=== PATIENT | female | born 1945 | race Caucasian/White ===

== ENCOUNTER 2016-10-31 11:32 | Emergency (ER) | payer MEDICARE, OTHER ==
[~2016-10-31 11:32] MED LIST: /WARF25TA OR; ACET65TA OR; ATARAX OR; ATOR1TAB21 PO; AZEL0.055; BUPRPOW2 SL; FIBEPOW PO; GARL500C5 PO; LEVO50TA5 PO; MELO7.5T3 PO; MONT10TA2 PO; MULTIVIT PO; OMEP20TA7 OR; PERCOCET PO; PRED1SUS6 OS; PROA1AER IN; ROYAL JELLY; TRAM50TA2 OR; VALISONE TOP; WELL100T OR; ZOLOFT PO; [UNRECOGNIZED DRUG - OTHER]; [UNRECOGNIZED DRUG - OTHER]; [UNRECOGNIZED DRUG - OTHER]; [UNRECOGNIZED DRUG - OTHER] PO; aleve; meloxicam PO; rosuvastatin PO
--- NOTE | 2016-10-31 12:11 | ECGEPIP ---
Stationary ECG Study [facility] - ED Test Date: 2016-10-31 Pat Name: ANGIE MANLEY Department: Room: - Gender: F Documentation Supervisor: hola : 1945 Requested By: ANA Pettit Order Number: [id number] Reading MD: Sheri Aguillon Measurements Intervals [place] Rate: 92 P: 41 IA: 148 QRS: 21 QRSD: 91 T: 34 QT: 363 QTc: 449 Interpretive Statements SINUS RHYTHM INCREASED RATE 10/08/11 Electronically Signed On 10-31-2016 12:11:46 EST by Sheri Aguillon
[2016-10-31 12:15] LABS: BASO # 0.1 K/mm3 (0.0-0.2); BASO % 0.4 % (0.0-1.0); EOS # 0.1 K/mm3 (0.0-0.50); EOS % 0.5 % (0.0-3.0); LARGE UNSTAINED CELL # 0.1 K/mm3 (0.0-0.4); LARGE UNSTAINED CELL % 0.9 % (0.0-4.0); LYMPH % 13.3 % (24.0-44.0); MEAN CORPUSCULAR HEMOGLOBIN 31.5 pg (27.0-33.0); MEAN CORPUSCULAR HGB CONC 33.5 g/dl (32.0-36.5); MEAN CORPUSCULAR VOLUME 94.1 fl (80.0-96.0); MONO # 0.3 K/mm3 (0.0-0.8); MONO % 2.2 % (0.0-5.0); NEUTROPHILS # 12.5 K/mm3 (1.8-7.7); NEUTROPHILS % 82.7 % (36.0-66.0); PLATELET COUNT, AUTOMATED 366 k/mm3 (150-450); RED CELL DISTRIBUTION WIDTH 12.4 % (11.5-14.5); WHITE BLOOD COUNT 15.1 K/mm3 (4.0-10.0)
--- NOTE | 2016-10-31 12:15 | REP ---
AP portable sitting chest radiograph 10/31/2016 Indication: Shortness of breath Comparison: PA and lateral chest 10/16/2016, 02/04/2013 at [facility] Findings: The cardiomediastinal silhouette is of normal size. There are calcified mediastinal nodes and a calcified granuloma within the right upper lobe, all stable. The patient has bilateral breast implants with partially calcified fibrous capsules. The appearance is unchanged. There has been previous bilateral total shoulder arthroplasty Impression 1. Old granulomatous disease. No acute cardiopulmonary process or significant interval change Signed by Brenda Blake MD 10/31/2016 12:07 P
[2016-10-31 12:30] LABS: ANION GAP 13 MEQ/L (8-16); BLOOD UREA NITROGEN 27 MG/DL (7-18); CALCIUM LEVEL 9.4 MG/DL (8.8-10.2); CARBON DIOXIDE LEVEL 24 MEQ/L (21-32); CHLORIDE LEVEL 104 MEQ/L (98-107); CREATININE FOR GFR 1.27 MG/DL (0.55-1.02); GLUCOSE, FASTING 108 MG/DL (83-110); POTASSIUM SERUM 4.2 MEQ/L (3.5-5.1); SODIUM LEVEL 141 MEQ/L (136-145)
[2016-10-31] MEDS ORDERED: IPRATROPIUM 0.5MG/ALBUTEROL 2.5MG INH SOL UD 3ML (DUONEB)(J7620) As Ordered ONE (12:40)
[2016-10-31] MEDS ORDERED: ALBUTEROL SULFATE 2.5 MG/0.5 ML INH NEB SOLN As Ordered ONE (12:40)
--- NOTE | 2016-10-31 14:19 | EDDOCDS ---
Nurse's Notes [facility] Name: Naomy Huertas Age: 71 yrs Sex: Female : 1945 Arrival Date: 10/31/2016 Time: 11:32 Bed 14 Private MD: Jimena Johnson A Diagnosis: Acute upper respiratory infection, unspecified Presentation: 10/31 11:37 Adult Sepsis Screening: The patient does not have new or worsening altered mentation. kr3 Patient's respiratory rate is less than 22. Systolic blood pressure is greater than 100. Patient has a qSOFA score of 0- Negative Sepsis Screen. Suicide/Homicide risk assessment- the patient denies having any suicidal and/or homicidal ideations and does not present with any other emotional, behavioral or mental health complaints. 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 11:37 Acuity: HARIS Level 3 kr3 11:37 Method Of Arrival: Walkin/Carried/Asstd kr3 11:38 Presenting complaint: Patient states: chest 'blockage' intermittently for 1 week. pain kr3 center of chest and takes breath away. Transition of care: patient was received from allergy and asthma office. 11:49 Red Flag criteria, patient assessed and taken directly to a bed. kr3 Triage Assessment: 11:42 General: Appears in no apparent distress, comfortable, Behavior is cooperative. Pain: kr3 Pain currently is 0 out of 10 on a pain scale. Aggravated by breathing. Respiratory: Onset: The symptoms/episode began/occurred 1 week. Derm: Skin is normal. Historical: - Allergies: multiple allergies but no meds; - Home Meds: 1. Synthroid 50 mcg oral tab 1 tab once daily 2. ProAir HFA 90 mcg/actuation inhalation HFAA 1 puff every 4-6 hours 3. doxycycline hyclate 100 mg Oral cap 1 cap every 12 hours 4. prednisone 5 mg Oral tab 6 tabs once daily 5. levocetirizine 5 mg oral tab 1 tab once daily 6. fluticasone 50 mcg/actuation nasal spsn 1 spray 2 times per day 7. azelastine 137 mcg (0.1 %) nasal spra 2 sprays 2 times per day 8. atorvastatin 40 mg oral tab 1 tab once daily 9. montelukast 10 mg oral tab 1 tab once daily 10. oxycodone-acetaminophen 5-325 mg Oral tab 1 tab every 6 hours - PMHx: Hypercholesterolemia; - PSHx: Shoulder Arthroplasty. Right; Shoulder Arthroplasty, Left; Hip Arthroplasty, Left; Hip Arthroplasty, Right; - Social history: Smoking status: Patient states former smoker of tobacco. No barriers to communication noted, The patient speaks fluent Burkinan, Speaks appropriately for age. - Family history: Not pertinent. - : The pt / caregiver states he / she is not on anticoagulants. Screenin:51 Screening information is obtained from the patient. Fall risk: No risks identified. pml Assistance ADL's: requires no assistance with activities of daily living. Abuse/DV Screen: The patient / caregiver reports he/she is: not in a situation that causes fear, pain or injury. Nutritional screening: No deficits noted. Advance Directives: Currently, there is no health care proxy. home support is adequate. Assessment: 11:51 General: Appears uncomfortable, well nourished, well groomed, Behavior is anxious, pml appropriate for age, cooperative. Pain: Location: chest Quality of pain is described as "like I got the breath knocked out of me". Neurological: Level of Consciousness is awake, alert, Oriented to person, place, time. Cardiovascular: Capillary refill < 3 seconds Rhythm is sinus rhythm No ectopy. Respiratory: Airway is patent Respiratory effort is even, intermittently takes deep gasping breaths and states she feels like her breath is "blocked" Respiratory pattern is hyperventilation Breath sounds are clear bilaterally. GI: Abdomen is non- distended. Derm: Skin is pink, warm & dry. 13:09 Reassessment: Patient states feeling better. Patient states symptoms have improved. pml General: Appears in no apparent distress, Behavior is appropriate for age, cooperative. Pain: Denies pain. Neurological: Level of Consciousness is awake, alert, Oriented to person, place, time. Cardiovascular: Capillary refill < 3 seconds Rhythm is sinus rhythm No ectopy. Respiratory: Airway is patent Respiratory effort is even, unlabored, Respiratory pattern is regular, symmetrical. Derm: Skin is pink, warm & dry. Vital Signs: 11:34 BP 136 / 82; Pulse 102; Resp 18; Temp 98.5(T); Pulse Ox 100% on R/A; Weight 90.72 kg dem1 (R); Height 5 ft. 7 in. (170.18 cm) (R); Pain 0/10; 11:41 BP 154 / 88 (auto/); pml 11:43 Pulse 98 MON; Pulse Ox 94% ; pml 11:56 Pulse 96 MON; Pulse Ox 95% ; pml 11:56 BP 141 / 72 (auto/); pml 12:11 Pulse 92 MON; Pulse Ox 96% ; pml 12:11 BP 134 / 69 (auto/); pml 12:26 Pulse 102 MON; Pulse Ox 96% ; pml 12:26 BP 161 / 79 (auto/); pml 12:56 Pulse 98 MON; Pulse Ox 95% ; pml 12:56 BP 122 / 68 (auto/); pml 14:16 BP 139 / 73; Pulse 105; Resp 20; Temp 96.7(O); Pulse Ox 96% on R/A; Pain 0/10; jjr 11:34 Body Mass Index 31.32 (90.72 kg, 170.18 cm) [facility] Vitals: 11:34 Log In Time: October 31, 2016 at 11:31. [facility] 11:36 RN notified that patient meets Red Flag criteria. [facility] ED Course: 11:33 Patient visited by Hector Elkins. dem1 11:33 Patient moved to Waiting dem1 11:34 Jimena Johnson is Private Physician. [facility] 11:35 Patient visited by Hector Elkins. dem1 11:35 Patient moved to Pre RCE dem1 11:36 Patient visited by Hector Elkins. dem1 11:36 Patient moved to 14 dem1 11:37 Triage Initiated kr3 11:51 The patient / caregiver is instructed regarding the plan of care and ED course. Patient hawk has correct armband on for positive identification. Placed in gown. Bed in low position. Call light in reach. Side rails up X2. telemetry monitor on. Pulse ox on. NIBP on. 11:51 Inserted peripheral IV: 18gauge IV in right antecubital area and blood collected. pml Patient tolerated the procedure well. 11:54 Patient visited by Yeni James,BIRGIT. pml 12:05 Patient visited by Nick Arce PCA. jlf 12:05 Patient visited by Nick Arce PCA. jlf 12:05 EKG done. (by ED staff). Reviewed by Sera Calzada MD. jlf 12:23 Wilton Espitia FNP is PSYCHIATRICP. ke 12:23 Patient visited by Wilton Espitia FNP. ke 12:23 Patient visited by Wilton Espitia FNP. ke 12:30 EKG-ADULT Returned. EDMS 12:35 Chest, 1 View Returned. EDMS 12:53 [facility] Payment Agreement was scanned into [employer] and attached to record. jp5 12:54 Patient visited by Wilton Espitia FNP. ke 13:10 Patient visited by Yeni James RN. pml 13:43 Jimena Johnson is Referral Physician. ke 14:17 Discontinued lock intact, bleeding controlled, pressure dressing applied, No jjr redness/swelling at site. No procedures done that require assistance. Administered Medications: 12:46 Drug: Albuterol 5 mg [albuterol sulfate 2.5 mg/0.5 mL solution for nebulization (1 mL)] 6 Route: Nebulizer; 13:24 Follow up: Response: Nebulizer completed km6 12:46 Drug: Albuterol-Ipratropium 3 ml [ipratropium-albuterol 0.5 mg-3 mg(2.5 mg base)/3 mL km6 nebulization soln (3 mL)] Route: Inhalation; 13:24 Follow up: Response: Nebulizer completed km6 RT: 12:48 Initial Med Neb Given as ordered Patient was instructed and evaluated on procedure km6 Patient tolerated procedure well without adverse effect. Respiratory: Breath sounds are clear bilaterally. Order Results: Lab Order: B-Type Natiuretic Peptide; SPEC'M 10/31/16 11:47 Test: BRAIN NATRIURETIC PEPTIDE; Value: 17.0; Range: <100; Units: PG/ML; Status: F Lab Order: Basic Metabolic Profile; SPEC'M 10/31/16 11:47 Test: GLUCOSE, FASTING; Value: 108; Range: 83-110; Units: MG/DL; Status: F Test: BLOOD UREA NITROGEN; Value: 27; Range: 7-18; Abnormal: Above high normal; Units: MG/DL; Status: F Test: CREATININE FOR GFR; Value: 1.27; Range: 0.55-1.02; Abnormal: Above high normal; Units: MG/DL; Status: F Test: GLOMERULAR FILTRATION RATE; Value: 44.0; Range: >39; Status: F Test: SODIUM LEVEL; Value: 141; Range: 136-145; Units: MEQ/L; Status: F Test: POTASSIUM SERUM; Value: 4.2; Range: 3.5-5.1; Units: MEQ/L; Status: F Test: CHLORIDE LEVEL; Value: 104; Range: 98-107; Units: MEQ/L; Status: F Test: CARBON DIOXIDE LEVEL; Value: 24; Range: 21-32; Units: MEQ/L; Status: F Test: ANION GAP; Value: 13; Range: 8-16; Units: MEQ/L; Status: F Test: CALCIUM LEVEL; Value: 9.4; Range: 8.8-10.2; Units: MG/DL; Status: F Test Note: ; Units are mL/min/1.73 m2 Chronic Kidney Disease Staging per NKF: Stage I & II GFR >=60 Normal to Mildly Decreased Stage III GFR 30-59 Moderately Decreased Stage IV GFR 15-29 Severely Decreased Stage V GFR <15 Very Little GFR Left ESRD GFR <15 on COMMUTER PILOT Lab Order: CBC with Diff; SPEC'M 10/31/16 11:47 Test: WHITE BLOOD COUNT; Value: 15.1; Range: 4.0-10.0; Abnormal: Above high normal; Units: K/mm3; Status: F Test: RED BLOOD COUNT; Value: 4.64; Range: 4.00-5.40; Units: M/mm3; Status: F Test: HEMOGLOBIN; Value: 14.7; Range: 12.0-16.0; Units: g/dl; Status: F Test: HEMATOCRIT; Value: 43.7; Range: 36.0-47.0; Units: %; Status: F Test: MEAN CORPUSCULAR VOLUME; Value: 94.1; Range: 80.0-96.0; Units: fl; Status: F Test: MEAN CORPUSCULAR HEMOGLOBIN; Value: 31.5; Range: 27.0-33.0; Units: pg; Status: F Test: MEAN CORPUSCULAR HGB CONC; Value: 33.5; Range: 32.0-36.5; Units: g/dl; Status: F Test: RED CELL DISTRIBUTION WIDTH; Value: 12.4; Range: 11.5-14.5; Units: %; Status: F Test: PLATELET COUNT, AUTOMATED; Value: 366; Range: 150-450; Units: k/mm3; Status: F Test: NEUTROPHILS %; Value: 82.7; Range: 36.0-66.0; Abnormal: Above high normal; Units: %; Status: F Test: LYMPH %; Value: 13.3; Range: 24.0-44.0; Abnormal: Below low normal; Units: %; Status: F Test: MONO %; Value: 2.2; Range: 0.0-5.0; Units: %; Status: F Test: EOS %; Value: 0.5; Range: 0.0-3.0; Units: %; Status: F Test: BASO %; Value: 0.4; Range: 0.0-1.0; Units: %; Status: F Test: LARGE UNSTAINED CELL %; Value: 0.9; Range: 0.0-4.0; Units: %; Status: F Test: NEUTROPHILS #; Value: 12.5; Range: 1.8-7.7; Abnormal: Above high normal; Units: K/mm3; Status: F Test: LYMPH #; Value: 2.0; Range: 1.5-4.5; Units: K/mm3; Status: F Test: MONO #; Value: 0.3; Range: 0.0-0.8; Units: K/mm3; Status: F Test: EOS #; Value: 0.1; Range: 0.0-0.50; Units: K/mm3; Status: F Test: BASO #; Value: 0.1; Range: 0.0-0.2; Units: K/mm3; Status: F Test: LARGE UNSTAINED CELL #; Value: 0.1; Range: 0.0-0.4; Units: K/mm3; Status: F Lab Order: Troponin; SPEC'M 10/31/16 11:47 Test: TROPONIN I; Value: < 0.02; Range: < 0.10; Units: NG/ML; Status: F Test Note: ; Troponin I Reference Interval for [place] LOCI: 99th Percentile= 0.00-0.045 ng/ml Risk Stratification: <= 0.10 ng/ml Decreased Risk for Adverse Clinical Events. 0.10-1.50 ng/ml Increased Risk for Adverse Clinical Events. Evaluation of additional criterion and/or repeat testing in 2-6 hours is suggested to rule out myocardial damage. >= 1.50 ng/ml Indicative of Myocardial Injury. Radiology Order: Chest, 1 View Test: Chest, 1 View REASON FOR EXAMINATION: Shortness of Breath; AP portable sitting chest radiograph 10/31/2016; ; Indication: Shortness of breath; ; Comparison: PA and lateral chest 10/16/2016, 02/04/2013 at [facility] Findings: The; cardiomediastinal silhouette is of normal size. There are calcified mediastinal; nodes and a calcified granuloma within the right upper lobe, all stable. The; patient has bilateral breast implants with partially calcified fibrous capsules.; The appearance is unchanged.; ; There has been previous bilateral total shoulder arthroplasty; ; Impression; 1. Old granulomatous disease. 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 14:17 Discharge Assessment: patient administered narcotics - no. The following High Risk jjr Discharge criteria are identified: None. Discharged to home ambulatory. Condition: stable. Discharge instructions given to patient, Instructed on discharge instructions, follow up and referral plans. Demonstrated understanding of instructions. No special radiology studies were completed. Property sent home with patient. 14:18 Patient left the ED. jjr Signatures: Dispatcher [employer] EDMS Wilton Espitia, DUCK FARMER DUCK FARMER [place] km6 Kirstie Arizmendi,RN RN kr3 Maryellen Gonzalez RN RN jjr Quay, Paulina, RN RN pml Mack, Demeishia dem1 Nick Arce, CREPING MACHINE OPERATOR CREPING MACHINE OPERATOR jlf Sohan Berry 5 Corrections: (The following items were deleted from the chart) 12:21 11:42 Home Meds: montelukast oral oral once daily; kr3 pml 12:21 11:42 Home Meds: Synthroid Oral once daily; kr3 pml MTDD
--- NOTE | 2016-10-31 14:19 | EDDOCDS ---
Physician Documentation [facility] Name: Naomy Huertas Age: 71 yrs Sex: Female : 1945 Arrival Date: 10/31/2016 Time: 11:32 Bed 14 Private MD: Jimena Johnson A Disposition: 10/31/16 13:43 Discharged to Home/Self Care. Impression: Acute upper respiratory infection, unspecified. - Condition is Stable. - Discharge Instructions: Upper Respiratory Infection, Adult. - Medication Reconciliation, Local Pharmacy Hours form. - Follow up: Jimena Johnson; When: 4 - 5 days; Reason: Recheck today's complaints, Continuance of care. - Problem is an ongoing problem. - Symptoms are unchanged. - Notes: continue present treatment Historical: - Allergies: multiple allergies but no meds; - Home Meds: 1. Synthroid 50 mcg oral tab 1 tab once daily 2. ProAir HFA 90 mcg/actuation inhalation HFAA 1 puff every 4-6 hours 3. doxycycline hyclate 100 mg Oral cap 1 cap every 12 hours 4. prednisone 5 mg Oral tab 6 tabs once daily 5. levocetirizine 5 mg oral tab 1 tab once daily 6. fluticasone 50 mcg/actuation nasal spsn 1 spray 2 times per day 7. azelastine 137 mcg (0.1 %) nasal spra 2 sprays 2 times per day 8. atorvastatin 40 mg oral tab 1 tab once daily 9. montelukast 10 mg oral tab 1 tab once daily 10. oxycodone-acetaminophen 5-325 mg Oral tab 1 tab every 6 hours - PMHx: Hypercholesterolemia; - PSHx: Shoulder Arthroplasty. Right; Shoulder Arthroplasty, Left; Hip Arthroplasty, Left; Hip Arthroplasty, Right; - Social history: Smoking status: Patient states former smoker of tobacco. No barriers to communication noted, The patient speaks fluent Croatian, Speaks appropriately for age. - Family history: Not pertinent. - : The pt / caregiver states he / she is not on anticoagulants. Vital Signs: 10/31 11:34 BP 136 / 82; Pulse 102; Resp 18; Temp 98.5(T); Pulse Ox 100% on R/A; Weight 90.72 kg / dem1 200 lbs (R); Height 5 ft. 7 in. (170.18 cm) (R); Pain 0/10; 11:41 BP 154 / 88 (auto/); pml 11:43 Pulse 98 MON; Pulse Ox 94% ; pml 11:56 Pulse 96 MON; Pulse Ox 95% ; pml 11:56 BP 141 / 72 (auto/); pml 12:11 Pulse 92 MON; Pulse Ox 96% ; pml 12:11 BP 134 / 69 (auto/); pml 12:26 Pulse 102 MON; Pulse Ox 96% ; pml 12:26 BP 161 / 79 (auto/); pml 12:56 Pulse 98 MON; Pulse Ox 95% ; pml 12:56 BP 122 / 68 (auto/); pml 14:16 BP 139 / 73; Pulse 105; Resp 20; Temp 96.7(O); Pulse Ox 96% on R/A; Pain 0/10; jjr 11:34 Body Mass Index 31.32 (90.72 kg, 170.18 cm) dem1 MDM: 11:39 -Blood Culture (Adults Only), peripheral from different site, or from device/port/PICC fg etc. if present ordered. 11:39 Java Lead Developer/Pulse Ox/q 15 min VS ordered. fg 11:39 IV Saline Lock ordered. fg 11:39 Oxygen at 4L/Min NC or Home dosage ordered. fg 11:39 Rhythm Strip to chart ordered. fg 11:40 B-Type Natiuretic Peptide Ordered. EDMS 11:40 Basic Metabolic Profile Ordered. EDMS 11:40 CBC with Diff Ordered. EDMS 11:40 Troponin Ordered. EDMS 11:40 -Blood Culture Ordered. EDMS 11:40 Chest, 1 View Ordered. EDMS 11:40 ECG WITH READING ER PHYS+CARDIAG ordered. EDMS 12:03 -Blood Culture (Adults Only), peripheral from different site, or from device/port/PICC jrd etc. if present complete. 12:04 BLOOD CULTURES Ordered. EDMS 12:27 Albuterol 5 mg Nebulizer once ordered. ke 12:27 Albuterol-Ipratropium 3 ml Inhalation once ordered. ke 12:27 Call Respiratory ordered. ke 12:31 Call Respiratory complete. jrd 12:53 [facility] Payment Agreement was scanned into [employer] and attached to record. jp5 12:53 Financial registration complete. jp5 13:36 Basic Metabolic Profile Reviewed. ke 13:36 CBC with Diff Reviewed. ke 13:36 Troponin Reviewed. kylie 13:36 Chest, 1 View Reviewed. ke 13:36 EKG-ADULT Reviewed. ke Administered Medications: 12:46 Drug: Albuterol 5 mg [albuterol sulfate 2.5 mg/0.5 mL solution for nebulization (1 mL)] km6 Route: Nebulizer; 13:24 Follow up: Response: Nebulizer completed km6 12:46 Drug: Albuterol-Ipratropium 3 ml [ipratropium-albuterol 0.5 mg-3 mg(2.5 mg base)/3 mL km6 nebulization soln (3 mL)] Route: Inhalation; 13:24 Follow up: Response: Nebulizer completed km6 Signatures: Dispatcher [employer] EDWilton Chaudhry, PUPPET MASTER PUPPET MASTER Kirstie DoddRN RN kr3 Maryellen Gonzalez RN Yeni RoblesRN Asif Reyes PCA PCA jrd Price, Jennalee jp5 Sera Calzada MD MD fg Merriman, Kimberly 6 The chart was reviewed and I authenticate all verbal orders and agree with the evaluation and treatment provided.Corrections: (The following items were deleted from the chart) 12:21 11:42 Home Meds: montelukast oral oral once daily; kr3 pml 12:21 11:42 Home Meds: Synthroid Oral once daily; kr3 pml Attachments: 12:53 REPLACED BY [facility] Payment Agreement jp5 MTDD
--- NOTE | 2016-11-02 15:19 | EDDOCDS ---
Nurse's Notes [facility] Name: Naomy Huertas Age: 71 yrs Sex: Female : 1945 Arrival Date: 10/31/2016 Time: 11:32 Bed 14 Private MD: Jimena Johnson A Diagnosis: Acute upper respiratory infection, unspecified Presentation: 10/31 11:37 Adult Sepsis Screening: The patient does not have new or worsening altered mentation. kr3 Patient's respiratory rate is less than 22. Systolic blood pressure is greater than 100. Patient has a qSOFA score of 0- Negative Sepsis Screen. Suicide/Homicide risk assessment- the patient denies having any suicidal and/or homicidal ideations and does not present with any other emotional, behavioral or mental health complaints. Status: Patient is not a director of home health services or dependent. 11:37 Acuity: HARIS Level 3 kr3 11:37 Method Of Arrival: Walkin/Carried/Asstd kr3 11:38 Presenting complaint: Patient states: chest 'blockage' intermittently for 1 week. pain kr3 center of chest and takes breath away. Transition of care: patient was received from allergy and asthma office. 11:49 Red Flag criteria, patient assessed and taken directly to a bed. kr3 Triage Assessment: 11:42 General: Appears in no apparent distress, comfortable, Behavior is cooperative. Pain: kr3 Pain currently is 0 out of 10 on a pain scale. Aggravated by breathing. Respiratory: Onset: The symptoms/episode began/occurred 1 week. Derm: Skin is normal. Historical: - Allergies: multiple allergies but no meds; - Home Meds: 1. Synthroid 50 mcg oral tab 1 tab once daily 2. ProAir HFA 90 mcg/actuation inhalation HFAA 1 puff every 4-6 hours 3. doxycycline hyclate 100 mg Oral cap 1 cap every 12 hours 4. prednisone 5 mg Oral tab 6 tabs once daily 5. levocetirizine 5 mg oral tab 1 tab once daily 6. fluticasone 50 mcg/actuation nasal spsn 1 spray 2 times per day 7. azelastine 137 mcg (0.1 %) nasal spra 2 sprays 2 times per day 8. atorvastatin 40 mg oral tab 1 tab once daily 9. montelukast 10 mg oral tab 1 tab once daily 10. oxycodone-acetaminophen 5-325 mg Oral tab 1 tab every 6 hours - PMHx: Hypercholesterolemia; - PSHx: Shoulder Arthroplasty. Right; Shoulder Arthroplasty, Left; Hip Arthroplasty, Left; Hip Arthroplasty, Right; - Social history: Smoking status: Patient states former smoker of tobacco. No barriers to communication noted, The patient speaks fluent Afghan, Speaks appropriately for age. - Family history: Not pertinent. - : The pt / caregiver states he / she is not on anticoagulants. Screenin:51 Screening information is obtained from the patient. Fall risk: No risks identified. pml Assistance ADL's: requires no assistance with activities of daily living. Abuse/DV Screen: The patient / caregiver reports he/she is: not in a situation that causes fear, pain or injury. Nutritional screening: No deficits noted. Advance Directives: Currently, there is no health care proxy. home support is adequate. Assessment: 11:51 General: Appears uncomfortable, well nourished, well groomed, Behavior is anxious, pml appropriate for age, cooperative. Pain: Location: chest Quality of pain is described as "like I got the breath knocked out of me". Neurological: Level of Consciousness is awake, alert, Oriented to person, place, time. Cardiovascular: Capillary refill < 3 seconds Rhythm is sinus rhythm No ectopy. Respiratory: Airway is patent Respiratory effort is even, intermittently takes deep gasping breaths and states she feels like her breath is "blocked" Respiratory pattern is hyperventilation Breath sounds are clear bilaterally. GI: Abdomen is non- distended. Derm: Skin is pink, warm & dry. 13:09 Reassessment: Patient states feeling better. Patient states symptoms have improved. pml General: Appears in no apparent distress, Behavior is appropriate for age, cooperative. Pain: Denies pain. Neurological: Level of Consciousness is awake, alert, Oriented to person, place, time. Cardiovascular: Capillary refill < 3 seconds Rhythm is sinus rhythm No ectopy. Respiratory: Airway is patent Respiratory effort is even, unlabored, Respiratory pattern is regular, symmetrical. Derm: Skin is pink, warm & dry. Vital Signs: 11:34 BP 136 / 82; Pulse 102; Resp 18; Temp 98.5(T); Pulse Ox 100% on R/A; Weight 90.72 kg dem1 (R); Height 5 ft. 7 in. (170.18 cm) (R); Pain 0/10; 11:41 BP 154 / 88 (auto/); pml 11:43 Pulse 98 MON; Pulse Ox 94% ; pml 11:56 Pulse 96 MON; Pulse Ox 95% ; pml 11:56 BP 141 / 72 (auto/); pml 12:11 Pulse 92 MON; Pulse Ox 96% ; pml 12:11 BP 134 / 69 (auto/); pml 12:26 Pulse 102 MON; Pulse Ox 96% ; pml 12:26 BP 161 / 79 (auto/); pml 12:56 Pulse 98 MON; Pulse Ox 95% ; pml 12:56 BP 122 / 68 (auto/); pml 14:16 BP 139 / 73; Pulse 105; Resp 20; Temp 96.7(O); Pulse Ox 96% on R/A; Pain 0/10; jjr 11:34 Body Mass Index 31.32 (90.72 kg, 170.18 cm) [facility] Vitals: 11:34 Log In Time: October 31, 2016 at 11:31. [facility] 11:36 RN notified that patient meets Red Flag criteria. [facility] ED Course: 11:33 Patient visited by Hector Elkins. dem1 11:33 Patient moved to Waiting dem1 11:34 Jimena Johnson is Private Physician. [facility] 11:35 Patient visited by Hector Elkins. dem1 11:35 Patient moved to Pre RCE dem1 11:36 Patient visited by Hector Elkins. dem1 11:36 Patient moved to 14 dem1 11:37 Triage Initiated kr3 11:51 The patient / caregiver is instructed regarding the plan of care and ED course. Patient hawk has correct armband on for positive identification. Placed in gown. Bed in low position. Call light in reach. Side rails up X2. quality assurance monitor chassis on. Pulse ox on. NIBP on. 11:51 Inserted peripheral IV: 18gauge IV in right antecubital area and blood collected. pml Patient tolerated the procedure well. 11:54 Patient visited by Yeni James,BIRGIT. pml 12:05 Patient visited by Nick Arce PCA. jlf 12:05 Patient visited by Nick Arce PCA. jlf 12:05 EKG done. (by ED staff). Reviewed by Sera Calzada MD. jlf 12:23 [facility] ke 12:23 Patient visited by Wilton Espitia FNP. ke 12:23 Patient visited by Wilton Espitia FNP. ke 12:30 EKG-ADULT Returned. EDMS 12:35 Chest, 1 View Returned. EDMS 12:53 [facility] Payment Agreement was scanned into [employer] and attached to record. jp5 12:54 Patient visited by Wilton Espitia FNP. ke 13:10 Patient visited by Yeni James RN. pml 13:43 Jimena Johnson is Referral Physician. ke 14:17 Discontinued lock intact, bleeding controlled, pressure dressing applied, No jjr redness/swelling at site. No procedures done that require assistance. 11/01 07:44 T-Sheet-- Draft Copy was scanned into [employer] and attached to record. gb 12:20 ECG/EKG was scanned into [employer] and attached to record. gb Administered Medications: 10/31 12:46 Drug: Albuterol 5 mg [albuterol sulfate 2.5 mg/0.5 mL solution for nebulization (1 mL)] [facility] Route: Nebulizer; 13:24 Follow up: Response: Nebulizer completed [facility] 12:46 Drug: Albuterol-Ipratropium 3 ml [ipratropium-albuterol 0.5 mg-3 mg(2.5 mg base)/3 mL [facility] nebulization soln (3 mL)] Route: Inhalation; 13:24 Follow up: Response: Nebulizer completed 6 RT: 12:48 Initial Med Neb Given as ordered Patient was instructed and evaluated on procedure km6 Patient tolerated procedure well without adverse effect. Respiratory: Breath sounds are clear bilaterally. Order Results: Lab Order: -Blood Culture; SPEC'M 10/31/16 11:49 Test: BLOOD CULTURE; Value: No growth after 24 hours . All specimens observed; Status: F Test: BLOOD CULTURE; Value: for 5 days. Results final at that time.; Status: F Test: BLOOD CULTURE; Value: No Growth after 48 hours. All Specimens observed; Status: F Test: BLOOD CULTURE; Value: for 7 days. Results final at that time.; Status: F Lab Order: B-Type Natiuretic Peptide; SPEC'M 10/31/16 11:47 Test: BRAIN NATRIURETIC PEPTIDE; Value: 17.0; Range: <100; Units: PG/ML; Status: F Lab Order: Basic Metabolic Profile; SPEC'M 10/31/16 11:47 Test: GLUCOSE, FASTING; Value: 108; Range: 83-110; Units: MG/DL; Status: F Test: BLOOD UREA NITROGEN; Value: 27; Range: 7-18; Abnormal: Above high normal; Units: MG/DL; Status: F Test: CREATININE FOR GFR; Value: 1.27; Range: 0.55-1.02; Abnormal: Above high normal; Units: MG/DL; Status: F Test: GLOMERULAR FILTRATION RATE; Value: 44.0; Range: >39; Status: F Test: SODIUM LEVEL; Value: 141; Range: 136-145; Units: MEQ/L; Status: F Test: POTASSIUM SERUM; Value: 4.2; Range: 3.5-5.1; Units: MEQ/L; Status: F Test: CHLORIDE LEVEL; Value: 104; Range: 98-107; Units: MEQ/L; Status: F Test: CARBON DIOXIDE LEVEL; Value: 24; Range: 21-32; Units: MEQ/L; Status: F Test: ANION GAP; Value: 13; Range: 8-16; Units: MEQ/L; Status: F Test: CALCIUM LEVEL; Value: 9.4; Range: 8.8-10.2; Units: MG/DL; Status: F Test Note: ; Units are mL/min/1.73 m2 Chronic Kidney Disease Staging per NKF: Stage I & II GFR >=60 Normal to Mildly Decreased Stage III GFR 30-59 Moderately Decreased Stage IV GFR 15-29 Severely Decreased Stage V GFR <15 Very Little GFR Left ESRD GFR <15 on CREDIT COMPLIANCE OFFICER Lab Order: CBC with Diff; SPEC'M 10/31/16 11:47 Test: WHITE BLOOD COUNT; Value: 15.1; Range: 4.0-10.0; Abnormal: Above high normal; Units: K/mm3; Status: F Test: RED BLOOD COUNT; Value: 4.64; Range: 4.00-5.40; Units: M/mm3; Status: F Test: HEMOGLOBIN; Value: 14.7; Range: 12.0-16.0; Units: g/dl; Status: F Test: HEMATOCRIT; Value: 43.7; Range: 36.0-47.0; Units: %; Status: F Test: MEAN CORPUSCULAR VOLUME; Value: 94.1; Range: 80.0-96.0; Units: fl; Status: F Test: MEAN CORPUSCULAR HEMOGLOBIN; Value: 31.5; Range: 27.0-33.0; Units: pg; Status: F Test: MEAN CORPUSCULAR HGB CONC; Value: 33.5; Range: 32.0-36.5; Units: g/dl; Status: F Test: RED CELL DISTRIBUTION WIDTH; Value: 12.4; Range: 11.5-14.5; Units: %; Status: F Test: PLATELET COUNT, AUTOMATED; Value: 366; Range: 150-450; Units: k/mm3; Status: F Test: NEUTROPHILS %; Value: 82.7; Range: 36.0-66.0; Abnormal: Above high normal; Units: %; Status: F Test: LYMPH %; Value: 13.3; Range: 24.0-44.0; Abnormal: Below low normal; Units: %; Status: F Test: MONO %; Value: 2.2; Range: 0.0-5.0; Units: %; Status: F Test: EOS %; Value: 0.5; Range: 0.0-3.0; Units: %; Status: F Test: BASO %; Value: 0.4; Range: 0.0-1.0; Units: %; Status: F Test: LARGE UNSTAINED CELL %; Value: 0.9; Range: 0.0-4.0; Units: %; Status: F Test: NEUTROPHILS #; Value: 12.5; Range: 1.8-7.7; Abnormal: Above high normal; Units: K/mm3; Status: F Test: LYMPH #; Value: 2.0; Range: 1.5-4.5; Units: K/mm3; Status: F Test: MONO #; Value: 0.3; Range: 0.0-0.8; Units: K/mm3; Status: F Test: EOS #; Value: 0.1; Range: 0.0-0.50; Units: K/mm3; Status: F Test: BASO #; Value: 0.1; Range: 0.0-0.2; Units: K/mm3; Status: F Test: LARGE UNSTAINED CELL #; Value: 0.1; Range: 0.0-0.4; Units: K/mm3; Status: F Lab Order: Troponin; SPEC'M 10/31/16 11:47 Test: TROPONIN I; Value: < 0.02; Range: < 0.10; Units: NG/ML; Status: F Test Note: ; Troponin I Reference Interval for Siemens Digital Reef LOCI: 99th Percentile= 0.00-0.045 ng/ml Risk Stratification: <= 0.10 ng/ml Decreased Risk for Adverse Clinical Events. 0.10-1.50 ng/ml Increased Risk for Adverse Clinical Events. Evaluation of additional criterion and/or repeat testing in 2-6 hours is suggested to rule out myocardial damage. >= 1.50 ng/ml Indicative of Myocardial Injury. Lab Order: BLOOD CULTURES; SPEC'M 10/31/16 12:38 Test: BLOOD CULTURE; Value: No growth after 24 hours . All specimens observed; Status: F Test: BLOOD CULTURE; Value: for 5 days. Results final at that time.; Status: F Test: BLOOD CULTURE; Value: No Growth after 48 hours. All Specimens observed; Status: F Test: BLOOD CULTURE; Value: for 7 days. Results final at that time.; Status: F Radiology Order: Chest, 1 View Test: Chest, 1 View REASON FOR EXAMINATION: Shortness of Breath; AP portable sitting chest radiograph 10/31/2016; ; Indication: Shortness of breath; ; Comparison: PA and lateral chest 10/16/2016, 02/04/[address] [facility] Findings: The; cardiomediastinal silhouette is of normal size. There are calcified mediastinal; nodes and a calcified granuloma within the right upper lobe, all stable. The; patient has bilateral breast implants with partially calcified fibrous capsules.; The appearance is unchanged.; ; There has been previous bilateral total shoulder arthroplasty; ; Impression; 1. Old granulomatous disease. No acute cardiopulmonary process or significant; interval change; ; ; ; ; Signed by; Brenda Blake MD 10/31/2016 12:07 P; Radiology Order: EKG-ADULT Test: EKG-ADULT REASON FOR EXAMINATION: Shortness of Breath; Stationary ECG Study; [facility] - ED; ; Test Date: 2016-10-31; Pat Name: NAOMY HUERTAS Department:; Room: -; Gender: F Manager Payer: hola; : 1945 Requested By: SERA Pettit; Order Number: [id number] Reading MD: Sheri Aguillon; Measurements; Intervals [place]; Rate: 92 P: 41; ND: 148 QRS: 21; QRSD: 91 T: 34; QT: 363; QTc: 449; Interpretive Statements; SINUS RHYTHM; INCREASED RATE 10/08/11; Electronically Signed On 10-31-2016 12:11:46 EST by Sheri Aguillon; Outcome: 13:43 Discharge ordered by Provider. kylie 14:17 Discharge Assessment: patient administered narcotics - no. The following High Risk jjr Discharge criteria are identified: None. Discharged to home ambulatory. Condition: stable. Discharge instructions given to patient, Instructed on discharge instructions, follow up and referral plans. Demonstrated understanding of instructions. No special radiology studies were completed. Property sent home with patient. 14:18 Patient left the ED. jjr Signatures: Dispatcher Med[employer] EDMS Toya Sullivan, Reg Reg gb Wilton Espitia, RANGE MECHANIC RANGE MECHANIC Phoebe West 6 Kirstie Arizmendi,RN RN [email or web address] Maryellen Gonzalez RN RN Yeni Santo RN RN Hector Pérez Jordain, PCA BRICKMASON HELPER Sohan Braxton jp5 Corrections: (The following items were deleted from the chart) 12:21 11:42 Home Meds: montelukast oral oral once daily; kr3 pml 12:21 11:42 Home Meds: Synthroid Oral once daily; kr3 pml Chart Complete MTDD
--- NOTE | 2016-11-02 15:19 | EDDOCDS ---
Physician Documentation [facility] Name: Naomy Huertas Age: 71 yrs Sex: Female : 1945 Arrival Date: 10/31/2016 Time: 11:32 Bed 14 Private MD: Jimena Johnson A Disposition: 10/31/16 13:43 Discharged to Home/Self Care. Impression: Acute upper respiratory infection, unspecified. - Condition is Stable. - Discharge Instructions: Upper Respiratory Infection, Adult. - Medication Reconciliation, Local Pharmacy Hours form. - Follow up: Jimena Johnson; When: 4 - 5 days; Reason: Recheck today's complaints, Continuance of care. - Problem is an ongoing problem. - Symptoms are unchanged. - Notes: continue present treatment Historical: - Allergies: multiple allergies but no meds; - Home Meds: 1. Synthroid 50 mcg oral tab 1 tab once daily 2. ProAir HFA 90 mcg/actuation inhalation HFAA 1 puff every 4-6 hours 3. doxycycline hyclate 100 mg Oral cap 1 cap every 12 hours 4. prednisone 5 mg Oral tab 6 tabs once daily 5. levocetirizine 5 mg oral tab 1 tab once daily 6. fluticasone 50 mcg/actuation nasal spsn 1 spray 2 times per day 7. azelastine 137 mcg (0.1 %) nasal spra 2 sprays 2 times per day 8. atorvastatin 40 mg oral tab 1 tab once daily 9. montelukast 10 mg oral tab 1 tab once daily 10. oxycodone-acetaminophen 5-325 mg Oral tab 1 tab every 6 hours - PMHx: Hypercholesterolemia; - PSHx: Shoulder Arthroplasty. Right; Shoulder Arthroplasty, Left; Hip Arthroplasty, Left; Hip Arthroplasty, Right; - Social history: Smoking status: Patient states former smoker of tobacco. No barriers to communication noted, The patient speaks fluent Divehi, Speaks appropriately for age. - Family history: Not pertinent. - : The pt / caregiver states he / she is not on anticoagulants. Vital Signs: 10/31 11:34 BP 136 / 82; Pulse 102; Resp 18; Temp 98.5(T); Pulse Ox 100% on R/A; Weight 90.72 kg / dem1 200 lbs (R); Height 5 ft. 7 in. (170.18 cm) (R); Pain 0/10; 11:41 BP 154 / 88 (auto/); pml 11:43 Pulse 98 MON; Pulse Ox 94% ; pml 11:56 Pulse 96 MON; Pulse Ox 95% ; pml 11:56 BP 141 / 72 (auto/); pml 12:11 Pulse 92 MON; Pulse Ox 96% ; pml 12:11 BP 134 / 69 (auto/); pml 12:26 Pulse 102 MON; Pulse Ox 96% ; pml 12:26 BP 161 / 79 (auto/); pml 12:56 Pulse 98 MON; Pulse Ox 95% ; pml 12:56 BP 122 / 68 (auto/); pml 14:16 BP 139 / 73; Pulse 105; Resp 20; Temp 96.7(O); Pulse Ox 96% on R/A; Pain 0/10; jjr 11:34 Body Mass Index 31.32 (90.72 kg, 170.18 cm) dem1 MDM: 11:39 -Blood Culture (Adults Only), peripheral from different site, or from device/port/PICC fg etc. if present ordered. 11:39 Capping Machine Operator/Pulse Ox/q 15 min VS ordered. fg 11:39 IV Saline Lock ordered. fg 11:39 Oxygen at 4L/Min NC or Home dosage ordered. fg 11:39 Rhythm Strip to chart ordered. fg 11:40 B-Type Natiuretic Peptide Ordered. EDMS 11:40 Basic Metabolic Profile Ordered. EDMS 11:40 CBC with Diff Ordered. EDMS 11:40 Troponin Ordered. EDMS 11:40 -Blood Culture Ordered. EDMS 11:40 Chest, 1 View Ordered. EDMS 11:40 ECG WITH READING ER PHYS+CARDIAG ordered. EDMS 12:03 -Blood Culture (Adults Only), peripheral from different site, or from device/port/PICC jrd etc. if present complete. 12:04 BLOOD CULTURES Ordered. EDMS 12:27 Albuterol 5 mg Nebulizer once ordered. ke 12:27 Albuterol-Ipratropium 3 ml Inhalation once ordered. ke 12:27 Call Respiratory ordered. ke 12:31 Call Respiratory complete. jrd 12:53 [facility] [place] Agreement was scanned into [email or web address] and attached to record. jp5 12:53 Financial registration complete. jp5 13:36 Basic Metabolic Profile Reviewed. ke 13:36 CBC with Diff Reviewed. ke 13:36 Troponin Reviewed. ke 13:36 Chest, 1 View Reviewed. ke 13:36 EKG-ADULT Reviewed. ke 11/01 07:44 T-Sheet-- Draft Copy was scanned into [email or web address] and attached to record. gb 12:20 ECG/EKG was scanned into [employer] and attached to record. gb Administered Medications: 10/31 12:46 Drug: Albuterol 5 mg [albuterol sulfate 2.5 mg/0.5 mL solution for nebulization (1 mL)] 6 Route: Nebulizer; 13:24 Follow up: Response: Nebulizer completed km6 12:46 Drug: Albuterol-Ipratropium 3 ml [ipratropium-albuterol 0.5 mg-3 mg(2.5 mg base)/3 mL 6 nebulization soln (3 mL)] Route: Inhalation; 13:24 Follow up: Response: Nebulizer completed 6 Signatures: Dispatcher [employer] EDMS Toya Sullivan, Reg Reg gb Wilton Espitia, OSCILLOGRAPH TECHNICIAN OSCILLOGRAPH TECHNICIAN Kirstie Dodd,RN RN kr3 Maryellen Gonzalez RN RN Yeni Santo,RN RN Asif Crawford, AVINASH IT SOLUTIONS ARCHITECT Sohan Fletcher jp5 Sera Calzada MD MD fg Merriman, Kimberly 6 The chart was reviewed and I authenticate all verbal orders and agree with the evaluation and treatment provided.Corrections: (The following items were deleted from the chart) 12:21 11:42 Home Meds: montelukast oral oral once daily; kr3 pml 12:21 11:42 Home Meds: Synthroid Oral once daily; kr3 pml Attachments: 12:53 [facility] Payment Agreement jp5 11/01 07:44 T-Sheet-- Draft Copy gb 12:20 ECG/EKG gb Chart Complete MTDD
--- NOTE | 2016-11-02 15:19 | EDDOCDS ---
Physician Documentation [facility] Name: Naomy Huertas Age: 71 yrs Sex: Female : 1945 Arrival Date: 10/31/2016 Time: 11:32 Bed 14 Private MD: Jimena Johnson A Disposition: 10/31/16 13:43 Discharged to Home/Self Care. Impression: Acute upper respiratory infection, unspecified. - Condition is Stable. - Discharge Instructions: Upper Respiratory Infection, Adult. - Medication Reconciliation, Local Pharmacy Hours form. - Follow up: Jimena Johnson; When: 4 - 5 days; Reason: Recheck today's complaints, Continuance of care. - Problem is an ongoing problem. - Symptoms are unchanged. - Notes: continue present treatment Historical: - Allergies: multiple allergies but no meds; - Home Meds: 1. Synthroid 50 mcg oral tab 1 tab once daily 2. ProAir HFA 90 mcg/actuation inhalation HFAA 1 puff every 4-6 hours 3. doxycycline hyclate 100 mg Oral cap 1 cap every 12 hours 4. prednisone 5 mg Oral tab 6 tabs once daily 5. levocetirizine 5 mg oral tab 1 tab once daily 6. fluticasone 50 mcg/actuation nasal spsn 1 spray 2 times per day 7. azelastine 137 mcg (0.1 %) nasal spra 2 sprays 2 times per day 8. atorvastatin 40 mg oral tab 1 tab once daily 9. montelukast 10 mg oral tab 1 tab once daily 10. oxycodone-acetaminophen 5-325 mg Oral tab 1 tab every 6 hours - PMHx: Hypercholesterolemia; - PSHx: Shoulder Arthroplasty. Right; Shoulder Arthroplasty, Left; Hip Arthroplasty, Left; Hip Arthroplasty, Right; - Social history: Smoking status: Patient states former smoker of tobacco. No barriers to communication noted, The patient speaks fluent Lao, Speaks appropriately for age. - Family history: Not pertinent. - : The pt / caregiver states he / she is not on anticoagulants. Vital Signs: 10/31 11:34 BP 136 / 82; Pulse 102; Resp 18; Temp 98.5(T); Pulse Ox 100% on R/A; Weight 90.72 kg / dem1 200 lbs (R); Height 5 ft. 7 in. (170.18 cm) (R); Pain 0/10; 11:41 BP 154 / 88 (auto/); pml 11:43 Pulse 98 MON; Pulse Ox 94% ; pml 11:56 Pulse 96 MON; Pulse Ox 95% ; pml 11:56 BP 141 / 72 (auto/); pml 12:11 Pulse 92 MON; Pulse Ox 96% ; pml 12:11 BP 134 / 69 (auto/); pml 12:26 Pulse 102 MON; Pulse Ox 96% ; pml 12:26 BP 161 / 79 (auto/); pml 12:56 Pulse 98 MON; Pulse Ox 95% ; pml 12:56 BP 122 / 68 (auto/); pml 14:16 BP 139 / 73; Pulse 105; Resp 20; Temp 96.7(O); Pulse Ox 96% on R/A; Pain 0/10; jjr 11:34 Body Mass Index 31.32 (90.72 kg, 170.18 cm) dem1 MDM: 11:39 -Blood Culture (Adults Only), peripheral from different site, or from device/port/PICC fg etc. if present ordered. 11:39 Crop Or Grain Farmworker/Pulse Ox/q 15 min VS ordered. fg 11:39 IV Saline Lock ordered. fg 11:39 Oxygen at 4L/Min NC or Home dosage ordered. fg 11:39 Rhythm Strip to chart ordered. fg 11:40 B-Type Natiuretic Peptide Ordered. EDMS 11:40 Basic Metabolic Profile Ordered. EDMS 11:40 CBC with Diff Ordered. EDMS 11:40 Troponin Ordered. EDMS 11:40 -Blood Culture Ordered. EDMS 11:40 Chest, 1 View Ordered. EDMS 11:40 ECG WITH READING ER PHYS+CARDIAG ordered. EDMS 12:03 -Blood Culture (Adults Only), peripheral from different site, or from device/port/PICC jrd etc. if present complete. 12:04 BLOOD CULTURES Ordered. EDMS 12:27 Albuterol 5 mg Nebulizer once ordered. ke 12:27 Albuterol-Ipratropium 3 ml Inhalation once ordered. ke 12:27 Call Respiratory ordered. ke 12:31 Call Respiratory complete. jrd 12:53 [facility] Payment Agreement was scanned into [employer] and attached to record. jp5 12:53 Financial registration complete. jp5 13:36 Basic Metabolic Profile Reviewed. ke 13:36 CBC with Diff Reviewed. ke 13:36 Troponin Reviewed. ke 13:36 Chest, 1 View Reviewed. ke 13:36 EKG-ADULT Reviewed. ke 11/01 07:44 T-Sheet-- Draft Copy was scanned into [employer] and attached to record. gb 12:20 ECG/EKG was scanned into [employer] and attached to record. gb Administered Medications: 10/31 12:46 Drug: Albuterol 5 mg [albuterol sulfate 2.5 mg/0.5 mL solution for nebulization (1 mL)] 6 Route: Nebulizer; 13:24 Follow up: Response: Nebulizer completed km6 12:46 Drug: Albuterol-Ipratropium 3 ml [ipratropium-albuterol 0.5 mg-3 mg(2.5 mg base)/3 mL 6 nebulization soln (3 mL)] Route: Inhalation; 13:24 Follow up: Response: Nebulizer completed 6 Signatures: Dispatcher [employer] EDMS Toya Sullivan, Reg Reg gb Wilton Espitia, SUPERVISOR [employer]FFEN [employer]SE SUPERVISOR [employer]FF[employer]SE Kirstie Dodd,RN RN kr3 Maryellen Gonzalez RN RN Yeni Santo,RN RN Asif Crawford, AVINASH GRANT OFFICER Sohan Fletcher jp5 Sera Calzada MD MD fg Merriman, Kimberly 6 The chart was reviewed and I authenticate all verbal orders and agree with the evaluation and treatment provided.Corrections: (The following items were deleted from the chart) 12:21 11:42 Home Meds: montelukast oral oral once daily; kr3 pml 12:21 11:42 Home Meds: Synthroid Oral once daily; kr3 pml Attachments: 12:53 [facility] Payment Agreement jp5 11/01 07:44 T-Sheet-- Draft Copy gb 12:20 ECG/EKG gb Chart Complete MTDD
== END 2016-10-31 14:18 | disposition home or self-care (01) ==
LOC: M ED 11:32
DX: J00 Acute nasopharyngitis [common cold] (principal); E78.00 Pure hypercholesterolemia, unspecified; Z96.611 Presence of right artificial shoulder joint; Z96.612 Presence of left artificial shoulder joint; Z96.641 Presence of right artificial hip joint; Z96.642 Presence of left artificial hip joint; Z87.891 Personal history of nicotine dependence; Z79.51 Long term (current) use of inhaled steroids; Z79.899 Other long term (current) drug therapy; Z91.09 Other allergy status, other than to drugs and biological substances

== ENCOUNTER → 2017-01-22 | Outpatient (REF) | payer MEDICARE, OTHER ==
[2017-01-22 11:37] LABS: BASO % 0.6 % (0.0-1.0); EOS # 0.5 K/mm3 (0.0-0.50); EOS % 6.4 % (0.0-3.0); LARGE UNSTAINED CELL # 0.1 K/mm3 (0.0-0.4); LARGE UNSTAINED CELL % 1.9 % (0.0-4.0); LYMPH # 2.4 K/mm3 (1.5-4.5); LYMPH % 31.8 % (24.0-44.0); MEAN CORPUSCULAR HGB CONC 32.5 g/dl (32.0-36.5); MEAN CORPUSCULAR VOLUME 95.4 fl (80.0-96.0); MONO # 0.5 K/mm3 (0.0-0.8); MONO % 6.7 % (0.0-5.0); NEUTROPHILS # 3.7 K/mm3 (1.8-7.7); NEUTROPHILS % 52.6 % (36.0-66.0); PLATELET COUNT, AUTOMATED 282 k/mm3 (150-450); WHITE BLOOD COUNT 7.1 K/mm3 (4.0-10.0)
[2017-01-22 12:03] LABS: ALBUMIN 3.7 GM/DL (3.2-5.2); ALBUMIN/GLOBULIN RATIO 1.06 (1.00-1.93); ALKALINE PHOSPHATASE 76 U/L (45-117); ALT/SGPT 32 U/L (12-78); ANION GAP 8 MEQ/L (8-16); AST/SGOT 22 U/L (15-37); BILIRUBIN,TOTAL 0.8 MG/DL (0.2-1.0); BLOOD UREA NITROGEN 16 MG/DL (7-18); CALCIUM LEVEL 9.2 MG/DL (8.8-10.2); CARBON DIOXIDE LEVEL 28 MEQ/L (21-32); CHLORIDE LEVEL 108 MEQ/L (98-107); CHOLESTEROL LEVEL 146 MG/DL (<200); CREATININE FOR GFR 0.97 MG/DL (0.55-1.02); FREE T4 0.93 NG/DL (0.76-1.46); GLOMERULAR FILTRATION RATE > 60.0 (>39); GLUCOSE, FASTING 96 MG/DL (83-110); POTASSIUM SERUM 4.6 MEQ/L (3.5-5.1); SODIUM LEVEL 144 MEQ/L (136-145); TOTAL PROTEIN 7.2 GM/DL (6.4-8.2); TRIGLYCERIDES LEVEL 111 MG/DL (<150)
== END ==
LOC: M LABDRAW1 11:12
PROVIDERS: ATTEND Family Medicine
DX: E78.2 Mixed hyperlipidemia (principal); E03.9 Hypothyroidism, unspecified

== ENCOUNTER → 2017-08-06 | Outpatient (REF) | payer MEDICARE, OTHER ==
[~2017-08-06] MED LIST changes: -PROA1AER IN; +PROAAER10 IN
[2017-08-06 12:20] LABS: CALCIUM LEVEL 10.1 MG/DL (8.8-10.2); CREATININE FOR GFR 1.02 MG/DL (0.55-1.02); GLOMERULAR FILTRATION RATE 56.6 (>39); POTASSIUM SERUM 5.1 MEQ/L (3.5-5.1)
== END ==
LOC: M LABDRAW1 10:31
PROVIDERS: ATTEND Family Medicine
DX: L29.8 Other pruritus (principal); Z79.899 Other long term (current) drug therapy

== ENCOUNTER → 2017-12-01 | Outpatient (CLI) | payer MEDICARE, OTHER | LOC: M SMT 10:25 | DX: J45.41 Moderate persistent asthma with (acute) exacerbation (principal) | CPT/HCPCS: 71046 ==

== ENCOUNTER → 2018-07-31 | Outpatient (CLI) | payer MEDICARE, OTHER | LOC: M ADAMS 13:29 | DX: J20.9 Acute bronchitis, unspecified (principal) | CPT/HCPCS: 71046 ==

== ENCOUNTER → 2019-02-01 | Outpatient (CLI) | payer MEDICARE, OTHER ==
[~2019-02-01] MED LIST changes: -/WARF25TA OR; +COUM1TAB18 OR; +OXYC1TAB23 PO; -PERCOCET PO
--- NOTE | 2019-02-01 14:36 | REP ---
Left inguinal ultrasound for hernia: Multiple ultrasonographic images of the left inguinal area are performed without and with Valsalva. No inguinal hernia is identified. There are no nodules, masses or adenopathy. Electronically Signed by Warner Pena MD 02/01/2019 02:27 P
== END ==
LOC: M RAD 11:17
PROVIDERS: ATTEND Surgery
DX: R10.2 Pelvic and perineal pain (principal)

== ENCOUNTER → 2019-02-08 | Outpatient (CLI) | payer MEDICARE, OTHER ==
[~2019-02-08] MED LIST changes: +ISOVUE-370 76% 100ML VIAL (Q9967) As Ordered ONE
--- NOTE | 2019-02-08 09:40 | REP ---
CT of the chest with IV contrast: Comparison is the PA and lateral plain film study of 12/17/2015. There are bilateral breast implants. The implant capsules are circumferentially calcified bilaterally. No evidence of implant rupture by CT, however, MRI is more sensitive for evaluation of breast implants. There is a right upper lobe calcified granuloma on image 44 measuring 9 mm in diameter, similar to the comparison plain film study. There are calcified granulomas in the right hilus and subcarinal mediastinum. No other lung nodules are identified. There are no infiltrates. There are no pleural effusions. The thoracic aorta is unremarkable. Cardiac size is normal. The visualized upper abdominal contents are unremarkable except for calcified granulomas in the spleen. . There is no adrenal mass. Impression: There are bilateral breast implants. The implant capsules are circumferentially calcified bilaterally. There is no and plan rupture by CT, however, MRI is a more sensitive way of evaluating breast implants. There are calcified granulomas as described. There are no other lung nodules. There are no infiltrates or effusions. There is no lymph node enlargement. Electronically Signed by Warner Pena MD 02/08/2019 09:22 A
== END ==
LOC: M RAD 08:23
PROVIDERS: ATTEND Plastic Surgery Surgery of the Hand
DX: N64.4 Mastodynia (principal); Z98.82 Breast implant status; J45.909 Unspecified asthma, uncomplicated
CPT/HCPCS: 71260; Q9967

== ENCOUNTER → 2019-03-02 | Outpatient (CLI) | payer MEDICARE, OTHER ==
[~2019-03-02] MED LIST changes: +CALC500C16 PO; +CIDA500T2 PO; +FLUT15.819; -ISOVUE-370 76% 100ML VIAL (Q9967) As Ordered ONE; +MAGN400C PO; +PERCOCET PO; +TURM500C PO; +calcium PO; +tumeric curcumin PO
--- NOTE | 2019-03-02 16:50 | REP ---
HISTORY: Preoperative examination. COMPARISON: 12/01/2017 and 10/16/2016. There is a calcified granuloma in the right lower lobe superior segment, status quo. The lung lance are stable. No acute patchy parenchymal opacities or pleural effusions have developed. The pleural angles are sharp. Cardiomediastinal silhouette is stable. The heart is not enlarged. There is no significant change in the osseous structures. IMPRESSION: No acute cardiopulmonary disease. Electronically Signed by Clay Villafana DO 03/02/2019 05:07 P
== END ==
LOC: M SMT 15:47
PROVIDERS: ATTEND Physician Assistant
DX: Z01.818 Encounter for other preprocedural examination (principal)

== ENCOUNTER 2019-03-04 08:31 | Day surgery (SDC) | payer MEDICARE, OTHER ==
[~2019-03-04] VITALS: Ht 170.2 cm; Wt 90.7 kg
[2019-03-04] VITALS (7 sets, daily range): BP systolic 107–144; BP diastolic 59–90
[~2019-03-04 08:31] MED LIST changes: -PERCOCET PO
[2019-03-04] MEDS ORDERED: LIDOCAINE 1% MDV 20ML VIAL SQ PRN (09:15)
[2019-03-04] MEDS ORDERED: ceFAZolin SOD 1 GM in D5W MINI-BAG PLUS 50 ML IV ONE (09:15)
[2019-03-04] MEDS ORDERED: LR 1,000 ML IV SCH ×2 (09:15→12:45)
[2019-03-04] MEDS ORDERED: SCOPOLAMINE 1MG TRANSDERMAL PATCH As Ordered ONE (09:27)
[2019-03-04] MEDS ORDERED: SCOPOLAMINE 1MG TRANSDERMAL PATCH TOP ONE (09:45)
[2019-03-04] MEDS ORDERED: BACITRACIN PWD 50,000 UNITS VIAL As Ordered ONE (09:48)
[2019-03-04] MEDS ORDERED: LIDOCAINE 2% INJ 100 MG/5 ML SDV (FOR ANES.) As Ordered ONE (10:04)
[2019-03-04] MEDS ORDERED: fentaNYL 100 MCG/2 ML INJECTION (J3010) As Ordered ONE ×3 (10:04→11:42)
[2019-03-04] MEDS ORDERED: MIDAZOLAM INJ 2 MG/2 ML VIAL (J2250) As Ordered ONE (10:04)
[2019-03-04] MEDS ORDERED: dexameTHASONE 4 MG/ML 1ML VIAL (J1100) As Ordered ONE (10:04)
[2019-03-04] MEDS ORDERED: ONDANSETRON 4MG/2ML VIAL (J2405) As Ordered ONE (10:04)
[2019-03-04] MEDS ORDERED: KETOROLAC 60 MG/2 ML VIAL (J1885) As Ordered ONE (10:04)
[2019-03-04] MEDS ORDERED: METOCLOPRAMIDE INJ 10MG/2ML VIAL (J2765) As Ordered ONE (10:04)
[2019-03-04] MEDS ORDERED: PHENYLephrine HCL 500 MCG/5 ML (100MCG/ML) SYRINGE (J2370) As Ordered ONE (10:04)
[2019-03-04] MEDS ORDERED: PROPOFOL 200 MG/20 ML VIAL As Ordered ONE ×2 (10:04→11:19)
[2019-03-04] MEDS ORDERED: ePHEDrine SULFATE 25 MG/5 ML(5MG/ML) SYRINGE As Ordered ONE (10:21)
[2019-03-04] MEDS ORDERED: KETAMINE HCL 200 MG/20 ML VIAL As Ordered ONE (11:02)
[2019-03-04] MEDS ORDERED: ACETAMINOPHEN 1000MG 100ML IV BTL (OFIRMEV) (J0131 PER 10MG) As Ordered ONE (11:04)
[2019-03-04] MEDS ORDERED: DESFLURANE 240 ML INHALANT As Ordered ONE (11:59)
[2019-03-04] MEDS ORDERED: PERCOCET 5MG/325MG TAB PO PRN (12:45)
[2019-03-04] MEDS ORDERED: ONDANSETRON 4MG/2ML VIAL (J2405) IV PRN ×2 (12:45→13:45)
--- NOTE | 2019-03-04 13:30 | POST-OPPD ---
Postoperative Procedure Note Date Of Procedure: March 04, 2019 PREOPERATIVE DIAGNOSIS: Bilateral breast pain, capsular contractures POSTOPERATIVE DIAGNOSIS: same, ruptured gel implants FINDINGS: Bilateral gel ruptured implants with thickened capsule with calcifications. PROCEDURE: Bilateral breast implants removal and bilateral open capsulectomy SURGEON: Dr Diop ANESTHESIA: General SPECIMENS: Right and Left implants (ruptured) and capsules ESTIMATED BLOOD LOSS: 15 cc REPLACED: none DRAINS: 10 mm MIGUEL ANGEL drains x 2 COMPLICATIONS: none POSTOPERATIVE CONDITION: stable GAURAV DIOP DO March 04, 2019 13:30
[2019-03-04] MEDS: LR 1,000 ML IV SCH (13:45)
--- NOTE | 2019-03-04 15:24 | RO ---
DATE OF PROCEDURE: 03/04/2019 PREPROCEDURE DIAGNOSIS: Bilateral breast pain, capsule contractures. POSTPROCEDURE DIAGNOSIS: Bilateral breast pain, capsule contractures. Bilateral ruptured gel implants. PROCEDURE: Bilateral breast implant removal and bilateral open capsulectomy. ATTENDING SURGEON: Dr. Brandon ANESTHESIA: General. SPECIMENS: Right and left implants, which are ruptured, and capsules. ESTIMATED BLOOD LOSS: 15 mL. REPLACEMENTS: None. DRAINS: Two 10 mm Nasim-Elizalde drains left in place. COMPLICATIONS: None. DESCRIPTION OF PROCEDURE: This is a 73-year-old female who had breast implants done in 1981. Recently, the patient stated having increased pain in both breasts, as well as change of the shape of her left breast more than the right breast. The patient was diagnosed with capsule contracture, symptomatic. The patient had preliminary studies done, which did not show any abnormality of the implants; however, has a very thick capsule identified. The patient is scheduled for bilateral breast implant removal with possible open capsulectomy. All risks and benefits and alternatives were discussed with the patient at length. She is ready to proceed. The day of surgery, she was marked in upright position in the preoperative holding area with plan to do submammary incision. The patient's previous incision was inferior periareolar incision. She was brought into the operating room and placed in supine position. Preoperative antibiotics were given. Sequential stockings were placed on the lower calves. General anesthesia was induced. She was prepped and draped in the usual sterile fashion. We started our procedure on the right side. 6 cm incision was outlined in the middle of her inframammary line. Incision was carried out and then sharp dissection was done towards superior portion through the breast tissue until the capsule was identified. The capsule was very thick. We did carefully enter the capsule and liquid silicone was visualized and implant was ruptured, it was removed in entirety with all the silicone as well. It is unable to read what type of implant it was. Then open capsulotomy was performed under direct vision with a lighted retractor, and it is noted that it is very hard and also has palpable calcifications on the inner and outside shell of the capsule; however, there was minimal bleeding on excision and there is also granuloma attached next to the capsule, which were all sent to pathology as well. After all the excision was done, the area was examined and there was no bleeding. No granuloma was left in place. The wound was irrigated with copious amount of Bacitracin irrigation solution, and then was closed in layers with muscle layer with 3-0 Vicryl and 3-0 Monocryl on the subcutaneous. 10 mm Nasim-Elizalde drain was left in place through a separate stab incision. We turned our attention to the left side. 6 cm length incision was measured out into the inframammary line. Incision was carried out. Dissection was done until the capsule of the implant was identified. We made an attempt to do complete excision of the implant with the capsule on the left side. The capsule and implant seemed to be smaller on this side because the capsule contracture was more significant. Open capsulotomy was created and partially was achieved. The capsule was opened and implant was inside ruptured with soft silicone visible. All of that was removed together with the capsule. Also, there is an attached granuloma with the silicone next to the capsule on this implant as well, which was also removed under direct vision with a retractor. The wound was irrigated with copious amount of bacitracin irrigation. 10 mm Nasim-Elizalde was placed through a separate stab incision. The wound was closed with interrupted #3-0 Vicryl sutures and #3-0 Monocryl. Steri-Strips were applied. Bulky dressing and a surgical bra. The patient was extubated in the operating room without difficulty and transported to the recovery room in stable condition. TOM
[2019-03-04] MEDS: PERCOCET 5MG/325MG TAB PO PRN (21:22)
[2019-03-05 02:00] VITALS: BP 115/68
[2019-03-05 06:00] VITALS: BP 115/80
[2019-03-05] MEDS ORDERED: LEVOTHYROXINE 50MCG TABLET (0.05MG) PO SCH (06:00)
[2019-03-05] MEDS: PERCOCET 5MG/325MG TAB PO PRN (06:19)
[2019-03-05] MEDS: LR 1,000 ML IV SCH (06:19)
--- NOTE | 2019-03-05 08:37 | IPNPDOC ---
Subjective General Date/Time Seen The patient was seen on 03/05/19 at 08:34. Subject Chief Complaint/History The patient is a 73-year-old female admitted with a reason for visit of Capsular Contracture Ant Breasts, Status Implants. Patient is doing well this morning. Pain controlled. Tolerating diet. Current Medications Current Medications Current Medications Lactated Ringer's 1,000 ml @ 75 mls/hr [id number] IV Last administered on 03/05/19at 06:19; Start 03/04/19 at 13:45 Lactated Ringer's 1,000 ml @ 100 mls/hr Q10H IV Last administered on 03/04/19at 09:15; Start 03/04/19 at 09:15; Stop 03/04/19 at 12:44; Status DC Lactated Ringer's 1,000 ml @ 100 mls/hr Q10H IV Last administered on 03/04/19at 12:17; Start 03/04/19 at 12:45; Stop 03/04/19 at 13:45; Status DC Levothyroxine Sodium (Synthroid) 50 mcg DAILY@06 PO Last administered on 03/05/19at 06:19; Start 03/05/19 at 06:00 Lidocaine HCl (LIDOCAINE 1% MDV 20ml) 0.1 ml ASDIRECTED PRN SQ DISCOMFORT BEFORE IV START; Start 03/04/19 at 09:15; Stop 03/04/19 at 12:44; Status DC Ondansetron HCl (ZOFRAN INJection) 4 mg Q4HP PRN IV NAUSEA OR VOMITING; Start 03/04/19 at 12:45; Stop 03/04/19 at 13:45; Status DC Ondansetron HCl (ZOFRAN INJection) 4 mg Q6HP PRN IV NAUSEA OR VOMITING; Start 03/04/19 at 13:45 Oxycodone/ Acetaminophen (Percocet 5mg/ 325mg Tablet) 1 tab ASDIRECTED PRN PO MILD/MODERATE PAIN (PS 1-7); Start 03/04/19 at 12:45; Stop 03/04/19 at 13:45; Status DC Oxycodone/ Acetaminophen (Percocet 5mg/ 325mg Tablet) 1 tab Q6HP PRN PO PAIN Last administered on 03/05/19at 06:19; Start 03/04/19 at 13:45 Allergies Coded Allergies: latex (Verified Allergy, Mild, 02/23/19) itchy blisters from latex glove use TAPE (Verified Adverse Reaction, Mild, SENSITIVE TO TAPE AND BANDAIDS, 10/03/11) Objective Physical Examination Examination GENERAL APPEARANCE:Patient seen, laying in bed, awake, alert, and oriented. Comfortable, in no acute distress. SKIN: Warm and moist. Both breasts soft, minimal tenderness. No ecchymosis. Incisions dry, intact. MIGUEL ANGEL drains serosanguinous drainage. HEENT: Normocephalic, atraumatic. [place] palpebral conjunctiva, anicteric sclerae. Lips and mucosa appear moist. NECK: Supple, no thyromegaly. No obvious jugular venous distention. LUNGS: Clear to auscultation bilaterally. No wheezing appreciated. HEART: No chest wall abnormalities. Regular rate and rhythm with no murmurs appreciated. Vital Signs Vital Signs Date Time Temp Pulse Resp B/P (MAP) Pulse Ox O2 Delivery O2 Flow Rate FiO2 03/05/19 06:49 15 03/05/19 06:00 98.1 86 115/80 (92) 94 03/04/19 12:45 2 I&Os I&O- Last 24 Hours up to 6 AM 03/05/19 06:00 Intake Total 3500 ml Output Total 1305 ml Balance 2195 ml A-FIB/CHADSVASC A-FIB History Current/History of A-Fib/PAF?: No Current Oral Anticoagulant The: No Impression S/p bilateral breasts implants removal and open capsulectomy. Doing well. Stable for discharge MIGUEL ANGEL drains to monitor at home Pain control F/up plastic surgery 1 week Plan / VTE VTE Prophylaxis Ordered?: Yes GAURAV DIOP DO March 05, 2019 08:37
[2019-03-05] MEDS ORDERED: PERCOCET PO (08:40)
== END 2019-03-05 10:00 | disposition home or self-care (01) ==
LOC: M SDC 08:31 → M MS5PR 13:55 → M SDC 03-05 10:00
PROVIDERS: ATTEND Plastic Surgery Surgery of the Hand
DX: T85.44XA Capsular contracture of breast implant, initial encounter (principal); T85.49XA Other mechanical complication of breast prosthesis and implant, initial encounter; N64.4 Mastodynia; E78.5 Hyperlipidemia, unspecified; E03.9 Hypothyroidism, unspecified; J45.909 Unspecified asthma, uncomplicated; R73.01 Impaired fasting glucose; R49.0 Dysphonia; K21.9 Gastro-esophageal reflux disease without esophagitis; Z91.040 Latex allergy status; Z87.891 Personal history of nicotine dependence
CPT/HCPCS: 19371; 88300; 96374; J0131; J0690; J1100; J1885; J2250; J2370; J2405; J2765; J3010

== ENCOUNTER → 2019-03-15 | Outpatient (REF) | payer MEDICARE, OTHER ==
[~2019-03-15] MED LIST changes: +PERCOCET PO
[2019-03-15 13:19] LABS: BASO # 0.1 10^3/uL (0.0-0.2); BASO % 0.9 % (0.0-1.0); EOS # 0.3 10^3/uL (0.0-0.50); EOS % 3.3 % (0.0-3.0); HEMATOCRIT 41.6 % (36.0-47.0); HEMOGLOBIN 13.4 g/dl (12.0-15.5); LYMPH # 2.3 10^3/uL (1.5-4.5); LYMPH % 26.8 % (24.0-44.0); MEAN CORPUSCULAR HEMOGLOBIN 31.1 pg (27.0-33.0); MEAN CORPUSCULAR HGB CONC 32.2 g/dl (32.0-36.5); MEAN CORPUSCULAR VOLUME 96.5 fl (80.0-96.0); MONO # 0.6 10^3/uL (0.0-0.8); MONO % 6.9 % (0.0-5.0); NEUTROPHILS # 5.2 10^3/uL (1.8-7.7); NEUTROPHILS % 61.5 % (36.0-66.0); PLATELET COUNT, AUTOMATED 325 10^3/uL (150-450); RED BLOOD COUNT 4.31 10^6/uL (4.00-5.40); WHITE BLOOD COUNT 8.5 10^3/uL (4.0-10.0)
[2019-03-15 13:34] LABS: ALBUMIN 3.4 GM/DL (3.2-5.2); BILIRUBIN,TOTAL 0.9 MG/DL (0.2-1.0); CALCIUM LEVEL 9.1 MG/DL (8.8-10.2); CHOLESTEROL RISK RATIO 2.466 (<5); CREATININE FOR GFR 1.01 MG/DL (0.55-1.30); FREE T4 0.91 NG/DL (0.76-1.46); POTASSIUM SERUM 4.7 MEQ/L (3.5-5.1); THYROID STIMULATING HORMONE 4.15 uIU/ML (0.358-3.740); TOTAL PROTEIN 7.1 GM/DL (6.4-8.2)
[2019-03-15 16:50] LABS: HEMOGLOBIN A1c 5.9 %
== END ==
LOC: M LABDRAW1 11:48
PROVIDERS: ATTEND Family Medicine
DX: E03.9 Hypothyroidism, unspecified (principal); R73.01 Impaired fasting glucose

== ENCOUNTER → 2019-04-29 | Outpatient (CLI) | payer MEDICARE, OTHER ==
--- NOTE | 2019-04-29 09:38 | REP ---
Clinical: Pain. Technique: AP, lateral, bilateral oblique views of the left hand. Findings: Mild degenerative changes involve the interphalangeal joints. Moderate degenerative change noted at the first metacarpophalangeal joint including subchondral sclerosis, joint space narrowing, and spurring/osteophyte formation primarily involving the head of the first metacarpal bone with overlying soft tissue swelling. Degenerative changes are also identified at the first and second carpometacarpal joints where there is cortical irregularity with possible subtle subchondral cystic changes involving the trapezium and trapezoid with associated joint space narrowing. Impression: Degenerative changes primarily involving the first carpometacarpal and metacarpophalangeal joint. No obvious acute fracture or dislocation. Clinical correlation is recommended and reevaluation should be considered if the patient remains symptomatic. Electronically Signed by Jeff Tripp MD 04/29/2019 09:30 A
== END ==
LOC: M ADAMS 09:14
PROVIDERS: ATTEND Physician Assistant
DX: M79.642 Pain in left hand (principal)

== ENCOUNTER → 2019-07-21 | Outpatient (CLI) | payer MEDICARE, OTHER ==
[2019-07-21 11:50] LABS: THYROID STIMULATING HORMONE 4.31 uIU/ML (0.358-3.740); THYROXINE (T4) 8.4 UG/DL (4.5-12.0)
== END ==
LOC: M SMT 08:06
PROVIDERS: ATTEND Family Medicine
DX: E03.9 Hypothyroidism, unspecified (principal)

== ENCOUNTER → 2019-09-30 | Outpatient (CLI) | payer OTHER ==
--- NOTE | 2019-09-30 11:30 | REP ---
BILATERAL MAMMOGRAM WITH 3D TOMOSYNTHESIS: No family history of breast cancer. Tyrer-Cuzick lifetime risk of breast cancer 3.2%. MLO and CC views of bilateral breast performed with 3D tomosynthesis. Comparison made from prior mammogram from [facility] dated 03/04/2017. Since that time, patient has had removal of silicone breast implants. There is moderate fairly symmetrical fibroglandular tissue present bilaterally. Focal oval density laterally in the right breast is quite dense. It has somewhat lobulated margins. It measures 90 mm in diameter. No other evidence of mass is seen bilaterally. Small axillary lymph nodes are present less than 1 cm in diameter. A few scattered benign type calcifications are present. IMPRESSION: BIRADS 3: BI-RADS/ACR category 3 mammogram. Probably Benign Findings. ACR 3 probably benign. Patient has had recent removal of bilateral silicone breast implants, reportedly there was implant rupture. Focal oval density laterally in the right breast measures 9 mm, in the posterior third of the right breast. This probably represents a focus of residual silicone within the right breast. Recommend followup mammogram right breast in 6 months. This mammogram was interpreted with the aid of an FDA-approved computer-aided detection system. A. Negative x-ray reports should not delay biopsy if a dominant or clinically suspicious mass is present. B. Four to eight percent of cancers are not identified by x-ray. C. Adenosis and dense breasts may obscure an underlying neoplasm. The patient states she/he had a clinical breast exam in February 2019. The patient letter being requested is M3. Electronically Signed by Warner Ortiz MD 09/30/2019 12:51 P
== END ==
LOC: M RAD 09:41
PROVIDERS: ATTEND Physician Assistant Medical
DX: Z12.31 Encounter for screening mammogram for malignant neoplasm of breast (principal); R92.1 Mammographic calcification found on diagnostic imaging of breast

== ENCOUNTER → 2019-12-23 | Outpatient (CLI) | payer MEDICARE, OTHER ==
[~2019-12-23] MED LIST changes: +CONRAY-43 43% 50ML VIAL (Q9960) As Ordered ONE; +LIDOCAINE 1% MDV 20ML VIAL As Ordered ONE; -MONT10TA2 PO; +MONT10TA4 PO; +methylPREDNISolone 80MG/ML SUSP 1ML VIAL (J1040) As Ordered ONE
--- NOTE | 2019-12-24 10:59 | REP ---
Reason For Exam/Comment: Pain in left hip, left hip so as injection Procedure: Left psoas injection The procedure was performed by FLAVIA Pérez, under the direct supervision of Dr. Agudelo. The benefits and risks including but not limited to pain, infection, bleeding and anaphylaxis were explained to the patient and informed consent was obtained both verbally and written. Directly prior to the start of the procedure, a formal timeout was completed in the procedure room. The lesser trochanter was localized using fluoroscopic guidance. The skin was prepped and draped in the usual sterile fashion. 5 mL of 1% lidocaine 10 mg/ml was used as a local anesthetic. Using fluoroscopic guidance a 22-gauge spinal needle was inserted and advanced to the lesser trochanter . 2 mL of Conray 43 was injected to verify needle placement. A 3 mL solution containing a 2 mL 1% lidocaine 10 mg/ml and 1 mg of Depo-Medrol 80 mg/ml was injected into the joint. The needle was removed and hemostasis was achieved. The patient tolerated the procedure well and there were no immediate complications. 0.2 minutes of fluoroscopy time was utilized for this procedure. Some fluoroscopic images are performed with last image hold technology. These images require no additional radiation. Reviewed by FLAVIA Scanlon 12/23/2019 03:12 P Electronically Signed by Rod Agudelo MD 12/24/2019 10:51 A
== END ==
LOC: M RADPRO 13:53
PROVIDERS: ATTEND Orthopaedic Surgery
DX: M25.552 Pain in left hip (principal)
CPT/HCPCS: 20610; 77002; J1040; Q9960

== ENCOUNTER → 2020-01-31 | Outpatient (REF) | payer MEDICARE, OTHER ==
[~2020-01-31] MED LIST changes: -CONRAY-43 43% 50ML VIAL (Q9960) As Ordered ONE; -LIDOCAINE 1% MDV 20ML VIAL As Ordered ONE; -methylPREDNISolone 80MG/ML SUSP 1ML VIAL (J1040) As Ordered ONE
[2020-01-31 12:21] LABS: BASO # 0.1 10^3/uL (0.0-0.2); EOS # 0.3 10^3/uL (0.0-0.5); EOS % 3.6 % (0.0-3.0); HEMATOCRIT 42.5 % (36.0-47.0); HEMOGLOBIN 14.3 g/dl (12.0-15.5); LYMPH # 2.7 10^3/uL (1.5-5.0); LYMPH % 32.3 % (24.0-44.0); MEAN CORPUSCULAR HEMOGLOBIN 31.9 pg (27.0-33.0); MEAN CORPUSCULAR HGB CONC 33.6 g/dl (32.0-36.5); MEAN CORPUSCULAR VOLUME 94.9 fl (80.0-96.0); MONO # 0.6 10^3/uL (0.0-0.8); MONO % 7.6 % (0.0-5.0); NEUTROPHILS # 4.6 10^3/uL (1.5-8.5); NEUTROPHILS % 55.1 % (36.0-66.0); PLATELET COUNT, AUTOMATED 310 10^3/uL (150-450); RED BLOOD COUNT 4.48 10^6/uL (4.00-5.40); WHITE BLOOD COUNT 8.3 10^3/uL (4.0-10.0)
[2020-01-31 12:41] LABS: HEMOGLOBIN A1c 6.3 %
[2020-01-31 13:02] LABS: ALBUMIN 3.9 GM/DL (3.2-5.2); BILIRUBIN,TOTAL 1.1 MG/DL (0.2-1.0); CALCIUM LEVEL 9.3 MG/DL (8.8-10.2); CREATININE FOR GFR 1.07 MG/DL (0.55-1.30); FREE T4 1.05 NG/DL (0.76-1.46); GLOMERULAR FILTRATION RATE 53.2 (>39); POTASSIUM SERUM 4.8 MEQ/L (3.5-5.1); THYROID STIMULATING HORMONE 2.96 uIU/ML (0.358-3.740); TOTAL PROTEIN 7.6 GM/DL (6.4-8.2)
== END ==
LOC: M LABDRAW1 11:02
PROVIDERS: ATTEND Family Medicine
DX: E03.9 Hypothyroidism, unspecified (principal); R73.01 Impaired fasting glucose

== ENCOUNTER → 2020-03-25 | Outpatient (REF) | payer MEDICARE, OTHER ==
[~2020-03-25] MED LIST changes: +ALBU83IN INH; +ATOR40TA75 PO; +DOXY100C PO; +ECHI400C2 PO; +GARL500C2 PO; +GLUCTAB6 PO; -PROAAER10 IN; +PROAAER10 INH; +RED600TA PO; +SPIR1AER INH; +THIA100T7 PO; +TOLT4CAP3 PO; +VITA100012 PO; +VITA200020 PO
== END ==
LOC: M LAB REF 19:38
PROVIDERS: ATTEND Physician Assistant
DX: R06.02 Shortness of breath (principal); Z11.59 Encounter for screening for other viral diseases

== ENCOUNTER 2020-03-26 10:17 | Inpatient (IN) | payer MEDICARE, OTHER ==
[~2020-03-26] VITALS: Ht 170.2 cm; Wt 96.0 kg
[~2020-03-26 10:17] MED LIST changes: -ALBU83IN INH; -ATOR40TA75 PO; -DOXY100C PO; -ECHI400C2 PO; -GARL500C2 PO; -GLUCTAB6 PO; -RED600TA PO; -SPIR1AER INH; -THIA100T7 PO; -TOLT4CAP3 PO; -VITA100012 PO; -VITA200020 PO
[2020-03-26] MEDS ORDERED: TOLT4CAP3 PO (10:26)
[2020-03-26] MEDS ORDERED: DOXY100C PO (10:26)
[2020-03-26] MEDS ORDERED: dexameTHASONE 20MG/5ML VIAL (J1100 PER 1MG) IV ONE (11:00)
[2020-03-26] MEDS ORDERED: ALBUTEROL 90 MCG/ACT 8GM HFA INHALER INH ONE (11:00)
[2020-03-26 11:13] LABS: VENOUS BASE EXCESS -2.8 (-2.0-2.0); VENOUS HCO3 20.3 MEQ/L (23.0-27.0); VENOUS O2 SATURATION 62.8 % (60.0-80.0); VENOUS PARTIAL PRESSURE CO2 31.1 mmHg (38.0-50.0); VENOUS PARTIAL PRESSURE O2 30.9 mmHg (30.0-50.0); VENOUS PH 7.433 UNITS (7.330-7.430); VENOUS STANDARD HCO3 21.3 MEQ/L; VENOUS TOTAL CO2 21.3 MEQ/L (24.0-28.0)
[2020-03-26 11:15] LABS: BASO # 0.1 10^3/uL (0.0-0.2); BASO % 0.7 % (0.0-1.0); EOS # 0.4 10^3/uL (0.0-0.5); EOS % 3.3 % (0.0-3.0); HEMOGLOBIN 13.9 g/dl (12.0-15.5); LYMPH # 2.9 10^3/uL (1.5-5.0); LYMPH % 25.9 % (24.0-44.0); MEAN CORPUSCULAR HEMOGLOBIN 31.1 pg (27.0-33.0); MEAN CORPUSCULAR HGB CONC 33.1 g/dl (32.0-36.5); MONO # 0.8 10^3/uL (0.0-0.8); MONO % 6.7 % (0.0-5.0); PLATELET COUNT, AUTOMATED 331 10^3/uL (150-450); RED BLOOD COUNT 4.47 10^6/uL (4.00-5.40); WHITE BLOOD COUNT 11.2 10^3/uL (4.0-10.0)
[2020-03-26 11:47] LABS: ALBUMIN 4.1 GM/DL (3.2-5.2); ALT/SGPT 26 U/L (12-78); BILIRUBIN,DIRECT 0.2 MG/DL (0.0-0.2); BILIRUBIN,TOTAL 1.1 MG/DL (0.2-1.0); NT-PRO BNP 210 PG/ML (<450); TOTAL PROTEIN 7.9 GM/DL (6.4-8.2)
--- NOTE | 2020-03-26 11:49 | REP ---
CHEST, SINGLE VIEW: Single view of the chest is performed and compared to prior study of 03/02/2019. There is mild chronic interstitial prominence, which is stable. Calcified granuloma is seen in the right upper lobe. No acute focal infiltrate is seen. Heart is normal in size. Mediastinal silhouette is unchanged. Metallic prosthesis is seen in each proximal humerus. IMPRESSION: Stable chronic findings with no acute infiltrate. Electronically Signed by Warner Ortiz MD 03/26/2020 12:28 P
[2020-03-26] MEDS ORDERED: ISOVUE-370 76% 100ML VIAL As Ordered ONE (13:26)
[2020-03-26] MEDS ORDERED: GLUCTAB6 PO (14:49)
[2020-03-26] MEDS ORDERED: ATOR40TA75 PO (14:49)
[2020-03-26] MEDS ORDERED: ALBU83IN INH (14:50)
[2020-03-26] MEDS ORDERED: SPIR1AER INH (14:50)
[2020-03-26] MEDS ORDERED: GARL500C2 PO (14:50)
[2020-03-26] MEDS ORDERED: ECHI400C2 PO (14:50)
[2020-03-26] MEDS ORDERED: THIA100T7 PO (14:50)
[2020-03-26] MEDS ORDERED: VITA200020 PO (14:50)
[2020-03-26] MEDS ORDERED: RED600TA PO (14:50)
[2020-03-26] MEDS ORDERED: VITA100012 PO (14:50)
--- NOTE | 2020-03-26 14:52 | REP ---
CT ANGIOGRAM OF THE CHEST: TECHNIQUE: Axial contrast-enhanced images from the thoracic inlet to the upper abdomen using 100 mL Isovue-370 intravenous contrast material with multiplanar reformations. COMPARISON: CT 02/08/2019. There is no CT evidence of pulmonary embolism. There is no thoracic aortic aneurysm or dissection. The heart is normal in size. There is no pleural or pericardial effusion. No significant adenopathy is seen in the chest. There is evidence of prior granulomatous disease. There are calcified mediastinal lymph nodes present. There is a calcified granuloma in the right lung. There is a tiny subcentimeter nodule in the left upper lobe, which is unchanged. New increased interstitial densities are seen bilaterally, especially in the lung bases, suggesting mild diffuse interstitial edema or pneumonitis. Calcified granulomas are seen in the liver and spleen. There are degenerative changes of the spine. IMPRESSION: No CT evidence of pulmonary embolism. Mild interstitial opacities diffusely bilaterally, particularly in the lung bases, not seen on prior study, most consistent with mild interstitial edema or pneumonitis. Electronically Signed by Warner Ortiz MD 03/26/2020 03:24 P
--- NOTE | 2020-03-26 15:37 | HPEPDOC ---
[facility] Medical History & Physical Date of Admission March 26, 2020 Date of Service: March 26, 2020 History and Physical CHIEF COMPLAINT: Shortness of breath HISTORY OF PRESENT ILLNESS: 74 yo female presents for one week history of worsening shortness of breath. She did follow up with a medical provider, failing outpatient therapy with doxycycline and respiratory treatments. States that over the past three days has acutely worsened. Denied chest pain, abdominal pain, long travel and prolong period of sedentary behavior. States she is typically very active. 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 REVIEW OF SYSTEMS: Negative except as per HPI HOME MEDICATIONS: Please see below. PHYSICAL EXAMINATION: VITAL SIGNS: See below General: NAD, slightly uncomfortable HEENT: NC/AT Lungs: CTA B/L Heart: +S1S2, RRR Abd: soft, NT, +BS Ext: trace edema LABORATORY DATA: See below. MICROBIOLOGY: Please see below. ASSESSMENT: 74 yo female for one week history of worsening shortness of breath, acutely worsening over the last three days. Denies any modifying factors. Denies chest pain, sick contacts, or extended travel. States she is typically very active, until this recent onset of SOB/ORANTES. 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- NO CHEMO OR RADIATION #DVT prophylaxis - Heparin SC Vital Signs Vital Signs Date Time Temp Pulse Resp B/P (MAP) Pulse Ox O2 Delivery O2 Flow Rate FiO2 03/26/20 13:00 69 117/60 (79) 98 Room Air 03/26/20 10:18 97.9 28 Laboratory Data Labs 24H Laboratory Tests 2 03/26/20 10:56: Immature Granulocyte % (Auto) 0.4, Neutrophils (%) (Auto) 63.0, Lymphocytes (%) (Auto) 25.9, Monocytes (%) (Auto) 6.7H, Eosinophils (%) (Auto) 3.3H, Basophils (%) (Auto) 0.7, Neutrophils # (Auto) 7.0, Lymphocytes # (Auto) 2.9, Monocytes # (Auto) 0.8, Eosinophils # (Auto) 0.4, Basophils # (Auto) 0.1, Nucleated Red Blood Cells % (auto) 0.0, POC Troponin I (Misc) 0.00, Lactic Acid Level 1.3, Total Bilirubin 1.1H, Direct Bilirubin 0.2, Aspartate Amino Transf (AST/SGOT) 21, Alanine Aminotransferase (ALT/SGPT) 26, Alkaline Phosphatase 72, PD-Thp-W-Type Natriuretic Peptide 210, Total Protein 7.9, Albumin 4.1, Albumin/Globulin Ratio 1.1L, Thyroid Stimulating Hormone (TSH) 3.330, Thyroxine (T4) 11.0 03/26/20 10:57: Blood Gas Bicarbonate Standard 21.3, Venous Blood pH 7.433H, Venous Blood Partial Pressure CO2 31.1L, Venous Blood Partial Pressure O2 30.9, Venous Blood Total Carbon Dioxide 21.3L, Venous Blood HCO3 20.3L, Venous Blood Oxygen Saturation 62.8, Venous Blood Base Excess -2.8L 03/26/20 11:08: POC Glucose (Misc Panel) 100, POC Sodium (Misc Panel) 142, POC Potassium (Misc Panel) 3.8, POC Chloride (Misc Panel) 106, POC Total CO2 (Misc Panel) 22.0L, POC Blood Urea Nitrogen (Misc Panel 19, POC Ionized Calcium (Misc Panel) 4.7, POC Creatinine (Misc Panel) 1.0, POC Hematocrit (Misc Panel) 44.0 CBC/BMP Laboratory Tests 03/26/20 10:56 Microbiology Microbiology 03/26/20 Blood Culture, Received Pending 03/26/20 Blood Culture, Received Pending Home Medications Scheduled Atorvastatin Calcium (Atorvastatin Calcium) 40 Mg Tablet, 40 MG PO QHS Cholecalciferol (Vitamin D3) (Vitamin D3) 50 Mcg Capsule, 50 MCG PO DAILY Doxycycline Hyclate (Doxycycline Hyclate) 100 Mg Capsule, 100 MG PO BID FOR 7 DAYS, STARTED 03/25 Echinacea (Echinacea) 400 Mg Capsule, 400 MG PO DAILY Garlic (Garlic) 500 Mg Capsule, 500 MG PO DAILY Gluc Trinidad/Chondro Trinidad A/Vit C/Mn (Glucosamine Chondroitin Tab) 1 Each Tablet, 1 TAB PO DAILY Levothyroxine Sodium (Levothyroxine Sodium) 50 Mcg Tab, 50 MCG PO DAILY Magnesium Oxide (Magnesium) 400 Mg Capsule, 400 MG PO DAILY Red Yeast Rice (Red Yeast Rice) 600 Mg Tablet, 1,200 MG PO DAILY Thiamine HCl (Thiamine HCl) 100 Mg Tablet, 100 MG PO DAILY Tiotropium [place] (Spiriva Respimat) 4 Gm Mist.inhal, 1 PUFF INH BID Tolterodine Tartrate (Tolterodine Tartrate ER) 4 Mg Cap.er.24h, 4 MG PO QPM Turmeric/Turmeric Root Extract (Turmeric 500 mg Capsule) 1 Each Capsule, 3,000 MG PO DAILY Vitamin E (Vitamin E) 1,000 Unit Capsule, 1,000 UNIT PO DAILY Scheduled PRN Albuterol Sulf (Albuterol Sulfate) 2.5 Mg/3 Ml Vial.neb, 2.5 MG INH Q6H PRN for SOB/WHEEZING Albuterol Sulfate (Proair Hfa) 108 Mcg/Act Aer, 2 PUFFS INH QID PRN for SOB/WHEEZING Allergies Coded Allergies: latex (Verified Allergy, Mild, 02/23/19) itchy blisters from latex glove use TAPE (Verified Adverse Reaction, Mild, SENSITIVE TO TAPE AND BANDAIDS, 10/03/11) A-FIB/CHADSVASC A-FIB History Current/History of A-Fib/PAF?: No ANGELICA ACOSTA MD March 26, 2020 14:39
[2020-03-26] MEDS ORDERED: FUROSEMIDE 40MG/4ML VIAL (J1940) IV ONE (16:00)
[2020-03-26 16:48] LABS: CK-MB VALUE MASS 1.1 NG/ML (<3.6); CPK CREATINE PHOSPHOKINASE 74 U/L (26-192); MB/CK RELATIVE INDEX 1.49 (< OR =4); TROPONIN I < 0.02 NG/ML (< 0.10)
[2020-03-26 17:51] VITALS: BP 152/81
[2020-03-26] MEDS: TOLTERODINE TARTRATE 2 MG LA CAP (DETROL LA) PO SCH (18:46)
[2020-03-26] MEDS: methylPREDNISolone INJ 125 MG/2 ML VIAL (J2930) IV SCH (19:44)
[2020-03-26] MEDS: ATORVASTATIN 20 MG TAB PO SCH (19:44)
--- NOTE | 2020-03-26 19:52 | ECGEPIP ---
[facility] - ED Test Date: 2020-03-26 Pat Name: ANGIE MANLEY Department: Room: [place] [address] Gender: Female Assistant To [employer]: bri : 1945 Requested By: SCOTT Maldonado Order Number: [id number] Reading MD: Sheri Aguillon Measurements Intervals [place] Rate: 76 P: 40 CO: 152 QRS: 26 QRSD: 91 T: 39 QT: 387 QTc: 436 Interpretive Statements SINUS RHYTHM WITH SINUS ARRHYTHMIA baseline artifact may affect interpretation DECREASED RATE 10/31/16 Electronically Signed on 03-26-2020 19:52:36 EDT by Sheri Aguillon
[2020-03-26 20:00] VITALS: BP 129/82
[2020-03-26] MEDS: COMBIVENT RESPIMAT 100-20MCG INHALER 4GM INH PRN (20:45)
[2020-03-26] MEDS: HEPARIN SOD (PORCINE) 5000UNITS/ML VIAL (J1644 PER 1000UNITS) SC SCH (21:53)
[2020-03-27] VITALS (7 sets, daily range): BP systolic 110–146; BP diastolic 62–86
[2020-03-27] MEDS: COMBIVENT RESPIMAT 100-20MCG INHALER 4GM INH PRN ×4 (00:12→15:04)
[2020-03-27] MEDS: HEPARIN SOD (PORCINE) 5000UNITS/ML VIAL (J1644 PER 1000UNITS) SC SCH ×3 (05:55→20:17)
[2020-03-27] MEDS: LEVOTHYROXINE 50MCG TABLET (0.05MG) PO SCH (05:55)
[2020-03-27] MEDS: TIOTROPIUM INHALER/CAPSULE (SPIRIVA) INH SCH (07:47)
[2020-03-27 08:21] LABS: HEMATOCRIT 40.2 % (36.0-47.0); HEMOGLOBIN 13.2 g/dl (12.0-15.5); MEAN CORPUSCULAR HEMOGLOBIN 31.1 pg (27.0-33.0); MEAN CORPUSCULAR HGB CONC 32.8 g/dl (32.0-36.5); MEAN CORPUSCULAR VOLUME 94.6 fl (80.0-96.0); PLATELET COUNT, AUTOMATED 321 10^3/uL (150-450); RED BLOOD COUNT 4.25 10^6/uL (4.00-5.40); WHITE BLOOD COUNT 15.4 10^3/uL (4.0-10.0)
[2020-03-27 08:50] LABS: CALCIUM LEVEL 9.4 MG/DL (8.8-10.2); CREATININE FOR GFR 1.23 MG/DL (0.55-1.30); GLOMERULAR FILTRATION RATE 45.3 (>39); MAGNESIUM LEVEL 2.2 MG/DL (1.8-2.4); POTASSIUM SERUM 4.5 MEQ/L (3.5-5.1)
[2020-03-27] MEDS: methylPREDNISolone INJ 125 MG/2 ML VIAL (J2930) IV SCH ×2 (08:57→20:18)
[2020-03-27] MEDS: MAGNESIUM OXIDE 400 MG TAB (MAG-OX) PO SCH (08:57)
[2020-03-27] MEDS: THIAMINE 100 MG TAB PO SCH (08:57)
[2020-03-27] MEDS ORDERED: ACETAMINOPHEN TAB 650MG DOSE (2X325MG) PO PRN (09:45)
[2020-03-27] MEDS: TOLTERODINE TARTRATE 2 MG LA CAP (DETROL LA) PO SCH (17:20)
[2020-03-27] MEDS ORDERED: SLF 3 ML SYR IV PRN (18:30)
[2020-03-27] MEDS: ATORVASTATIN 20 MG TAB PO SCH (20:17)
[2020-03-27] MEDS: SLF 3 ML SYR IV SCH (20:18)
[2020-03-28] VITALS: BP 116/61
[2020-03-28 04:00] VITALS: BP 141/77
[2020-03-28] MEDS: HEPARIN SOD (PORCINE) 5000UNITS/ML VIAL (J1644 PER 1000UNITS) SC SCH ×3 (04:29→20:42)
[2020-03-28] MEDS: SLF 3 ML SYR IV SCH ×3 (04:29→20:42)
[2020-03-28] MEDS: LEVOTHYROXINE 50MCG TABLET (0.05MG) PO SCH (04:29)
--- NOTE | 2020-03-28 07:36 | IPNPDOC ---
Text Note Date of Service The patient was seen on 03/27/20. NOTE Subjective: Patient states her breathing has improved, but still notes dyspnea on exertion. No other medical complaints. Objective: VITAL SIGNS: See below General: NAD, slightly uncomfortable HEENT: NC/AT Lungs: CTA B/L Heart: +S1S2, RRR Abd: soft, NT, +BS Ext: trace edema ASSESSMENT: 74 yo female for one week history of worsening shortness of breath, acutely worsening over the last three days. Denies any modifying factors. Denies chest pain, sick contacts, or extended travel. States she is typically very active, until this recent onset of SOB/ORANTES. 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
[2020-03-28] MEDS: TIOTROPIUM INHALER/CAPSULE (SPIRIVA) INH SCH (07:56)
[2020-03-28 08:00] VITALS: BP 115/62
[2020-03-28] MEDS: COMBIVENT RESPIMAT 100-20MCG INHALER 4GM INH PRN (08:04)
[2020-03-28 08:50] LABS: HEMATOCRIT 37.9 % (36.0-47.0); HEMOGLOBIN 12.4 g/dl (12.0-15.5); MEAN CORPUSCULAR HEMOGLOBIN 31.2 pg (27.0-33.0); MEAN CORPUSCULAR HGB CONC 32.7 g/dl (32.0-36.5); MEAN CORPUSCULAR VOLUME 95.5 fl (80.0-96.0); PLATELET COUNT, AUTOMATED 299 10^3/uL (150-450); RED BLOOD COUNT 3.97 10^6/uL (4.00-5.40); WHITE BLOOD COUNT 18.3 10^3/uL (4.0-10.0)
[2020-03-28] MEDS: THIAMINE 100 MG TAB PO SCH (09:04)
[2020-03-28] MEDS: methylPREDNISolone INJ 125 MG/2 ML VIAL (J2930) IV SCH ×2 (09:04→20:42)
[2020-03-28] MEDS: MAGNESIUM OXIDE 400 MG TAB (MAG-OX) PO SCH (09:04)
[2020-03-28 09:11] LABS: CALCIUM LEVEL 9.1 MG/DL (8.8-10.2); CREATININE FOR GFR 1.06 MG/DL (0.55-1.30); GLOMERULAR FILTRATION RATE 53.8 (>39); POTASSIUM SERUM 4.2 MEQ/L (3.5-5.1)
--- NOTE | 2020-03-28 09:55 | IPNPDOC ---
Text Note Date of Service The patient was seen on 03/28/20. NOTE Subjective: Patient states her breathing has improved, but still notes dyspnea on exertion. No other medical complaints. Objective: VITAL SIGNS: See below General: NAD, lying comfortably in bed, appears anxious HEENT: NC/AT Lungs: CTA B/L Heart: +S1S2, RRR Abd: soft, NT, +BS Ext: trace edema ASSESSMENT: 74 yo female for one week history of worsening shortness of breath, acutely worsening over the last three days. Denies any modifying factors. Denies chest pain, sick contacts, or extended travel. States she is typically very active, until this recent onset of SOB/ORANETS. 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
[2020-03-28 12:00] VITALS: BP 128/80
[2020-03-28 16:00] VITALS: BP 133/75
[2020-03-28] MEDS: TOLTERODINE TARTRATE 2 MG LA CAP (DETROL LA) PO SCH (18:24)
[2020-03-28 20:00] VITALS: BP 126/75
[2020-03-28] MEDS: ATORVASTATIN 20 MG TAB PO SCH (20:42)
[2020-03-29] VITALS: BP 125/76
[2020-03-29 04:00] VITALS: BP 144/86
[2020-03-29] MEDS: LEVOTHYROXINE 50MCG TABLET (0.05MG) PO SCH (06:31)
[2020-03-29] MEDS: SLF 3 ML SYR IV SCH ×2 (06:32→13:40)
[2020-03-29] MEDS: HEPARIN SOD (PORCINE) 5000UNITS/ML VIAL (J1644 PER 1000UNITS) SC SCH ×2 (06:32→13:40)
[2020-03-29] MEDS: TIOTROPIUM INHALER/CAPSULE (SPIRIVA) INH SCH (07:35)
[2020-03-29 08:00] VITALS: BP 142/80
[2020-03-29] MEDS ORDERED: predniSONE 20 MG TAB PO SCH (09:00)
[2020-03-29] MEDS: MAGNESIUM OXIDE 400 MG TAB (MAG-OX) PO SCH (09:04)
[2020-03-29] MEDS: THIAMINE 100 MG TAB PO SCH (09:04)
--- NOTE | 2020-03-29 09:22 | ECHO ---
INPATIENT ECHOCARDIOGRAPHIC REPORT: DATE OF PROCEDURE: 03/27/2020 DATE OF : 1945 AGE: 74 GENDER: Female. HEIGHT: 57 inches WEIGHT: 213 pounds BODY SURFACE AREA: 2.08 m2 INPATIENT: [address] [place] [address] REFERRING PHYSICIAN: Dr. Faisal Mata INDICATION: Dyspnea. MEASUREMENTS: 2-D Measurements: RV: 3.1 cm LV: 3.4 cm Septum: 1.2 cm Posterior wall: 1.2 cm Aortic root: 3.4 cm LA: 3.8 cm LVEF: 75% Doppler Measurements: AV: 1.65 m/sec LVOT: 1.28 m/sec LVOT diameter: 1.8 cm MV - E: 110, A: 105, EA ratio: 1 Early mitral deceleration time: 195 ms E prime medial: 6.1, A prime medial: 9.3, E prime lateral: 8 Average E/E prime ratio: 15.6/PCWP 21.2 mmHg PV: 0.9 m/sec Pulmonary artery acceleration time: 109 ms RVSP: 33 mmHg IVC: 2.0 cm with slightly reduced respiratory collapse. COMMENTS: Normal sinus rhythm without intraventricular conduction disturbance. Technically challenging study in light of the patient's body habitus but diagnostically useful information was still obtained. M-mode and two-dimensional echocardiography was performed with pulsed, continuous wave, color flow and tissue Doppler studies. Borderline concentric left ventricle hypertrophy with hyperkinetic wall motion. Borderline left atrial enlargement with grade II LV diastolic dysfunction and elevated estimated mean left atrial pressure. Normal right heart chamber sizes and motion with Doppler estimated pulmonary artery pressure at least mildly increased. IVC size upper limits of normal with slightly reduced respiratory collapse suggestive of central venous pressure at least upper limits of normal. Normal aortic root size. Mild aortic valvular sclerosis without functional abnormality. Mild mitral annular calcification without functional abnormality only trace insufficiency (physiologic). Normal appearing tricuspid valve with mild insufficiency (physiologic). No apparent intracardiac mass or pericardial effusion.
[2020-03-29] MEDS ORDERED: PRED10TA2 PO (10:22)
[2020-03-29 12:00] VITALS: BP 155/77
--- NOTE | 2020-03-29 13:22 | DS.PDOC ---
Discharge Summary General Date of Admission March 26, 2020 at 15:27 Date of Discharge 03/29/20 Discharge Summary PROCEDURES PERFORMED DURING STAY: [None]. DISCHARGE DIAGNOSES: 1. 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 HOSPITAL COURSE: 74 yo female presents for one week history of worsening shortness of breath. She did follow up with a medical provider, failing outpatient therapy with doxycycline and respiratory treatments. States that over the past three days has acutely worsened. Denied chest pain, abdominal pain, long travel and prolong period of sedentary behavior. Admitted and treated with supplemental oxygen, steroid therapy. Breathing improved slowly. Participated with PT, saturated well on room air with ambulation. Discharged home with home PT. DISCHARGE MEDICATIONS: Please see below. ALLERGIES: Please see below. PHYSICAL EXAMINATION ON DISCHARGE: VITAL SIGNS: Please see below. General: NAD, slightly uncomfortable HEENT: NC/AT Lungs: CTA B/L Heart: +S1S2, RRR Abd: soft, NT, +BS Ext: trace edema LABORATORY DATA: Please see below. ACTIVITY: [As tolerated]. DISPOSITION: Home with services DISCHARGE INSTRUCTIONS: 1. Follow up with PCP in 3-5 days DISCHARGE CONDITION: [Stable]. TIME SPENT ON DISCHARGE: 35 minutes. Vital Signs/I&Os Vital Signs Date Time Temp Pulse Resp B/P (MAP) Pulse Ox O2 Delivery O2 Flow Rate FiO2 03/29/20 12:00 97.0 74 19 155/77 (103) 96 Room Air 03/27/20 16:00 2.0 I&O- Last 24 Hours up to 6 AM 03/29/20 06:00 Intake Total 2140 ml Output Total 5800 ml Balance -3660 ml Microbiology Microbiology 03/27/20 Respiratory Virus Panel (PCR) ([facility]) - Final, Complete 03/26/20 Blood Culture - Preliminary, Resulted No Growth after 72 hours. All specime... 03/26/20 Blood Culture - Preliminary, Resulted No Growth after 72 hours. All specime... Discharge Medications Scheduled Atorvastatin Calcium (Atorvastatin Calcium) 40 Mg Tablet, 40 MG PO QHS, (Reported) Cholecalciferol (Vitamin D3) (Vitamin D3) 50 Mcg Capsule, 50 MCG PO DAILY, (Reported) Doxycycline Hyclate (Doxycycline Hyclate) 100 Mg Capsule, 100 MG PO BID, (Reported) FOR 7 DAYS, STARTED 03/25 Echinacea (Echinacea) 400 Mg Capsule, 400 MG PO DAILY, (Reported) Garlic (Garlic) 500 Mg Capsule, 500 MG PO DAILY, (Reported) Gluc [place]/Chondro [place] A/Vit C/Mn (Glucosamine Chondroitin Tab) 1 Each Tablet, 1 TAB PO DAILY, (Reported) Levothyroxine Sodium (Levothyroxine Sodium) 50 Mcg Tab, 50 MCG PO DAILY, (Repo rted) Magnesium Oxide (Magnesium) 400 Mg Capsule, 400 MG PO DAILY, (Reported) Prednisone (Prednisone) 10 Mg Tablet, 10 MG PO TAPER Take 4 tabs daily x 3 days, then 3 tabs daily x 3 days, then 2 tabs daily x 3 days, then 1 tab daily x 3 days and stop Red Yeast Rice (Red Yeast Rice) 600 Mg Tablet, 1,200 MG PO DAILY, (Reported) Thiamine HCl (Thiamine HCl) 100 Mg Tablet, 100 MG PO DAILY, (Reported) Tiotropium [place] (Spiriva Respimat) 4 Gm Mist.inhal, 1 PUFF INH BID, (Report ed) Tolterodine Tartrate (Tolterodine Tartrate ER) 4 Mg Cap.er.24h, 4 MG PO QPM, (Reported) Turmeric/Turmeric Root Extract (Turmeric 500 mg Capsule) 1 Each Capsule, 3,000 MG PO DAILY, (Reported) Vitamin E (Vitamin E) 1,000 Unit Capsule, 1,000 UNIT PO DAILY, (Reported) Scheduled PRN Albuterol Sulf (Albuterol Sulfate) 2.5 Mg/3 Ml Vial.neb, 2.5 MG INH Q6H PRN for SOB/WHEEZING, (Reported) Albuterol Sulfate (Proair Hfa) 108 Mcg/Act Aer, 2 PUFFS INH QID PRN for SOB/WHEEZING, (Reported) Allergies Coded Allergies: latex (Verified Allergy, Mild, 02/23/19) itchy blisters from latex glove use TAPE (Verified Adverse Reaction, Mild, SENSITIVE TO TAPE AND BANDAIDS, 10/03/11) ANGELICA ACOSTA MD Mar 29, 2020 13:22
== END 2020-03-29 14:11 | disposition home health service (06) | DRG 203 ==
LOC: M ED 10:17 → M ED INP 15:27 → ENRESERV 16:11 → M 4MAIN 18:17 → M PCU 03-27 18:01
PROVIDERS: ADMIT Internal Medicine; ATTEND Internal Medicine
DX: J45.901 Unspecified asthma with (acute) exacerbation (principal); F32.9 Major depressive disorder, single episode, unspecified; L30.9 Dermatitis, unspecified; M19.90 Unspecified osteoarthritis, unspecified site; Z11.59 Encounter for screening for other viral diseases; Z85.818 Personal history of malignant neoplasm of other sites of lip, oral cavity, and pharynx; Z79.899 Other long term (current) drug therapy; Z91.040 Latex allergy status; Z91.048 Other nonmedicinal substance allergy status

== ENCOUNTER → 2020-04-24 | Outpatient (CLI) | payer MEDICARE, OTHER ==
[~2020-04-24] MED LIST changes: +ALBU83IN INH; +ATOR40TA75 PO; +DOXY100C PO; +ECHI400C2 PO; +GARL500C2 PO; +GLUCTAB6 PO; +PRED10TA2 PO; +RED600TA PO; +SPIR1AER INH; +THIA100T7 PO; +TOLT4CAP3 PO; +VITA100012 PO; +VITA200020 PO
[2020-04-24 13:24] LABS: EOS # 0.3 10^3/uL (0.0-0.5)
[2020-04-24 13:26] LABS: C REACTIVE PROTEIN QUANTITATIV < 0.30 MG/DL (0.00-0.30)
== END ==
LOC: M PLALAB 10:44
PROVIDERS: ATTEND Internal Medicine Pulmonary Disease
DX: R91.8 Other nonspecific abnormal finding of lung field (principal)

== ENCOUNTER → 2020-04-27 | Outpatient (CLI) | payer OTHER ==
--- NOTE | 2020-04-27 16:03 | REPMRS ---
Patient History The patient states she has not had a clinical breast exam in over a year. Family history of unknown cancer under age 50 in daughter. Taking unspecified hormones for 2 years. Bilateral silicone breast implants removed February 2019. Diagnostic Bilateral Mammo: April 27, 2020 - Exam #: [id number] Bilateral CC and MLO view(s) were taken. Technologist: Migdalia Morrell, Technologist Prior study comparison: September 30, 2019, bilateral digital mammo screening bilat, performed at [facility]. March 04, 2017, bilateral digital woman screen mammo, performed at [facility]. June 29, 2015, bilateral digital woman screen mammo, performed at [facility]. FINDINGS: There are scattered fibroglandular densities. The Volpara volumetric breast density category is: B. There is a 9 mm hyperdense partially calcific nodular opacity in the right lateral mid breast unchanged from September 30, 2019 and consistent with a stable focus of retained extracapsular silicone. The patient is status post augmentation implant removal. There is a moderate amount of residual fibroglandular tissue which is fairly symmetric. There is no interval development of dominant mass, architectural distortion, or grouped microcalcification typical of malignancy. There has been no change in the appearance of the mammogram from the prior studies. 3-D tomosynthesis shows no additional findings. Assessment: BI-RADS/ACR category 2 mammogram. Benign Findings. Recommendation Routine screening mammogram of both breasts in 1 year (for women over age 40). This patient's Lifetime Breast Cancer RIsk is estimated at 3.2 %. This mammogram was interpreted with the aid of an FDA-approved computer-aided dectection system. Electronically Signed By: Luis Agudelo MD 04/27/20 [id number]
== END ==
LOC: M WHC 12:45
PROVIDERS: ATTEND Physician Assistant Medical
DX: N64.4 Mastodynia (principal); R92.1 Mammographic calcification found on diagnostic imaging of breast
CPT/HCPCS: 77066; G0279

== ENCOUNTER 2020-06-30 11:29 | Inpatient (IN) | payer MEDICARE, OTHER ==
[~2020-06-30] VITALS: Ht 170.2 cm; Wt 95.2 kg
[2020-06-30] MEDS ORDERED: PRED20TA PO (12:07)
[2020-06-30 13:10] LABS: BASO % 0.3 % (0.0-1.0); HEMATOCRIT 41.8 % (36.0-47.0); LYMPH % 7.5 % (24.0-44.0); MEAN CORPUSCULAR HEMOGLOBIN 32.1 pg (27.0-33.0); MEAN CORPUSCULAR HGB CONC 33.5 g/dl (32.0-36.5); MEAN CORPUSCULAR VOLUME 95.9 fl (80.0-96.0); MONO # 0.2 10^3/uL (0.0-0.8); MONO % 1.2 % (0.0-5.0); NEUTROPHILS # 12.1 10^3/uL (1.5-8.5); NEUTROPHILS % 89.8 % (36.0-66.0); PLATELET COUNT, AUTOMATED 249 10^3/uL (150-450); RED BLOOD COUNT 4.36 10^6/uL (4.00-5.40); WHITE BLOOD COUNT 13.5 10^3/uL (4.0-10.0)
--- NOTE | 2020-06-30 13:14 | REPVR ---
PROCEDURE INFORMATION: Exam: XR Chest, 1 View Exam date and time: 06/30/2020 12:56 PM Age: 75 years old Clinical indication: Shortness of breath; Additional info: Dyspnea/cough TECHNIQUE: Imaging protocol: XR of the chest Views: 1 view. COMPARISON: 1. CR PORTABLE CHEST X-RAY 03/26/2020 10:[address] ANGIO CHEST 03/26/2020 1:25:46 PM FINDINGS: Tubes, catheters and devices: ECG leads/contacts overlie and partially obscure the anatomy. Lungs: Calcified right lung nodule consistent with remote granulomatous disease is redemonstrated. Calcified mediastinal and hilar lymph nodes consistent with remote granulomatous disease are redemonstrated. The central pulmonary vasculature does not appear congested. New mild ill-defined mostly linear bilateral lower lung airspace opacities. Pleural space: No pleural effusion. No pneumothorax. Heart/Mediastinum: The cardiomediastinal silhouette is within normal limits for size and contour. Bones/joints: Bilateral glenohumeral prostheses. IMPRESSION: New mild bilateral lower lung airspace opacities. Infectious pneumonia and/or mild atelectasis are considerations. Electronically signed by: Kaz Akhtar On 06/30/2020 13:13:58 PM
[2020-06-30 13:25] LABS: INR 0.9; PROTHROMBIN TIME 12.3 SECONDS (11.8-14.0)
[2020-06-30 13:28] LABS: D-DIMER QUANT 678.97 ng/ml (<500)
[2020-06-30 13:45] LABS: ALBUMIN 3.7 GM/DL (3.2-5.2); ALT/SGPT 49 U/L (12-78); BILIRUBIN,DIRECT 0.2 MG/DL (0.0-0.2); BILIRUBIN,TOTAL 1.1 MG/DL (0.2-1.0); BLOOD UREA NITROGEN 17 MG/DL (7-18); CALCIUM LEVEL 9.4 MG/DL (8.8-10.2); CARBON DIOXIDE LEVEL 25 MEQ/L (21-32); CHLORIDE LEVEL 107 MEQ/L (98-107); CK-MB VALUE MASS 1.5 NG/ML (<3.6); CPK CREATINE PHOSPHOKINASE 62 U/L (26-192); CREATININE FOR GFR 1.19 MG/DL (0.55-1.30); GLOMERULAR FILTRATION RATE 46.9 (>39); GLUCOSE, FASTING 135 MG/DL (70-100); MB/CK RELATIVE INDEX 2.42 (< OR =4); NT-PRO BNP 106 PG/ML (<450); POTASSIUM SERUM 4.1 MEQ/L (3.5-5.1); SODIUM LEVEL 142 MEQ/L (136-145); THYROXINE (T4) 9.2 UG/DL (4.5-12.0); TOTAL PROTEIN 7.3 GM/DL (6.4-8.2); TROPONIN I < 0.02 NG/ML (< 0.10)
[2020-06-30] MEDS ORDERED: ISOVUE-370 76% 100ML VIAL As Ordered ONE (13:58)
--- NOTE | 2020-06-30 15:29 | REPVR ---
PROCEDURE INFORMATION: Exam: CT Angiography Chest With Contrast Exam date and time: 06/30/2020 2:28 PM Age: 75 years old Clinical indication: Chest pain; Additional info: Dyspnea TECHNIQUE: Imaging protocol: Computed tomographic angiography of the chest with intravenous contrast. Coronal and sagittal reformats were created and reviewed. 3D rendering (Not supervised by radiologist): MIP and/or 3D reconstructed images were created by the technologist. Radiation optimization: All CT scans at this facility use at least one of these dose optimization techniques: automated exposure control; mA and/or kV adjustment per patient size (includes targeted exams where dose is matched to clinical indication); or iterative reconstruction. Contrast material: ISOVUE 370; Contrast volume: 75 ml; Contrast route: INTRAVENOUS (IV); COMPARISON: CT ANGIO CHEST 03/26/2020 1:25 PM FINDINGS: Pulmonary arteries: New pulmonary arterial luminal filling defects consistent with pulmonary emboli. New left upper lobe subsegmental pulmonary embolism. New right lower lobe subsegmental pulmonary emboli. New right middle lobe lateral segmental pulmonary embolism. Aorta: Mild aortic atherosclerosis. No thoracic aortic aneurysm. No thoracic aortic dissection. Thyroid: Unremarkable as visualized. Lungs: The scan appears performed during incomplete inspiration with mild anterior bowing of the posterior tracheal membrane. No bronchiectasis. Diffuse mosaic attenuation the bilateral lungs is redemonstrated. Right upper lobe calcified pulmonary nodule consistent with a benign remote granuloma. Mild bilateral subpleural reticulation without a clear craniocaudal gradient. No consolidation. Pleural space: No pleural effusion, mass or calcification. No pneumothorax. Heart: Mitral annular calcifications are present. Heart size is within normal limits. No pericardial effusion. Mediastinal space: The esophagus is unremarkable. No mediastinal mass. Lymph nodes: Calcified mediastinal and right hilar lymph nodes consistent with remote granulomatous disease are redemonstrated. Liver: Hepatic calcification present consistent with remote granulomatous disease. Spleen: Splenic calcifications present consistent with remote granulomatous disease. Bones/joints: Bilateral glenohumeral prostheses, incompletely imaged. Multilevel degenerative spine disease. Unchanged small ovoid homogeneous hypoattenuating structure within the right T6-7 neural foramen likely representing a perineural cyst or lateral meningocele. Soft tissues: Unremarkable. IMPRESSION: 1. Positive for acute pulmonary arterial emboli. Segmental and subsegmental pulmonary arterial emboli are new compared to 03/26/2020. No CT evidence of right heart strain. 2. Diffuse heterogeneous appearance of the pulmonary parenchyma is compatible with multifocal bilateral air trapping secondary to small airways disease as well as heterogeneous pulmonary perfusion (given the presence of the pulmonary emboli). There are mild diffuse peripheral interstitial opacities again present suspicious for an element of underlying chronic interstitial lung disease. COMMENTS: THIS REPORT CONTAINS FINDINGS THAT MAY BE CRITICAL TO PATIENT CARE. The findings were verbally communicated via telephone conference by Dr. Kaz Akhtar with Dr. Varghese Santa at 3:21 PM EDT on 06/30/2020. The findings were acknowledged and understood. Electronically signed by: Kaz Akhtar On 06/30/2020 15:29:00 PM
[2020-06-30] MEDS ORDERED: ENOXAPARIN 100MG/1ML SYRINGE (J1650 PER 10MG) SC ONE (15:45)
[2020-06-30] MEDS ORDERED: HEPARIN SOD (PORCINE) 5000UNITS/ML 1ML VIAL/SYRINGE IV ONE (15:45)
[2020-06-30] MEDS ORDERED: ELIQ5TAB PO (15:52)
[2020-06-30] MEDS ORDERED: HEPARIN DRIP 25,000 UNITS in IV 1 EA IV SCH (16:00)
--- NOTE | 2020-06-30 16:27 | REPVR ---
PROCEDURE INFORMATION: Exam: US Duplex Lower Extremity Veins, Bilateral Exam date and time: 06/30/2020 4:16 PM Age: 75 years old Clinical indication: Condition or disease; Other: Pe; Additional info: Pe R/O dvt TECHNIQUE: Imaging protocol: Real-time duplex ultrasound of the extremities with 2-D galindo scale, color Doppler flow and spectral waveform analysis with image documentation. Complete exam focused on the bilateral lower extremity veins. COMPARISON: No relevant prior studies available. FINDINGS: Right deep veins: Unremarkable. The common femoral, femoral and popliteal veins are patent without thrombus. Normal Doppler waveforms. Normal compressibility and/or augmentation response. Right superficial veins: Saphenofemoral junction is patent without thrombus. Left deep veins: Unremarkable. The common femoral, femoral and popliteal veins are patent without thrombus. Normal Doppler waveforms. Normal compressibility and/or augmentation response. Left superficial veins: Saphenofemoral junction is patent without thrombus. Soft tissues: Unremarkable. IMPRESSION: No sonographic evidence of deep vein thrombosis. Electronically signed by: Alfa Soria On 06/30/2020 16:27:07 PM
[2020-06-30] MEDS ORDERED: LEVALBUTEROL 1.25 MG/0.5 ML CONCENTRATE NEB INH PRN (17:00)
--- NOTE | 2020-06-30 17:18 | HPEPDOC ---
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 Sawants, and was found to be tachypneic and tachycardic, sent to the ER for further evaluation. CT chest: bilateral PE, venous dopplers negative DVT of b/l LE. Acute bilateral PE HTN urgency Asthma hypothyroid urine incontinence Depression arthritis eczema obesity bmi 32 Plan: lovenox 1mg/kg sq q12hrs, eliquis as outpt once medically stable with dc plans Friday. check hypercoagulable workup. resume home meds. norvasc and lisinopril for bp control. full code. Vital Signs Vital Signs Date Time Temp Pulse Resp B/P (MAP) Pulse Ox O2 Delivery O2 Flow Rate FiO2 06/30/20 16:01 94 19 98 Room Air 06/30/20 15:31 163/115 (131) 06/30/20 11:40 98.3 Laboratory Data Labs 24H Laboratory Tests 2 06/30/20 12:53: Immature Granulocyte % (Auto) 1.2, Neutrophils (%) (Auto) 89.8H, Lymphocytes (%) (Auto) 7.5L, Monocytes (%) (Auto) 1.2, Eosinophils (%) (Auto) 0.0, Basophils (%) (Auto) 0.3, Neutrophils # (Auto) 12.1H, Lymphocytes # (Auto) 1.0L, Monocytes # (Auto) 0.2, Eosinophils # (Auto) 0.0, Basophils # (Auto) 0.0, Nucleated Red Blood Cells % (auto) 0.0, Prothrombin Time 12.3, Prothromb Time International Ratio 0.90, Activated Partial Thromboplast Time 25.0, D-Dimer, Quantitative 678.97H, Anion Gap 10, Glomerular Filtration Rate 46.9, Calcium Level 9.4, Total Bilirubin 1.1H, Direct Bilirubin 0.2, Aspartate Amino Transf (AST/SGOT) 21, Alanine Aminotransferase (ALT/SGPT) 49, Alkaline Phosphatase 64, Total Creatine Kinase 62, Creatine Kinase MB 1.5, Creatine Kinase MB Relative Index 2.42, Troponin I < 0.02, ON-Ixp-X-Type Natriuretic Peptide 106, Total Protein 7.3, Albumin 3.7, Albumin/Globulin Ratio 1.0L, Thyroid Stimulating Hormone (TSH) 1.010, Thyroxine (T4) 9.2 CBC/BMP Laboratory Tests 06/30/20 12:53 Microbiology Microbiology 06/30/20 Blood Culture, Received Pending 06/30/20 Respiratory Virus Panel (PCR) ([facility]) - Final, Complete 06/30/20 Blood Culture, Received Pending Home Medications Scheduled Apixaban (Eliquis) 5 Mg Tablet, 5 MG PO ASDIRECTED 10 MG (2 TABS) TWICE PER DAY FOR 7 DAYS THEN 5 MG (1 TAB) TWICE PER DAY Atorvastatin Calcium (Atorvastatin Calcium) 40 Mg Tablet, 40 MG PO QHS Cholecalciferol (Vitamin D3) (Vitamin D3) 50 Mcg Capsule, 50 MCG PO DAILY Garlic (Garlic) 500 Mg Capsule, 500 MG PO DAILY Gluc Trin[place]/Chondro Trin[place] A/Vit C/Mn (Glucosamine Chondroitin Tab) 1 Each Tablet, 1 TAB PO DAILY Levothyroxine Sodium (Levothyroxine Sodium) 50 Mcg Tab, 50 MCG PO DAILY Magnesium Oxide (Magnesium) 400 Mg Capsule, 400 MG PO DAILY Prednisone (Prednisone) 20 Mg Tablet, 25 MG PO ONCE Red Yeast Rice (Red Yeast Rice) 600 Mg Tablet, 1,200 MG PO DAILY Tiotropium [place] (Spiriva Respimat) 4 Gm Mist.inhal, 1 PUFF INH BID Tolterodine Tartrate (Tolterodine Tartrate ER) 4 Mg Cap.er.24h, 4 MG PO QPM Turmeric/Turmeric Root Extract (Turmeric 500 mg Capsule) 1 Each Capsule, 3,000 MG PO DAILY Vitamin E (Vitamin E) 1,000 Unit Capsule, 1,000 UNIT PO DAILY Scheduled PRN Albuterol Sulf (Albuterol Sulfate) 2.5 Mg/3 Ml Vial.neb, 2.5 MG INH Q6H PRN for SOB/WHEEZING Albuterol Sulfate (Proair Hfa) 108 Mcg/Act Aer, 2 PUFFS INH QID PRN for SOB/WHEEZING Allergies Coded Allergies: latex (Verified Allergy, Mild, 02/23/19) itchy blisters from latex glove use TAPE (Verified Adverse Reaction, Mild, SENSITIVE TO TAPE AND BANDAIDS, 10/03/11) A-FIB/CHADSVASC A-FIB History Current/History of A-Fib/PAF?: No Current PO Anticoag Therapy: No Age/Risk Factor Scoring CHADSVASC: CHADSVASC Response (Comments) Value Age Risk Factor Age >/= 75 years old 2 Gender Risk Factor Female 1 Hx of CHF No 0 Hx of HTN Yes 1 Hx of Stroke/TIA/or VTE No 0 Hx of Diabetes No 0 Hx of Vascular Disease No 0 Total 4 Treatment Treatment ordered: NONE Reason Anticoagulant not given: Not indicated/[id number] MARY KAY TAN MD Jun 30, 2020 17:18
[2020-06-30] MEDS ORDERED: amLODIPine 10 MG TAB PO ONE (17:30)
[2020-06-30] MEDS: LEVALBUTEROL 1.25 MG/0.5 ML CONCENTRATE NEB INH SCH (20:47)
[2020-06-30 21:30] VITALS: BP 145/94
[2020-06-30] MEDS: ATORVASTATIN 20 MG TAB PO SCH (22:05)
[2020-06-30] MEDS: TOLTERODINE TARTRATE 2 MG LA CAP (DETROL LA) PO SCH (22:05)
[2020-07-01] MEDS: LEVALBUTEROL 1.25 MG/0.5 ML CONCENTRATE NEB INH SCH ×4 (03:49→20:20)
[2020-07-01] MEDS: ENOXAPARIN 100MG/1ML SYRINGE (J1650 PER 10MG) SC SCH ×2 (04:09→16:39)
[2020-07-01 06:00] VITALS: BP 145/81
[2020-07-01] MEDS: LEVOTHYROXINE 50MCG TABLET (0.05MG) PO SCH (06:10)
[2020-07-01] MEDS: TIOTROPIUM INHALER/CAPSULE (SPIRIVA) INH SCH (07:17)
[2020-07-01 07:30] LABS: CALCIUM LEVEL 9.4 MG/DL (8.8-10.2); CREATININE FOR GFR 1.03 MG/DL (0.55-1.30); GLOMERULAR FILTRATION RATE 55.5 (>39); POTASSIUM SERUM 4.1 MEQ/L (3.5-5.1)
[2020-07-01 08:48] VITALS: BP 145/81
[2020-07-01] MEDS: VITAMIN D 1,000 INTERNATIONAL UNITS TABLET PO SCH (08:48)
[2020-07-01] MEDS: MAGNESIUM OXIDE 400 MG TAB (MAG-OX) PO SCH (08:49)
[2020-07-01] MEDS: VITAMIN E 400 INTERNATIONAL UNITS CAP PO SCH (08:51)
[2020-07-01] MEDS: predniSONE 20 MG TAB PO SCH (08:52)
[2020-07-01] MEDS ORDERED: amLODIPine 10 MG TAB PO ONE (09:00)
[2020-07-01 14:00] VITALS: BP 143/78
[2020-07-01] MEDS ORDERED: RAMELTEON 8 MG TAB (ROZEREM) PO ONE (20:00)
[2020-07-01] MEDS: ATORVASTATIN 20 MG TAB PO SCH (20:41)
[2020-07-01] MEDS: TOLTERODINE TARTRATE 2 MG LA CAP (DETROL LA) PO SCH (20:43)
[2020-07-01 22:00] VITALS: BP 138/80
[2020-07-02] MEDS: LEVALBUTEROL 1.25 MG/0.5 ML CONCENTRATE NEB INH SCH ×5 (02:00→19:59)
[2020-07-02] MEDS: ENOXAPARIN 100MG/1ML SYRINGE (J1650 PER 10MG) SC SCH ×2 (04:43→16:28)
[2020-07-02] MEDS: LEVOTHYROXINE 50MCG TABLET (0.05MG) PO SCH (05:49)
[2020-07-02 06:00] VITALS: BP 140/60
[2020-07-02] MEDS: TIOTROPIUM INHALER/CAPSULE (SPIRIVA) INH SCH (07:09)
[2020-07-02 07:10] LABS: CALCIUM LEVEL 8.8 MG/DL (8.8-10.2); CREATININE FOR GFR 1.16 MG/DL (0.55-1.30); GLOMERULAR FILTRATION RATE 48.4 (>39)
[2020-07-02] MEDS: predniSONE 20 MG TAB PO SCH (09:05)
[2020-07-02] MEDS: VITAMIN E 400 INTERNATIONAL UNITS CAP PO SCH (09:05)
[2020-07-02] MEDS: MAGNESIUM OXIDE 400 MG TAB (MAG-OX) PO SCH (09:06)
[2020-07-02] MEDS: VITAMIN D 1,000 INTERNATIONAL UNITS TABLET PO SCH (09:06)
[2020-07-02] MEDS ORDERED: guaiFENesin DM LIQ 10ML UD PO PRN (09:15)
[2020-07-02] MEDS ORDERED: guaiFENesin DM LIQ 10ML UD PO ONE (10:00)
[2020-07-02] MEDS: MONTELUKAST 10 MG TAB PO SCH (11:01)
[2020-07-02] MEDS: CETIRIZINE (ZyrTEC) 10 MG TAB PO SCH (11:01)
[2020-07-02 14:00] VITALS: BP 104/66
[2020-07-02] MEDS: ATORVASTATIN 20 MG TAB PO SCH (20:06)
[2020-07-02] MEDS: TOLTERODINE TARTRATE 2 MG LA CAP (DETROL LA) PO SCH (20:06)
[2020-07-02 22:00] VITALS: BP 125/77
[2020-07-03] MEDS: LEVALBUTEROL 1.25 MG/0.5 ML CONCENTRATE NEB INH SCH ×3 (04:00→07:30)
[2020-07-03] MEDS: ENOXAPARIN 100MG/1ML SYRINGE (J1650 PER 10MG) SC SCH (04:13)
[2020-07-03] MEDS: LEVOTHYROXINE 50MCG TABLET (0.05MG) PO SCH (05:39)
[2020-07-03 06:00] VITALS: BP 124/74
[2020-07-03 06:51] LABS: HEMATOCRIT 40.5 % (36.0-47.0); HEMOGLOBIN 13.1 g/dl (12.0-15.5); MEAN CORPUSCULAR HEMOGLOBIN 31.6 pg (27.0-33.0); MEAN CORPUSCULAR HGB CONC 32.3 g/dl (32.0-36.5); MEAN CORPUSCULAR VOLUME 97.8 fl (80.0-96.0); PLATELET COUNT, AUTOMATED 257 10^3/uL (150-450); RED BLOOD COUNT 4.14 10^6/uL (4.00-5.40); WHITE BLOOD COUNT 9.3 10^3/uL (4.0-10.0)
[2020-07-03 07:09] LABS: CALCIUM LEVEL 8.9 MG/DL (8.8-10.2); CREATININE FOR GFR 1.07 MG/DL (0.55-1.30); GLOMERULAR FILTRATION RATE 53.1 (>39)
[2020-07-03] MEDS: TIOTROPIUM INHALER/CAPSULE (SPIRIVA) INH SCH (07:30)
[2020-07-03] MEDS: CETIRIZINE (ZyrTEC) 10 MG TAB PO SCH (08:46)
[2020-07-03] MEDS: predniSONE 20 MG TAB PO SCH (08:46)
[2020-07-03] MEDS: VITAMIN D 1,000 INTERNATIONAL UNITS TABLET PO SCH (08:46)
[2020-07-03] MEDS: MONTELUKAST 10 MG TAB PO SCH (08:46)
[2020-07-03] MEDS: VITAMIN E 400 INTERNATIONAL UNITS CAP PO SCH (08:46)
[2020-07-03] MEDS: MAGNESIUM OXIDE 400 MG TAB (MAG-OX) PO SCH (08:46)
--- NOTE | 2020-07-04 06:57 | HPE ---
DATE OF ADMISSION: 06/30/2020 CHIEF COMPLAINT: Shortness of breath. HISTORY OF PRESENT ILLNESS: This 75-year-old female has been short of breath since January, worsened in the past 6 weeks, unable to ambulate from one side of the room to the other, up and down the stairs. Usually has to hang onto the car when she moves around. Unable to shop in the department stores and has to hang onto the cart. Patient usually recovers after a few minutes of resting. No chest pain, pressure, or tightness, fever, chills, or cough. Follows with Dr. Machado, varnish finisher, as outpatient for her asthma but has not had any recent allergies. She initially thought that this was due to her asthma and was seen in the office today, when she was found to be in severe distress and tachypneic, sent to the emergency room (ER) for further evaluation. Patient denies any personal history of deep venous thrombosis (DVT) or pulmonary embolism (PE). No recent prolonged driving or plane flight. She is usually ambulatory and not bed ridden. She has a family history of blood clots on her mother's side with blood clots in the brain in her uncles and aunt. No history of clots personally. In the emergency room (ER) she was found to have bilateral pulmonary emboli, left subsegmental PE, right lower lobe, right middle lobe. Hospitalist was called to admit. She was given Lovenox 1 mg/kg 100 mg subcutaneously in the ER but was not hypoxic but saturation of 98% on room air but tachypneic. MEDICAL HISTORY: 1. Asthma. 2. Depression. 3. Eczema. 4. Arthritis. 5. 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 6. Urine incontinence. 7. Hypothyroidism. ALLERGIES: Tape and Latex. HOME MEDICATIONS: - albuterol 2.5 every 6 as needed - ProAir HFA 108 mcg per actuation, two puffs inhaled four times a day as needed - atorvastatin 40 mg every night - levothyroxine 50 mcg daily - magnesium oxide 400 mg daily - Prednisone taper - tolterodine 4 mg every evening - vitamin D 50 mcg daily - garlic 500 mg daily - glucosamine one tablet daily - red yeast rice 1200 mg daily - Spiriva one puff inhaled twice a day - turmeric 3 grams daily - vitamin E 1000 units daily PAST SURGICAL HISTORY: Surgical removal of left submaxillary gland. SOCIAL HISTORY: Patient has no history of smoking, alcohol, or recreational drug use. Retired. FAMILY HISTORY: Maternal aunt and uncle with blood clots in the brain. REVIEW OF SYSTEMS: Per history of present illness (HPI). A 12-point system otherwise negative. PHYSICAL EXAMINATION: Temperature 98.3, pulse 94-108, sinus tachycardia, respiratory rate 19, blood pressure is 195/95-144/72, 98% on room air. GENERAL: Patient appears tachypneic with 5-word conversational dyspnea. No tracheal deviation. No cyanosis, icterus, jaundice. Pupils round, reactive to light and accommodation. Extraocular muscles are intact. Dry mucous membranes. No jugular venous distention (JVD) or thyromegaly. LUNGS: Diminished but no wheezing or rales. HEART: S1, S2, sinus tachycardia. ABDOMEN: Obese, soft, nontender, nondistended. EXTREMITIES: Trace lower extremity edema bilaterally. LABORATORY DATA: White count 13, hemoglobin 14, hematocrit 41, platelet count 249. Sodium 142, potassium 4, chloride 107, bicarbonate 25, BUN 17, creatinine 1.19, glucose 135. Total bilirubin 1.1, direct bilirubin 0.2, AST 21, ALT 49, alkaline phosphatase 64. Total CK 62, MB fraction 1.5. BNP 106. Albumin 3.7. INR of 0.9, PTT of 25. CT chest: Positive acute pulmonary emboli (PE) and segmental, new compared to March 26. No evidence of right heart strain. Multifocal bilateral air trapping secondary to small-vessel airway disease. Mild diffuse interstitial opacities suspicious for chronic interstitial lung disease. Venous Doppler, bilateral lower extremities: No DVT. ASSESSMENT AND PLAN: This is a 75-year-old female with a history of asthma, left submaxillary gland cancer, arthritis, depression, eczema, presented to the emergency room with worsening 6-week history of shortness of breath, found to have bilateral pulmonary embolism. IMPRESSION: 1. Bilateral pulmonary embolism. Patient is not hypoxic. Has been given Lovenox 1 mg/kg every 12 hours. Transitional to apixaban, physical therapy (PT)/ occupational therapy (OT) evaluation. Supplemental oxygen to keep saturations above 9%. 2. Asthma. Continue on home dose of prednisone, nebulizer treatments, and Spiriva. 3. Urine incontinence. Continue on Detrol. 4. Hypothyroidism, on Synthroid. 5. Dyslipidemia. Continue on Zocor. 6. Hypertensive urgency. Continue on Norvasc. Full code. MTDD
--- NOTE | 2020-07-04 10:22 | IPN ---
DATE: 07/01/2020 SUBJECTIVE: Patient still complains of dyspnea on exertion, even from bed to bathroom, about 5-10 feet. Has to catch her breath. Some palpitations. She also complains of feeling very flushed every morning, that she has had for years. She sees Dr. Lord in the office. OBJECTIVE: PHYSICAL EXAMINATION: Temperature 98.1, pulse 91, respiratory rate 20, blood pressure 145/81, 95% on room air. GENERAL: Patient is flushed with facial and anterior chest erythema. No induration. LUNGS: Clear to auscultation. No wheezing, rales, or rhonchi. HEART: S1, S2, sinus rhythm. ABDOMEN: Soft, nontender, nondistended. Obese abdomen. EXTREMITIES: No cyanosis or clubbing. LABORATORY DATA: White count 13, hemoglobin 14, hematocrit 41, platelet count 249. Sodium 142, potassium 4, chloride 107, bicarbonate 27, BUN 16, creatinine 1, glucose 98. ASSESSMENT: This is a 75-year-old female with a history of asthma, hypothyroidism, allergic rhinitis. Follows with Dr. Lord with every 3- week allergy shots for several years, dyslipidemia, obesity, urine incontinence, depression, anxiety, eczema, left submaxillary gland cancer, status post resection without chemotherapy or radiation, presented with 6-week history of worsening shortness of breath, found to be tachypneic and tachycardic from Dr. Machado's office and was sent to the emergency room and found to have the following issues: 1. Acute bilateral pulmonary embolism. 2. Hypertensive urgency, resolved. 3. Asthma, compensated. 4. Hypothyroidism. 5. Urinary incontinence. 6. Depression. 7. Osteoarthritis. 8. Eczema. 9. Obesity, body mass index (BMI) of 32. PLAN: Patient is continued on Lovenox 1 mg/kg subcutaneous every 12 hours. Transition on Eliquis on Friday or Friday. Awaiting physical therapy (PT) clearance prior to discharge home. Resumed on all home medications. Norvasc and lisinopril for blood pressure control, to be titrated for better control. Outpatient followup with Dr. Strauss regarding her complaints of feeling flushed every day. [facility]
--- NOTE | 2020-07-06 09:03 | IPN ---
DATE: 07/02/2020 SUBJECTIVE: Patient remains dyspneic with exertion about 10 to 15 feet. Denies any lightheadedness, but says that she gets occasional dizziness when she goes up the stairs at home. Patient denies any chest pain, pressure or tightness, but was complaining of now a cough productive of white sputum without fever or chills. OBJECTIVE/PHYSICAL EXAMINATION: VITALS: Temperature 98.1, pulse 80, respiratory rate 18, blood pressure 140/60, 97% on room air. GENERAL: Awake, alert, oriented x3. Patient does have conversational dyspnea about 8-9 words. NECK: No JVD. No thyromegaly. LUNGS: Clear to auscultation. No wheezing or rales. HEART: S1, S2, sinus rhythm. ABDOMEN: Obese, soft, nontender. EXTREMITIES: Trace edema. LABORATORY DATA: The 06/30/2020 CBC had been reviewed. The 07/02/2020 metabolic panel: Sodium 142, potassium 4, chloride 109, bicarb 29, BUN 22 with creatinine 1.16, glucose 100. Blood culture and respiratory panel are negative. IMAGING STUDIES: Venous Doppler of her lower extremities negative. ASSESSMENT: This is a 75-year-old female with a history of asthma, admitted due to worsening shortness of breath, found to have acute bilateral PE, hypertensive urgency, continued on home medications for asthma, hypothyroidism, urinary incontinence, depression, eczema, arthritis, obesity; BMI of 32. PLAN: Patient is currently on Lovenox 1 mg/kg every 12 hours 100 mg, can transition to Eliquis as an outpatient with loading dose and to be continued for at least three months. Hypercoagulable state has been sent. 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 Discharge plans for the morning. [place]
--- NOTE | 2020-07-10 13:07 | ECGEPIP ---
[facility] - ED Test Date: 2020-06-30 Pat Name: ANGIE MANLEY Department: Room: - Gender: Female Establishment Guide: : 1945 Requested By: SCOTT Maldonado Order Number: [id number] Reading MD: Kali Lam Measurements Intervals [place] Rate: 88 P: 48 CA: 133 QRS: 21 QRSD: 92 T: 32 QT: 370 QTc: 449 Interpretive Statements SINUS RHYTHM NORMAL ECG NO PREVIOUS SEE SCANNED DOWNTIME REPORT
[2020-07-10 13:08] LABS: ANTINUCLEAR ANTIBODIES DIRECT Negative (Negative)
[2020-07-11 11:58] LABS: DRVV SCREEN 36.7 SEC
[2020-07-11 12:07] LABS: PTT LUPUS TYPE ANTICOAG SCREEN 0.9 (0-1.2)
--- NOTE | 2020-07-25 11:09 | DSES ---
DATE OF ADMISSION: 06/30/2020. DATE OF DISCHARGE: 07/03/2020. PRIMARY DISCHARGE DIAGNOSES: Hypertensive urgency, acute bilateral pulmonary embolism, asthma, hypothyroidism, urinary incontinence, depression, arthritis, eczema, obesity; BMI 32. DISCHARGE MEDICATIONS: 1. Eliquis 5 mg as directed. 2. Albuterol 2.5 every 6 hours as needed. 3. Albuterol two puffs q.i.d. as needed. 4. Atorvastatin 40 q.h.s. 5. Vitamin D 50 mcg daily. 6. Garlic 500 daily. 7. Glucosamine one tablet daily. 8. Synthroid 50 mcg daily. 9. Magnesium oxide 400 daily. 10. Prednisone 25 mg as previously prescribed. 11. Red Yeast Rice 1,200 mg daily. 12. Spiriva one puff b.i.d. 13. Tolterodine 4 mg q.p.m. 14. Turmeric three times daily. 15. Vitamin E 1,000 units daily. DISCHARGE INSTRUCTIONS: Patient is to have a primary care physician follow-up within seven days of hospital discharge to monitor for worsening hypoxia. Patient currently did not supplemental oxygen and was 93% on room air with ambulation. Patient is to follow-up with Dr. Machado as previously recommended. HOSPITAL COURSE: This is a 75-year-old female who lives alone with history of asthma, hypothyroidism, dyslipidemia, obesity, depression, arthritis, eczema, and left submaxillary gland cancer; status post resection, who presented to the Emergency Room with six week history of worsening shortness of breath with dyspnea on exertion, initially treated for asthma exacerbation with prednisone and nebulizer treatment. She was seen by a joy operator and was sent to the Emergency Room due to persistent tachypnea and tachycardia. Patient was found to have bilateral pulmonary embolism on CT of the chest. Venous Dopplers were negative for DVT of bilateral lower extremities. Hypercoagulable state workup had been performed. SANJUANITA was negative. Factor II Leiden has been sent, but not available. Patient was started on Lovenox 1 mg/kg subcutaneously every 12 hours with weight of 95.2 kilos and Lovenox being given at 100 mg subcutaneously every 12 hours. Eliquis was sent to the patient's pharmacy with $100 copay. She had no episodes of hypotension, dizziness, lightheadedness or hypoxia during the admission. She did not require any supplemental oxygen. The a did have episodes of facial flushing of anterior chest and bilateral arm redness, which she says happens usually early in the morning. She does see Dr. 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 Lord. This resolves without any intervention. Patient was encouraged to see Dr. Lord within a week of discharge to further discuss reasons for this facial flushing every morning. Patient passed a home safety evaluation with transition to [facility] as an outpatient. No other acute issues occurred during this hospital admission. PHYSICAL EXAMINATION ON DISCHARGE: VITALS: Temperature 98.8, pulse 78, respiratory rate 16, blood pressure 124/74, 94% on room air. GENERAL: Awake, alert and oriented x3. Answering questions appropriately. No conversational dyspnea. No use of respiratory accessory muscles. No tripod positioning. LUNGS: Clear to auscultation. No wheezing, rales or rhonchi. HEART: S1, S2, sinus rhythm. ABDOMEN: Obese, soft, nontender, nondistended. EXTREMITIES: No cyanosis, clubbing or any pitting edema. LABORATORY DATA ON DISCHARGE: White count 9.3, hemoglobin 13, hematocrit 40, platelet count 257,000. Sodium 142, potassium 4, chloride 110, bicarb 30, BUN 18, creatinine 1, glucose 86. Blood cultures negative. Respiratory panel negative. IMAGING STUDIES: CT chest showed bilateral pulmonary embolism, incomplete inspiration with mild anterior bowing of the posterior tracheal membrane, no bronchiectasis. Right upper lobe calcified pulmonary nodule consistent with benign remote granuloma. TIME SPENT ON DISCHARGE: 30 minutes. [facility]
== END 2020-07-03 10:55 | disposition home or self-care (01) | DRG 176 ==
LOC: M ED 11:29 → M ED INP 15:45 → ENRESERV 18:07 → M MSPAV 21:30
PROVIDERS: ADMIT General Practice; ATTEND General Practice
DX: I26.99 Other pulmonary embolism without acute cor pulmonale (principal); I16.0 Hypertensive urgency; J45.909 Unspecified asthma, uncomplicated; E66.9 Obesity, unspecified; E53.8 Deficiency of other specified B group vitamins; E03.9 Hypothyroidism, unspecified; Z68.32 Body mass index [BMI] 32.0-32.9, adult; L30.9 Dermatitis, unspecified; Z91.040 Latex allergy status; Z79.899 Other long term (current) drug therapy

== ENCOUNTER → 2020-07-11 | Outpatient (CLI) | payer MEDICARE, OTHER ==
[~2020-07-11] MED LIST changes: +ELIQ5TAB PO; +PRED20TA PO
[2020-07-17 15:07] LABS: ANTI THROMBIN 3 ANTIGEN IMMUNO 99 % (72-124); ANTI THROMBIN 3 FUNCT ACTIVITY 115 % (75-135); BETA-2 GLYCOPROTEIN I ABY IGA <9 (0-25); BETA-2 GLYCOPROTEIN I ABY IGG <9 (0-20); BETA-2 GLYCOPROTEIN I ABY IGM <9 (0-32); CARDIOLIPIN IGA ANTIBODY <9 APL U/mL (0-11); CARDIOLIPIN IGG ANTIBODY <9 GPL U/mL (0-14); CARDIOLIPIN IGM ANTIBODY <9 MPL U/mL (0-12); PROTEIN C FUNCTIONAL ACTIVITY 153 % (73-180); PROTEIN S ANTIGEN FREE 103 % (57-157); PROTEIN S ANTIGEN TOTAL 109 % (60-150); PROTEIN S FUNCTIONAL ACTIVITY 104 % (63-140)
== END ==
LOC: M LABDRWAD 15:20
PROVIDERS: ATTEND Internal Medicine Pulmonary Disease
DX: I26.99 Other pulmonary embolism without acute cor pulmonale (principal)

== ENCOUNTER → 2020-07-20 | Outpatient (CLI) | payer MEDICARE, OTHER ==
--- NOTE | 2020-07-21 16:11 | ECHO ---
DATE OF PROCEDURE: 07/20/2020 Age: 75 Gender: Female Height: 67 inches Weight: 216 pounds Body surface area: 2.09 m2 PATIENT LOCATION: Outpatient. REFERRING PHYSICIAN: Anitha Machado MD INDICATION: Pulmonary embolism. MEASUREMENTS: 2D Measurements: RV 3.6 cm LV 3.9 cm Septum 1.0 cm Posterior wall 1.0 cm Aortic Root 3.0 cm LA 3.6 cm LVEF 65% Doppler Measurements: AV 1.36 m/s LVOT 1.1 m/s LVOT diameter 2.0 cm MV-E 59, A 95, E/A ratio 0.6 Early mitral deceleration time 264 m/s E prime medial 5.4, A prime medial 7.8, E prime lateral 7.3 Average E/E prime ratio 9.3/PCWP 13.4 mmHg PV 0.8 m/s Pulmonary artery acceleration time 90 m/s IVC 1.7 cm RVSP 35-40 mmHg COMMENTS: Normal sinus rhythm without intraventricular conduction disturbance. Technically challenging study in light of the patients body habitus, but diagnostically useful information was still obtained. M-mode and two-dimensional echocardiography was performed with pulsed, continuous wave, color flow, and tissue Doppler studies. Normal left ventricular size, wall thickness, and wall motion. Normal left atrial size with grade 1 left ventricular diastolic dysfunction, but current normal estimated mean left atrial pressure. Normal right heart chamber sizes and motion with Doppler evidence of mild pulmonary hypertension. Normal inferior vena cava (IVC) size and collapse against an elevated central venous pressure. Normal aortic dimensions. Mild aortic valvular sclerosis without stenosis and only trace insufficiency. Moderate degenerative changes of the mitral valvular apparatus without inflow tract obstruction and no more than trace insufficiency. Normal appearing tricuspid valve with very mild insufficiency. No apparent intracardiac mass or pericardial effusion. MTDD
== END ==
LOC: M CARPUL 10:15
PROVIDERS: ATTEND Internal Medicine Pulmonary Disease
DX: I26.99 Other pulmonary embolism without acute cor pulmonale (principal); I35.8 Other nonrheumatic aortic valve disorders

== ENCOUNTER → 2020-08-25 | Outpatient (REF) | payer MEDICARE, OTHER ==
[2020-08-25 13:17] LABS: HEMOGLOBIN A1c 5.6 %
[2020-08-25 13:21] LABS: ALBUMIN 3.8 GM/DL (3.2-5.2); CALCIUM LEVEL 9.3 MG/DL (8.8-10.2); CHOLESTEROL RISK RATIO 2.333 (<5); CREATININE FOR GFR 1.29 MG/DL (0.55-1.30); FREE T4 1.04 NG/DL (0.76-1.46); GLOMERULAR FILTRATION RATE 42.8 (>39); THYROID STIMULATING HORMONE 1.52 uIU/ML (0.358-3.740); TOTAL PROTEIN 7.1 GM/DL (6.4-8.2)
== END ==
LOC: M LABDRWAD 12:21
PROVIDERS: ATTEND Nurse Practitioner Family
DX: E78.2 Mixed hyperlipidemia (principal); Z79.899 Other long term (current) drug therapy

== ENCOUNTER → 2020-10-03 | Outpatient (REF) | payer MEDICARE, OTHER ==
[~2020-10-03] MED LIST changes: -MONT10TA4 PO; +MONT5TAB2 PO
== END ==
LOC: M LAB REF 13:32
PROVIDERS: ATTEND Nurse Practitioner Family
DX: J45.41 Moderate persistent asthma with (acute) exacerbation (principal); Z79.899 Other long term (current) drug therapy

== ENCOUNTER → 2020-11-15 | Outpatient (CLI) | payer MEDICARE, OTHER ==
[~2020-11-15] MED LIST changes: +MONT10TA10 PO; -MONT5TAB2 PO
--- NOTE | 2020-11-15 11:58 | REP ---
INDICATION: COUGH, LAB 1ST THEN XR. COMPARISON: Comparison chest x-ray June 30, 2020. TECHNIQUE: Two views.. FINDINGS: The lungs are symmetrically aerated and free of infiltrate. There are granulomatous lymph node calcifications in the right hilus and a calcified granuloma is noted in the right upper lobe region. Lung lance are otherwise clear. The pleural angles are sharp. The heart is not enlarged. The aorta is calcific. There are prosthetic shoulder joints present bilaterally. There are mild degenerative changes in the thoracic spine. IMPRESSION: Old granulomatous changes. No infiltrates seen. No active cardiopulmonary disease.. <Electronically signed by Luis Agudelo > 11/15/20 [id number]
== END ==
LOC: M LAB 11:24
PROVIDERS: ATTEND Internal Medicine Pulmonary Disease
DX: R05 Cough (principal)

== ENCOUNTER → 2021-01-03 | Outpatient (CLI) | payer MEDICARE, OTHER ==
--- NOTE | 2021-01-03 15:22 | REP ---
INDICATION: LOW BACK PAIN COMPARISON: None. TECHNIQUE: AP, lateral, bilateral oblique, and coned-down views of the lumbar spine. FINDINGS: Alignment and lordosis maintained. No acute fracture/compression injury or subluxation. Moderate multilevel degenerative changes include endplate sclerosis, marginal osteophytosis, facet arthropathy and disc space narrowing throughout the visualized lower thoracic and lumbar spine. IMPRESSION: Moderate multilevel degenerative spondylosis. If the patient remains symptomatic consider MRI for further investigation. <Electronically signed by Jeff Tripp > 01/03/21 [id number]
== END ==
LOC: M ADAMS 14:56
PROVIDERS: ATTEND Nurse Practitioner Family
DX: M51.36 Other intervertebral disc degeneration, lumbar region (principal); M25.78 Osteophyte, vertebrae

== ENCOUNTER → 2021-04-24 | Outpatient (CLI) | payer MEDICARE, OTHER | LOC: M WHC 07:43 | PROVIDERS: ATTEND Nurse Practitioner Family | DX: Z12.31 Encounter for screening mammogram for malignant neoplasm of breast (principal); Z53.8 Procedure and treatment not carried out for other reasons ==

== ENCOUNTER → 2021-05-17 | Outpatient (CLI) | payer OTHER ==
--- NOTE | 2021-05-17 10:50 | REPMRS ---
Patient History The patient states she has not had a clinical breast exam in over a year. Patient is postmenopausal and has history of submaxillary gland cancer at age 14. Family history of unknown cancer under age 50 in daughter. Taking unspecified hormones for 2 years. Patient states no breast complaints today. Patient has signed MRS History Sheet. Digital Woman Screen Mammo: May 17, 2021 - Exam #: [id number] Bilateral CC and MLO view(s) were taken. Technologist: Saranya Grullon Technologist Prior study comparison: April 27, 2020, diagnostic bilateral mammo performed at [facility]. September 30, 2019, bilateral digital mammo screening bilat, performed at [facility]. March 04, 2017, bilateral digital woman screen mammo, performed at [facility]. FINDINGS: The breast tissue is heterogeneously dense. This may lower the sensitivity of mammography. The Volpara volumetric breast density category is: C. A stable focal area of high attenuation material is again noted laterally in the right breast, 9 mm in diameter unchanged from the 2019 study consistent with previously described extracapsular silicone. The patient is status post explantation of bilateral silicone implants. There is a moderate amount of heterogeneously dense fibroglandular tissue which is fairly symmetric. There is no interval development of dominant mass, architectural distortion, or grouped microcalcification typical of malignancy. There has been no change in the appearance of the mammogram from the prior studies. 3-D tomosynthesis shows no additional findings. Assessment: BI-RADS/ACR category 2 mammogram. Benign Findings. Recommendation Routine screening mammogram of both breasts in 1 year (for women over age 40). This patient's [facility] Lifetime Breast Cancer RIsk is estimated at 2.6 %. This mammogram was interpreted with the aid of an FDA-approved computer-aided dectection system. Electronically Signed By: Luis Agudelo MD 05/17/21 [id number]
== END ==
LOC: M WHC 10:15
PROVIDERS: ATTEND Nurse Practitioner Primary Care
DX: Z12.31 Encounter for screening mammogram for malignant neoplasm of breast (principal); Z78.0 Asymptomatic menopausal state; Z85.89 Personal history of malignant neoplasm of other organs and systems; Z80.8 Family history of malignant neoplasm of other organs or systems; Z98.86 Personal history of breast implant removal

== ENCOUNTER → 2021-05-30 | Outpatient (CLI) | payer MEDICARE, OTHER ==
--- NOTE | 2021-06-01 00:36 | ECWPNPC ---
PATIENT NAME: ANGIE MANLEY I : 1945 GENDER: FEMALE VISIT DATE: 05/30/2021 DISCHARGE DATE: 05/30/21 1151 VISIT LOCKED DATE TIME: PHYSICIAN: CHERY CORTES RESOURCE: CHERY CORTES REASON FOR APPOINTMENT 1. SHOULDER HISTORY OF PRESENT ILLNESS DEPRESSION SCREENING: PHQ-2 (2015 EDITION) LITTLE INTEREST OR PLEASURE IN DOING THINGS?NOT AT ALL FEELING DOWN, DEPRESSED, OR HOPELESS?NOT AT ALL TOTAL SCORE0 GENERAL: HPI 76-YEAR-OLD FEMALE IN FOR LEFT SHOULDER PAIN INITIAL CONSULT. SHE RATES HER PAIN CURRENTLY A 7 OUT OF 10 DESCRIBES IT INTERMITTENT, AND SHARP WITH MOVEMENT. PATIENT STATES THE PAIN HAS BEEN PRESENT SINCE SURGERY ON THAT SHOULDER IN 2007.. - - -. FALL RISK SCREENING: SCREENING : NO FALLS REPORTED IN THE LAST YEAR . PAIN SCREENING: PATIENT HAS A COMPLAINT OF ACUTE OR CHRONIC PAIN :YES LOCATION OF PAIN:LEFT SHOULDER INTENSITY OF PAIN (SCALE OF 1 TO 10):7 WHAT DOES YOUR PAIN FEEL LIKE:INTERMITTENT, SHARP WITH MOVEMENT DURATION:INTERMITTENT PAIN IS INCREASED BY:ACTIVITIES, PROLONGED STANDING PAIN IS DECREASED BY:USE OF PAIN MEDICATIONS, SITTING NURSING NOTE: - - -. PAIN CENTER INTAKE QUESTIONS: DO YOU HAVE A HISTORY OF MRSA? :NO DO YOU TAKE A BLOOD THINNERS? :YES ELIQUIS DO YOU HAVE ANY BLEEDING DISORDERS? :NO ANY NEW NUMBNESS OR WEAKNESS IN YOUR LEGS OR ARMS? :NO ANY PACEMAKER,DEFIBRILLATOR, OR DORSAL COLUMN STIMULATOR? :NO DO YOU HAVE ANY RASHES OR OPEN SORES? :NO ARE YOU ALLERGIC TO IV DYE? :NO ARE YOU DIABETIC? :NO ANY NEW PROBLEMS WITH YOUR MEDICATIONS? :NO HAVE YOU RECEIVED A VACCINE IN THE PAST 30 DAYS? :NO SECOND COVID VACCINATION IN 03/2021 DO YOU PLAN TO RECEIVE A VACCINE IN THE NEXT 21 DAYS? :NO DO YOU NEED ANY PRESCRIPTION? :NO DO YOU TAKE ANY IMMUNOSUPPRESSIVE MEDICATIONS? :NO IS THERE A CHANCE YOU COULD BE ? :NO ARE YOU BREAST FEEDING? :NO CURRENT MEDICATIONS TAKING MAY USE - - GLYCENE ORALLY DAILY TAKING BONE MEAL - TABLET DIRECTED ORALLY TAKING FISH OIL DOUBLE STRENGTH 1200 MG CAPSULE 1 CAPSULE ORALLY ONCE A DAY TAKING VITAMIN A 2400 MCG (8000 UT) TABLET DIRECTED ORALLY TAKING COQ10 200 MG CAPSULE DIRECTED ORALLY TAKING DUPIXENT 300 MG/2ML SOLUTION PREFILLED SYRINGE 2 ML SUBCUTANEOUS EVERY TWO WEEKS TAKING GABAPENTIN 100 MG CAPSULE 1 CAPSULE ORALLY THREE TIMES DAILY TAKING HYDROXYZINE HCL 10 MG TABLET DIRECTED ORALLY TAKING ELIQUIS TABLET ORAL TAKING ATORVASTATIN CALCIUM 40 MG TABLET 1 TABLET ORALLY ONCE A DAY TAKING SYNTHROID 50 MCG TABLET 1 TABLET IN THE MORNING ON AN EMPTY STOMACH ORALLY ONCE A DAY TAKING PROAIR HFA 108 (90 BASE) MCG/ACT AEROSOL SOLUTION 2 PUFFS NEEDED INHALATION QID PRN TAKING FLUTICASONE PROPIONATE 50 MCG/ACT SUSPENSION 1 SPRAY IN EACH NOSTRIL NASALLY ONCE A DAY TAKING AZELASTINE HCL 0.1 % SOLUTION 1 PUFF IN EACH NOSTRIL NASALLY TWICE A DAY TAKING TURMERIC CURCUMIN 5-1000 MG CAPSULE 3000MG ORALLY DAILY TAKING GLUCOSAMINE HCL 1500 MG TABLET 1 TABLET ORALLY ONCE A DAY TAKING MAGNESIUM 400 MG CAPSULE DIRECTED ORALLY TAKING VITAMIN D3 50 MCG (2000 UT) CAPSULE 1 CAPSULE ORALLY ONCE A DAY TAKING RED YEAST RICE 600 MG TABLET 1200MG ORALLY DAILY TAKING GARLIC 1000 MG CAPSULE DIRECTED ORALLY TAKING VITAMIN E 1000 UNIT CAPSULE 1 CAPSULE ORALLY ONCE A DAY TAKING ECHINACEA 400 MG CAPSULE DIRECTED ORALLY TAKING B-100 - TABLET DIRECTED ORALLY NOT-TAKING DETROL LA 2 MG CAPSULE EXTENDED RELEASE 24 HOUR 1 CAPSULE ORALLY ONCE A DAY NOT-TAKING DETROL LA 4 MG CAPSULE EXTENDED RELEASE 24 HOUR 1 CAPSULE ORALLY ONCE A DAY NOT-TAKING DETROL LA 4 MG CAPSULE EXTENDED RELEASE 24 HOUR 1 CAPSULE ORALLY ONCE A DAY NOT-TAKING ENABLEX 7.5 MG TABLET EXTENDED RELEASE 24 HOUR 1 TABLET WITH LIQUID ORALLY ONCE A DAY MEDICATION LIST REVIEWED AND RECONCILED WITH THE PATIENT PAST MEDICAL HISTORY DEPRESSION ARTHRITIS ASTHMA ECZEMA 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- SURGICALLY REMOVED- NO CHEMO OR RADIATION CARPAL TUNNEL SYNDROME ANXIETY DISORDER COPD KIDNEY DISEASE CLOTTING DISORDER HYPOTHYROIDISM ALLERGIES LATEX: ALLERGY ENVIRONMENTAL - ONSET DATE 12/15/2019 SURGICAL HISTORY COLONOSCOPY 1992 HYSTERECTOMY 1995 RIGHT HIP REPLACEMENT 2003 BSO 2005 LEFT SHOULDER REPLACEMENT 2007 CANCER LEFT SUBMAXILLARY GLAND-SURGICALLY REMOVED 1960 RIB RESECTION 1974 HYSTERECTOMY- OVARIES RETAINED 1978 GLENOLABRAL DEBRIDEMENT AND ANTERIOR MEER ACROMIOPLASTY 1983 CARPAL TUNNEL RELEASE 1984 BSO 1993 ESOPHAGRAM 2000 LEFT HIP REPLACEMENT PRIOR TO 2003 2010 CATARACT SURGERY 2012 RIGHT SHOULDER REPLACEMENT, [place] 2013 REMOVAL OF BREAST IMPLANTS 2019 BREAST AUGMENTATION 1983 BREAST IMPLANT REMOVAL BREAST SURGERY RIGHT HIP REPLACEMENT 04/26/2004, DR. CLARITA ANDERSON CARPAL TUNNEL SURGERY HYSTERECTOMY LEFT SHOULDER REPLACEMENT [facility]OUGH [facility] LEFT HIP REPLACEMENT 2010 FAMILY HISTORY FATHER: MOTHER: DAUGHTER(S): , IN METASTATIC [place] AT AGE 40 SISTER, MS, BROTHER MYOCARDIAL INFARCTION. DAUGHTER CANCER. SOCIAL HISTORY GENERAL: TOBACCO USE ARE YOU A:FORMER SMOKER LATEX QUESTIONNAIRE LATEX ALLERGY : HAVE YOU EVER DEVELOPED ANY TYPE OF REACTION AFTER HANDLING LATEX PRODUCTS SUCH RUBBER GLOVES, CONDOMS, DIAPHRAGMS, BALLOONS, SOCKS, OR UNDERWEAR?YES - PLEASE INDICATE :OTHER (DOCUMENT IN NOTES) BANDAID LATEX ALLERGY : HAVE YOU EVER DEVELOPED ANY TYPE OF REACTION DURING OR AFTER DENTAL APPOINTMENT, VAGINAL/RECTAL EXAMINATION, SURGICAL PROCEDURE, OR ANY OTHER EXPOSURE?NO LATEX RISK : HAVE YOU EVER HAD ANY DIFFICULTY BREATHING OR HIVES AFTER EATING OR HANDLING ANY FRUITS, OR VEGETABLES; SUCH KIWI, BANANAS, STONE FRUITS, OR CHESTNUTSNO LATEX RISK : DO YOU HAVE A PREVIOUS PERSONAL HISTORY OF MORE THAN NINE SURGERIES, SPINA BIFIDA, OR REPEATED CATHERIZATIONS? NO LATEX RISK : ARE YOU FREQUENTLY EXPOSED TO LATEX PRODUCTS IN YOUR OCCUPATION?NO DATE ASKED : 12/20/2019 ALCOHOL USE: NO. ALCOHOL SCREENING DID YOU HAVE A DRINK CONTAINING ALCOHOL IN THE PAST YEAR?NO POINTS0 INTERPRETATIONNEGATIVE RECREATIONAL DRUG USE DRUG USE?NO CAFFEINE CAFFEINE USE?YES HOW OFTEN AND HOW MUCH? 3/DAY SEXUAL HX HAD SEX IN THE LAST 12 MONTHS (VAGINAL, ORAL, OR ANAL)?NO HIV / HEP-C SCREENING HIV TEST OFFERED TO PATIENT:YES DATE OFFERED:12/20/2019 TEST ACCEPTED:NO REASON:PATIENT DECLINED BROCHURE PROVIDED TO PATIENTNO LEARNING BARRIERS / SPECIAL NEEDS BARRIERS TO LEARNING?NO HEARING IMPAIRED?YES :HEARING AIDES VISION IMPAIRED?YES :CORRECTIVE LENSES COGNITIVELY IMPAIRED?NO READINESS TO LEARN?YES LEARNING PREFERENCES?NO LEARNING CAPABILITIES PRESENT?YES EMOTIONAL BARRIERS?NO SPECIAL DEVICES?YES :WALKER PRN HIP PAIN SHINGLE TRIMMER NEEDED?NO OCCUPATION: RETIRED. HOSPITALIZATION/MAJOR DIAGNOSTIC PROCEDURE DEPRESSION 1991 SURGERY RELATED REVIEW OF SYSTEMS CONSTITUTIONAL: ANY RECENT FEVER NO . CHILLS NO . WEIGHT CHANGE OF UNKNOWN REASONS NO . MUSCULOSKELETAL: ANY UNUSUAL JOINT PAIN OR SWELLING NOT MENTIONED NO . SYSTEMIC LUPUS NO . ANY NEUROMUSCULAR DISORDER NOT MENTIONED NO . LYME DISEASE NO . GASTROENTEROLOGY: ANY NEW CHANGE IN BOWEL CONTROL? NO . HISTORY OF LIVER DISORDER NOT MENTIONED NO . HISTORY OF UNUSUAL ABDOMINAL PAIN OR CRAMPING NOT MENTIONED NO . NO CONSTIPATION. GENITOURINARY: ANY NEW CHANGE IN BLADDER CONTROL? NO . ANY RENAL/KIDNEY CONDITON NOT MENTIONED NO . NEUROLOGY: HISTORY OF TBI NOT MENTIONED NO . OTHER NEW NUMBNESS OR PAIN PATTERNS NOT MENTIONED NO . NEW ONSET DIZZINESS OR NEUROLOGICAL CHANGES NOT MENTIONED NO . HISTORY OF SEVERE HEADACHES NOT MENTIONED NO . HISTORY OF STROKE OR NEUROLOGICAL DISORDER NOT MENTIONED NO . CARDIOLOGY: HEART SURGERY NO . CONGESTIVE HEART FAILURE/FLUID OVERLOAD NOT MENTIONED NO . HISTORY OF CHEST PAIN,IRREGULAR HEART BEAT NOT MENTIONED NO . RESPIRATORY: SHORTNESS OF BREATH ON EXERTION, WHEEZES, UNUSUAL COUGH NOT MENTIONED NO . ENDOCRINOLOGY: ADRENAL GLAND OR THYROID DISORDERS NOT MENTIONED NO . UNUSUAL URINATION, DIZZINESS OR LETHARGY NOT MENTIONED NO . VITAL SIGNS WT 218.4 LBS, WT-KG 99.07 KG, HT 67 IN, BMI 34.20 INDEX, BP 148/76 MM HG, HR 75 /MIN, RR 18 /MIN, TEMP 99.1 F, OXYGEN SAT % 98%, SAFE IN ENV? (Y/N) YES, NA INITIALS AW 1040, REVIEWED BY: DEION MILTON MA. EXAMINATION GENERAL EXAMINATION: GENERALNO ACUTE DISTRESS, WELL NOURISHED AND HYDRATED. PSYCHAPPROPRIATE MOOD AND AFFECT . LUNGS:CLEAR TO AUSCULTATION BILATERALLY, NO WHEEZES, RHONCHI, RALES. HEART:NO MURMURS, REGULAR RATE AND RHYTHM. ASSESSMENTS PAIN IN LEFT SHOULDER - M25.512 (PRIMARY) USE OF OPIATES FOR THERAPEUTIC PURPOSES - Z79.891 TREATMENT PAIN IN LEFT SHOULDER START TRAMADOL HCL TABLET, 50 MG, 1 TABLET NEEDED, ORALLY, ONCE A DAY PRN PAIN, 30 DAYS, 30 NOTES: 76-YEAR-OLD FEMALE IN FOR INITIAL PAIN CONSULT REGARDING LEFT SHOULDER PAIN. GIVEN PRESENTING SYMPTOMS RECOMMEND TRAMADOL 50 MG 1 TABLET NEEDED FOR PAIN WITH FOLLOW-UP IN 1 MONTH TO DETERMINE EFFICACY OF TREATMENT. PATIENT HAS EXPRESSED UNDERSTANDING OF AND WAS IN AGREEMENT WITH TREATMENT PLAN. GIVEN TIME TO ASK QUESTIONS AND EXPRESS CONCERNS. ISTOP REGISTRY REVIEWED AND DEMONSTRATES COMPLLIANCE. (REF # [id number] ). USE OF OPIATES FOR THERAPEUTIC PURPOSES LAB: URINE TEST GROUP NEREIDA MILTON 05/30/2021 11:45:21 AM > LAST DOSE: GABAPENTIN 05/30/2021 AT 0830 OTHERS NOTES: TRAMADOL MATERIAL WAS PRINTED AND PROVIDED TO PATIENT. PATIENT VERBALIZED AN UNDERSTANDING. NEREIDA MILTON MA. PROCEDURE CODES FA211 ESTABILISHED PATIENT [facility] CHARGE DISPOSITION & COMMUNICATION FOLLOW UP 4 WEEKS (REASON: NEW MED) ELECTRONICALLY SIGNED BY BISHNU ROMAN ON 05/31/2021 AT 07:51 AM EDT DISCLAIMER : THIS IS A VISIT SUMMARY EXTRACTED FROM THE [email or web address] CHART. IT IS NOT A COPY OF THE [email or web address] PROGRESS NOTE. TOM
== END ==
LOC: M PAIN 10:30
PROVIDERS: ATTEND Family Medicine
DX: M25.512 Pain in left shoulder (principal); J44.9 Chronic obstructive pulmonary disease, unspecified; E03.9 Hypothyroidism, unspecified; Z86.59 Personal history of other mental and behavioral disorders; Z87.891 Personal history of nicotine dependence; Z91.040 Latex allergy status; Z79.01 Long term (current) use of anticoagulants; Z79.899 Other long term (current) drug therapy

== ENCOUNTER → 2021-07-03 | Outpatient (REF) | payer MEDICARE, OTHER ==
[~2021-07-03] MED LIST changes: -DOXY100C PO; +DOXY100C3 PO
[2021-07-03 13:48] LABS: ALBUMIN 3.4 GM/DL (3.2-5.2); BILIRUBIN,TOTAL 0.8 MG/DL (0.2-1.0); CALCIUM LEVEL 9.4 MG/DL (8.8-10.2); CHOLESTEROL RISK RATIO 2.745 (<5); CREATININE FOR GFR 1.08 MG/DL (0.55-1.30); FREE T4 0.9 NG/DL (0.76-1.46); GLOMERULAR FILTRATION RATE 52.4 (>39); POTASSIUM SERUM 4.2 MEQ/L (3.5-5.1); THYROID STIMULATING HORMONE 3.64 uIU/ML (0.358-3.740); TOTAL PROTEIN 6.8 GM/DL (6.4-8.2)
== END ==
LOC: M LABDRWAD 12:17
PROVIDERS: ATTEND Nurse Practitioner Family
DX: E03.9 Hypothyroidism, unspecified (principal)

== ENCOUNTER → 2021-08-03 | Outpatient (CLI) | payer MEDICARE, OTHER ==
[~2021-08-03] MED LIST changes: +ISOVUE-300 61% 50ML VIAL As Ordered ONE; +LIDOCAINE 1% MDV 20ML VIAL As Ordered ONE; +methylPREDNISolone 80MG/ML SUSP 1ML VIAL (J1040) As Ordered ONE
--- NOTE | 2021-08-03 16:17 | REP ---
INDICATION: LEFT ILIOPSOAS INJECTION. COMPARISON: None. TECHNIQUE: The procedure was performed under the direct supervision of Dr. Agudelo. The benefits and risks including but not limited to pain infection bleeding and anaphylaxis were explained to the patient and informed consent was obtained. The left iliopsoas insertion site on the lesser trochanter was localized using fluoroscopic guidance. The skin was prepped and draped in a sterile fashion. 1% lidocaine was used as a local anesthetic. Using fluoroscopic guidance, and last image hold technology, a 22 gauge needle was inserted and advanced to the lesser trochanter. 1 mL of Isovue-300 was injected to verify placement. 3 mL of a solution containing 2 mL of 1% lidocaine and 1 mL of Depo-Medrol 40 mg was injected. The needle was then removed. The patient tolerated the procedure well and there were no immediate complications. Less than 6 seconds of fluoroscopy time was utilized for this procedure. FINDINGS: None IMPRESSION: Fluoro guidance for left iliopsoas injection. <Electronically signed by Sage Smith > 08/03/21 1500 <Electronically signed by Luis Agudelo > 08/03/21 0941
== END ==
LOC: M RADPRO 10:50
PROVIDERS: ATTEND Orthopaedic Surgery
DX: M25.552 Pain in left hip (principal); M76.10 Psoas tendinitis, unspecified hip
CPT/HCPCS: 20610; 77002; J1040; Q9967

== ENCOUNTER → 2021-08-06 | Outpatient (CLI) | payer MEDICARE, OTHER ==
[~2021-08-06] MED LIST changes: -ISOVUE-300 61% 50ML VIAL As Ordered ONE; -LIDOCAINE 1% MDV 20ML VIAL As Ordered ONE; -methylPREDNISolone 80MG/ML SUSP 1ML VIAL (J1040) As Ordered ONE
--- NOTE | 2021-08-06 11:47 | REP ---
INDICATION: INTERSTITIAL PULMONASRY DX COMPARISON: Multiple the latest 06/30/2020 a contrast-enhanced exam TECHNIQUE: Standard helical technique without intravenous contrast FINDINGS: There is no significant change in appearance of the mediastinum or pulmonary klever. Nonenlarged and calcified lymph nodes are noted status quo. There are no pleural or pericardial effusions. There is no significant change in appearance of the imaged upper abdomen or imaged osseous structures. Evaluation of the lung lance shows scattered curvilinear and ground-glass opacities less prominent in appearance when compared to the latest [address] angiography of the chest but when compared to the standard contrast-enhanced CT examination of the chest of 02/08/2019 these opacities have increased. There is bi apical pleuroparenchymal scarring status quo. There are multiple sub cm sized pulmonary nodules which have a stable appearance. No definite new abnormal nodule, mass, or spiculated density has developed. There is cylindrical bronchiectasis status quo. IMPRESSION: Chronic lung field changes as described above consistent with the patient's history of interstitial lung disease. There is no revised Fleischner society criteria on the recommendation for follow-up of such findings. Follow-up should be based on clinical assessment. <Electronically signed by Clay Villafana > 08/06/21 1750
== END ==
LOC: M RAD 10:55
PROVIDERS: ATTEND Internal Medicine Pulmonary Disease
DX: J84.9 Interstitial pulmonary disease, unspecified (principal)

== ENCOUNTER 2021-09-06 17:46 | Emergency (ER) | payer MEDICARE, OTHER ==
[~2021-09-06 17:46] MED LIST changes: -GABA-283 PO; -ISOVUE-370 76% 100ML VIAL As Ordered ONE; -SYMB16INH INH
--- OUTSIDE RECORDS SUMMARY | 2021-09-06 17:52 | CCD | Continuity of Care Document ---
Author Author Naomy HAIDER I [facility] Organization Unknown Address [address] [place] [address] Phone [phone] Care Team Providers Care Tube Teller Name Role Phone Tiffany Dorantes MD AUTM [phone] [facility] Nurse Practitioners - Dermatology AUTM [phone] [facility] AUTM [phone] [facility] - Hearing Aid Equipment AUTM [phone] Problems Description No Information Available Social History Type Date Description Comments Sex Unknown Tobacco Use Start: Unknown Never Used Smokeless Tobacco ETOH Use Denies alcohol use Tobacco Use Start: Unknown End: Unknown Patient is a former smoker quit in 1991 Recreational Drug Use Denies Drug Use Smoking Status Reviewed: 04/05/21 Patient is a former smoker qu it in 1991 Exercise Type/Frequency Exercises rarely Sun Exposure Minimum amount of sun exposure Seat Belt/Car Seat Always uses seat belt Bike Helmet Never does not ride Smoke Alarms Yes Smoke Alarms Carbon Monoxide Detector: Yes Allergies, Adverse Reactions, Alerts Active Allergies Criticality Reaction | Severity Comments Date NKDA Unable to assess criticality 03/16/2003 Environmental Unable to assess criticality 07/31/2015 Medications Active Medications SIG Qnty Indications Ordering Provide r Date Azelastine HCL (Nasal) 0.15% Solut ion 1-2 sprays each nostril once daily 1units Marjorie Haider FNP 01/02/2021 Fluocinonide 0.05% Ointment apply to affected areas twice a day as needed 60gm Anderson Haider FNP 12/20/2020 Albuterol Sulfate 2.5mg/0.5ML Nebu lizer one vial in neb every 4-6 hours as needed shortness of breath Unknown 07/04/2020 Albuterol Sulfate HFA 108(90Base) mcg/Act Aerosol 2 puffs every 6 hours as needed for wheezing and coughing Unknown 03/29/2020 Synthroid 50mcg Tablets take 1 tablet daily 90tabs Marjorie Haider FNP 01/20/2020 Atorvastatin Calcium 40mg Tablets Take 1 Tablet Daily For Cholesterol 90tabs Jimena Johnson M.D. 04/22/2018 Fluticasone Propionate 50mcg/Act Suspension two sprays each side of nose daily as needed Unknown Nebulizer Device to use with albuterol every 6 hours as needed Unknown 00 Dupixent 300mg/2ML Solution Pen-In ject Once every 2 weeks Unknown Gabapentin 300mg Capsules take 1 capsule po three times per day Unknown 0 Bromelain Boswellia Complex daily Unknown Mellitox Unknown Xyzal Allergy 24HR 5mg Tablets one tab by mouth once a day Unknown Melatonin 10mg Capsules 20 mg by mouth every evening Unknown Immunizations CPT Code Status Date Vaccine Lot # [id number] Given 08/06/2017 Influenza Vaccine (Fluzone)( medicare) [id number] Given 07/31/2015 Influenza Vaccine (Fluzone)( medicare) [id number] Refused 04/06/2019 Zoster (Shingles ) Vaccine (HZV), Recombinant, Subunit, Adjuvanted [id number] Refused 04/06/2019 Zostavax [id number] Refused 04/06/2019 Pneumococcal Vaccine 05879 Refused 04/06/2019 Prevnar 13 [id number] Refused 10/06/2018 Prevnar 13 For Adults [id number] Refused 10/06/2018 Pneumococcal Vaccine 94205 Refused 10/06/2018 Influenza Virus Vaccine, Moo drivalent,multidose vial [id number] Refused 02/01/2016 Pneumococcal Vaccine Vital Signs Date Vital Result Comment 07/24/2021 2:29pm BP Systolic 104 mmHg BP Diastolic 65 mmHg Heart Rate 75 /min Body Temperature 97.1 F Respiratory Rate 17 /min Height 66.50 inches 5'6.50" Weight 218.25 lb O2 % BldC Oximetry 98 % Peak Expiratory Flow Rate 331 Estimated Peak Flow Rate [place] Body Weight 130 lb BMI (Body Mass Index) 34.7 kg/m2 04/05/2021 10:59am BP Systolic 94 mmHg BP Diastolic 67 mmHg Heart Rate 80 /min Body Temperature 97.6 F Respiratory Rate 20 /min Height 66.50 inches 5'6.50" Weight 216.12 lb O2 % BldC Oximetry 98 % Peak Expiratory Flow Rate 332 Estimated Peak Flow Rate [place] Body Weight 130 lb BMI (Body Mass Index) 34.4 kg/m2 Results Test Acquired Date Facility Test Result H/L Range Note Comprehensive Metabolic Profil 07/03/2021 [facility] [phone] Glucose, Fasting 92 mg/dL Normal 70-100 Blood Urea Nitrogen 12 mg/dL Normal 7-18 Creatinine For GFR 1.08 mg/dL Normal 0.55-1.30 Glomerular Filtration Rate 52.4 Normal >39 1 Sodium Level 142 mEq/L Normal 136-145 Potassium Serum 4.2 mEq/L Normal 3.5-5.1 Chloride Level 109 mEq/L High 98-107 Carbon Dioxide Level 28 mEq/L Normal 21-32 Anion Gap 5 mEq/L Low 8-16 Calcium Level 9.4 mg/dL Normal 8.8-10.2 Ast/Sgot 35 U/L Normal 7-37 Alt/SGPT 42 U/L Normal 12-78 Alkaline Phosphatase 76 U/L Normal 45-117 Bilirubin,Total 0.8 mg/dL Normal 0.2-1.0 Total Protein 6.8 GM/DL Normal 6.4-8.2 Albumin 3.4 GM/DL Normal 3.2-5.2 Albumin/Globulin Ratio 1.0 Low 1.2-2.2 Lipid Panel 07/03/2021 [facility]ter [phone] Triglycerides Level 146 mg/dL Normal <150 Cholesterol Level 162 mg/dL Normal <200 HDL Cholesterol 59 mg/dL Normal >40 LDL Cholesterol 74 mg/dL Normal <100 Non-HDL-C 103 mg/dL Normal Cholesterol Risk Ratio 2.745 Normal <5 FT4&TSH Panel 07/03/2021 [facility] nter [phone] Thyroid Stimulating Hormone 3.640 uIU/ML Normal 0. 358-3.740 Free T4 0.90 ng/dL Normal 0.76-1.46 1 Units are mL/min/1.73 m2 Chronic Kidney Disease Staging per NKF: Stage I & II GFR >=60 Normal to Mildly Decreased Stage III GFR 30-59 Moderately Decreased Stage IV GFR 15-29 Severely Decreased Stage V GFR <15 Very Little GFR Left ESRD GFR <15 on BANK RECONCILIATOR Procedures Date Code Description Status 07/24/2021 79893 Office/Outpatient Established Mo d MDM 30-39 Min Completed 04/05/2021 72370 Office/Outpatient Established Mo d MDM 30-39 Min Completed 03/2021 [id number] Mammogram Completed Medical Devices Description No Information Available Encounters Type Date Location Provider Dx Diagnosis Office Visit 07/24/2021 2:45p Main Office Marjorie Haider FNP Z00.0 0 Encntr for general adult medical exam w/o abnormal findings J45.50 Severe persistent asthma, un complicated K21.9 Gastro-esophageal reflux dis ease without esophagitis E78.2 Mixed hyperlipidemia E03.9 Hypothyroidism, unspecified I26.94 Mult subsegmental pulmon emb marlyn without acute cor pulmonale Office Visit 04/05/2021 11:00a Main Office Marjorie Haider FNP J45.5 0 Severe persistent asthma, uncomplicated K21.9 Gastro-esophageal reflux dis ease without esophagitis E78.2 Mixed hyperlipidemia E03.9 Hypothyroidism, unspecified I26.94 Mult subsegmental pulmon emb marlyn without acute cor pulmonale Assessments Date Code Description Provider 07/24/2021 Z00.00 Encounter for genera l adult medical examination without abnormal findings Marjorie Haider, COUNSELLORS 07/24/2021 J45.50 Severe persistent asthma, uncomp licated Marjorie Haider, COUNSELLORS 07/24/2021 K21.9 Gastro-esophageal reflux disease without esophagitis Marjorie Hadier, COUNSELLORS 07/24/2021 E78.2 Mixed hyperlipidemia Anderson Haider, COUNSELLORS 07/24/2021 E03.9 Hypothyroidism, unspecified Ples Marjorie [place], COUNSELLORS 07/24/2021 I26.94 Multiple subsegmenta l pulmonary emboli without acute cor pulmonale Marjorie Haider, COUNSELLORS 04/05/2021 J45.50 Severe persistent asthma, uncomp licated Marjorie Haider, COUNSELLORS 04/05/2021 K21.9 Gastro-esophageal reflux disease without esophagitis Marjorie Haider FNP 04/05/2021 E78.2 Mixed hyperlipidemia Anderson Haider, COUNSELLORS 04/05/2021 E03.9 Hypothyroidism, unspecified Ples [place]ie [place], COUNSELLORS 04/05/2021 I26.94 Multiple subsegmenta l pulmonary emboli without acute cor pulmonale Marjorie Haider FNP Plan of Treatment Future Appointment(s):* 01/21/2022 11:30 am - Marjorie Haider FNP at Main Office 07/24/2021 - Marjorie Haider FNP* Z00.00 Encounter for general adult medical examination without abnormal findings* Comments:* Health maintenance up to date. Overall doing well. TERE/PHQ 9/CAGE questionnaire reviewed. Discussed healthy lifestyle choices. * J45.50 Severe persistent asthma, uncomplicated* Comments:* following with pulmonology, still gets SOB with any exertion * Follow up:* 6 months * K21.9 Gastro-esophageal reflux disease without esophagitis* Comments:* controlled on current medications * E78.2 Mixed hyperlipidemia* Comments:* controlled, continue statin * E03.9 Hypothyroidism, unspecified* Comments:* continue levothyroxine * I26.94 Multiple subsegmental pulmonary emboli without acute cor pulmonale* Comments:* following with pulmonology Functional Status Functional Condition Comment Date Status [facility] Active Independent with all ADL's Activ e Glasses Reading Active Independent with all IADL's Acti ve Partial upper dentures Active Mental Status Mental Condition Comment Date Status None Active Referrals Description No Information Available
--- OUTSIDE RECORDS SUMMARY | 2021-09-06 17:52 | CCD | Continuity of Care Document ---
Author Author Naomy HAIDER I [facility] Organization Unknown Address [address] [place] [address] Phone [phone] Care Team Providers Care Mascara Molder Name Role Phone Tiffany Dorantes MD AUTM [phone] [facility] Nurse Practitioners - Dermatology AUTM [phone] [facility] AUTM [phone] [facility] - Hearing Aid Equipment AUTM [phone] Problems Description No Information Available Social History [...] Q2038 Given 08/06/2017 Influenza Vaccine (Fluzone)( medicare) [id number] Q2038 Given 07/31/2015 Influenza Vaccine (Fluzone)( medicare) [id number] 53841 Refused 04/06/2019 Zoster (Shingles ) Vaccine (HZV), Recombinant, Subunit, Adjuvanted 64440 Refused 04/06/2019 Zostavax 73850 Refused 04/06/2019 Pneumococcal Vaccine 75050 Refused 04/06/2019 Prevnar 13 26670 Refused 10/06/2018 Prevnar 13 For Adults 56486 Refused 10/06/2018 Pneumococcal Vaccine 74945 Refused 10/06/2018 Influenza Virus Vaccine, Moo drivalent,multidose vial 36539 Refused 02/01/2016 Pneumococcal Vaccine Vital Signs Date Vital Result Comment 07/24/2021 2:29pm BP Systolic 104 mmHg BP Diastolic 65 mmHg Heart Rate 75 /min Body Temperature 97.1 F Respiratory Rate 17 /min Height 66.50 inches 5'6.50" Weight 218.25 lb O2 % BldC Oximetry 98 % Peak Expiratory Flow Rate 331 Estimated Peak Flow Rate [place] Body Weight 130 lb BMI (Body Mass Index) 34.7 kg/m2 04/05/2021 10:59am BP Systolic 94 mmHg BP Diastolic 67 mmHg Heart Rate 80 /min Body Temperature 97.6 F Respiratory Rate 20 /min Height 66.50 inches 5'6.50" Weight 216.12 lb O2 % BldC Oximetry 98 % Peak Expiratory Flow Rate 332 Estimated Peak Flow Rate [place] Body Weight 130 lb BMI (Body Mass Index) 34.4 kg/m2 Results Test Acquired Date Facility Test Result H/L Range Note Comprehensive Metabolic Profil 07/03/2021 [facility] [phone] Glucose, Fasting 92 mg/dL Normal 70-100 Blood [...] Ratio 1.0 Low 1.2-2.2 Lipid Panel 07/03/2021 [facility] nter [phone] Triglycerides Level 146 mg/dL Normal <150 Cholesterol Level 162 mg/dL Normal <200 HDL Cholesterol 59 mg/dL Normal >40 LDL Cholesterol 74 mg/dL Normal <100 Non-HDL-C 103 mg/dL Normal Cholesterol Risk Ratio 2.745 Normal <5 FT4&TSH Panel 07/03/2021 [facility] nter [phone] Thyroid Stimulating Hormone 3.640 uIU/ML Normal 0. 358-3.740 Free T4 0.90 ng/dL Normal 0.76-1.46 1 Units are mL/min/1.73 m2 Chronic Kidney Disease Staging per NKF: Stage I & II GFR >=60 Normal to Mildly Decreased Stage III GFR 30-59 Moderately Decreased Stage IV GFR 15-29 Severely Decreased Stage V GFR <15 Very Little GFR Left ESRD GFR <15 on BROOCH AND BRACELET MAKER Procedures Date Code Description Status 04/05/2021 38736 Office/Outpatient Established Mo d MDM 30-39 Min Completed 03/2021 [id number] Mammogram Completed Medical Devices Description No Information [...] l adult medical examination without abnormal findings Jimena Johnson M.D. 07/24/2021 Z00.00 Encounter for genera l adult medical examination without abnormal findings Marjorie Haider FNP 07/24/2021 J45.50 Severe persistent asthma, uncomp licated Jimena Johnson M.D. 07/24/2021 J45.50 Severe persistent asthma, uncomp licated Marjorie Haider FNP 07/24/2021 K21.9 Gastro-esophageal reflux disease without esophagitis Jiemna Johnson M.D. 07/24/2021 K21.9 Gastro-esophageal reflux disease without esophagitis Marjorie Haider FNP 07/24/2021 E78.2 Mixed hyperlipidemia Lyle Johnson M.D. 07/24/2021 E78.2 Mixed hyperlipidemia MelizaAnderson justo, FIBROUS PLASTERER 07/24/2021 E03.9 Hypothyroidism, unspecified Will Jimena umana M.D. 07/24/2021 E03.9 Hypothyroidism, unspecified Ples Marjorie bay, FIBROUS PLASTERER 07/24/2021 I26.94 Multiple subsegmenta l pulmonary emboli without acute cor pulmonale Jimena Johnson M.D. 07/24/2021 I26.94 Multiple subsegmenta l pulmonary emboli without acute cor pulmonale PleMarjorie marinelli, FIBROUS PLASTERER 04/05/2021 J45.50 Severe persistent asthma, uncomp licated Marjorie Haider, FIBROUS PLASTERER 04/05/2021 K21.9 Gastro-esophageal reflux disease without esophagitis Marjorie Haider, FIBROUS PLASTERER 04/05/2021 E78.2 Mixed hyperlipidemia Anderson Haider, FIBROUS PLASTERER 04/05/2021 E03.9 Hypothyroidism, unspecified Ples Lokesh bayy, FIBROUS PLASTERER 04/05/2021 I26.94 Multiple subsegmenta l pulmonary emboli without acute cor pulmonale Marjorie Haider, FIBROUS PLASTERER Plan of Treatment Future Appointment(s):* 01/21/2022 11:30 [...] Aid in both ears obtained through the MA Active Independent with all ADL's Activ e Glasses Reading Active Independent with all IADL's Acti ve Partial upper dentures Active Mental Status Mental Condition Comment Date Status None Active Referrals Description No Information Available
--- OUTSIDE RECORDS SUMMARY | 2021-09-06 17:52 | CCD | Continuity of Care Document ---
Author Author Naomy SELLERS M.D. Organization Unknown Address [address] [place] [address] Phone [phone] Care Team Providers Care Grout Worker Name Role Phone Jimena Johnson M.D. AUTM [phone] Warner Marshall D.O. AUTM [phone] Remy Melara MD AUTM [phone] AUTM Unavailable Rob Lord M.D. AUTM Problems Description No Information Available Social History Type Date Description Comments Sex Unknown ETOH Use Denies alcohol use Recreational Drug Use Denies Drug Use Tobacco Use Start: 10/27/71 End: 10/27/91 Patient is a forme r smoker 1-1.5 PPD x's 20 years Smoking Status Reviewed: 08/15/21 Patient is a former smoker 1- 1.5 PPD x's 20 years Allergies and adverse reactions Active Allergies Criticality Reaction | Severity Comments Date Latex Unable to assess criticality ITCH,RASH 02/08/2016 Medications Active Medications SIG Qnty Indications Ordering Provide r Date Dupixent 300mg/2ML Soln Prefill Sy ringe Inject 1 Syringe Under The Skin Every Other Week 4units Anitha Sellers M.D. 09/01/2020 Atorvastatin Calcium 40mg Tablets 1 tab once daily Unknown Azelastine HCL (Nasal) 0.1% Soluti on 1 spray each nostril twice a day Unknown 0 Proair HFA 108(90Base) mcg/Act Aer osol 2 puffs four times a day as needed Unknown Fluticasone Propionate 50mcg/Act Suspension 2 sprays to each nostril daily as needed Unknown Albuterol Sulfate (2 .5mg/3ML) 0.083% Nebulizer 1 vial four times a day as needed 1080ml J45.50 Anitha Sellers M.D. Eliquis 5mg Tablets take 1 tablet twice a day 90tabs Anitha Sellers M.D. Gabapentin 100mg Capsules 1 by mouth three times a day Unknown Immunizations CPT Code Status Date Vaccine Lot # [id number] Given 03/06/2021 Moderna Covid-19 vaccine, mRNA, LNP-S, PF, 100 mcg/ 0.5 mL 86556 Given 02/08/2021 Moderna Covid-19 vaccine, mRNA, LNP-S, PF, 100 mcg/ 0.5 mL Vital Signs Date Vital Result Comment 08/15/2021 2:15pm BP Systolic 126 mmHg BP Diastolic 70 mmHg Heart Rate 94 /min O2 % BldC Oximetry 96 % Height 67 inches 5'7" Weight 216.00 lb BMI (Body Mass Index) 33.8 kg/m2 [place] Body Weight 135 lb Weight 97.978 kg BSA (Body Surface Area) 2.09 m2 03/20/2021 10:37am BP Systolic 154 mmHg BP Diastolic 82 mmHg Height 67 inches 5'7" Weight 220.12 lb BMI (Body Mass Index) 34.5 kg/m2 [place] Body Weight 135 lb Weight 99.849 kg BSA (Body Surface Area) 2.11 m2 Results Test Acquired Date Facility Test Result H/L Range Note FVL/[place] 08/15/2021 [facility] SEE IMAGE FVC-Pred 3.11 L FVC-Pre 2.38 L FVC-%Pred-Pre 76 L FVC-LLN 2.35 L Fev1-Pred 2.33 L Fev1-Pre 2.19 L Fev1-%Pred-Pre 93 L Fev1-LLN 1.69 L Fev6-Pred 2.96 L Fev6-Pre 2.38 L Fev6-%Pred-Pre 80 L Fev6-LLN 2.21 L Scy7abe-Gjbc 74 % Rvl1sdw-Byl 92 % Ltf2qry-%Pred-Pre 123 % Hve6xfd-KRC 65 % Qql4jwk-Lqes 95 % Bjl4npc-Omn 100 % Fig2eje-%Pred-Pre 105 % FEFMax-Pred 5.54 L/E/sec FEFMax-Pre 5.77 L/E/sec FEFMax-%Pred-Pre 104 L/E/sec FEFMax-LLN 3.66 L/E/sec Cwu8142-Sdew 1.74 L/E/sec Ouf2037-Gbv 4.28 L/E/sec Mlh2721-%Pred-Pre 246 L/E/sec Jwz3271-ORD 0.38 L/E/sec ExpTime-Pre 7.35 sec Uvx5ecm0-Aaxa 78 % Tpm8ofv2-Uvg 92 % Dla1bck8-%Pred-Pre 118 % Trb9lko4-PYX 69 % Procedures Description No Information Available Medical Devices Description No Information Available Encounters Description No Information Available Assessments Date Code Description Provider 03/20/2021 Z12.11 Encounter for screening for allison gnant neoplasm of colon Warner Marshall DO Plan of Treatment 03/20/2021 - Warner Marshall, * Z12.11 Encounter for screening for malignant neoplasm of colon* Comments:* 75y/o female s/p screening scope in 2016. No problems since then, but she does have some other medical issues that have come up and she is dealing with them currently. I gave her the option of waiting on her colonoscopy for another year or two, and she has asked to be placed in recall for 1 year from now. Functional Status Functional Condition Comment Date Status Glasses Active Independent with all ADL's Activ e Independent with all IADL's Acti ve Mental Status Mental Condition Comment Date Status Hearing impaired Active Referrals Description No Information Available
--- OUTSIDE RECORDS SUMMARY | 2021-09-06 17:52 | CCD | Continuity of Care Document ---
Author Author Naomy HAIDER I [facility] Organization Unknown Address [address] [place] [address] Phone [phone] Care Team Providers Care Parks Recreation Director Name Role Phone Tiffany Dorantes MD AUTM [phone] [facility] Nurse Practitioners - Dermatology AUTM [phone] [facility] Home Hea AUTM [phone] [facility] - Hearing Aid Equipment AUTM [phone] Problems Description No Information Available Social History [...] Q2038 Given 08/06/2017 Influenza Vaccine (Fluzone)( medicare) [id number] Q2038 Given 07/31/2015 Influenza Vaccine (Fluzone)( medicare) [id number] 26910 Refused 04/06/2019 Zoster (Shingles ) Vaccine (HZV), Recombinant, Subunit, Adjuvanted 26542 Refused 04/06/2019 Zostavax 30560 Refused 04/06/2019 Pneumococcal Vaccine 06618 Refused 04/06/2019 Prevnar 13 93951 Refused 10/06/2018 Prevnar 13 For Adults 09059 Refused 10/06/2018 Pneumococcal Vaccine 27469 Refused 10/06/2018 Influenza Virus Vaccine, Moo drivalent,multidose vial 34038 Refused 02/01/2016 Pneumococcal Vaccine Vital Signs Date Vital Result Comment 07/24/2021 2:29pm BP Systolic 104 mmHg BP Diastolic 65 mmHg Heart Rate 75 /min Body Temperature 97.1 F Respiratory Rate 17 /min Height 66.50 inches 5'6.50" Weight 218.25 lb O2 % BldC Oximetry 98 % Peak Expiratory Flow Rate 331 Estimated Peak Flow Rate [place] Body Weight 130 lb BMI (Body Mass Index) 34.7 kg/m2 04/05/2021 10:59am BP Systolic 94 mmHg BP Diastolic 67 mmHg Heart Rate 80 /min Body Temperature 97.6 F Respiratory Rate 20 /min Height 66.50 inches 5'6.50" Weight 216.12 lb O2 % BldC Oximetry 98 % Peak Expiratory Flow Rate 332 Estimated Peak Flow Rate [place] Body Weight 130 lb BMI (Body Mass Index) 34.4 kg/m2 Results Test Acquired Date Facility Test Result H/L Range Note Comprehensive Metabolic Profil 07/03/2021 [facility] [phone] Glucose, Fasting 92 mg/dL Normal 70-100 Blood [...] Ratio 1.0 Low 1.2-2.2 Lipid Panel 07/03/2021 [facility] nter [phone] Triglycerides Level 146 mg/dL Normal <150 Cholesterol Level 162 mg/dL Normal <200 HDL Cholesterol 59 mg/dL Normal >40 LDL Cholesterol 74 mg/dL Normal <100 Non-HDL-C 103 mg/dL Normal Cholesterol Risk Ratio 2.745 Normal <5 FT4&TSH Panel 07/03/2021 [facility] nter [phone] Thyroid Stimulating Hormone 3.640 uIU/ML Normal 0. 358-3.740 Free T4 0.90 ng/dL Normal 0.76-1.46 1 Units are mL/min/1.73 m2 Chronic Kidney Disease Staging per NKF: Stage I & II GFR >=60 Normal to Mildly Decreased Stage III GFR 30-59 Moderately Decreased Stage IV GFR 15-29 Severely Decreased Stage V GFR <15 Very Little GFR Left ESRD GFR <15 on PRINTED CIRCUIT DESIGNER Procedures Date Code Description Status 07/24/2021 92552 Office/Outpatient Established Mo d MDM 30-39 Min Completed 04/05/2021 96218 Office/Outpatient Established Mo d MDM 30-39 Min Completed 03/2021 [id number] Mammogram Completed Medical Devices Description No Information [...] medical examination without abnormal findings Marjorie Haider, AMMONIA STILL OPERATOR 07/24/2021 J45.50 Severe persistent asthma, uncomp licated Marjorie Haider, AMMONIA STILL OPERATOR 07/24/2021 K21.9 Gastro-esophageal reflux disease without esophagitis Marjorie Haider, AMMONIA STILL OPERATOR 07/24/2021 E78.2 Mixed hyperlipidemia Anderson Haider, AMMONIA STILL OPERATOR 07/24/2021 E03.9 Hypothyroidism, unspecified Ples Marjorie bay, AMMONIA STILL OPERATOR 07/24/2021 I26.94 Multiple subsegmenta l pulmonary emboli without acute cor pulmonale Marjorie Haider, AMMONIA STILL OPERATOR 04/05/2021 J45.50 Severe persistent asthma, uncomp licated Marjorie Haider, AMMONIA STILL OPERATOR 04/05/2021 K21.9 Gastro-esophageal reflux disease without esophagitis Marjorie Haider FNP 04/05/2021 E78.2 Mixed hyperlipidemia Anderson Haider, AMMONIA STILL OPERATOR 04/05/2021 E03.9 Hypothyroidism, unspecified Ples Marjorie bay, AMMONIA STILL OPERATOR 04/05/2021 I26.94 Multiple subsegmenta l pulmonary emboli [...]
--- OUTSIDE RECORDS SUMMARY | 2021-09-06 17:52 | CCD | Continuity of Care Document ---
Author Author Naomy HAIDER I [facility] Organization Unknown Address [address] [place] [address] Phone [phone] Care Team Providers Care Stock Saw Operator Name Role Phone Tiffany Dorantes MD AUTM [phone] [facility] Nurse Practitioners - Dermatology AUTM [phone] [facility] Home Hea AUTM [phone] [facility] - Hearing Aid Equipment AUTM [phone] Problems Description No Information Available Social History [...] Q2038 Given 08/06/2017 Influenza Vaccine (Fluzone)( medicare) [id number] Q2038 Given 07/31/2015 Influenza Vaccine (Fluzone)( medicare) [id number] 41855 Refused 04/06/2019 Zoster (Shingles ) Vaccine (HZV), Recombinant, Subunit, Adjuvanted 02767 Refused 04/06/2019 Zostavax 32832 Refused 04/06/2019 Pneumococcal Vaccine 61734 Refused 04/06/2019 Prevnar 13 30008 Refused 10/06/2018 Prevnar 13 For Adults 02945 Refused 10/06/2018 Pneumococcal Vaccine 97758 Refused 10/06/2018 Influenza Virus Vaccine, Moo drivalent,multidose vial 49475 Refused 02/01/2016 Pneumococcal Vaccine Vital Signs Date Vital Result Comment 07/24/2021 2:29pm BP Systolic 104 mmHg BP Diastolic 65 mmHg Heart Rate 75 /min Body Temperature 97.1 F Respiratory Rate 17 /min Height 66.50 inches 5'6.50" Weight 218.25 lb O2 % BldC Oximetry 98 % Peak Expiratory Flow Rate 331 Estimated Peak Flow Rate [place] Body Weight 130 lb BMI (Body Mass Index) 34.7 kg/m2 04/05/2021 10:59am BP Systolic 94 mmHg BP Diastolic 67 mmHg Heart Rate 80 /min Body Temperature 97.6 F Respiratory Rate 20 /min Height 66.50 inches 5'6.50" Weight 216.12 lb O2 % BldC Oximetry 98 % Peak Expiratory Flow Rate 332 Estimated Peak Flow Rate [place] Body Weight 130 lb BMI (Body Mass Index) 34.4 kg/m2 Results Test Acquired Date Facility Test Result H/L Range Note Comprehensive Metabolic Profil 07/03/2021 [facility] [phone] Glucose, Fasting 92 mg/dL Normal 70-100 Blood [...] Ratio 1.0 Low 1.2-2.2 Lipid Panel 07/03/2021 [facility] nter [phone] Triglycerides Level 146 mg/dL Normal <150 Cholesterol Level 162 mg/dL Normal <200 HDL Cholesterol 59 mg/dL Normal >40 LDL Cholesterol 74 mg/dL Normal <100 Non-HDL-C 103 mg/dL Normal Cholesterol Risk Ratio 2.745 Normal <5 FT4&TSH Panel 07/03/2021 [facility] nter [phone] Thyroid Stimulating Hormone 3.640 uIU/ML Normal 0. 358-3.740 Free T4 0.90 ng/dL Normal 0.76-1.46 1 Units are mL/min/1.73 m2 Chronic Kidney Disease Staging per NKF: Stage I & II GFR >=60 Normal to Mildly Decreased Stage III GFR 30-59 Moderately Decreased Stage IV GFR 15-29 Severely Decreased Stage V GFR <15 Very Little GFR Left ESRD GFR <15 on WRITER PRODUCER Procedures Date Code Description Status 07/24/2021 39909 Office/Outpatient Established Mo d MDM 30-39 Min Completed 04/05/2021 57670 Office/Outpatient Established Mo d MDM 30-39 Min Completed 03/2021 [id number] Mammogram Completed Medical Devices Description No Information [...] medical examination without abnormal findings Marjorie Haider, HALL WORKER 07/24/2021 J45.50 Severe persistent asthma, uncomp licated Marjorie Haider, HALL WORKER 07/24/2021 K21.9 Gastro-esophageal reflux disease without esophagitis Marjorie Haider, HALL WORKER 07/24/2021 E78.2 Mixed hyperlipidemia Anderson Haider, HALL WORKER 07/24/2021 E03.9 Hypothyroidism, unspecified Ples Marjorie bay, HALL WORKER 07/24/2021 I26.94 Multiple subsegmenta l pulmonary emboli without acute cor pulmonale Marjorie Haider, HALL WORKER 04/05/2021 J45.50 Severe persistent asthma, uncomp licated Marjorie Haider, HALL WORKER 04/05/2021 K21.9 Gastro-esophageal reflux disease without esophagitis Marjorie Haider FNP 04/05/2021 E78.2 Mixed hyperlipidemia Anderson Haider, HALL WORKER 04/05/2021 E03.9 Hypothyroidism, unspecified Ples Marjorie bay, HALL WORKER 04/05/2021 I26.94 Multiple subsegmenta l pulmonary emboli [...]
--- OUTSIDE RECORDS SUMMARY | 2021-09-06 17:52 | CCD | Continuity of Care Document ---
Author Author Naomy SELLERS M.D. Organization Unknown Address [address] [place] [address] Phone [phone] Care Team Providers Care Clam Sorter Name Role Phone Jimena Johnson M.D. AUTM [phone] Warner Marshall D.O. AUTM [phone] Remy Melara MD AUTM [phone] AUTM Unavailable Rob Lord M.D. AUTM Problems [...] SIG Qnty Indications Ordering Provide r Date Symbicort 160-4.5mcg/Act Aerosol 2 puff twice a day 30.6gm Anitha Sellers M.D. 08/15/2021 Dupixent 300mg/2ML Soln Prefill Sy ringe Inject [...] CPT Code Status Date Vaccine Lot # [id number] Given 03/06/2021 Moderna Covid-19 vaccine, mRNA, LNP-S, PF, 100 mcg/ 0.5 mL 47160 Given 02/08/2021 Moderna Covid-19 vaccine, mRNA, LNP-S, PF, 100 mcg/ 0.5 mL Vital Signs Date Vital Result Comment 08/15/2021 2:15pm BP Systolic 126 mmHg BP Diastolic 70 mmHg Heart Rate 94 /min O2 % BldC Oximetry 96 % Height 67 inches 5'7" Weight 216.00 lb BMI (Body Mass Index) 33.8 kg/m2 [place] Body Weight 135 lb Weight 97.978 kg BSA (Body Surface Area) 2.09 m2 03/20/2021 10:37am BP Systolic 154 mmHg BP Diastolic 82 mmHg Height 67 inches 5'7" Weight 220.12 lb BMI (Body Mass Index) 34.5 kg/m2 [place] Body Weight 135 lb Weight 99.849 kg BSA (Body Surface Area) 2.11 m2 Results Test Acquired Date Facility Test Result H/L Range Note FVL/[place] 08/15/2021 [facility] SEE IMAGE FVC-Pred 3.11 L FVC-Pre 2.38 L FVC-%Pred-Pre 76 L FVC-LLN 2.35 L Fev1-Pred 2.33 L Fev1-Pre 2.19 L Fev1-%Pred-Pre 93 L Fev1-LLN 1.69 L Fev6-Pred 2.96 L Fev6-Pre 2.38 L Fev6-%Pred-Pre 80 L Fev6-LLN 2.21 L Vio6frg-Ovmq 74 % Guy2qaf-Rqj 92 % Gpo5knj-%Pred-Pre 123 % Hlm6pxg-YJU 65 % Jgg0upn-Wtuj 95 % Hfx5dbt-Cpp 100 % Rfv1hda-%Pred-Pre 105 % FEFMax-Pred 5.54 L/E/sec FEFMax-Pre 5.77 L/E/sec FEFMax-%Pred-Pre 104 L/E/sec FEFMax-LLN 3.66 L/E/sec Ecg2943-Klpn 1.74 L/E/sec Fzw1109-Cgc 4.28 L/E/sec Ivc1528-%Pred-Pre 246 L/E/sec Eqn3834-SPS 0.38 L/E/sec ExpTime-Pre 7.35 sec Lfm7rfm6-Oxfs 78 % Qhq2zif5-Yrt 92 % Eju9hxe7-%Pred-Pre 118 % Ozs1pmb8-SLE 69 % Procedures Description No Information Available Medical Devices Description No Information Available Encounters Description No Information Available Assessments Date Code Description Provider 08/15/2021 J45.50 Severe persistent asthma, uncomp licated Anitha Sellers M.D. 08/15/2021 R91.8 Other nonspecific abnormal findi ng of lung field Anitha Slelers M.D. 08/15/2021 Z87.891 Personal history of nicotine dep endence Anitha Sellers M.D. 08/15/2021 I26.99 Other pulmonary embolism without acute cor pulmonale Anitha Sellers M.D. 03/20/2021 Z12.11 Encounter for screening for allison gnant neoplasm of colon Warner Marshall, DO Plan of Treatment Future Appointment(s):* 09/03/2021 11:00 am - Pulmonary Lab at [facility] Pulmonary/Thoracic 08/15/2021 - Anitha Sellers M.D.* J45.50 Severe persistent asthma, uncomplicated * R91.8 Other nonspecific abnormal finding of lung field * Z87.891 Personal history of nicotine dependence * I26.99 Other pulmonary embolism without acute cor pulmonale * * New Labs:* PFT W/HGB On Meds, Scheduled: 09/03/21 * Follow up:* Follow-up after ECHO and PFT Functional Status Functional Condition Comment Date Status Glasses Active Independent with all ADL's Activ e Independent with all IADL's Acti ve Mental Status Mental Condition Comment Date Status Hearing impaired Active Referrals Description No Information Available
--- OUTSIDE RECORDS SUMMARY | 2021-09-06 17:52 | CCD | Continuity of Care Document ---
Author Author Naomy VALVERDE M.D. Organization Unknown Address [address], [address], [place] [address] Phone [phone] Care Team Providers Care Engineer And Geologist Name Role Phone Micah Martel AUTM [phone] Jimena Johnson AUTM Unavailable Juan Allen Unavailable Problems Active Problems Provider Date Allergic rhinitis due to house dust mite Onset: 09/03/2018 Note: 4++ reaction to dust mites on scra tch test completed in 2014. Allergic rhinitis due to animal hair and dander Onset: 09/03/2018 Note: 4+ reaction to cat dander on intra dermal test completed in 2014. Allergic rhinitis due to pollen Onset: 1 11/03/2017 Note: 4++ reaction to various grass poll ens on scratch test with a 4+ reaction to five weed mix on intradermal test completed in 2014. Uncomplicated severe persistent asthma Rob Valverde M.D. Onset: 11/07/2020 Note: Followed by Pulmonology. On Dupixe nt (start November,). Atopic dermatitis Onset: 06/13/2015 Pure hypercholesterolemia KATIE Taylor Onset: 2019 Social History Type Date Description Comments Sex Unknown Tobacco Use Start: 10/27/68 End: 10/27/91 Patient is a forme r smoker 1 Pack Per Day Smoking Status Reviewed: 07/31/21 Patient is a former smoker 1 Pack Per Day Allergies and adverse reactions Description No Known Drug Allergies Medications Active Medications SIG Qnty Indications Ordering Provide r Date Compressor Nebulizer Misc to be used with albuterol as needed 1units Rob Valverde M.D. Symbicort 160-4.5mcg/Act Aerosol inhale 2 puffs by inhalation route 2 times per day in the morning and evening 3inhalers Rob Valverde M.D. 09/03/2018 Albuterol Sulfate (2 .5mg/3ML) 0.083% Nebulizer inhale 3 milliliters (2.5 mg) by nebuliz ation route 4 times per day as needed. 150ml Rob Valverde M.D. 2016 Patanol 0.1% Solution instill 1 drop into affected eye(s) by ophthalmic route 2 times per day at an interval of 6 to 8 hours Unknown 12/11/2016 Proair HFA 108(90Base) mcg/Act Aer osol inhale 2 puffs (180 mcg) by inhalation route every 4-6 hours as needed 8.500gm Rob Valverde M.D. Spiriva Respimat 1.25mcg/Act Aeros ol inhale 2 puffs (2.5 mcg) by inhalation route once daily 8gm Rob Valverde M.D. Atorvastatin Calcium 40mg Tablets 1 tablet by mouth once daily Jimena Johnson, Synthroid 50mcg Tablets 1 tablet by mouth once daily Jimena Johnson, Dupixent 300mg/2ML Solution Pen-In ject inject 300 mg sq every 2 weeks Unknown 0 Xyzal Allergy 24HR 5mg Tablets 1 by mouth every day Unknown Gabapentin 300mg Capsules 1 by mouth three times a day Unknown Medications Administered in Office Medication SIG Qnty Indications Ordering Provider Date Allergy Injection 2 Or More Injection Rob Valverde M.D. 07/06/2020 Allergy Injection 2 Or More Injection Rob Valverde M.D. 06/07/2020 Allergy Injection 2 Or More Injection Rob Valverde M.D. 05/16/2020 Allergy Injection 2 Or More Injection Rob Valverde M.D. 04/26/2020 Allergy Injection 2 Or More Injection Rob Valverde M.D. 04/07/2020 Allergy Injection 2 Or More Injection Rob Valverde M.D. 03/13/2020 Allergy Injection 2 Or More Injection Rob Valverde M.D. 02/21/2020 Allergy Injection 2 Or More Injection Rob Valverde M.D. 01/31/2020 Allergy Injection 2 Or More Injection Rob Valverde M.D. 01/10/2020 Allergy Injection 2 Or More Injection BISHNU Taylor-Ousmane 12/22/2019 Allergy Injection 2 Or More Injection Rob Valverde M.D. 12/22/2019 Allergy Injection 2 Or More Injection Rob Valverde M.D. 11/29/2019 Allergy Injection 2 Or More Injection Rob Valverde M.D. 11/08/2019 Allergy Injection 2 Or More Injection Rob Valverde M.D. 10/18/2019 Allergy Injection 2 Or More Injection Rob Valverde M.D. 09/27/2019 Allergy Injection 2 Or More Injection Rob Valverde M.D. 09/03/2019 Allergy Injection 2 Or More Injection Rob Valverde M.D. 08/16/2019 Allergy Injection 2 Or More Injection BISHNU Gaytan-C 07/26/2019 Allergy Injection 2 Or More Injection Rob Valverde M.D. 07/26/2019 Allergy Injection 2 Or More Injection Rob Valverde M.D. 07/05/2019 Immunizations Description No Information Available Vital Signs Date Vital Result Comment 07/31/2021 9:45am Weight 216.12 lb Height 67 inches 5'7" Heart Rate 86 /min Respiratory Rate 16 /min BP Systolic 109 mmHg BP Diastolic 72 mmHg BMI (Body Mass Index) 33.8 kg/m2 01/30/2021 10:23am Weight 218.25 lb Height 67 inches 5'7" Heart Rate 86 /min Respiratory Rate 20 /min BP Systolic 125 mmHg BP Diastolic 85 mmHg BMI (Body Mass Index) 34.2 kg/m2 Results Description No Information Available Procedures Date Code Description Status 07/31/2021 18067 Office/Outpatient Established Lo w MDM 20-29 Min Completed 01/30/2021 15799 Office/Outpatient Established Lo w MDM 20-29 Min Completed Medical Devices Description No Information Available Encounters Type Date Location Provider Dx Diagnosis Office Visit 07/31/2021 10:00a Main Office Rob Valverde M.D. J30.89 Other allergic rhinitis J30.1 Allergic rhinitis due to tao nellie J30.81 Allergic rhinitis due to ani mal (cat) (dog) hair and dander J45.50 Severe persistent asthma, un complicated Assessments Date Code Description Provider 07/31/2021 J30.89 Other allergic rhinitis Rob Valverde M.D. 07/31/2021 J30.1 Allergic rhinitis due to pollen Rob Valverde M.D. 07/31/2021 J30.81 Allergic rhinitis due to animal (cat) (dog) hair and dander Rob Valverde M.D. 07/31/2021 J45.50 Severe persistent asthma, uncomp licated Rob Valverde M.D. Plan of Treatment Future Appointment(s):* 01/31/2022 10:00 am - Rob Valverde M.D. at Main Office 07/31/2021 - Rob Valverde M.D.* J30.89 Other allergic rhinitis* Recommendations:* Effective allergen avoidance measures were reviewed and recommended. Should use Flonase consistently for a while. May take oral antihistamine as needed for itching and/or sneezing. * J30.1 Allergic rhinitis due to pollen* Recommendations:* Effective allergen avoidance measures were reviewed and recommended. See additional recommendations above. * J30.81 Allergic rhinitis due to animal (cat) (dog) hair and dander* Recommendations:* Effective allergen avoidance measures reviewed and recommended. See additional recommendations above. * J45.50 Severe persistent asthma, uncomplicated* Recommendations:* Continue on present regimen as directed by pulmonology. Follow-up with their office as scheduled. * All * Follow up:* 6 months. Sooner if needed. Functional Status Description No Information Available Mental Status Description No Information Available Referrals Description No Information Available
--- OUTSIDE RECORDS SUMMARY | 2021-09-06 17:52 | CCD | Continuity of Care Document ---
Author Author Naomy SELLERS M.D. Organization Unknown Address [address] [place] [address] Phone [phone] Care Team Providers Care River Rat Name Role Phone Jimena Johnson M.D. AUTM [phone] Warner Marshall D.O. AUTM [phone] Remy Melara MD AUTM [phone] AUTM Unavailable Rob Lord M.D. AUTM Problems [...] CPT Code Status Date Vaccine Lot # [id number] Given 03/06/2021 Moderna Covid-19 vaccine, mRNA, LNP-S, PF, 100 mcg/ 0.5 mL 51695 Given 02/08/2021 Moderna Covid-19 vaccine, mRNA, LNP-S, PF, 100 mcg/ 0.5 mL Vital Signs Date Vital Result Comment 08/15/2021 2:15pm BP Systolic 126 mmHg BP Diastolic 70 mmHg Heart Rate 94 /min O2 % BldC Oximetry 96 % Height 67 inches 5'7" Weight 216.00 lb BMI (Body Mass Index) 33.8 kg/m2 [place] Body Weight 135 lb Weight 97.978 kg BSA (Body Surface Area) 2.09 m2 03/20/2021 10:37am BP Systolic 154 mmHg BP Diastolic 82 mmHg Height 67 inches 5'7" Weight 220.12 lb BMI (Body Mass Index) 34.5 kg/m2 [place] Body Weight 135 lb Weight 99.849 kg BSA (Body Surface Area) 2.11 m2 Results Test Acquired Date Facility Test Result H/L Range Note FVL/[place] 08/15/2021 [facility] SEE IMAGE FVC-Pred 3.11 L FVC-Pre 2.38 L FVC-%Pred-Pre 76 L FVC-LLN 2.35 L Fev1-Pred 2.33 L Fev1-Pre 2.19 L Fev1-%Pred-Pre 93 L Fev1-LLN 1.69 L Fev6-Pred 2.96 L Fev6-Pre 2.38 L Fev6-%Pred-Pre 80 L Fev6-LLN 2.21 L Auh9buf-Mqfl 74 % Jfx3lio-Nly 92 % Isi1hil-%Pred-Pre 123 % Vgf5hmj-LTY 65 % Try5uhl-Asow 95 % Gus2goe-Hpp 100 % Tho5ilv-%Pred-Pre 105 % FEFMax-Pred 5.54 L/E/sec FEFMax-Pre 5.77 L/E/sec FEFMax-%Pred-Pre 104 L/E/sec FEFMax-LLN 3.66 L/E/sec Urb3639-Bzia 1.74 L/E/sec Yri4924-Yzs 4.28 L/E/sec Isa1779-%Pred-Pre 246 L/E/sec Rzf5992-HBJ 0.38 L/E/sec ExpTime-Pre 7.35 sec Atf1tko7-Ecmp 78 % Swq8qak2-Glq 92 % Mrr0isr6-%Pred-Pre 118 % Bms9rvb4-JOB 69 % Procedures Date Code Description Status 08/15/2021 95109 Office/Outpatient Established Mo d MDM 30-39 Min Completed 08/15/2021 09146 Spirometry Completed Medical Devices Description No Information Available Encounters Type Date Location Provider Dx Diagnosis Office Visit 08/15/2021 2:30p [facility] Anitha olivas M.D. J45.50 Severe persistent asthma, un complicated R91.8 Other nonspecific abnormal f inding of lung field Z87.891 Personal history of nicotine dependence I26.99 Other pulmonary embolism wit hout acute cor pulmonale Assessments Date Code Description Provider 08/15/2021 J45.50 Severe persistent asthma, uncomp licated Anitha Sellers M.D. 08/15/2021 R91.8 Other nonspecific abnormal findi ng of lung field Anitha Sellers M.D. 08/15/2021 Z87.891 Personal history of nicotine dep endence Anitha Sellers M.D. 08/15/2021 I26.99 Other pulmonary embolism without acute cor pulmonale Anitha Sellers M.D. 03/20/2021 Z12.11 Encounter for screening for allison gnant neoplasm of colon Warner Marshall, DO Plan of Treatment Future Appointment(s):* 09/03/2021 11:00 am - [facility] 08/15/2021 - Anitha Sellers M.D.* J45.50 [...]
--- OUTSIDE RECORDS SUMMARY | 2021-09-06 17:52 | CCD | Continuity of Care Document ---
Author Author [facility], [facility]ul[facility] Organization Unknown Address [address] [place] [address] Phone [phone] Care Team Providers Care Offset Platemaker Name Role Phone Jimena Johnson M.D. AUTM [phone] Warner Marshall D.O. AUTM [phone] Remy Melara MD AUTM [phone] AUTM Unavailable Rob Lord M.D. AUTM [phone] Problems Description No Information Available Social History [...] 2 puff twice a day 30.6gm Anitha Machado M.D. 08/15/2021 Dupixent 300mg/2ML Soln Prefill Sy ringe Inject 1 Syringe Under The Skin Every Other Week 4units Anitha Machado M.D. 09/01/2020 Atorvastatin Calcium 40mg Tablets 1 [...] a day as needed 1080ml J45.50 Anitha Machado M.D. Eliquis 5mg Tablets take 1 tablet twice a day 90tabs Anitha Machado M.D. Gabapentin 100mg Capsules 1 by mouth three times a day Unknown Immunizations CPT Code Status Date Vaccine Lot # [id number] Given 03/06/2021 Moderna Covid-19 vaccine, mRNA, LNP-S, PF, 100 mcg/ 0.5 mL 98848 Given 02/08/2021 Moderna Covid-19 vaccine, mRNA, LNP-S, PF, 100 mcg/ 0.5 mL Vital Signs Date Vital Result Comment 08/15/2021 2:15pm BP Systolic 126 mmHg BP Diastolic 70 mmHg Heart Rate 94 /min O2 % BldC Oximetry 96 % Height 67 inches 5'7" Weight 216.00 lb BMI (Body Mass Index) 33.8 kg/m2 [place] Body Weight 135 lb Weight 97.978 kg BSA (Body Surface Area) 2.09 m2 03/20/2021 10:37am BP Systolic 154 mmHg BP Diastolic 82 mmHg Height 67 inches 5'7" Weight 220.12 lb BMI (Body Mass Index) 34.5 kg/m2 [place] Body Weight 135 lb Weight 99.849 kg BSA (Body Surface Area) 2.11 m2 Results Test Acquired Date Facility Test Result H/L Range Note FVL/[place] 08/15/2021 [facility] PD[facility] SEE IMAGE FVC-Pred 3.11 L FVC-Pre 2.38 L FVC-%Pred-Pre 76 L FVC-LLN 2.35 L Fev1-Pred 2.33 L Fev1-Pre 2.19 L Fev1-%Pred-Pre 93 L Fev1-LLN 1.69 L Fev6-Pred 2.96 L Fev6-Pre 2.38 L Fev6-%Pred-Pre 80 L Fev6-LLN 2.21 L Fjq4nex-Dwav 74 % Bys8qbc-Ome 92 % Dul1urr-%Pred-Pre 123 % Ias3kwz-PYP 65 % Fhi0gfi-Tbtc 95 % Fnp2dhp-Oht 100 % Zzz6ppy-%Pred-Pre 105 % FEFMax-Pred 5.54 L/E/sec FEFMax-Pre 5.77 L/E/sec FEFMax-%Pred-Pre 104 L/E/sec FEFMax-LLN 3.66 L/E/sec Gpj3640-Ybxb 1.74 L/E/sec Paw9789-Hqj 4.28 L/E/sec Oxn4450-%Pred-Pre 246 L/E/sec Czd8303-KNA 0.38 L/E/sec ExpTime-Pre 7.35 sec Iil9wpi9-Ighk 78 % Dho0myi1-Ayi 92 % Fwv1ucv3-%Pred-Pre 118 % Acd2dzx5-RQO 69 % Procedures Date Code Description Status 08/28/2021 87499 Diffusing Capacity Completed 08/28/2021 50710 Plethysmography Determination Em ng Volumes & Per Airway Resist Completed 08/28/2021 41834 Bronchospasm Evaluation Complete d 08/15/2021 50402 Office/Outpatient Established Mo d MDM 30-39 Min Completed 08/15/2021 36292 Spirometry Completed Medical Devices Description No Information Available Encounters Type Date Location Provider Dx Diagnosis Office Visit 08/15/2021 2:30p [facility] Anitha olivas M.D. J45.50 Severe persistent asthma, un complicated R91.8 Other nonspecific abnormal f inding of lung field Z87.891 Personal history of nicotine dependence I26.99 Other pulmonary embolism wit hout acute cor pulmonale Assessments Date Code Description Provider 08/28/2021 J45.50 Severe persistent asthma, uncomp licated [facility] 08/15/2021 J45.50 Severe persistent asthma, uncomp licated Anitha Machado M.D. 08/15/2021 R91.8 Other nonspecific abnormal findi ng of lung field Anitha Machado M.D. 08/15/2021 Z87.891 Personal history of nicotine dep endence Anitha Machado M.D. 08/15/2021 I26.99 Other pulmonary embolism without acute cor pulmonale Anitha Machado M.D. 03/20/2021 Z12.11 Encounter for screening for allison gnant neoplasm of colon Warner Marshall, DO Plan of Treatment 08/15/2021 - Anitha Machado M.D.* J45.50 Severe persistent asthma, uncomplicated * R91.8 Other nonspecific abnormal finding of lung field * Z87.891 Personal history of nicotine dependence * I26.99 Other pulmonary embolism without acute cor pulmonale * * Follow up:* Follow-up after ECHO and PFT Functional Status Functional Condition Comment Date Status Glasses Active Independent with all ADL's Activ e Independent with all IADL's Acti ve Mental Status Mental Condition Comment Date Status Hearing impaired Active Referrals Description No Information Available
--- OUTSIDE RECORDS SUMMARY | 2021-09-06 17:52 | CCD | Continuity of Care Document ---
Author Author [facility], [facility] I Organization Unknown Address [address] [place] [address] Phone [phone] Care Team Providers Care Manager Beverage Name Role Phone Jimena Johnson M.D. AUTM [phone] Warner Marshall D.O. AUTM [phone] Remy Melara MD AUTM [phone] AUTM Unavailable Rob Lord M.D. AUTM Problems [...] CPT Code Status Date Vaccine Lot # [id number] Given 03/06/2021 Moderna Covid-19 vaccine, mRNA, LNP-S, PF, 100 mcg/ 0.5 mL 99017 Given 02/08/2021 Moderna Covid-19 vaccine, mRNA, LNP-S, PF, 100 mcg/ 0.5 mL Vital Signs Date Vital Result Comment 08/15/2021 2:15pm BP Systolic 126 mmHg BP Diastolic 70 mmHg Heart Rate 94 /min O2 % BldC Oximetry 96 % Height 67 inches 5'7" Weight 216.00 lb BMI (Body Mass Index) 33.8 kg/m2 [place] Body Weight 135 lb Weight 97.978 kg BSA (Body Surface Area) 2.09 m2 03/20/2021 10:37am BP Systolic 154 mmHg BP Diastolic 82 mmHg Height 67 inches 5'7" Weight 220.12 lb BMI (Body Mass Index) 34.5 kg/m2 [place] Body Weight 135 lb Weight 99.849 kg BSA (Body Surface Area) 2.11 m2 Results Test Acquired Date Facility Test Result H/L Range Note FVL/[place] 08/15/2021 [facility] SEE IMAGE FVC-Pred 3.11 L FVC-Pre 2.38 L FVC-%Pred-Pre 76 L FVC-LLN 2.35 L Fev1-Pred 2.33 L Fev1-Pre 2.19 L Fev1-%Pred-Pre 93 L Fev1-LLN 1.69 L Fev6-Pred 2.96 L Fev6-Pre 2.38 L Fev6-%Pred-Pre 80 L Fev6-LLN 2.21 L Lfq7gqv-Wsnn 74 % Abp5oiu-Gyf 92 % Vyr6jxb-%Pred-Pre 123 % Zeq3szj-INR 65 % Dgg4uhe-Xbjm 95 % Pbe3tgf-Khk 100 % Uxj6ksr-%Pred-Pre 105 % FEFMax-Pred 5.54 L/E/sec FEFMax-Pre 5.77 L/E/sec FEFMax-%Pred-Pre 104 L/E/sec FEFMax-LLN 3.66 L/E/sec Ndl9755-Aedl 1.74 L/E/sec Iua9099-Bxz 4.28 L/E/sec Jdd2393-%Pred-Pre 246 L/E/sec Wzn5523-SJE 0.38 L/E/sec ExpTime-Pre 7.35 sec Zqk1scc7-Klja 78 % Hxt8fdg1-Owj 92 % Agi0fcm8-%Pred-Pre 118 % Dwn8lfi1-NRX 69 % Procedures Date Code Description Status 08/15/2021 30792 Office/Outpatient Established Mo d MDM 30-39 Min Completed 08/15/2021 80028 Spirometry Completed Medical Devices Description No Information Available Encounters Type Date Location Provider Dx Diagnosis Office Visit 08/15/2021 2:30p [facility] Anitha olivas M.D. J45.50 Severe [...] Other pulmonary embolism without acute cor pulmonale Anihta Machado M.D. 03/20/2021 Z12.11 Encounter for screening [...]
--- OUTSIDE RECORDS SUMMARY | 2021-09-06 17:53 | CCD ---
Author Author [facility] Organization [facility] Address Unknown Phone Unavailable Care Team Providers Care Translational Specialist Name Role Phone Chelsea Vera MD Unavailable Unavailable Chelsea Vera MD Unavailable Unavailable Chelsea Vera MD Unavailable Unavailable Chelsea Vera MD Unavailable Unavailable Chelsea Vera MD Unavailable Unavailable Chelsea Vera MD Unavailable Unavailable Chelsea Vera MD Unavailable Unavailable Chelsea Vera MD Unavailable Unavailable Chelsea Vera MD Unavailable Unavailable Chelsea Vera MD Unavailable Unavailable Chelsea Vera MD Unavailable Unavailable Chelsea Vera MD Unavailable Unavailable Chelsea Vera MD Unavailable Unavailable Chelsea Vera MD Unavailable Unavailable Chelsea Vera MD Unavailable Unavailable Chelsea Vera MD Unavailable Unavailable Chelsea Vera MD Unavailable Unavailable Chelsea Vera MD Unavailable Unavailable Chelsea Vera MD Unavailable Unavailable Chelsea Vera MD Unavailable Unavailable Chelsea Vera MD Unavailable Unavailable Chelsea Vera MD Unavailable Unavailable Chelsea Vera MD Unavailable Unavailable Chelsea Vera MD Unavailable Unavailable Chelsea Vera MD Unavailable Unavailable Chelsea Vera MD Unavailable Unavailable Chelsea Vera MD Unavailable Unavailable Chelsea Vera MD Unavailable Unavailable Chelsea Vera MD Unavailable Unavailable Chelsea Vera MD Unavailable Unavailable Chelsea Vera MD Unavailable Unavailable Chelsea Vera MD Unavailable Unavailable Chelsea Vera MD Unavailable Unavailable Chelsea Vera MD Unavailable Unavailable Chelsea Vera MD Unavailable Unavailable Greenky, S Dimitris MD Unavailable Unavailable Greenky, S Dimitris MD Unavailable Unavailable Greenky, S Dimitris MD Unavailable Unavailable Greenky, S Dimitris MD Unavailable Unavailable Greenky, S Dimitris MD Unavailable Unavailable Greenky, S Dimitris MD Unavailable Unavailable Greenky, S Dimitris MD Unavailable Unavailable Greenky, S Dimitris MD Unavailable Unavailable Greenky, S Dimitris MD Unavailable Unavailable Greenky, S Dimitris MD Unavailable Unavailable Greenky, S Dimitris MD Unavailable Unavailable Greenky, S Dimitris MD Unavailable Unavailable Greenky, S Dimitris MD Unavailable Unavailable Greenky, S Dimitris MD Unavailable Unavailable Greenky, S Dimitris MD Unavailable Unavailable Greenky, S Dimitris MD Unavailable Unavailable Greenky, S Dimitris MD Unavailable Unavailable Greenky, S Dimitris MD Unavailable Unavailable Greenky, S Dimitris MD Unavailable Unavailable Greenky, S Dimitris MD Unavailable Unavailable Greenky, S Dimitris MD Unavailable Unavailable Greenky, S Dimitris MD Unavailable Unavailable Greenky, S Dimitris MD Unavailable Unavailable Greenky, S Dimitris MD Unavailable Unavailable Greenky, S Dimitris MD Unavailable Unavailable Greenky, S Dimitris MD Unavailable Unavailable Greenky, S Dimitris MD Unavailable Unavailable Greenky, S Dimitris MD Unavailable Unavailable Greenky, S Dimitris MD Unavailable Unavailable Greenky, S Dimitris MD Unavailable Unavailable Greenky, S Dimitris MD Unavailable Unavailable Greenky, S Dimitris MD Unavailable Unavailable Greenky, S Dimitris MD Unavailable Unavailable Greenky, S Dimitris MD Unavailable Unavailable Greenky, S Dimitris MD Unavailable Unavailable Greenky, S Dimitris MD Unavailable Unavailable Greenky, S Dimitris MD Unavailable Unavailable Greenky, S Dimitris MD Unavailable Unavailable Greenky, S Dimitris MD Unavailable Unavailable Greenky, S Dimitris MD Unavailable Unavailable Greenky, S Dimitris MD Unavailable Unavailable Greenky, S Dimitris MD Unavailable Unavailable Greenky, S Dimitris MD Unavailable Unavailable Greenky, S Dimitris MD Unavailable Unavailable Greenky, S Dimitris MD Unavailable Unavailable Greenky, S Dimitris MD Unavailable Unavailable Greenky, S Dimitris MD Unavailable Unavailable Greenky, S Dimitris MD Unavailable Unavailable Greenky, S Dimitris MD Unavailable Unavailable Greenky, S Dimitris MD Unavailable Unavailable Greenky, S Dimitris MD Unavailable Unavailable Greenky, S Dimitris MD Unavailable Unavailable Greenky, S Dimitris MD Unavailable Unavailable Greenky, S Dimitris MD Unavailable Unavailable Anitha Machado MD Unavailable Unavailable Anitha Machaod MD Unavailable Unavailable Anitha Machado MD Unavailable Unavailable Anitha Machado MD Unavailable Unavailable Anitha Machado MD Unavailable Unavailable Anitha Machado MD Unavailable Unavailable Anitha Machado MD Unavailable Unavailable Anitha Machado MD Unavailable Unavailable Anitha Machado MD Unavailable Unavailable Anitha Machado MD Unavailable Unavailable Anitha Machado MD Unavailable Unavailable Anitha Machado MD Unavailable Unavailable Anitha Machado MD Unavailable Unavailable Anitha Machado MD Unavailable Unavailable Anitha Machado MD Unavailable Unavailable Anitha Machado MD Unavailable Unavailable Anitha Machado MD Unavailable Unavailable Anitha Machado MD Unavailable Unavailable Anitha Machado MD Unavailable Unavailable Anitha Machado MD Unavailable Unavailable Anitha Machado MD Unavailable Unavailable Anitha Machado MD Unavailable Unavailable Anitha Machado MD Unavailable Unavailable Anitha Machado MD Unavailable Unavailable Anitha Machado MD Unavailable Unavailable Anitha Machado MD Unavailable Unavailable Anitha Machado MD Unavailable Unavailable Anitha Machado MD Unavailable Unavailable Anitha Machado MD Unavailable Unavailable Anitha Machado MD Unavailable Unavailable JOHANNE VALVERDE MD Unavailable Unavailable JOHANNE VALVERDE MD Unavailable Unavailable JOHANNE VALVERDE MD Unavailable Unavailable JOHANNE VALVERDE MD Unavailable Unavailable CHRJOHANNE LOZANO MD Unavailable Unavailable CHRJOHANNE LOZANO MD Unavailable Unavailable JOHANNE VALVERDE MD Unavailable Unavailable JOHANNE VALVERDE MD Unavailable Unavailable CHROSTJOHANNE IBARRA MD Unavailable Unavailable CHRJOHANNE LOZANO MD Unavailable Unavailable CHROSTJOHANNE IBARRA MD Unavailable Unavailable CHRJOHANNE LOZANO MD Unavailable Unavailable CHROSTJOHANNE IBARRA MD Unavailable Unavailable CHROSTJOHANNE IBARRA MD Unavailable Unavailable CHROSTJOHANNE IBARRA MD Unavailable Unavailable CHROSTJOHANNE IBARRA MD Unavailable Unavailable CHROSTJOHANNE IBARRA MD Unavailable Unavailable CHROSTJOHANNE IBARRA MD Unavailable Unavailable CHROSTJOHNANE IBARRA MD Unavailable Unavailable CHROSTJOHANNE IBARRA MD Unavailable Unavailable CHROSTJOHANNE IBARRA MD Unavailable Unavailable CHROSTJOHANNE IBARRA MD Unavailable Unavailable CHROSTJOHANNE IBARRA MD Unavailable Unavailable CHROSTJOHANNE IBARRA MD Unavailable Unavailable CHROSTJOHANNE IBARRA MD Unavailable Unavailable CHROSTJOHANNE IBARRA MD Unavailable Unavailable CHROSTJOHANNE IBARRA MD Unavailable Unavailable CHROSTJOHANNE IBARRA MD Unavailable Unavailable CHROSTOWSKIJOHANNE MD Unavailable Unavailable CHROSTOWSKIJOHANNE MD Unavailable Unavailable CHROSTOWSKIJOHANNE MD Unavailable Unavailable CHROSTOWSKIJOHANNE MD Unavailable Unavailable CHROSTOWSKIJOHANNE MD Unavailable Unavailable CHROSTOWSKIJOHANNE MD Unavailable Unavailable CHROSTOWSKIJOHANNE MD Unavailable Unavailable CHROSTOWSKIJOHANNE MD Unavailable Unavailable CHROSTJOHANNE IBARRA MD Unavailable Unavailable CHROSTJOHANNE IBARRA MD Unavailable Unavailable CHROSTJOHANNE IBARRA MD Unavailable Unavailable Smart MD, Sampson L Unavailable Smart MD, Sampson L Unavailable Smart MD, Sampson L Unavailable Smart MD, Sampson L Unavailable Smart MD, Sampson L Unavailable Smart MD, Sampson L Unavailable Smart MD, Sampson L Unavailable Smart MD, Sampson L Unavailable Smart MD, Sampson L Unavailable Smart MD, Sampson L Unavailable Smart MD, Sampson L Unavailable Smart MD, Sampson L Unavailable Smart MD, Sampson L Unavailable Smart MD, Sampson L Unavailable Smart MD, Sampson L Unavailable Smart MD, Sampson L Unavailable Smart MD, Sampson L Unavailable Smart MD, Sampson L Unavailable Smart MD, Sampson L Unavailable Smart MD, Sampson L Unavailable Smart MD, Sampson L Unavailable Smart MD, Sampson L Unavailable Smart MD, Sampson L Unavailable Smart MD, Sampson L Unavailable Smart MD, Sampson L Unavailable Smart MD, Sampson L Unavailable Smart MD, Sampson L Unavailable Smart MD, Sampson L Unavailable Smart MD, Sampson L Unavailable Smart MD, Sampson L Unavailable Smart MD, Sampson L Unavailable Smart MD, Sampson L Unavailable Smart MD, Sampson L Unavailable Smart MD, Sampson L Unavailable Smart MD, Sampson L Unavailable Smart MD, Sampson L Unavailable Smart MD, Sampson L Unavailable Smart MD, Sampson L Unavailable Smart MD, Sampson L Unavailable Smart MD, Sampson L Unavailable Smart MD, Sampson L Unavailable Smart MD, Sampson L Unavailable Smart MD, Sampson L Unavailable Smart MD, Sampson L Unavailable Smart MD, Sampson L Unavailable Smart MD, Sampson L Unavailable Smart MD, Sampson L Unavailable Smart MD, Smapson L Unavailable Smart MD, Sampson L Unavailable Smart MD, Sampson L Unavailable Smart MD, Sampson L Unavailable Smart MD, Sampson L Unavailable Smart MD, Sampson L Unavailable Smart MD, Sampson L Unavailable Smart MD, Sampson L Unavailable Smart MD, Sampson L Unavailable SEARS, A LUZ DO Unavailable Unavailable SEARS, A LUZ DO Unavailable Unavailable SEARS, A LUZ DO Unavailable Unavailable SEARS, A LUZ DO Unavailable Unavailable SEARS, A LUZ DO Unavailable Unavailable SEARS, A LUZ DO Unavailable Unavailable SEARS, A LUZ DO Unavailable Unavailable SEARS, A LUZ DO Unavailable Unavailable SEARS, A LUZ DO Unavailable Unavailable SEARS, A LUZ DO Unavailable Unavailable SEARS, A LUZ DO Unavailable Unavailable SEARS, A LUZ DO Unavailable Unavailable SEARS, A LUZ DO Unavailable Unavailable SEARS, A LUZ DO Unavailable Unavailable SEARS, A LUZ DO Unavailable Unavailable SEARS, A LUZ DO Unavailable Unavailable SEARS, A LUZ DO Unavailable Unavailable SEARS, A LUZ DO Unavailable Unavailable SEARS, A LUZ DO Unavailable Unavailable SEARS, A LUZ DO Unavailable Unavailable SEARS, A LUZ DO Unavailable Unavailable SEARS, A LUZ DO Unavailable Unavailable SEARS, A LUZ DO Unavailable Unavailable SEARS, A LUZ DO Unavailable Unavailable SEARS, A LUZ DO Unavailable Unavailable SEARS, A LUZ DO Unavailable Unavailable SEARS, A LUZ DO Unavailable Unavailable SEARS, A LUZ DO Unavailable Unavailable SEARS, A LUZ DO Unavailable Unavailable SEARS, A LUZ DO Unavailable Unavailable SEARS, A LUZ DO Unavailable Unavailable SEARS, A LUZ DO Unavailable Unavailable SEARS, A LUZ DO Unavailable Unavailable SEARS, A LUZ DO Unavailable Unavailable SEARS, A LUZ DO Unavailable Unavailable SEARS, A LUZ DO Unavailable Unavailable SEARS, A LUZ DO Unavailable Unavailable SEARS, A LUZ DO Unavailable Unavailable SEARS, A LUZ DO Unavailable Unavailable SEARS, A LUZ DO Unavailable Unavailable SEARS, A LUZ DO Unavailable Unavailable SEARS, A LUZ DO Unavailable Unavailable SEARS, A LUZ DO Unavailable Unavailable SEARS, A LUZ DO Unavailable Unavailable SEARS, A LUZ DO Unavailable Unavailable SEARS, A LUZ DO Unavailable Unavailable SEARS, A LUZ DO Unavailable Unavailable SEARS, A LUZ DO Unavailable Unavailable Pleskach, Marjorie SNACK BAR CASHIER Unavailable Unavailable Pleskach, Marjorie SNACK BAR CASHIER Unavailable Unavailable Pleskach, Marjorie SNACK BAR CASHIER Unavailable Unavailable Pleskach, Marjorie SNACK BAR CASHIER Unavailable Unavailable Pleskach, Marjorie SNACK BAR CASHIER Unavailable Unavailable Pleskach, Marjorie SNACK BAR CASHIER Unavailable Unavailable Pleskach, Marjorie SNACK BAR CASHIER Unavailable Unavailable Pleskach, Marjorie SNACK BAR CASHIER Unavailable Unavailable Pleskach, Marjorie SNACK BAR CASHIER Unavailable Unavailable Pleskach, Marjorie SNACK BAR CASHIER Unavailable Unavailable Pleskach, Marjorie SNACK BAR CASHIER Unavailable Unavailable Pleskach, Marjorie SNACK BAR CASHIER Unavailable Unavailable Pleskach, Marjorie SNACK BAR CASHIER Unavailable Unavailable Pleskach, Marjorie SNACK BAR CASHIER Unavailable Unavailable Pleskach, Marjorie SNACK BAR CASHIER Unavailable Unavailable Pleskach, Marjorie SNACK BAR CASHIER Unavailable Unavailable Pleskach, Marjorie SNACK BAR CASHIER Unavailable Unavailable Pleskach, Marjorie SNACK BAR CASHIER Unavailable Unavailable Pleskach, Marjorie SNACK BAR CASHIER Unavailable Unavailable Pleskach, Marjorie SNACK BAR CASHIER Unavailable Unavailable Pleskach, Marjorie SNACK BAR CASHIER Unavailable Unavailable Pleskach, Marjorie SNACK BAR CASHIER Unavailable Unavailable Pleskach, Marjorie SNACK BAR CASHIER Unavailable Unavailable Pleskach, Marjorie SNACK BAR CASHIER Unavailable Unavailable Pleskach, Marjorie SNACK BAR CASHIER Unavailable Unavailable Pleskach, Marjorie SNACK BAR CASHIER Unavailable Unavailable Pleskach, Marjorie SNACK BAR CASHIER Unavailable Unavailable Pleskach, Marjorie SNACK BAR CASHIER Unavailable Unavailable Pleskach, Marjorie SNACK BAR CASHIER Unavailable Unavailable Pleskach, Marjorie SNACK BAR CASHIER Unavailable Unavailable Pleskach, Marjorie SNACK BAR CASHIER Unavailable Unavailable Pleskach, Marjorie SNACK BAR CASHIER Unavailable Unavailable Pleskach, Marjorie SNACK BAR CASHIER Unavailable Unavailable Pleskach, Marjorie SNACK BAR CASHIER Unavailable Unavailable Pleskach, Marjorie SNACK BAR CASHIER Unavailable Unavailable Pleskach, Marjorie SNACK BAR CASHIER Unavailable Unavailable Pleskach, Marjorie SNACK BAR CASHIER Unavailable Unavailable Pleskach, Marjorie SNACK BAR CASHIER Unavailable Unavailable Pleskach, Marjorie SNACK BAR CASHIER Unavailable Unavailable Pleskach, Marjorie SNACK BAR CASHIER Unavailable Unavailable Pleskach, Marjorie SNACK BAR CASHIER Unavailable Unavailable Pleskach, Marjorie SNACK BAR CASHIER Unavailable Unavailable Pleskach, Marjorie SNACK BAR CASHIER Unavailable Unavailable Pleskach, Marjorie SNACK BAR CASHIER Unavailable Unavailable Mathew Johnson MD Unavailable Unavailable Mathew Jhonson MD Unavailable Unavailable Mathew Johnson MD Unavailable Unavailable Mathew Johnson MD Unavailable Unavailable Mathew Johnson MD Unavailable Unavailable Mathew Johnson MD Unavailable Unavailable Mathew Johnson MD Unavailable Unavailable Mathew Johnson MD Unavailable Unavailable Mathew Johnson MD Unavailable Unavailable Mathew Johnson MD Unavailable Unavailable Mathew Johnson MD Unavailable Unavailable Mathew Johnson MD Unavailable Unavailable Mathew Johnson MD Unavailable Unavailable Mathew Johnson MD Unavailable Unavailable Mathew Johnson MD Unavailable Unavailable Mathew Johnson MD Unavailable Unavailable Mathew Johnson MD Unavailable Unavailable Mathew Johnson MD Unavailable Unavailable Mathew Johnson MD Unavailable Unavailable Mathew Johnson MD Unavailable Unavailable Mathew Johnson MD Unavailable Unavailable Mathew Johnson MD Unavailable Unavailable Alex, Mathew Hess MD Unavailable Unavailable Alex, Mathew Hess MD Unavailable Unavailable Alex, Mathew Hess MD Unavailable Unavailable Alex, Mathew Hess MD Unavailable Unavailable Alex, Mathew Hess MD Unavailable Unavailable Alex, Mathew Hess MD Unavailable Unavailable Alex, Mathew Hess MD Unavailable Unavailable Alex, Mathew Hess MD Unavailable Unavailable Alex, Mathew Hess MD Unavailable Unavailable Alex, Mathew Hess MD Unavailable Unavailable Alex, Mathew Hess MD Unavailable Unavailable Alex, Mathew Hess MD Unavailable Unavailable Alex, Mathew Hess MD Unavailable Unavailable Alex, Mathew Hess MD Unavailable Unavailable Alex, Mathew Hess MD Unavailable Unavailable Alex, Mathew Hess MD Unavailable Unavailable Alex, Mathew Hess MD Unavailable Unavailable Alex, Mathew Hess MD Unavailable Unavailable Alex, A Jimena SINGLETON Unavailable Unavailable Alex, A Jimena SINGLETON Unavailable Unavailable Alex, A Jimena SINGLETON Unavailable Unavailable Alex, Mathew Hess MD Unavailable Unavailable Alex, A Jimena SINGLETON Unavailable Unavailable Alex, Mathew Hess MD Unavailable Unavailable Alex, Mathew Hess MD Unavailable Unavailable Alex, A Jimena SINGLETON Unavailable Unavailable Alex, A Jimena SINGLETON Unavailable Unavailable Alex, A Jimena SINGLETON Unavailable Unavailable Alex, A Jimena SINGLETON Unavailable Unavailable Alex, Mathew Hess MD Unavailable Unavailable Alex, Mathew Hess MD Unavailable Unavailable Alex, Mathew Hess MD Unavailable Unavailable Alex, Mathew Hess MD Unavailable Unavailable Alex, A Jimena SINGLETON Unavailable Unavailable Alex, Mathew Hess MD Unavailable Unavailable Alex, A Jimena SINGLETON Unavailable Unavailable Alex, Mathew Hess MD Unavailable Unavailable Alex, Mathew Hess MD Unavailable Unavailable Alex, Mathew Hess MD Unavailable Unavailable Alex, Mathew Hess MD Unavailable Unavailable Alex, Mathew Hess MD Unavailable Unavailable Alex, Mathew Hess MD Unavailable Unavailable Alex, Mathew Hess MD Unavailable Unavailable Alex, Mathew Hess MD Unavailable Unavailable Alex, Mathew Hess MD Unavailable Unavailable Alex, Mathew Hess MD Unavailable Unavailable Alex, Mathew Hess MD Unavailable Unavailable Alex, Mathew Hess MD Unavailable Unavailable Alex, Mathew Hess MD Unavailable Unavailable Alex, Mathew Hess MD Unavailable Unavailable Alex, Mathew Hess MD Unavailable Unavailable Alex, A Jimena SINGLETON Unavailable Unavailable Alex, Mathew Hess MD Unavailable Unavailable Alex, Mathew Hess MD Unavailable Unavailable Alex, Mathew Hess MD Unavailable Unavailable Alex, Mathew Hess MD Unavailable Unavailable Alex, Mathew Hess MD Unavailable Unavailable Alex, Mathew Hess MD Unavailable Unavailable Alex, Mathew Hess MD Unavailable Unavailable Alex, Mathew Hess MD Unavailable Unavailable Madison SINGLETON, Sampson Watson Unavailable Sampson Wallace MD Unavailable Sampson Wallace MD. Unavailable Scozzari, K Marylu PA Unavailable Unavailable Scozzari, K Marylu PA Unavailable Unavailable Scozzari, K Marylu PA Unavailable Unavailable Scozzari, K Marlyu PA Unavailable Unavailable Scozzari, K Marylu PA Unavailable Unavailable Scozzari, K Marylu PA Unavailable Unavailable Scozzari, K Marylu PA Unavailable Unavailable Scozzari, K Marylu PA Unavailable Unavailable Scozzari, K Marylu PA Unavailable Unavailable Scozzari, K Marylu PA Unavailable Unavailable Scozzari, K Marylu PA Unavailable Unavailable Scozzari, K Marylu PA Unavailable Unavailable Scozzari, K Marylu PA Unavailable Unavailable Scozzari, K Marylu PA Unavailable Unavailable Scozzari, K Marylu PA Unavailable Unavailable Scozzari, K Marylu PA Unavailable Unavailable Scozzari, K Marylu PA Unavailable Unavailable Scozzari, K Marylu PA Unavailable Unavailable Scozzari, K Marylu PA Unavailable Unavailable Scozzari, K Marylu PA Unavailable Unavailable Scozzari, K Marylu PA Unavailable Unavailable Scozzari, K Marylu PA Unavailable Unavailable Scozzari, K Marylu PA Unavailable Unavailable Scozzari, K Marylu PA Unavailable Unavailable Scozzari, K Marylu PA Unavailable Unavailable Scozzari, K Marylu PA Unavailable Unavailable Scozzari, K Marylu PA Unavailable Unavailable Scozzari, K Marylu PA Unavailable Unavailable Scozzari, K Marylu PA Unavailable Unavailable Scozzari, K Marylu PA Unavailable Unavailable Scozzari, K Marylu PA Unavailable Unavailable Scozzari, K Marylu PA Unavailable Unavailable Scozzari, K Marylu PA Unavailable Unavailable Scozzari, K Marylu PA Unavailable Unavailable Scozzari, K Marylu PA Unavailable Unavailable Scozzari, K Marylu PA Unavailable Unavailable Scozzari, K Marylu PA Unavailable Unavailable Scozzari, K Marylu PA Unavailable Unavailable Scozzari, K Marylu PA Unavailable Unavailable Scozzari, K Marylu PA Unavailable Unavailable Scozzari, K Marylu PA Unavailable Unavailable Scozzari, K Marylu PA Unavailable Unavailable Scozzari, K Marylu PA Unavailable Unavailable Scozzari, K Marylu PA Unavailable Unavailable Scozzari, K Marylu PA Unavailable Unavailable Scozzari, K Marylu PA Unavailable Unavailable Scozzari, K Marylu PA Unavailable Unavailable Narins, [place] MD Unavailable Unavailable Narins, [place] MD Unavailable Unavailable Narins, Mason MD Unavailable Unavailable Narins, [place] MD Unavailable Unavailable Narins, Mason MD Unavailable Unavailable Narins, Mason MD Unavailable Unavailable Narins, [place] MD Unavailable Unavailable Narins, [place] MD Unavailable Unavailable Narins, [place] MD Unavailable Unavailable Narins, Mason MD Unavailable Unavailable Narins, Mason MD Unavailable Unavailable Narins, Mason MD Unavailable Unavailable Narins, [place] MD Unavailable Unavailable Narins, [place] MD Unavailable Unavailable Narins, [place] MD Unavailable Unavailable Narins, Mason MD Unavailable Unavailable Narins, [place] MD Unavailable Unavailable Narins, Mason MD Unavailable Unavailable Narins, Maosn MD Unavailable Unavailable Narins, Mason MD Unavailable Unavailable Narins, [place] MD Unavailable Unavailable Narins, Mason MD Unavailable Unavailable Narins, [place] MD Unavailable Unavailable Narins, [place] MD Unavailable Unavailable Narins, Mason MD Unavailable Unavailable Narins, Mason MD Unavailable Unavailable Narins, [place] MD Unavailable Unavailable Narins, [place] MD Unavailable Unavailable Narins, Mason MD Unavailable Unavailable Narins, Mason MD Unavailable Unavailable Narins, Mason MD Unavailable Unavailable Narins, [place] MD Unavailable Unavailable Narins, [place] MD Unavailable Unavailable Narins, [place] MD Unavailable Unavailable Narins, Mason MD Unavailable Unavailable Narins, Mason MD Unavailable Unavailable Narins, [place] MD Unavailable Unavailable Narins, [place] MD Unavailable Unavailable Narins, Mason MD Unavailable Unavailable Narins, Mason MD Unavailable Unavailable Narins, Mason MD Unavailable Unavailable Narins, Mason MD Unavailable Unavailable Narins, [place] MD Unavailable Unavailable Narins, [place] MD Unavailable Unavailable Narins, Mason MD Unavailable Unavailable Narins, [place] MD Unavailable Unavailable Narins, [place] MD Unavailable Unavailable Narins, [place] MD Unavailable Unavailable Narins, Mason MD Unavailable Unavailable Narins, [place] MD Unavailable Unavailable Narins, Mason MD Unavailable Unavailable Mike, Christopher COATING LINE WORKER Unavailable Unavailable Mike, Christopher COATING LINE WORKER Unavailable Unavailable Mike, Christopher COATING LINE WORKER Unavailable Unavailable Mike, Christopher COATING LINE WORKER Unavailable Unavailable Mike, Christopher COATING LINE WORKER Unavailable Unavailable Mike, Christopher COATING LINE WORKER Unavailable Unavailable Mike, Christopher COATING LINE WORKER Unavailable Unavailable Mike, Christopher COATING LINE WORKER Unavailable Unavailable Mike, Christopher COATING LINE WORKER Unavailable Unavailable Mike, Christopher COATING LINE WORKER Unavailable Unavailable Mike, Christopher COATING LINE WORKER Unavailable Unavailable Mike, Christopher COATING LINE WORKER Unavailable Unavailable Mike, Christopher COATING LINE WORKER Unavailable Unavailable Mike, Christopher COATING LINE WORKER Unavailable Unavailable Mike, Christopher COATING LINE WORKER Unavailable Unavailable Mike, Christopher COATING LINE WORKER Unavailable Unavailable Mike, Christopher COATING LINE WORKER Unavailable Unavailable Mike, Christopher COATING LINE WORKER Unavailable Unavailable Mike, Christopher COATING LINE WORKER Unavailable Unavailable Mike, Christopher COATING LINE WORKER Unavailable Unavailable Mike, Christopher COATING LINE WORKER Unavailable Unavailable Mike, Christopher COATING LINE WORKER Unavailable Unavailable Mike, Christopher COATING LINE WORKER Unavailable Unavailable Mike, Christopher COATING LINE WORKER Unavailable Unavailable Mike, Christopher COATING LINE WORKER Unavailable Unavailable Mike, Christopher COATING LINE WORKER Unavailable Unavailable Mike, Christopher COATING LINE WORKER Unavailable Unavailable Mike, Christopher COATING LINE WORKER Unavailable Unavailable Mike, Christopher COATING LINE WORKER Unavailable Unavailable Clara Florian MD Unavailable Unavailable Clara Florian MD Unavailable Unavailable Clara Florian MD Unavailable Unavailable Clara Florian MD Unavailable Unavailable Clara Florian MD Unavailable Unavailable Clara Florian MD Unavailable Unavailable Clara Florian MD Unavailable Unavailable Clara Florian MD Unavailable Unavailable Clara Florian MD Unavailable Unavailable Clara Florian MD Unavailable Unavailable Clara Florian MD Unavailable Unavailable Clara Florian MD Unavailable Unavailable Clara Florian MD Unavailable Unavailable Clara Florian MD Unavailable Unavailable Clara Florian MD Unavailable Unavailable Clara Florian MD Unavailable Unavailable Clara Florian MD Unavailable Unavailable Clara Florian MD Unavailable Unavailable Clara Florian MD Unavailable Unavailable Clara Florian MD Unavailable Unavailable Clara Florian MD Unavailable Unavailable Clara Florian MD Unavailable Unavailable Clara Florian MD Unavailable Unavailable Clara Florian MD Unavailable Unavailable Clara Florian MD Unavailable Unavailable Clara Florian MD Unavailable Unavailable Clara Florian MD Unavailable Unavailable Clara Florian MD Unavailable Unavailable Clara Florian MD Unavailable Unavailable Clara Florian MD Unavailable Unavailable Clara Florian MD Unavailable Unavailable Clara Florian MD Unavailable Unavailable Clara Florian MD Unavailable Unavailable Clara Florian MD Unavailable Unavailable Clara Florian MD Unavailable Unavailable Clara Florian MD Unavailable Unavailable VaneenenaamClara MD Unavailable Unavailable VaneenenaamClara MD Unavailable Unavailable VaneenenaamClara MD Unavailable Unavailable VaneenenaamClara MD Unavailable Unavailable VaneenenaamClara MD Unavailable Unavailable VaneenenaamClara MD Unavailable Unavailable VaneenenaamClara MD Unavailable Unavailable VaneenenaamClara MD Unavailable Unavailable VaneenenaamClara MD Unavailable Unavailable VaneenenaamClara MD Unavailable Unavailable Re-disclosure Warning The records that you are about to access may contain information from federally-assisted alcohol or drug abuse programs. If such information is present, then the following federally mandated warning applies: This information has been disclosed to you from records protected by federal confidentiality rules (42 CFR part 2). The federal rules prohibit you from making any further disclosure of this information unless further disclosure is expressly permitted by the written consent of the person to whom it pertains or as otherwise permitted by 42 CFR part 2. A general authorization for the release of medical or other information is NOT sufficient for this purpose. The Federal rules restrict any use of the information to criminally investigate or prosecute any alcohol or drug abuse patient.The records that you are about to access may contain highly sensitive health information, the redisclosure of which is protected by Article 27-F of the [facility] Public Health law. If you continue you may have access to information: Regarding HIV / AIDS; Provided by facilities licensed or operated by the [facility] Office of Mental Health; or Provided by the [facility] Office for People With Developmental Disabilities. If such information is present, then the following [facility] mandated warning applies: This information has been disclosed to you from confidential records which are protected by state law. State law prohibits you from making any further disclosure of this information without the specific written consent of the person to whom it pertains, or as otherwise permitted by law. Any unauthorized further disclosure in violation of state law may result in a fine or fpc sentence or both. A general authorization for the release of medical or other information is NOT sufficient authorization for further disc losure. Family History Family Member Name Family Member Gender Family Member Status Date o f Status Description Data Source(s) Unknown Unknown Problem [facility] ([facility] Unknown Male Problem MEDENT ([facility], ) Unknown Unknown Problem MED[facility] ([facility] Daughter 2007 Unknown Unknown Problem MED[facility] ([facility] ) Unknown Unknown Problem MED[facility] ([facility] ) Unknown Unknown Problem MED[facility] ([facility] ) Unknown Female Encounters Encounter Providers Location Date Indications Data Source(s ) Outpatient Attender: Agustín Mckeon NPReferrer: Lyssa Wallace MD 08/22/2021 01:59:32 PM EDT [facility] [place] [facility] Outpatient Attender: Anitha Weiss/Lillie/Darren/Franck ndl 08/15/2021 02:30:00 PM EDT [facility] Out[facility] Attender: JOHANNE VALVERDE MD Main Office 07/31/2021 10:00:00 AM EDT MED[facility] ([facility] Outpatient Attender: Marjorie Haider [facility] Main Office 07/24/2021 0 2:45:00 PM EDT MEDENT ([facility] Outpatient [address] [place] [id number] 05/30/2021 12:00:00 AM EDT eCW1 ([facility]) OFFICE OUTPATIENT NEW 30 MINUTES Attender: Clara Wells am, MD Physical Therapy 05/02/2021 02:15:00 PM EDT MEDENT ([facility]) Outpatient Attender: Marjorie Haider [facility] Main Office 04/05/2021 1 1:00:00 AM EDT MED[facility] ([facility] Outpatient Attender: Marylu Fischer PAReferrer: Jimena Ch ms, MD 03/27/2021 09:07:19 AM EDT [facility] Recurring Patient Attender: Dimitris Vera MDReferrer: Jimena Arreguin ams, MD 03/22/2021 10:26:55 AM EDT [facility] Outpatient Attender: Mason Mcintyre/ [facility] 03/19/2021 09:15:00 AM EDT [facility] Attender: Agustín Mckeon NPReferrer: Lyssa Wallace MD 02/19/2021 11:04:12 AM EDT [facility] Recurring Patient Attender: Dimitris Vera MDReferrer: Jimena Arreguin ams, MD 02/16/2021 02:43:19 PM EDT [facility] Outpatient Attender: Anitha Weiss/Lillie/Darren/Franck ndl 02/07/2021 02:30:00 PM EDT MED[facility] ([facility] Outpatient Attender: JOHANNE VALVERDE MD Main Office 01/30/2021 10:00:00 AM EDT [facility] ([facility]) Outpatient Attender: Mason Mcintyre/ [facility]rolog y 01/23/2021 01:45:00 PM EDT [facility]) Outpatient Attender: Marjorie Haider [facility] Main Office 01/02/2021 0 9:30:00 AM EST MED[facility] ([facility] Outpatient Attender: Agustín Mckeon NPReferrer: Lyssa Wallace MD 01/01/2021 12:26:27 PM EST [facility] Outpatient Attender: Agustín Mckeon NPReferrer: Lyssa Wallace MD 11/06/2020 02:56:26 PM EST [facility] Recurring Patient Referrer: Shirley Wallace MD 11/06/2020 01:36:1 3 PM EST [facility] Recurring Patient Referrer: Shirley Wallace MD 11/06/2020 01:35:0 8 PM EST [facility] Recurring Patient Referrer: Shirley Wallace MD 11/06/2020 08:00:4 1 AM EST [facility] Outpatient Attender: Mason Mcintyre/ JasielMPetersonP. Urolog y 11/03/2020 01:00:00 PM EST [facility] ([facility]) [place] [address] [facility] [address] 10/17/2020 12:00:00 AM EST eCW1 ([facility]) Recurring Patient Referrer: Shirley Wallace MD 10/06/2020 12:02:1 9 PM EST [facility] Outpatient Attender: Lyssa Wallace MDReferrer: Jimena Johnson MD 10/06/2020 07:02:16 AM EST [facility] Recurring Patient Attender: Dimitrisariel Vera MDReferrer: Jimena Arreguin ams, MD 10/05/2020 02:28:14 PM EST [facility] Recurring Patient Attender: Dimitris Chuy MDReferrer: Jimena Arreguin ams, MD 10/05/2020 01:51:56 PM EST [facility] Unknown [address] [facility], [facility] [address] 10/05/2020 12:00:00 AM EST eCW1 ([facility]) Outpatient Attender: Marjorie Haider [facility] Main Office 10/03/2020 0 9:30:00 AM EST [facility] ([facility] Unknown [address] [facility] [id number] 09/27/2020 12:00:00 AM EST eCW1 ([facility]) Outpatient Attender: Anitha Weiss/Lillie/Darren/Franck ndl 08/29/2020 01:30:00 PM EST [facility] ([facility] Outpatient Attender: JOHANNE VALVERDE MD Main Office 08/01/2020 09:00:00 AM EDT [facility] ([facility]) Unknown [address] [facility] [id number] 07/28/2020 12:00:00 AM EDT eCW1 ([facility]) Outpatient Attender: Anitha Weiss/Lillie/Darren/Franck ndlyssa 07/25/2020 09:30:00 AM EDT [facility] ([facility]) Outpatient Attender: LUZ Gale/Lillie/Darren/Reindl 07/18/2020 11:00:00 AM EDT [facility] ([facility]) Outpatient Attender: Anitha Weiss/Lillie/Darren/Franck ndl 07/11/2020 02:00:00 PM EDT MEDENT ([facility], ) Outpatient Attender: JOHANNE VALVERDE MD Main Office 07/10/2020 09:15:00 AM EDT MED[facility] ([facility]) Immunizations Vaccine Date Status Description Data Source(s) Moderna Covid-19 vaccine, mRNA, LNP-S, PF, 100 mcg/ 0. 5 mL 03/06/2021 02:12:00 PM EDT completed MEDENT ([facility], ) COVID-19 VACC,MRNA(MODERNA)/PF 03/06/2021 12:00:00 AM EDT completed [facility] COVID-19 VACCINE Moderna 03/06/2021 12:00:00 AM EDT completed [facility] Vaccine Series Complete: YESThis Data wa s Submitted to [facility] Via [employer]. Moderna Covid-19 vaccine, mRNA, LNP-S, PF, 100 mcg/ 0. 5 mL 02/08/2021 02:12:00 PM EDT completed MEDENT ([facility], ) COVID-19 VACCINE a 02/08/2021 12:00:00 AM EDT completed [facility] Vaccine Series Complete: NOThis Data was Submitted to [facility] Via [employer]. COVID-19 VACC,MRNA(MODERNA)/PF 02/08/2021 12:00:00 AM EDT completed [facility] Medications Medication Brand Name Start Date Product Form Dose Route Admi nistrative Instructions Pharmacy Instructions Status Indications Reaction Description Data Source(s) 60 ACTUAT Budesonide 0.16 MG/ACTUAT / fo rmoterol fumarate 0.0045 MG/ACTUAT Metered Dose Inhaler [Symbicort] Symbicort 08/15/2021 12:00:00 AM EDT RESPIRATORY active MEDENT ( [facility], ) 50 mg 05/30/2021 12:00:00 AM EDT tablet 7 TAKE ONE TABLET BY MOUTH EVERY DAY NEEDED FOR PAIN, MAXIMUM DAILY DOSE = 1 TABLET TAKE ONE TABLET BY MOUTH EVERY DAY NEEDED FOR PAIN, MAXIMUM DAILY DOSE = 1 TABLET SOLD: 05/30/2021 [facility] tramadol hydrochloride 50 MG Oral Tablet traMADol HCl 50 MG traMADol HCl 50 MG 05/30/2021 12:00:00 AM EDT 1.0 {tablet_as_needed} active traMADol HCl 50 MG eCW1 ([facility]) Azelastine HCL (Nasal) Azelastine HCL (Nasal) 01/02/2021 12:00:[address] active [facility] ([facility] Fish Oil Odor-Less 01/02/2021 12:00:00 AM EST completed [facility] ([facility] Vitamin A 8000 UNT Oral Capsule Vitamin A 01/02/2021 12:00:00 AM EST completed [facility] ([facility] Fluocinonide 0.0005 MG/MG Topical Ointment Fluocinonide 12/20/2020 12:00:00 AM EST active [facility] ([facility] 750 mg 11/16/2020 12:00:00 AM EST tablet 7 TAKE ONE TABLET BY MOUTH EVERY DAY TAKE ONE TABLET BY MOUTH EVERY DAY SOLD: 11/17/2020 [facility] Levofloxacin 750 MG Oral Tablet Levofloxacin 11/16/2020 12:00:[address] ORAL completed MEDENT ([facility], ) 50 mg 11/12/2020 12:00:00 AM EST tablet extended release 24 hr 30 TAKE ONE TABLET BY MOUTH EVERY DAY TAKE ONE TABLET BY MOUTH EVERY DAY SOLD: 11/12/2020 [facility] 50 mg 11/12/2020 12:00:00 AM EST tablet extended release 24 hr 30 TAKE ONE TABLET BY MOUTH EVERY DAY TAKE ONE TABLET BY MOUTH EVERY DAY SOLD: 12/09/2020 [facility] 24 HR mirabegron 50 MG Extended Release Oral Tablet [Myrbetr iq] Myrbetriq 11/07/2020 12:00:00 AM EST ORAL completed [facility] ([facility]) dl-alpha tocopheryl acetate 100 UNT Oral Capsule Vitamin E 11/03/2020 12:00:00 AM EST active [facility] ([facility]) 0.5 % 10/14/2020 12:00:00 AM EST drops,suspension 5 INSTILL ONE DROP INTO EACH EYE FOUR TIMES A DAY FOR 1 WEEK INSTILL ONE DROP INTO EACH EYE FOUR TIME S A DAY FOR 1 WEEK SOLD: 10/23/2020 [facility] 0.1 % 10/06/2020 12:00:00 AM EST drops,suspension 5 INSTILL 1 DROP INTO BOTH EYES TWO TIMES A DAY FOR ONE WEEK INSTILL 1 DROP INTO BOTH EYES TWO TIMES A DAY FOR ONE WEEK SOLD: 10/23/2020 [facility] 500 mg 10/03/2020 12:00:00 AM EST tablet 14 TAKE ONE TABLET BY MOUTH TWICE A DAY FOR 7 DAYS TAKE ONE TABLET BY MOUTH TWICE A DAY FOR 7 DAYS SOLD: 10/03/2020 [facility] Ciprofloxacin 500 MG Oral Tablet Ciprofloxacin HCL 10/03/2020 12:00 :00 AM EST ORAL active [facility] ([facility] Dupixent Dupixent 09/01/2020 12:00:00 AM EST activ e MEDENT ([facility], ) tiotropium 0.018 MG/ACTUAT Inhalant Powder [Spiriva] Spiriva Handihaler 08/29/2020 12:00:00 AM EST active MEDENT ([facility], ) 7.5 mg 08/03/2020 12:00:00 AM EDT tablet extended release 24 hr 30 TAKE ONE TABLET BY MOUTH EVERY DAY WITH LIQUID TAKE ONE TABLET BY MOUTH EVERY DAY WITH LIQUID SOLD: 08/04/2020 [facility] 7.5 mg 08/03/2020 12:00:00 AM EDT tablet extended release 24 hr 30 TAKE ONE TABLET BY MOUTH EVERY DAY WITH LIQUID TAKE ONE TABLET BY MOUTH EVERY DAY WITH LIQUID SOLD: 08/29/2020 [facility] 24 HR darifenacin 7.5 MG Extended Release Oral Tablet [Enablex] Enablex 7.5 MG Enablex 7.5 MG 08/02/2020 12:00:00 AM EDT 1.0 {tablet_with_liquid} active Enablex 7.5 MG eCW1 ([facility]) 24 HR darifenacin 7.5 MG Extended Release Oral Tablet [Enablex] Enablex 7.5 MG Enablex 7.5 MG 08/02/2020 12:00:00 AM EDT 1.0 {tablet_with_liquid} active Enablex 7.5 MG eCW1 ([facility]) 24 HR darifenacin 7.5 MG Extended Release Oral Tablet [Enablex] Enablex 7.5 MG Enablex 7.5 MG 08/02/2020 12:00:00 AM EDT 1.0 {tablet_with_liquid} active Enablex 7.5 MG eCW1 ([facility]) 24 HR darifenacin 7.5 MG Extended Release Oral Tablet [Enablex] Enablex 7.5 MG Enablex 7.5 MG 08/02/2020 12:00:00 AM EDT 1.0 {tablet_with_liquid} active Enablex 7.5 MG eCW1 ([facility]) 24 HR darifenacin 7.5 MG Extended Release Oral Tablet [Enablex] Enablex 7.5 MG Enablex 7.5 MG 08/02/2020 12:00:00 AM EDT 1.0 {tablet_with_liquid} suspended Enablex 7.5 MG eCW1 ([facility]) 1.25 mcg/actuation 07/12/2020 12:00:00 AM EDT mist 4 INHALE TWO PUFFS BY MOUTH EVERY DAY INHALE TWO PUFFS BY MOUTH EVERY DAY SOLD: 07/18/2020 [facility] 14 ACTUAT mometasone furoate 0.2 MG/ACTUAT Dry Powder Inhaler [Asmanex] Asmanex Twisthaler 14 Metered Doses 07/11/2020 12:00:00 AM EDT RESPI RATORY active MEDENT ([facility], ) Spiriva Respimat Spiriva Respimat 07/11/2020 12:00:00 AM EDT RESPIRATORY completed MEDENT ([facility], ) Insurance Providers Payer name Policy type / Coverage type Policy ID Covered democrat ID Covered democrat's relationship to perrin Policy Perrin Plan Information Ayaka Soria (pr) Medigap Part B [id number] Self [id number] [place] [id number] Self [id number] Geha Ins (pr) Medigap Part B [id number] Self [id number] Medicare [id number] SELF [id number] A MEDICARE [id number] SP [id number] A GEHA-ASA [id number] SP [id number] [place] Primary [id number] Self [id number] [facility] [place] Jur[place] A [facility] C [id number] SELF [id number] Medicare C [id number] SELF [id number] Geha Ins (pr) Medigap Part B [id number] [id number] Self [id number] Medicare C [id number] SELF [id number] [id number] Medicare [facility] Medicare Primary [id number] 2.16.840.1.044394.3.227.99.8646.39774.0 Self [id number] [place] Primary [id number]1.47381.0 Self [id number] Geha Ins (pr) Medigap Part B [id number] [id number] Self [id number] [place]/[facility] Medicare Primary [id number] 2.16.840.1.451010.3.227.99.8646.06988.0 Self [id number] [place] Primary [id number]9.991.69098.0 Self 0 [id number] MEDICARE [id number] SP [id number] [id number] Medicare [facility] Medicare Primary [id number] 2.16.840.1.645477.3.227.99.2809.36001.0 Self [id number] [place] Primary [id number] Self Medicare [place] Medicare Primary [id number]09.03147.0 Self [id number] [place] Primary [id number] Self [id number] [place] Primary [id number] 2.840.1.104192.3.227.99.2809.24265.0 Self [id number] [place] Medicare Primary [id number] 2.840.1.351400.3.227.99.2809.18225.0 Self [id number] Medicare [place] Medicare Primary [id number] 2.0.1.584171.3.227.99.2809.04813.0 Self [id number] [place] Medicare Primary [id number] 2.840.1.119918.3.227.99.2809.17363.0 Self [id number] Medicare [place] Medicare Primary [id number] 2.840.1.937249.3.227.99.2809.32950.0 Self [id number] Medicare [place] Medicare Primary [id number] 2.0.1.865963.3.227.99.2809.42259.0 Self [id number] Medicare [place] Medicare Primary [id number] 2.840.1.199796.3.227.99.2809.59847.0 Self [id number] Medicare [place] Medicare Primary [id number] 2.840.1.340014.3.227.99.2809.67897.0 Self [id number] Medicare C [id number] SELF [id number] A Medicare [place] Medicare Primary [id number] Self [facility] [id number] SELF [id number] [facility] Medigap Part B [id number] 2.840.1.730706.3.227.99 .991.93019.0 Self [id number] [facility] Medigap Part B [id number] 2.16840.1.116250.3.227.99 .991.06020.0 Self [id number] [facility] Medigap Part B [id number] 2.840.1.660424.3.227.99 .991.15574.0 Self [id number] [facility] Medigap Part B [id number] 2.840.1.127352.3.227.99 .991.39228.0 Self [id number] [facility] F [id number] SELF [id number] GE F [id number] SELF [id number] Ge Medigap Part B [id number] 2.840.1.311864.3.227.99.2809.202 47.0 Self [id number] [facility] Medigap Part B [id number] 2.0.1.620536.3.227.99.8646.149 84.0 Self [id number] GEHA-ASA .0.1.053580.3.441 [id number] [employer] [id number] Medicare 2.0.1.571319.3.441 [id number] Medicare Part B [id number] Geha-Asa Medigap Part B [id number] 20.1.172570.3.227.99.1767.368 77.0 Self [id number] Medicare Natl Gov't Servi Medicare Primary [id number] 2.0.1.514649.3.227.99.1767.57556.0 Self [id number] Geha-Asa Medigap Part B [id number] 2.840.1.056229.3.227.99.1767.368 77.0 Self [id number] Medicare Natl Gov't Servi Medicare Primary [id number] 2.16.840.1.241410.3.227.99.1767.53189.0 Self [id number] Geha Medigap Part B [id number] 2.16.840.1.325317.3.227.99.2809.202 47.0 Self [id number] Geha Medigap Part B [id number] 2.16.840.1.470337.3.227.99.8646.149 84.0 Self [id number] [facility] O [id number] S [id number] MEDICARE C [id number] S [id number] A Geha-Asa Medigap Part B [id number] 2.16.840.1.086419.3.227.99.1767.368 77.0 Self [id number] Medicare Natl Gov't Servi Medicare Primary [id number] 2.16.840.1.896743.3.227.99.1767.91914.0 Self [id number] Geha Medigap Part B [id number] 2.16.840.1.543280.3.227.99.2809.202 47.0 Self [id number] Geha Medigap Part B [id number] 2.16.840.1.832178.3.227.99.2809.202 47.0 Self [id number] Geha Medigap Part B [id number] Self [id number] MEDICARE [id number] SP [id number] Medicare Natl Gov't Servi Medicare Primary [id number] Self [id number] Geha-Asa Medigap Part B [id number] Self [id number] MEDICARE -O/P [id number] 18 [id number] [facility] [id number] SP [id number] Geha Medigap Part B [id number] 2.840.1.320510.3.227.99.2809.202 47.0 Self [id number] [place] [place] [id number] S [id number] MEDICARE C [id number] S [id number] GEHA-RECURRING [id number] 18 [id number] GEHA O [id number] S [id number] MEDICARE PART A-RECURRING [id number] 18 [id number] Geha Medigap Part B [id number] Self 'S ADMINISTRATION [id number] SP [id number] GEHA-ASA [id number] SP [id number] GEHA-ASA [id number] SP [id number] GEHA F [id number] SELF [id number] [employer] [place] CCN [id number] SP [id number] Geha-Asa Medigap Part B [id number] Self Medicare Natl Gov't Servi Medicare Primary [id number] Self Geha Medigap Part B [id number] Self GEHA-ASA [id number] SP [id number] [employer] O [id number] S [id number] Geha Medigap Part B [id number] Self [place] Primary [id number] Self [facility] P [id number] S [id number] [employer] P UNAVAILABLE [id number] S UNAVAILABLE [facility] [id number] SP [id number] GEHA-O/P [id number] 18 [id number] Geha Medigap Part B [id number] [id number] 47.0 Self [id number] Geha Medigap Part B [id number] 2.0.1.628909.3.227.99.2809.202 47.0 Self [id number] Geha Medigap Part B [id number] 2.0.1.527137.3.227.99.2809.202 47.0 Self [id number] Geha Medigap Part B [id number] 2.84[id number] 47.0 Self [id number] [facility] Part B [id number] 47.0 Self [id number] Problems, Conditions, and Diagnoses Code Display Name Description Problem Type Effective Dates Data Source(s) 931458087 Pure hypercholesterolemia Pure hypercholesterolemia Pr oblem 05/03/2021 12:00:00 AM EDT MEDENT ([facility]) J45.50 Uncomplicated severe persistent asthma U ncomplicated severe persistent asthma Problem 11/07/2020 12:00:00 AM EST MEDENT ([facility]) Note: Followed by Pulmonology. On Dupixe nt (start November,). N39.41 Urge urinary incontinence Urge urinary incontinence Pr oblem 09/27/2020 12:00:00 AM EST eCW1 ([facility]) Surgeries/Procedures Procedure Description Date Indications Data Source(s) Bronchospasm Evaluation 08/28/2021 12:00:00 AM EDT MEDENT ([facility], ) Plethysmography Determination Lung Volumes & Per Airway Resi st 08/28/2021 12:00:00 AM EDT MEDENT ([facility], ) DIFFUSING CAPACITY 08/28/2021 12:00:00 AM EDT MEDENT ([facility]) Spirometry 08/15/2021 12:00:00 AM EDT M EDENT ([facility]) OFFICE OUTPATIENT VISIT 25 MINUTES 08/15/2021 12:00:00 AM EDT MEDENT ([facility]) OFFICE OUTPATIENT VISIT 15 MINUTES 07/31/2021 12:00:00 AM EDT MEDENT ([facility]) OFFICE OUTPATIENT VISIT 25 MINUTES 07/24/2021 12:00:00 AM EDT MED[facility] ([facility] RADEX WRIST COMPLETE MINIMUM 3 VIEWS 05/02/2021 12:00: 00 AM EDT MEDENT ([facility]) OFFICE OUTPATIENT NEW 30 MINUTES 05/02/2021 12:00:00 A M EDT MEDENT ([facility]) OFFICE OUTPATIENT VISIT 25 MINUTES 04/05/2021 12:00:00 AM EDT MED[facility] ([facility] Mammogram 03/27/2021 12:00:00 AM EDT M EDENT ([facility]. Document: 03/04/17 - Mammo Screening With CAD Colonoscopy 03/15/2021 12:00:00 AM EDT M EDENT ([facility]) Spirometry 02/07/2021 12:00:00 AM EDT M EDENT ([facility], ) OFFICE OUTPATIENT VISIT 15 MINUTES 01/30/2021 12:00:00 AM EDT MEDENT ([facility]) ZULEYKA POST-VOIDING RESIDUAL URINE&/BLDR CAP 01/23/2021 12:00:00 AM EDT MEDENT ([facility]) Injection Fee 12/18/2020 12:00:00 AM EST MEDENT ([facility]) Injection Fee 12/01/2020 12:00:00 AM EST MEDENT ([facility]) Injection Fee 12/01/2020 12:00:00 AM EST MEDENT ([facility]) ZULEYKA POST-VOIDING RESIDUAL URINE&/BLDR CAP 11/03/2020 12:00:00 AM EST MED[facility] ([facility]) Spirometry 08/29/2020 12:00:00 AM EST M EDENT ([facility]) PREPJ& ALLERGEN IMMUNOTHERAPY 1/PIANO MAKER ANTIGEN 07/20/2020 12:00:00 AM EDT MED[facility] ([facility]) Results ID Date Data Source [id number] 08/22/2021 01:59:32 PM EDT [facility], PCName: Katja Seals: 4Provider: Aleisha Mckeon: 08/22/2021 Chief ComplaintLeft shoulder and low back pain Chief Complaint 2NYSW VAS PAIN Established: KRISTINE completing section: MARIA L CARMONA History of Present IllnessRecent test/procedures: Patient was asked and denies having any tests since their last visit. Patient was asked and denies being seen by any Physicians since their last visit. At today's visit patient presents with their Self Implanted Devices The patient does not have any implanted devices. The patient does not have a glucose monitoring device. Patient is retired. The patient is being seen for a follow-up. Pain Duration: 3-4 YEARS Pain Score: a current pain level of 7/10. Condition type: The patient is being seen for a chronic condition. PAIN LOCATION: in the left shoulder. Active Problems 1. Left shoulder pain (719.41) (M25.512) 2. Low back pain (724.2) (M54.50) Allergies Adhesive Tape Recorded By: Angeles Iqbal; 11/06/2020 2:23:52 PM Latex Recorded By: Angeles Iqbal; 11/06/2020 2:23:52 PMDenied Iodinated Contrast Media Recorded By: Angeles Iqbal; 11/06/2020 2:23:52 PM Current Meds Albuterol Sulfate (2.5 MG/3ML) 0.083% Inhalation Nebulization Solution;Therapy: (Recorded:06Nov2020) to Recorded Atorvastatin Calcium TABS;Therapy: (Recorded:06Nov2020) to Recorded Azelastine HCl SOLN;Therapy: (Recorded:06Nov2020) to Recorded Darifenacin Hydrobromide ER 7.5 MG Oral Tablet Extended Release 24 Hour;Therapy: (Recorded:06Nov2020) to Recorded Echinacea CAPS;Therapy: (Recorded:06Nov2020) to Recorded Eliquis TABS;Therapy: (Recorded:06Nov2020) to Recorded Flonase SUSP;Therapy: (Recorded:06Nov2020) to Recorded Gabapentin 300 MG Oral Capsule; TAKE 1 CAPSULE 3 TIMES DAILY. MDD:3;Therapy: 06Nov2020 to (Evaluate:[id number]) Requested for: [id number]; LastRx:04Jul2021 Ordered Garlic CAPS;Therapy: (Recorded:06Nov2020) to Recorded Glucosamine Chondroitin TABS;Therapy: (Recorded:06Nov2020) to Recorded Magnesium TABS;Therapy: (Recorded:06Nov2020) to Recorded ProAir HFA AERS;Therapy: (Recorded:06Nov2020) to Recorded Red Yeast Rice CAPS;Therapy: (Recorded:06Nov2020) to Recorded Spiriva HandiHaler CAPS;Therapy: (Recor ded:06Nov2020) to Recorded Synthroid TABS;Therapy: (Recorded:06Nov2020) to Recorded Turmeric CAPS;Therapy: (Recorded:06Nov2020) to Recorded Vitamin B Complex TABS;Therapy: (Recorded:06Nov2020) to Recorded Vitamin D CAPS;Therapy: (Recorded:06Nov2020) to Recorded Vitamin E TABS;Therapy: (Recorded:06Nov2020) to Recorded Past Medical History History of Bilateral pulmonary embolism (415.19) (I26.99) History of Clotting disorder (286.9) (D68.9) History of arthritis (V13.4) (Z87.39) History of asthma (V12.69) (Z87.09) Denied: History of bleeding disorder History of hypothyroidism (V12.29) (Z86.39) History of kidney disease (V13.09) (Z87.448) 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) Surgical History History of Breast surgery History of Carpal tunnel surgery History of Hip replacement History of Hysterectomy History of Rib fracture repair Assessed By: Angeles Iqbal; Last Assessed: 06 Nov 2020 History of Shoulder replacement History of Uterine surgery VitalsVital Signs Recorded: 22Aug2021 12:43PM Height: 5 ft 8 inWeight: 214 lb BMI Calculated: 32.54 kg/m2BSA Calculated: 2.1Systolic: 120Diastolic: 80Heart Rate: 82Respiration: 20Pain Scale: 7 Physical ExamGeneral: The patient is a well nourished/well developed, female, heavy set, who is in no acute distress and appears stated age. Gait and Station: Gait was antalgic. Psychological: Alert and oriented to person, place and time. Mood and affect are pleasant and appropriate. Judgement intact. Insight normal without delusions or hallucinations. Denies suicidal/homicidal ideation. Assessment 1. Low back pain (724.2) (M54.50) 2. Left shoulder pain (719.41) (M25.512) Plan 1. Stop: Eliquis TABS 2. Renew: Gabapentin 300 MG Oral Capsule; TAKE 1 CAPSULE 3 TIMES DAILY. MDD:3 3. MIPS - Survey Evaluation Evaluation Status: Complete Done: [id number] Depression Screening - Patient's PHQ-9 score is: : N/A - PHQ-9 not performed todayHave you EVER received a Pneumococcal Vaccine...? : Yes - Patient has previously received a Pneumococcal vaccinationFLU - Have you received a flu shot in 2020 ? : No - Influenza not previously received due to patient declined or other patient reasonsBMI for Patients 18 and over : 25 or greater, BMI above normal parameters, follow-up plan documentedDo you use any kind of Tobacco? (smokes or uses smokeless tobacco): : Patient identified as a NON-Tobacco User<OBX.5.1><OBX.5.1.1>WOMEN </OBX.5.1.1><OBX.5.1.2> ANYONE >/= 65 - How many times in the past year have you had 4 or more</OBX.5.1.2></OBX.5.1> drinks in a day? : ZeroMEN < 65 - How many times in the past year have you had 5 or more drinks in a day? : N/A 4. Follow-up in 6 months Follow Up Follow-up Status: Hold For - Scheduling Requested for: [id number] 6 month as a FUP for: : FUP for 15 minutes Medication:. General Medications Prescribed: GABAPENTIN . GENERAL MEDICATIONS: I advised the patient today/previously regarding treatment with the above medication(s). The risks, benefits, common side effects and alternative treatments were discussed with the patient. The provider verbalized with the patient. The patient verbalized understanding and was told to call if there were any untoward effects. There are no changes in current medications at this visit. Patient instructed to continue current regimen. The prescribed medications are medically necessary for pain management and rehabilitation. Treatment includes: FOLLOW UP: The patient should have a follow up visit in 6 months. Miscellaneous: - WEIGHT LOSS: Weight loss was discussed and encouraged. PHQ-9 Patient's PHQ-9 score was 5-9 suggesting a Mild level of Depression. Symptoms were discussed with the pt and Tx options were reviewed. Discussion/Twhqttl19-dxzs-oty female seen for chronic left shoulder and low back pain. She reports that her current dose of gabapentin is controlling her pain very well. She reports that she does not wish to try weaning off this medication and will remain on 300 mg 3 times a day. She will follow up with me in 6 months and knows to contact the office if she requires any additional treatments, at this point she defers any injections or therapies. DirectRM DisclaimerNYCL[facility] [place] DirectRM Disclaimer: This document was dictated and electronically signed using [employer] software. A reasonable attempt at proof reading has been made to minimize errors. Please call with any questions. Signatures Electronically signed by : Agustín Mckeon NP; Aug 22 2021 1:02PM EST (Author) Electronically signed by : Sampson Cristina MD; Aug 22 2021 1:59PM EST Name Value Range Interpretation Code Description Data Katharine rce(s) Supporting Document(s) ID Date Data Source [id number] 08/15/2021 02:15:00 PM EDT MEDENT ([facility], ) Name Value Range Interpretation Code Description Data Katharine rce(s) Supporting Document(s) PDFReport Laboratory test result MEDENT ([facility], ) FVC-Pre 2.38 L MEDENT ([facility]) FVC-Pred 3.11 L MEDENT ([facility]) Fev1-Pred 2.33 L MEDENT ([facility]) FVC-LLN 2.35 L MEDENT ([facility]) FVC-%Pred-Pre 76 L MEDENT ([facility]) Fev1-%Pred-Pre 93 L MEDENT ([facility]) Fev1-LLN 1.69 L MED[facility] ([facility]) Fev1-Pre 2.19 L MED[facility] ([facility]) Fev6-%Pred-Pre 80 L MEDENT ([facility]) Fev6-Pre 2.38 L MEDENT ([facility]) Fev6-Pred 2.96 L MED[facility] ([facility]) Fev6-LLN 2.21 L MEDENT ([facility]) Dtr2kka-Fmet 74 % MEDENT ([facility]) Rkv0ulk-WYM 65 % MEDENT ([facility]) Dlc4ece-Itn 92 % MEDENT ([facility]) Emw8fqo-%Pred-Pre 123 % MEDENT ([facility]) Mef3dxr-Zwh 100 % MEDENT ([facility]) Pfg5abk-%Pred-Pre 105 % MEDENT ([facility]) Vxq3udm-Cwvf 95 % MEDENT ([facility]) FEFMax-Pred 5.54 L/E/sec MEDENT ([facility]) FEFMax-Pre 5.77 L/E/sec MEDENT ([facility]) Hph0891-Fzue 1.74 L/E/sec MEDENT ([facility]) FEFMax-LLN 3.66 L/E/sec MEDENT ([facility]) FEFMax-%Pred-Pre 104 L/E/sec MEDENT ([facility]) Zpn1156-Mti 4.28 L/E/sec MEDENT ([facility]) Lzu2572-JDP 0.38 L/E/sec MEDENT ([facility]) Esd5865-%Pred-Pre 246 L/E/sec MEDENT ([facility]) Xmv4lkp1-Bqs 92 % MEDENT ([facility]) ExpTime-Pre 7.35 sec MEDENT ([facility]) Ktq3ecs4-Eecz 78 % MEDENT ([facility]) Ipy9unx6-JRR 69 % MEDENT ([facility]) Mqe9ugz1-%Pred-Pre 118 % MED[facility] ([facility]) ID Date Data Source [id number] 07/03/2021 08:58:00 AM EDT MED[facility] ([facility] Name Value Range Interpretation Code Description Data Katharine rce(s) Supporting Document(s) Free T4 0.90 ng/dL 0.76-1.46 [facility] ([facility] Thyroid Stimulating Hormone 3.640 uIU/ML 0.358-3.740 MED[facility] ([facility] ID Date Data Source [id number] 07/03/2021 08:58:00 AM EDT [facility] ([facility] Name Value Range Interpretation Code Description Data Katharine rce(s) Supporting Document(s) Triglycerides Level 146 mg/dL [facility] ([facility] Cholesterol Level 162 mg/dL [facility] ([facility] HDL Cholesterol 59 mg/dL [facility] ([facility] LDL Cholesterol 74 mg/dL [facility] ([facility] Cholesterol Risk Ratio 2.745 [facility] ([facility] Non-HDL-C 103 mg/dL [facility] ([facility] ID Date Data Source [id number] 07/03/2021 08:58:00 AM EDT [facility] ([facility] Name Value Range Interpretation Code Description Data Kathairne rce(s) Supporting Document(s) Glucose, Fasting 92 mg/dL 70-100 [facility] ([facility] Creatinine For GFR 1.08 mg/dL 0.55-1.30 [facility] ([facility] Blood Urea Nitrogen 12 mg/dL 7-18 [facility] ([facility] Glomerular Filtration Rate 52.4 MED ENT ([facility] <content>Units are mL/min/1.73 m2</content>
<content></content>
<content>Chronic Kidney Disease Staging per NKF:</content>
<content></content>
<content>Stage I & II GFR >=60 Normal to Mildly Decreased</content>
<content>Stage III GFR 30- 59 Moderately Decreased</content>
<content>Stage IV GFR 15-29 Severely Decreased</content>
<content>Stage V GFR <15 Very Little GFR Left</content>
<content>ESRD GFR <15 on PEDIATRICS TEACHER</content>
<content></content> Sodium Level 142 meq/L 136-145 [facility] ([facility] Potassium Serum 4.2 meq/L 3.5-5.1 [facility] ([facility] Chloride Level 109 meq/L 98-107 [facility] ([facility] Carbon Dioxide Level 28 meq/L 21-32 [facility] ([facility] Anion Gap 5 meq/L 8-16 [facility] ([facility] Ast/Sgot 35 U/L 7-37 [facility] ([facility] Calcium Level 9.4 mg/dL 8.8-10.2 [facility] ([facility] Alt/SGPT 42 U/L 12-78 [facility] ([facility] Alkaline Phosphatase 76 U/L 45-117 [facility] ([facility] Bilirubin,Total 0.8 mg/dL 0.2-1.0 [facility] ([facility] Total Protein 6.8 GM/DL 6.4-8.2 [facility] ([facility] Albumin 3.4 GM/DL 3.2-5.2 [facility] ([facility] Albumin/Globulin Ratio 1.0 1.2-2.2 [facility] ([facility] ID Date Data Source [id number] 03/27/2021 09:07:19 AM EDT [facility] PCName: Naomy HuertasDOB: 4Provider: Asad Fischer: 03/22/2021 Reason For VisitNaomy Huertas is here today for Left Hip. Naomy had her second Covid vaccine on 03/06/21. Naomy Huertas is an established patient here for follow up. The patient's pain is managed by [facility] . Patient is retired. History of Present IllnessPatient follows up today for her left hip and knee. She is status post left total hip replacement which was done in [place]. She saw Dr. Jerome in the past for psoas tendinitis. Last year she had a psoas tendon injection which helped her pain short-term. She still has groin pain but this is not her biggest complaint. She states for the last 6 months or so she has had anterior knee pain. She cannot recall any trauma. She states it bothers her the most at nighttime. She states she tries to move the knee at night and she has a lot of pain. She states that she gets up and tries to go to the bathroom and the pain gets worse. She states during the day it does not bother her significantly. She is on Eliquis. Results/DataXRays were ordered, obtained and interpreted today in the office. Indication: pain/dysfunction. Side: Left Site: Hip, Pelvis Views: 3 Views, and Pelvis, 1 View, AP Pelvis Standing Findings: no new fractures or dislocations. No evidence of bearing wear, osteolysis, implant migration or loosening. the joint remains reduced. hardware/implant is in good position. XRays were ordered, obtained and interpreted today in the office. Indication: pain/dysfunction. Side: Left Site: Knee Views: 3 Views, Standing AP, Lateral and Merchant's Findings: patello-femoral degenerative change of a mild degree. There is evidence of chondrocalcinosis noted in both medial lateral compartments. AssessmentPatient is status post left total hip replacement with chronic psoas tendinitis. She also has left knee primary patellofemoral osteoarthritis, mild Plan<OBX.5.1><OBX.5.1.1> X-Ray I Hip-Uni </OBX.5.1.1><OBX.5.1.2> Pelvis - 2 or 3 views (XRays were ordered, obtained and interpreted</OBX.5.1.2></OBX.5.1>today in the office. Indication: pain/dysfunction.); Status:Complete; Done: 22Mar2021 Perform:SOS14 (General); Due:05Apr2021; Last Updated By:Hosea Mccrary; 03/22/2021 11:04:46 AM;Ordered; For:Pain of left hip; Ordered By:Marylu Fischer;Weight Bearing Status : Weight bearing X-Ray I Knee - 3 views (XRays were ordered, obtained and interpreted today in theoffice. Indication: pain/dysfunction.); Status:Complete; Done: 22Mar2021 Perform:SOS14 (General); Due:05Apr2021; Last Updated By:Hosea Mccrary; 03/22/2021 11:04:49 AM;Ordered; For:Left knee pain; Ordered By:Marylu Fischer;Weight Bearing Status : Weight bearingLaterality: : Left Patient continues to struggle with psoas tendinitis although she does not really feel that it bothers her enough to proceed with any treatment at this stage. We could consider repeating a psoas tendon injection or ultimately hip arthroscopy with anterior decompression/psoas tendon release. She is going to live with it for now. Her biggest complaint today is of her anterior knee pain. She does have mild degenerative changes which do coincide with her complaints and location of pain. We discussed cortisone injection which she would like to try. I injected the left knee today which he tolerated well. Postinjection instructions were discussed. I will have her make an appointment for a month for her left knee but I will have her make an appointment for a year for her left hip but she will let us know if her symptoms get worse. We will x-ray both hips when she returns to the office in a year. Antibiotic prophylaxis was discussed. Work / School NoteThe patient is not working at this time. Naomy Huertas is retired. This document was dictated and electronically signed using [employer] software. A reasonable attempt at proof reading has been made to minimize errors. Please call with any questions. Signatures Electronically signed by : Marylu Fischer PA-C; Mar 22 2021 11:38AM EST (Author) Electronically signed by : Alfa Jerome M.D.; Mar 27 2021 9:07AM EST (Author) Name Value Range Interpretation Code Description Data Katharine rce(s) Supporting Document(s) ID Date Data Source [id number] 02/19/2021 11:04:12 AM EDT [facility] PCName: Katja hernandez Bozena: 4Provider: Aleisha Mckeon: 02/16/2021 Chief ComplaintLeft shoulder and low back pain Chief Complaint 2NYSW VAS PAIN Established: KRISTINE completing section: MARIA L CARMONA History [facility] Controlled Substance and Treatment Agreement Patient has signed a [facility] Controlled Substance and Treatment Agreement. Patient has been given a copy of the treatment agreement and has been given a copy of our Prescription Information Fact Sheet. Do you have a Brace for your condition? Patient does not have a brace for their condition. Do you have a TENS Unit for your condition? Patient currently does have a TENS Unit for their condition and does NOT utilize it. Supplements: Patient is currently taking the following supplements: (see current med list). Nerve Conduction: Patient has not had a Nerve Conduction Test. Recent test/procedures: Patient was asked and denies having any tests since their last visit. Patient was asked and denies being seen by any Physicians since their last visit. At today's visit patient presents with their Self Implanted Devices The patient does not have any implanted devices. The patient does not have a glucose monitoring device. Patient is retired. The patient is being seen for an initial evaluation. The date of onset of symptoms is approximately 10+ years. Pain Duration: Years Condition type: The patient is being seen for a chronic condition. PAIN LOCATION: in the left shoulder. Review of SystemsConstitutional: Normal. Eyes: Normal. ENT: normal. Cardiovascular: Normal. Respiratory: Normal. Gastrointestinal: Normal. Genitourinary: Normal. Musculoskeletal: lower back pain and joint pain. Integumentary: Normal. Neurological: Normal. Psychiatric: Normal. Endocrine: Normal. Hematologic/Lymphatic: Normal. Active Problems 1. Left shoulder pain (719.41) (M25.512) 2. Low back pain (724.2) (M54.5) Allergies Adhesive Tape Recorded By: Angeles Iqbal; 11/06/2020 2:23:52 PM Latex Recorded By: Angeles Iqbal; 11/06/2020 2:23:52 PMDenied Iodinated Contrast Media Recorded By: Angeles Iqbal; 11/06/2020 2:23:52 PM Current Meds Albuterol Sulfate (2.5 MG/3ML) 0.083% Inhalation Nebulization Solution;Therapy: (Recorded:06Nov2020) to Recorded Atorvastatin Calcium TABS;Therapy: (Recorded:06Nov2020) to Recorded Azelastine HCl SOLN;Therapy: (Recorded:06Nov2020) to Recorded Darifenacin Hydrobromide ER 7.5 MG Oral Tablet Extended Release 24 Hour;Therapy: (Recorded:06Nov2020) to Recorded Echinacea CAPS;Therapy: (Recorded:06Nov2020) to Recorded Eliquis TABS;Therapy: (Recorded:06Nov2020) to Recorded Flonase SUSP;Therapy: (Recorded:06Nov2020) to Recorded Gabapentin 100 MG Oral Capsule; TAKE 1 CAPSULE IN THE AM AND AFTERNOON, 2 ATNIGHT;Therapy: 06Nov2020 to (Evaluate:27Jun2021) Requested for: 29Dec2020; LastRx:29Dec2020 Ordered Garlic CAPS;Therapy: (Recorded:06Nov2020) to Recorded Glucosamine Chondroitin TABS;Therapy: (Recorded:06Nov2020) to Recorded Magnesium TABS;Therapy: (Recorded:06Nov2020) to Recorded ProAir HFA AERS;Therapy: (Recorded:06Nov2020) to Recorded Red Yeast Rice CAPS;Therapy: (Recorded:06Nov2020) to Recorded Spiriva HandiHaler CAPS;Therapy: (Recorded:06Nov2020) to Recorded Synthroid TABS;Therapy: (Recorded:06Nov2020) to Recorded Turmeric CAPS;Therapy: (Recorded:06Nov2020) to Recorded Vitamin B Complex TABS;Therapy: (Recorded:06Nov2020) to Recorded Vitamin D CAPS;Therapy: (Recorded:06Nov2020) to Recorded Vitamin E TABS;Therapy: (Recorded:06Nov2020) to Recorded Past Medical History History of Bilateral pulmonary embolism (415.19) (I26.99) History of Clotting disorder (286.9) (D68.9) History of arthritis (V13.4) (Z87.39) History of asthma (V12.69) (Z87.09) Denied: History of bleeding disorder History of hypothyroidism (V12.29) (Z86.39) History of k idney disease (V13.09) (Z87.448) 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) Surgical History History of Breast surgery Denied: History of Cardioverter defibrillator insertion History of Carpal tunnel surgery History of Hip replacement History of Hysterectomy Denied: History of Permanent pacemaker insertion History of Rib fracture repair Assessed By: Angeles Iqbal; Last Assessed: 06 Nov 2020 History of Shoulder replacement History of Uterine surgery VitalsVital Signs Recorded: 16Feb2021 12:44PM Height: 5 ft 8 inWeight: 211 lb BMI Calculated: 32.08BSA Calculated: 2.09Systolic: 130, SittingDiastolic: 88, SittingHeart Rate: 80Respiration: 20Temperature: 97 FPain Scale: 5 Physical ExamGeneral: The patient is a well nourished/well developed, female, heavy set, who is in no acute distress and appears stated age. Eyes: Lids are atraumatic, no lesions, sclerae are anicteric. Ears, Nose, Mouth, Throat: external ears and nose without trauma. Patient wearing a mask due to COVID-19. Respiratory: Normal chest expansion and respiratory effort. Gait and Station: Gait was normal. Skin: Warm, dry, acyanotic. Psychological: Alert and oriented to person, place and time. Mood and affect are pleasant and appropriate. Judgement intact. Insight normal without delusions or hallucinations. Denies suicidal/homicidal ideation. Assessment 1. Low back pain (724.2) (M54.5) 2. Left shoulder pain (719.41) (M25.512) Plan 1. MIPS - Survey Evaluation Evaluation Status: Complete Done: [id number] Depression Screening - Patient's PHQ-9 score is: : 5 - 9 Mild ...FUP plan r equiredHave you EVER received a Pneumococcal Vaccine...? : Yes - Patient has previously received a Pneumococcal vaccinationFLU - Have you received a flu shot in 2020 ? : Yes - Influenza immunization previously receivedBMI for Patients 18 and over : 25 or greater, BMI above normal parameters, follow-up plan documentedDo you use any kind of Tobacco? (smokes or uses smokeless tobacco): : Patient identified as a NON-Tobacco User<OBX.5.1><OBX.5.1.1>WOMEN </OBX.5.1.1><OBX.5.1.2> ANYONE >/= 65 - How many times in the past year have you had 4 or more</OBX.5.1.2></OBX.5.1> drinks in a day? : ZeroMEN < 65 - How many times in the past year have you had 5 or more drinks in a day? : N/A 2. Follow-up in 6 months Follow Up Follow-up Status: Hold For - Scheduling Re quested for: [id number] 6 month as a FUP for: : FUP for 15 minutes Medication:. General Medications Prescribed: GABAPENTIN . GENERAL MEDICATIONS: I advised the patient today/previously regarding treatment with the above medication(s). The risks, benefits, common side effects and alternative treatments were discussed with the patient. The provider verbalized with the patient. The patient verbalized understanding and was told to call if there were any untoward effects. There are no changes in current medications at this visit. Patient instructed to continue current regimen. The prescribed m edications are medically necessary for pain management and rehabilitation. Miscellaneous: - WEIGHT LOSS: Weight loss was discussed and encouraged. PHQ-9 Patient's PHQ-9 score was 5-9 suggesting a Mild level of Depression. Symptoms were discussed with the pt and Tx options were reviewed. Discussion/Qaswdwp87-ccka-lri female seen for chronic left shoulder and low back pain. She reports that she is now sleeping better on her current dose of gabapentin. She will maintain current medication as it is controlling the radicular component of her low back pain. She defers any additional treatment op tions at this time and will follow up in 6 months. At which point her pain is very well controlled we will trial her going off the gabapentin, to see how she does off this medication. She will follow up in 6 months. [facility] [place] DirectRM Disclaimer: This document was dictated and electronically signed using [employer] software. A reasonable attempt at proof reading has been made to minimize errors. Please call with any questions. Signatures Electronically signed by : Agustín Mckeon NP; Feb 16 2021 12:58PM EST (Author) Electronically signed by : Carlos Muñoz MD; Feb 19 2021 11:04AM EST Name Value Range Interpretation Code Description Data Katharine rce(s) Supporting Document(s) ID Date Data Source [id number] 02/07/2021 02:06:00 PM EDT [facility] ([facility], ) Name Value Range Interpretation Code Description Data Katharine rce(s) Supporting Document(s) PDFReport Laboratory test result [facility] ([facility], ) FVC-%Pred-Pre 81 L [facility] ([facility]) FVC-Pre 2.55 L [facility] ([facility]) FVC-Pred 3.15 L [facility] ([facility]) Fev1-Pred 2.37 L [facility] ([facility]) FVC-LLN 2.39 L [facility] ([facility]) Fev1-%Pred-Pre 98 L [facility] ([facility]) Fev1-LLN 1.72 L [facility] ([facility]) Fev1-Pre 2.34 L [facility] ([facility]) Fev6-%Pred-Pre 85 L [facility] ([facility]) Fev6-Pred 3.00 L [facility] ([facility]) Fev6-Pre 2.55 L [facility] ([facility]) Iee3yrx-Tuf 92 % [facility] ([facility]) Brr3ptq-Ywcp 75 % [facility] ([facility]) Fev6-LLN 2.25 L [facility] ([facility]) Cmx3oex-%Pred-Pre 122 % [facility] ([facility]) Nwp9ijs-HJR 65 % [facility] ([facility]) Bkh1rmj-Eqgv 95 % [facility] ([facility]) Jsv1khq-Qcy 100 % [facility] ([facility]) Pqg3tgc-%Pred-Pre 104 % [facility] ([facility]) FEFMax-Pred 5.63 L/E/sec [facility] ([facility]) FEFMax-Pre 5.95 L/E/sec [facility] ([facility]) FEFMax-LLN 3.75 L/E/sec [facility] ([facility]) Enl2318-Cgxi 1.79 L/E/sec [facility] ([facility]) FEFMax-%Pred-Pre 105 L/E/sec [facility] ([facility]) Ieh6241-%Pred-Pre 232 L/E/sec [facility] ([facility]) Gwx0914-Qlh 4.15 L/E/sec [facility] ([facility]) ExpTime-Pre 5.85 sec [facility] ([facility]) Nsh8zqx2-Zgyn 78 % [facility] ([facility]) Yno8452-PRA 0.43 L/E/sec [facility] ([facility]) Rau0nnz4-Utt 92 % [facility] ([facility]) Zpu3sgb0-%Pred-Pre 117 % [facility] ([facility]) Owu0hlp7-WOS 69 % [facility] ([facility]) ID Date Data Source [id number] 01/23/2021 12:54:00 PM EDT [facility] ([facility] Name Value Range Interpretation Code Description Data Katharine rce(s) Supporting Document(s) Glucose [Presence] in Urine Laboratory test result [facility] ([facility]) Ua Leuko Laboratory test result [facility] ([facility]) Ua Nitrite Laboratory test result [facility] ([facility]) Protein [Presence] in Urine by Test strip Laboratory test result [facility] ([facility]) Blood [Presence] in Urine by Visual Laboratory test result [facility] ([facility]) Ketones [Presence] in Urine by Test strip Laboratory test result [facility] ([facility]) Color of Urine Laboratory test result [facility] ([facility]) Ua Specific Mchenry 1.010 1.003-1.030 MEDE NT ([facility]) pH of Urine by Test strip 5.0 5.0-7.5 [facility] ([facility]) Clarity of Urine Laboratory test result [facility] ([facility]) Bilirubin.total [Presence] in Urine by Test strip Laboratory test res ult [facility] ([facility]) Urobilinogen [Mass/volume] in Urine by Test strip 0.2 E.U./dL 0.0-1.0 [facility] ([facility]) ID Date Data Source [id number] 01/01/2021 12:26:27 PM [facility], PCName: Katja Seals: 4Provider: Aleisha Mckeon: 12/29/2020 Chief ComplaintLeft shoulder and low back pain Chief Complaint 2NYSW VAS PAIN Established: No pain but its left shoudler when pt is in pain MA completing section: Erica Sainz LPN [facility] Controlled Substance and Treatment Agreement Patient has signed a [facility] Controlled Substance and Treatment Agreement. Patient has been given a copy of the treatment agreement and has been given a copy of our Prescription Information Fact Sheet. Do you have a Brace for your condition? Patient does not have a brace for their condition. Do you have a TENS Unit for your condition? Patient currently does have a TENS Unit for their condition and does NOT utilize it. Supplements: Patient is currently taking the following supplements: (see current med list). Nerve Conduction: Patient has not had a Nerve Conduction Test. Recent test/procedures: Patient was asked and denies having any tests since their last visit. Patient was asked and denies being seen by any Physicians since their last visit. At today's visit patient presents with their Self Implanted Devices The patient does not have any implanted devices. The patient does not have a glucose monitoring device. Patient is retired. The patient is being seen for an initial evaluation. The date of onset of symptoms is approximately 10+ years. Pain Duration: Years Condition type: The patient is being seen for a chronic condition. PAIN LOCATION: in the left shoulder. Review of SystemsConstitutional: Normal. Eyes: Normal. ENT: normal. Cardiovascular: Normal. Respiratory: shortness of breath. Gastrointestinal: Normal. Genitourinary: Normal. Musculoskeletal: lower back pain and joint pain shoulder pain. Integumentary: Normal. Neurological: Normal. Psychiatric: Normal. Endocrine: Normal. Hematologic/Lymphatic: Normal. Patient maintains at today's visit there has been no change in his/her hematologic history. I revi ewed the above with the patient and I feel the ROS to be negative/normal other than Muscular and skeletal pain. Active Problems 1. Left shoulder pain (719.41) (M25.512) Allergies Adhesive Tape Recorded By: Angeles Iqbal; 11/06/2020 2:23:52 PM Latex Recorded By: Angeles Iqbal; 11/06/2020 2:23:52 PMDenied Iodinated Contrast Media Recorded By: Angeles Iqbal; 11/06/2020 2:23:52 PM Current Meds Albuterol Sulfate (2.5 MG/3ML) 0.083% Inhalation Nebulization Solution;Therapy: (Recorded:06Nov2020) to Recorded Atorvastatin Calcium TABS;Therapy: (Recorded:06Nov2020) to Recorded Azelastine HCl SOLN;Th erapy: (Recorded:06Nov2020) to Recorded Darifenacin Hydrobromide ER 7.5 MG Oral Tablet Extended Release 24 Hour;Therapy: (Recorded:06Nov2020) to Recorded Echinacea CAPS;Therapy: (Recorded:06Nov2020) to Recorded Eliquis TABS;Therapy: (Recorded:06Nov2020) to Recorded Flonase SUSP;Therapy: (Recorded:06Nov2020) to Recorded Gabapentin 100 MG Oral Capsule; TAKE 1 CAPSULE 3 TIMES DAILY;Therapy: 06Nov2020 to (Evaluate:04Feb2021) Requested for: 06Nov2020; LastRx:06Nov2020 Ordered Garlic CAPS;Therapy: (Recorded:06Nov2020) to Recorded Glucosamine Chondroitin TABS;Therapy: (Recorded:06Nov2020) to Recorded Magnesium TABS;Therapy: (Recorded:06Nov2020) to Recorded ProAir HFA AERS;Therapy: (Recorded:06Nov2020) to Recorded Red Yeast Rice CAPS;Therapy: (Recorded:06Nov2020) to Recorded Spiriva HandiHaler CAPS;Therapy: (Recorded:06Nov2020) to Recorded Synthroid TABS;Therapy: (Recorded:06Nov2020) to Recorded Turmeric CAPS;Therapy: (Recorded:06Nov2020) to Recorded Vitamin B Complex TABS;Therapy: (Recorded:06Nov2020) to Recorded Vitamin D CAPS;Therapy: (Recorded:06Nov2020) to Recorded Vitamin E TABS;Therapy: (Recorded:06Nov2020) to Recorded Past Medical History History of Bilateral pulmonary embolism (415.19) (I26.99) History of Clotting disorder (286.9) (D68.9) History of arthritis (V13.4) (Z87.39) History of asthma (V12.69) (Z87.09) Denied: History of bleeding disorder History of hypothyroidism (V12.29) (Z86.39) History of kidney disease (V13.09) (Z87.448) 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) Surgical History History of Breast surgery Denied: History of Cardioverter defibrillator insertion History of Carpal tunnel surgery History of Hip replacement History of Hysterectomy Denied: History of Permanent pacemaker insertion History of Rib fracture repair Assessed By: Angeles Iqbal; Last Assessed: 06 Nov 2020 History of Shoulder replacement History of Uterine surgery Family History Family history of hypertension (V17.49) (Z82.49) Social History Current non-drinker of alcohol (V49.89) (Z78.9) (V61.03) (Z63.5) Former smoker (V15.82) (Z87.891) No illicit drug use Retired from employment VitalsVital Signs Recorded: 29Dec2020 01:14PM Height: 5 ft 8 inWeight: 218 lb BMI Calculated: 33.15BSA Calculated: 2.12Systolic: 136, SittingDiastolic: 79, SittingHeart Rate: 74Respiration: 20Temperature: 96.5 FHeight measured w/wo shoes: w/shoesPain Scale: 0 Physical ExamGeneral: The patient is a well nourished/well developed, female, heavy set, who is in no acute distress and appears stated age. Eyes: Lids are atraumatic, no lesions, sclerae are anicteric. Ears, Nose, Mouth, Throat: external ears and nose without trauma. Patient wearing a mask due to COVID-19. Respiratory: Normal chest expansion and respiratory effort. Gait and Station: Gait was normal. Skin: Warm, dry, acyanotic. Psychological: Alert and oriented to person, place and time. Mood and affect are pleasant and appropriate. Judgement intact. Insight normal without delusions or hallucinations. Denies suicidal/homicidal ideation. Assessment 1. Low back pain (724.2) (M54.5) Plan 1. Renew: Gabapentin 100 MG Oral Capsule; TAKE 1 CAPSULE IN THE AM AND AFTERNOON, 2 AT NIGHT 2. X-Ray ([facility]) Referral Diagnostic Diagnostic Status: Hold For - Scheduling Requested for: [id number] Type : MedicareX-Ray View(s) : Complete w/ Flexion/Extension (measure ovalle angle if present)Side : BilateralX-Ray Body Part : Lumbosacral Complete 3. Follow-up in 6 weeks Follow Up Follow-up Status: Hold For - Scheduling Requested for: [id number] Appointment for 15 or 30 minutes : Schedule 15 minute appointment Medication:. General Medications Prescribed: GABAPENTIN . GENERAL MEDICATIONS: I advised the patient today/previously regarding treatment with the above medication(s). The risks, benefits, common side effects and alternative treatments were discussed with the patient. The provider verbalized with the patient. The patient verbalized understanding and was told to call if there were any untoward effects. The prescribed medications are medically necessary for pain management and rehabilitation. Treatment includes: FOLLOW UP: The patient should have a follow up visit in 6 weeks. - CORRECTIONAL SUPERVISOR: The patient was counseled on the following: treatment plan. Discussion/[id number] female seen for chronic left shoulder pain. She reports that the gabapentin is helping however she is still having some issues sleeping at night. I will maintain 100 mg dose in the morning and afternoon and increase up to 200 g at night. She is also expressing some low back pain and I will obtain a complete series of lumbosacral x-rays and she will follow up with me in 6 weeks. [facility] [place] DirectRM Disclaimer: This document was dictated and electronically signed using [employer] software. A reasonable attempt at proof reading has been made to minimize errors. Please call with any questions. Signatures Electronically signed by : Agustín Mckeon NP; Dec 29 2020 1:26PM EST (Author) Electronically signed by : Paramjit Saez MD; Jan 01 2021 12:26PM EST Name Value Range Interpretation Code Description Data Katharine rce(s) Supporting Document(s) ID Date Data Source [id number] 11/15/2020 11:35:00 AM EST [facility] ([facility] Name Value Range Interpretation Code Description Data Katharine rce(s) Supporting Document(s) Gram Stain Laboratory test result [facility] ([facility] QUALITY: GOOD FEW EPITHELIAL CELLS MANY WBCS MODERATE GRAM POSITIVE COCCI IN PAIRS FEW YEAST LIKE ORGANISM WITH PSEUDOHYPHAE MODERATE GRAM POSITIVE RODS Sputum Culture Laboratory test result [facility] ([facility] FULL REPORT IN LAB NOTES ([facility] and [facility] ). NORMAL CAPRICE PRESENT ORGANISM 1: YEAST LIKE ORGANISM QUANTITY OF GROWTH MODERATE ORGANISM 1: YEAST LIKE ORGANISM ID Date Data Source [id number] 11/15/2020 11:35:00 AM EST [facility] ([facility], ) Name Value Range Interpretation Code Description Data Katharine rce(s) Supporting Document(s) Gram Stain Laboratory test result Normal (applies to non-n umeric results) [facility] ([facility], ) QUALITY: GOOD FEW EPITHELIAL CELLS MANY WBCS MODERATE GRAM POSITIVE COCCI IN PAIRS FEW YEAST LIKE ORGANISM WITH PSEUDOHYPHAE MODERATE GRAM POSITIVE RODS Sputum Culture Laboratory test result Normal (applies to non-numeric results) [facility] ([facility], ) FULL REPORT IN LAB NOTES (e[facility] and [facility] ). NORMAL CAPRICE PRESENT ORGANISM 1: YEAST LIKE ORGANISM QUANTITY OF GROWTH MODERATE ORGANISM 1: YEAST LIKE ORGANISM ID Date Data Source [id number] 11/06/2020 02:56:26 PM EST [facility], PCName: Katja WilburnB: 4Provider: Aleisha Mckeon: 11/06/2020 Chief ComplaintLeft shoulder pain History [facility] Controlled Substance and Treatment Agreement Patient has signed a [facility] Controlled Substance and Treatment Agreement. Patient has been given a copy of the treatment agreement and has been given a copy of our Prescription Information Fact Sheet. Do you have a Brace for your condition? Patient does not have a brace for their condition. Do you have a TENS Unit for your condition? Patient currently does have a TENS Unit for their condition and does NOT utilize it. Supplements: Patient is currently taking the following supplements: (see current med list). Nerve Conduction: Patient has not had a Nerve Conduction Test. At today's visit patient presents with their Self Implanted Devices The patient does not have any implanted devices. The patient does not have a glucose monitoring device. Patient is retired. The patient is b [facility] seen for an initial evaluation. The date of onset of symptoms is approximately 10+ years. Condition type: The patient is being seen for a chronic condition. PAIN LOCATION: in the left shoulder. Review of SystemsConstitutional: Normal. Eyes: Normal. ENT: normal. Cardiovascular: Normal. Respiratory: Normal. Gastrointestinal: Normal. Genitourinary: Normal. Musculoskeletal: joint pain. Integumentary: Normal. Neurological: Normal. Psychiatric: Normal. Endocrine: Normal. Hematologic/Lymphatic: Normal. The patient states they have a clotting or bleeding disorder or has seen a certified credit counselor. See initial patient paperwork dated Currently on blood thinners. I reviewed the above with the patient and I feel the ROS to be negative/normal other than Left shoulder pain. Allergies Adhesive Tape Recorded By: Angeles Iqbal; 11/06/2020 2:23:52 PM Latex Recorded By: Angeles Iqbal; 11/06/2020 2:23:52 PMDenied Iodinated Contrast Media Recorded By: Angeles Iqbal; 11/06/2020 2:23:52 PM Current Meds Albuterol Sulfate (2.5 MG/3ML) 0.083% Inhalation Nebulization Solution;Therapy: (Recorded:06Nov2020) to Recorded Dispense: 0 Days ; #: Sufficient; Refill: 0;For: SocHx: Former smoker; PAT = N; Record; Last Updated By: Angeles Iqbal; 11/06/2020 2:23:52 PM Atorvastatin Calcium TABS;Therapy: (Recorded:06Nov2020) to Recorded Dispense: 0 Days ; #: Sufficient; Refill: 0;For: SocHx: Former smoker; PAT = N; Record; Last Updated By: Angeles Iqbal; 11/06/2020 2:23:52 PM Azelastine HCl SOLN;Therapy: (Recorded:06Nov2020) to Recorded Dispense: 0 Days ; #: Sufficient; Refill: 0;For: SocHx: Former smoker; PAT = N; Record; Last Updated By: Angeles Iqbal; 11/06/2020 2:23:52 PM Darifenacin Hydrobromide ER 7.5 MG Oral Tablet Extended Release 24 Hour;Therapy: (Recorded:06Nov2020) to Recorded Dispense: 0 Days ; #: Sufficient; Refill: 0;For: SocHx: Former smoker; PAT = N; Record; Last Updated By: Angeles Iqbal; 11/06/2020 2:23:52 PM Echinacea CAPS;Therapy: (Recorded:06Nov2020) to Recorded Dispense: 0 Days ; #: Sufficient; Refill: 0;For: SocHx: Former smoker; PAT = N; Record; Last Updated By: Angeles Iqbal; 11/06/2020 2:23:52 PM Eliquis TABS;Therapy: (Recorded:06Nov2020) to Recorded Dispense: 0 Days ; #: Sufficient; Refill: 0;For: SocHx: Former smoker; PAT = N; Record; Last Updated By: Angeles Iqbal; 11/06/2020 2:23:52 PM Flonase SUSP;Therapy: (Recorded:06Nov2020) to Recorded Dispense: 0 Days ; #: Sufficient; Refill: 0;For: SocHx: Former smoker; PAT = N; Record; Last Updated By: Angeles Iqbal; 11/06/2020 2:23:52 PM Garlic CAPS;Therapy: (Recorded:06Nov2020) to Recorded Dispense: 0 Days ; #: Sufficient; Refill: 0;For: SocHx: Former smoker; PAT = N; Record; Last Updated By: Angeles Iqbal; 11/06/2020 2:23:52 PM Glucosamine Chondroitin TABS;Therapy: (Recorded:06Nov2020) to Recorded Dispense: 0 Days ; #: Sufficient; Refill: 0;For: SocHx: Former smoker; PAT = N; Record; Last Updated By: Angeles qIbal; 11/06/2020 2:23:52 PM Magnesium TABS;Therapy: (Recorded:06Nov2020) to Recorded Dispense: 0 Days ; #: Sufficient; Refill: 0;For: SocHx: Former smoker; PAT = N; Record; Last Updated By: Angeles Iqbal; 11/06/2020 2:23:52 PM ProAir HFA AERS;Therapy: (Recorded:06Nov2020) to Recorded Dispense: 0 Days ; #: Sufficient; Refill: 0;For: SocHx: Former smoker; PAT = N; Record; Last Updated By: Angeles Iqbal; 11/06/2020 2:23:52 PM Red Yeast Rice CAPS;Therapy: (Recorded:06Nov2020) to Recorded Dispense: 0 Days ; #: Sufficient; Refill: 0;For: SocHx: Former smoker; PAT = N; Record; Last Updated By: Angeles Iqbal; 11/06/2020 2:23:52 PM Spiriva HandiHaler CAPS;Therapy: (Recorded:06Nov2020) to Recorded Dispense: 0 Days ; #: Sufficient; Refill: 0;For: SocHx: Former smoker; PAT = N; Record; Last Updated By: Angeles Iqbal; 11/06/2020 2:23:52 PM Synthroid TABS;Therapy: (Recorded:06Nov2020) to Recorded Dispense: 0 Days ; #: Sufficient; Refill: 0;For: SocHx: Former smoker; PAT = N; Record; Last Updated By: Angeles Iqbal; 11/06/2020 2:23:52 PM Turmeric CAPS;Therapy: (Recorded:06Nov2020) to Recorded D ispense: 0 Days ; #: Sufficient; Refill: 0;For: SocHx: Former smoker; PAT = N; Record; Last Updated By: Angeles Iqbal; 11/06/2020 2:23:52 PM Vitamin B Complex TABS;Therapy: (Recorded:06Nov2020) to Recorded Dispense: 0 Days ; #: Sufficient; Refill: 0;For: SocHx: Former smoker; PAT = N; Record; Last Updated By: Angeles Iqbal; 11/06/2020 2:23:52 PM Vitamin D CAPS;Therapy: (Recorded:06Nov2020) to Recorded Dispense: 0 Days ; #: Sufficient; Refill: 0;For: SocHx: Former smoker; PAT = N; Record; Last Updated By: Angeles Iqbal; 11/06/2020 2:23:52 PM Vitamin E TABS;Therapy: (Recorded:06Nov2020) to Recorded Dispense: 0 Days ; #: Sufficient; Refill: 0;For: SocHx: Former smoker; PAT = N; Record; Last Updated By: Angeles Iqbal; 11/06/2020 2:23:52 PM Past Medical History History of Bilateral pulmonary embolism (415.19) (I26.99) History of Clotting disorder (286.9) (D68.9) History of arthritis (V13.4) (Z87.39) History of asthma (V12.69) (Z87.09) Denied: History of bleeding disorder History of hypothyroidism (V12.29) (Z86.39) History of kidney disease (V13.09) (Z87.448) 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) Surgical History History of Breast surgery Denied: History of Cardioverter defibrillator insertion History of Carpal tunnel surgery History of Hip replacement History of Hysterectomy Denied: History of Permanent pacemaker insertion History of Rib fracture repair Assessed By: Angeles Iqbal; Last Assessed: 06 Nov 2020 History of Shoulder replacement History of Uterine surgery Family History Family history of hypertension (V17.49) (Z82.49) Social History Current non-drinker of alcohol (V49.89) (Z78.9) (V61.03) (Z63.5) Former smoker (V15.82) (Z87.891) 2020 No illicit drug use Retired from employment VitalsVital Signs Recorded: 06Nov2020 02:10PM Height: 5 ft 6.25 inWeight: 219 lb BMI Calculated: 35.08BSA Calculated: 2.08Systolic: 130, SittingDiastolic: 70, SittingHeart Rate: 72Respiration: 18Temperature: 97.2 FHeight measured w/wo shoes: w/shoesPain Scale: 0Depression: 13ORT: LR Physical ExamGeneral: The patient is a well nourished/well developed, female, heavy set, who is in no acute distress and appears stated age. Eyes: Lids are atraumatic, no lesions, sclerae are anicteric. Ears, Nose, Mouth, Throat: external ears and nose without trauma. Patient wearing a mask due to COVID-19. Respiratory: Normal chest expansion and respiratory effort. Gait and Station: Gait was normal. Skin: Warm, dry, acyanotic. Psychological: Alert and oriented to person, place and time. Mood and affect are pleasant and appropriate. Judgement intact. Insight normal without delusions or hallucinations. Denies suicidal/homicidal ideation. Assessment 1. History of Rib fracture repair 2. Left shoulder pain (719.41) (M25.512) Plan 1. Start: Gabapentin 100 MG Oral Capsule; TAKE 1 CAPSULE 3 TIMES DAILY 2. Follow-up in 6 weeks Follow Up Follow-up Status: Hold For - Scheduling Requested for: [id number] Appointment for 15 or 30 minutes : Schedule 15 minute appointment Medication:. General Medications Prescribed: GABAPENTIN . GENERAL MEDICATIONS: I advised the patient today/previously regarding treatment with the above medication(s). The risks, benefits, common side effects and alternative treatments were discussed with the patient. The provider verbalized with the patient. The patient verbalized understanding and was told to call if there were any untoward effects. The prescribed medications are medically necessary for pain management and rehabilitation. Treatment includes: FOLLOW UP: The patient should have a follow up visit in 6 weeks. - CORRECTIONAL SUPERVISOR: The patient was counseled on the following: treatment plan. Discussion/[id number] female seen for left shoulder pain. After discussing treatment options including injections and therapies we will proceed with medications. I will start her on gabapentin 100 g 3 times a day. She is very apprehensive about medications and we will start very low and slow. I do not believe that physical therapy will be the end I will be off for her and injections are not an option as she is on Eliquis and cannot be taken off this due to a recent pulmonary embolism. DirectRM [facility] [place] DirectRM Disclaimer: This document was dictated and electronically signed using [employer] Speaking software. A reasonable attempt at proof reading has been made to minimize errors. Please call with any questions. Signatures Electronically signed by : Agustín Mckeon NP; Nov 06 2020 2:39PM EST (Author) Electronically signed by : Sampson Cristina MD; Nov 06 2020 2:56PM EST Name Value Range Interpretation Code Description Data Katharine rce(s) Supporting Document(s) ID Date Data Source [id number] 11/03/2020 04:35:00 PM EST [facility] ([facility] Name Value Range Interpretation Code Description Data Katharine rce(s) Supporting Document(s) Urine WBC Laboratory test result 0-5 [facility] ([facility]) Urine RBC Laboratory test result 0-2 [facility] ([facility]) Crystals Laboratory test result ME DENT ([facility]) Bacteria Laboratory test result [facility] ([facility]) Epithelial Cells Laboratory test result [facility] ([facility]) Hyaline casts [Presence] in Urine sediment by Light mi croscopy Laboratory test result [facility] ([facility]) Yeast Laboratory test result ME [facility] ([facility]) Sperm Laboratory test result [facility] ([facility]) ID Date Data Source [id number] 11/03/2020 01:26:00 PM EST [facility] ([facility]) Name Value Range Interpretation Code Description Data Katharine rce(s) Supporting Document(s) Protein [Presence] in Urine by Test strip Laboratory test result [facility] ([facility]) Glucose [Presence] in Urine Laboratory test result [facility] ([facility]) Blood [Presence] in Urine by Visual Laboratory test result [facility] ([facility]) Ua Nitrite Laboratory test result ME [facility]ENT ([facility]) Ua Leuko Laboratory test result ME [facility]ENT ([facility]) Clarity of Urine Laboratory test result [facility] ([facility]) Color of Urine Laboratory test result [facility] ([facility]) Ketones [Presence] in Urine by Test strip Laboratory test result [facility] ([facility]) Bilirubin.total [Presence] in Urine by Test strip Laboratory test res ult [facility] ([facility]) Ua Specific Mchenry 1.015 1.003-1.030 MEDE NT ([facility]) pH of Urine by Test strip 5.0 5.0-7.5 [facility] ([facility]) Urobilinogen [Mass/volume] in Urine by Test strip 0.2 E.U./dL 0.0-1.0 [facility] ([facility]) ID Date Data Source [id number] 10/06/2020 07:02:16 AM EST [facility] PCName: Naomy HuertasJIE: 4Provider: Lyssa Wallace: 10/05/2020 Reason For VisitNaomy Huertas is here today for left shoulder. Naomy Huertas is an established patient here for a new problem. States she has had pain in the shoulder x 3 months. She tried to do physical therapy but the pain got too severe, so she stopped. She has 10/10 anterior sharp pain at time and has been managing Tylneol prn. The patient was notified that the office visit was recorded to enhance documentation accuracy. Patient is retired. History of Present IllnessCHIEF COMPLAINTLeft shoulder pain.HISTORY OF PRESENT ILLNESSThe patient is a 75-year-old right-hand dominant female who presents for evaluation of left shoulder pain. She has a history of a left total shoulder arthroplasty performed [facility] prior to 2001 for a tear. She now has pain and decreased motion. She is unable to perform her activities of daily living. The patient started physical therapy again about 3 months ago, but had to stop due to increased pain. She takes Tylenol currently for pain. The patient certainly has a painful left shoulder. I think the left shoulder is just so worn now unfortunately from not having ever that socket being replaced and the arthritis is killing her.The patient has a history of bilateral PEs in 05/2020, she is on Eliquis. She has a history of carpal tunnel syndrome. She has no d iabetes or heart disease. She has issues with her knees, left knee is worse. She has a bad back. She has asthma. Results/DataX-rays, 3 views, of the left shoulder were ordered, obtained, and interpreted in the office today, AP, Y and lateral. These reveal what appears to be a hemiarthroplasty in this left shoulder with a long stem in the humerus with wearing into the glenoid that looks to be pretty concentric. Very mild lucency, more proximal around the stem. No fracture or dislocation. Assessment 1. Left shoulder pain (719.41) (M25.512) ASSESSMENTPainful left shoulder status post hemiarthroplasty. Plan X-Ray I Shoulder - 2 views (XRays were ordered, obtained and interpreted today in theoffice. Indication: pain/dysfunction.); Status:Complete; Done: [id number] Perform:SOS29; Due:[id number]; Last Updated By:Filippo Pierre; 10/05/2020 2:12:55 PM;Ordered; For:Left shoulder pain; Ordered By:Lyssa Wallace;Laterality: : Left PLANLorraine and I discussed her left shoulder and the painful hemiar throplasty. That being said, she is not really a surgical candidate due to her recent pulmonary embolism and being on Eliquis. So, we agree upon trying a cortisone injection into this hemiarthroplasty today. I do not see any signs of infection. Otherwise, if it continues to hurt her, she could potentially be a candidate for conversion to a reverse, but I would not do that at this point. The patient agrees with this plan.I advised the patient that steroid injections are frequently used to provide relief from musculoskeletal pain and to aid in the diagnosis of musculoskeletal problems. This injection offers a variety of benefits and various potential risks associated with the medication administered during the injection. I informed the patient that alternatives to this injection include no treatment, use of rehabilitation and exercise, use of a different medication (oral and injectable), and surgical intervention, when appropriate. I advised the patient that the risks associated with this injection include: an allergic reaction to the medication, pain at the injection site, possible infection of the injection site, facial flushing and skin changes, temporary increase in blood sugar, tendon, muscle or nerve injury, avascular necrosis, and that there may actually not be a beneficial effect at all. Having discussed benefits, alternatives, and potential risks to the injection, the patient elected to proceed with the procedure. PROCEDURE Indications: Left shoulder pain Procedure: Left shoulder glenohumeral joint cortisone injectionDescription: Under sterile conditions, 6 mL of 1% lidocaine and 80 mg of Depo-Medrol were injected in the left shoulder without complication. The patient tolerated the procedure well. There was no injectable waste. Scribed by Timothy Fulton on 10/06/2020 at 12:39 AM for Lyssa Wallace Signatures Electronically signed by : Timothy Fulton MA; Oct 06 2020 12:39AM EST (Author) Electronically signed by : Lyssa Wallace M.D.; Oct 06 2020 7:02AM EST Name Value Range Interpretation Code Description Data Katharine rce(s) Supporting Document(s) ID Date Data Source [id number] 10/03/2020 10:57:00 AM EST [facility] ([facility] Name Value Range Interpretation Code Description Data Katharine rce(s) Supporting Document(s) Bacteria identified in Urine by Culture Laboratory test result [facility] ([facility] FULL REPORT IN LAB NOTES (eCW and [facility] ). NO GROWTH CLINICAL SIGNIFICANCE 1 ORGANISM ID Date Data Source [id number] 10/03/2020 10:54:00 AM EST [facility] ([facility] Name Value Range Interpretation Code Description Data Katharine rce(s) Supporting Document(s) Specific gravity of Urine 1.010 MEDE NT ([facility] Color of Urine Laboratory test result [facility] ([facility] Appearance of Urine Laboratory test result [facility] ([facility] pH of Urine by Test strip 5 MEDE NT ([facility] Protein [Presence] in Urine by Test strip Laboratory test result [facility] ([facility] Leukocytes [#/area] in Urine sediment by Microscopy [facility] Laboratory test result [facility] ([facility] Ketones [Presence] in Urine by Test strip Laboratory test result [facility] ([facility] Glucose [Presence] in Urine Laboratory test result [facility] ([facility] Bilirubin.total [Presence] in Urine by Test strip Laboratory test res ult [facility] ([facility] Nitrite [Presence] in Urine by Test strip Laboratory test result [facility] ([facility] Urobilinogen [Mass/volume] in Urine by Test strip Laboratory test res ult [facility] ([facility] Hemoglobin [Presence] in Urine by Test strip Laboratory test result [facility] ([facility] ID Date Data Source [id number] 08/25/2020 11:30:00 AM EDT [facility] ([facility] Name Value Range Interpretation Code Description Data Katharine rce(s) Supporting Document(s) Glucose, Fasting 129 mg/dL 70-100 [facility] ([facility] Blood Urea Nitrogen 22 mg/dL 7-18 [facility] ([facility] Glomerular Filtration Rate 42.8 MED ENT ([facility] <content>Units are mL/min/1.73 m2</content>
<content></content>
<content>Chronic Kidney Disease Staging per NK[facility]:</content>
<content></content>
<content>Stage I & II GFR >=60 Normal to Mildly Decreased</content>
<content>Stage III GFR 30- 59 Moderately Decreased</content>
<content>Stage IV GFR 15-29 Severely Decreased</content>
<content>Stage V GFR <15 Very Little GFR Left</content>
<content>ESRD GFR <15 on PEDIATRICS TEACHER</content>
<content></content> Creatinine For GFR 1.29 mg/dL 0.55-1.30 [facility] ([facility] Sodium Level 138 meq/L 136-145 [facility] ([facility] Chloride Level 109 meq/L 98-107 [facility] ([facility] Potassium Serum 5.0 meq/L 3.5-5.1 [facility] ([facility] Carbon Dioxide Level 24 meq/L 21-32 [facility] ([facility] Calcium Level 9.3 mg/dL 8.8-10.2 [facility] ([facility] Ast/Sgot 52 U/L 7-37 [facility] ([facility] Anion Gap 5 meq/L 8-16 [facility] ([facility] Alkaline Phosphatase 111 U/L 45-117 [facility] ([facility] Alt/SGPT 93 U/L 12-78 [facility] ([facility] Total Protein 7.1 GM/DL 6.4-8.2 [facility] ([facility] Albumin 3.8 GM/DL 3.2-5.2 [facility] ([facility] Bilirubin,Total 1.0 mg/dL 0.2-1.0 [facility] ([facility] Albumin/Globulin Ratio 1.2 1.2-2.2 [facility] ([facility] ID Date Data Source [id number] 08/25/2020 11:30:00 AM EDT [facility] ([facility] Name Value Range Interpretation Code Description Data Katharine rce(s) Supporting Document(s) Hemoglobin A1c/Hemoglobin.total in Blood 5.6 % [facility] ([facility] <content>REFERENCE RANGES:</content><br/ ><content></content>
<content><=5.6% NORMAL</content>
<content>5.7-6.4% SUGGESTS IMPAIRED GLUCOSE METABOLISM/PREDIABETIC</content>
<content>>= 6.5% ABNORMAL</content>
<content></content> Estimated Average Glucose 114 mg/dL 60-110 [facility] ([facility] ID Date Data Source [id number] 08/25/2020 11:30:00 AM EDT [facility] ([facility] Name Value Range Interpretation Code Description Data Katharine rce(s) Supporting Document(s) Thyroxine (T4) free [Mass/volume] in Serum or Plasma 1.04 ng/dL 0.76- 1.46 [facility] ([facility] Thyrotropin [Units/volume] in Serum or Plasma 1.520 uIU/ML 0.358-3.74 0 [facility] ([facility] ID Date Data Source [id number] 08/25/2020 11:30:00 AM EDT [facility] ([facility] Name Value Range Interpretation Code Description Data Katharine rce(s) Supporting Document(s) Triglycerides Level 76 mg/dL [facility] ([facility] LDL Cholesterol 77 mg/dL [facility] ([facility] Cholesterol Level 161 mg/dL [facility] ([facility] HDL Cholesterol 69 mg/dL [facility] ([facility] Non-HDL-C 92 mg/dL [facility] ([facility] Cholesterol Risk Ratio 2.333 [facility] ([facility] ID Date Data Source [id number] 07/17/2020 03:41:00 PM EDT [facility] ([facility]) Name Value Range Interpretation Code Description Data Katharine rce(s) Supporting Document(s) Anti Thrombin 3 Funct Activity 115 % 75-135 N ormal (applies to non-numeric results) [facility] will discuss at follow-up Anti Thrombin 3 Antigen Immuno 99 % 72-124 N ormal (applies to non-numeric results) [facility] ([facility]) will discuss at follow-up ID Date Data Source [id number] 07/17/2020 03:41:00 PM EDT [facility] ([facility]) Name Value Range Interpretation Code Description Data Katharine rce(s) Supporting Document(s) Beta-2 Glycoprotein I Neida Igg Laboratory test result 0-20 Normal (applies to non-numeric results) [facility] ([facility]) will discuss at follow-up Beta-2 Glycoprotein I Neida Igm Laboratory test result 0-32 Normal (applies to non-numeric results) [facility] ([facility]) will discuss at follow-up Beta-2 Glycoprotein I Neida Iga Laboratory test result 0-25 Normal (applies to non-numeric results) [facility] ([facility]) will discuss at follow-up ID Date Data Source [id number] 07/17/2020 03:41:00 PM EDT [facility] ([facility]) Name Value Range Interpretation Code Description Data Katharine rce(s) Supporting Document(s) Factor II Prothrombin Gene An Laboratory test result Normal (applies to non- numeric results) [facility] ([facility]) will discuss at follow-up ID Date Data Source [id number] 07/17/2020 03:41:00 PM EDT [facility] ([facility]) Name Value Range Interpretation Code Description Data Katharine rce(s) Supporting Document(s) Protein C actual/normal in Platelet poor plasma by Coagulati on assay 153 % 73-180 Normal (applies to non-numeric results) [facility] ([facility]) will discuss at follow-up Protein S actual/normal in Platelet poor plasma by Coagulati on assay 104 % 63-140 Normal (applies to non-numeric results) [facility] ([facility]) will discuss at follow-up ID Date Data Source [id number] 07/17/2020 03:41:00 PM EDT [facility] ([facility]) Name Value Range Interpretation Code Description Data Katharine rce(s) Supporting Document(s) Protein S Antigen Total 109 % 60-150 Normal (applies to non- numeric results) [facility] ([facility]) will discuss at follow-up Protein S Antigen Free 103 % 57-157 Normal (applies to non-n umeric results) [facility] ([facility]) will discuss at follow-up ID Date Data Source [id number] 07/17/2020 03:41:00 PM EDT [facility] ([facility]) Name Value Range Interpretation Code Description Data Katharine rce(s) Supporting Document(s) Factor V Leiden For Medinet Laboratory test result Normal (applies to non- numeric results) [facility] ([facility]) will discuss at follow-up ID Date Data Source [id number] 07/17/2020 03:41:00 PM EDT [facility] ([facility]) Name Value Range Interpretation Code Description Data Katharine rce(s) Supporting Document(s) Cardiolipin Iga Antibody Laboratory test result 0-11 Normal (applies to non- numeric results) [facility] ([facility]) will discuss at follow-up Cardiolipin Igg Antibody Laboratory test result 0-14 Normal (applies to non- numeric results) [facility] ([facility]) will discuss at follow-up Cardiolipin Igm Antibody Laboratory test result 0-12 Normal (applies to non- numeric results) [facility] ([facility]) will discuss at follow-up Procedure Social History Code Duration Value Status Description Data Source(s ) Smoking 08/15/2021 12:00:00 AM EDT Patient is a former smoker completed Patient is a former smoker [facility] Smoking 07/31/2021 12:00:00 AM EDT - 10/27/1991 12:00:00 AM EST Patient is a former smoker completed Patient is a former smoker [facility] ([facility] Smoking 05/30/2021 12:00:00 AM EDT Former Smoker completed Former Smoker eCW1 ([facility]) Smoking 04/05/2021 12:00:00 AM EDT Patient is a former smoker completed Patient is a former smoker [facility] ([facility] Smoking 03/15/2021 12:00:00 AM EDT Never Smoked Cigarettes com pleted Never Smoked Cigarettes [facility] ([facility]) ETOH Use 11/03/2020 12:00:00 AM EST Never used alcohol complete d Never used alcohol [facility] ([facility]) Vital Signs ID Date Data Source [id number] Name Value Range Interpretation Code Description Data Source(s) Body mass index (BMI) [Ratio] 33.8 kg/m2 33.8 k g/m2 [facility] ([facility]) [place] body weight 135 [lb_av] 135 [lb_av] MED[facility] T ([facility]) Body weight 97.978 kg 97.978 kg [facility] ([facility]) Systolic blood pressure 126 mm[Hg] 126 mm[Hg] M EDENT ([facility]) Diastolic blood pressure 70 mm[Hg] 70 mm[Hg] [facility] ([facility]) Heart rate 94 /min 94 /min [facility] ([facility]) Body weight 216.00 [lb_av] 216.00 [lb_av] MED[facility] T ([facility]) Body surface area Derived from formula 2.09 m2 2.09 m2 [facility] ([facility]) Oxygen saturation in Arterial blood by Pulse oximetry 96 % 96 % [facility] ([facility]) Body height 67 [in_i] 67 [in_i] [facility] ([facility]) 5'7" Body weight 216.12 [lb_av] 216.12 [lb_av] [facility] T ([facility]) Body height 67 [in_i] 67 [in_i] [facility] ([facility] 5'7" Heart rate 86 /min 86 /min [facility] ([facility] Respiratory rate 16 /min 16 /min [facility] ( [facility]) Systolic blood pressure 109 mm[Hg] 109 mm[Hg] M [facility]ENT ([facility]) Diastolic blood pressure 72 mm[Hg] 72 mm[Hg] [facility] ([facility]) Body mass index (BMI) [Ratio] 33.8 kg/m2 33.8 k g/m2 [facility] ([facility]) [place] body weight 130 [lb_av] 130 [lb_av] MED[facility] T ([facility] Body mass index (BMI) [Ratio] 34.7 kg/m2 34.7 k g/m2 [facility] ([facility] Systolic blood pressure 104 mm[Hg] 104 mm[Hg] M [facility]ENT ([facility] Diastolic blood pressure 65 mm[Hg] 65 mm[Hg] [facility] ([facility] Heart rate 75 /min 75 /min [facility] ([facility] Body temperature 97.1 [degF] 97.1 [degF] [facility] ([facility] Respiratory rate 17 /min 17 /min [facility] ( [facility] Body height 66.50 [in_i] 66.50 [in_i] [facility] ([facility] 5'6.50" Body weight 218.25 [lb_av] 218.25 [lb_av] MED[facility] T ([facility] Oxygen saturation in Arterial blood by Pulse oximetry 98 % 98 % [facility] ([facility] Body weight 218.4 [lb_av] 218.4 [lb_av] eCW1 ([facility]) Body weight 99.07 kg 99.07 kg eCW1 (Counts include 234 beds at the [facility]) Body height 67 [in_i] 67 [in_i] eCW1 (Counts include 234 beds at the [facility]) Body mass index (BMI) [Ratio] 34.20 kg/m2 34.20 kg/m2 eCW1 ([facility]) Heart rate 75 /min 75 /min eCW1 ([facility]) Respiratory rate 18 /min 18 /min eCW1 ([facility]) Body temperature 99.1 [degF] 99.1 [degF] eCW1 ( [facility]) Systolic blood pressure 148 mm[Hg] 148 mm[Hg] e CW1 ([facility]) Diastolic blood pressure 76 mm[Hg] 76 mm[Hg] eCW1 ([facility]) Body height 67 [in_i] 67 [in_i] [facility] ([facility] ) 5'7" Body weight 214.00 [lb_av] 214.00 [lb_av] MEDEN T ([facility]) Body temperature 97.3 [degF] 97.3 [degF] [facility] ([facility]) Body mass index (BMI) [Ratio] 33.5 kg/m2 33.5 k g/m2 [facility] ([facility]) Systolic blood pressure 94 mm[Hg] 94 mm[Hg] M [facility]ENT ([facility] Diastolic blood pressure 67 mm[Hg] 67 mm[Hg] [facility] ([facility] Heart rate 80 /min 80 /min [facility] ([facility] Body temperature 97.6 [degF] 97.6 [degF] [facility] ([facility] Respiratory rate 20 /min 20 /min [facility] ( [facility] Body height 66.50 [in_i] 66.50 [in_i] [facility] ([facility] 5'6.50" Body weight 216.12 [lb_av] 216.12 [lb_av] MED[facility] T ([facility] Oxygen saturation in Arterial blood by Pulse oximetry 98 % 98 % [facility] ([facility] [place] body weight 130 [lb_av] 130 [lb_av] MED[facility] T ([facility] Body mass index (BMI) [Ratio] 34.4 kg/m2 34.4 k g/m2 [facility] ([facility] Body weight 99.849 kg 99.849 kg [facility] ([facility]) Body height 67 [in_i] 67 [in_i] [facility] ([facility]) 5'7" Body weight 220.12 [lb_av] 220.12 [lb_av] MED[facility] T ([facility]) [place] body weight 135 [lb_av] 135 [lb_av] MED[facility] T ([facility]) Diastolic blood pressure 82 mm[Hg] 82 mm[Hg] [facility] ([facility]) Systolic blood pressure 154 mm[Hg] 154 mm[Hg] M [facility] ([facility]) Body weight 99.849 kg 99.849 kg [facility] ([facility]) Body surface area Derived from formula 2.11 m2 2.11 m2 [facility] ([facility]) Body height 67 [in_i] 67 [in_i] [facility] ([facility]) 5'7" Body weight 220.12 [lb_av] 220.12 [lb_av] MED[facility] T ([facility]) Body mass index (BMI) [Ratio] 34.5 kg/m2 34.5 k g/m2 [facility] ([facility]) [place] body weight 135 [lb_av] 135 [lb_av] MED[facility] T ([facility]) Body mass index (BMI) [Ratio] 34.5 kg/m2 34.5 k g/m2 [facility] ([facility]) Body surface area Derived from formula 2.11 m2 2.11 m2 [facility] ([facility]) Body surface area Derived from formula 2.10 m2 2.10 m2 [facility] ([facility]) Body temperature 97.6 [degF] 97.6 [degF] [facility] ([facility]) Body mass index (BMI) [Ratio] 34.3 kg/m2 34.3 k g/m2 [facility] ([facility]) [place] body weight 135 [lb_av] 135 [lb_av] MED[facility] T ([facility]) Systolic blood pressure 128 mm[Hg] 128 mm[Hg] M [facility] ([facility]) Diastolic blood pressure 76 mm[Hg] 76 mm[Hg] [facility] ([facility]) Heart rate 95 /min 95 /min [facility] ([facility]) Oxygen saturation in Arterial blood by Pulse oximetry 98 % 98 % [facility] ([facility]) Body height 67 [in_i] 67 [in_i] [facility] ([facility]) 5'7" Body weight 219.00 [lb_av] 219.00 [lb_av] MED[facility] T ([facility]) Body weight 99.338 kg 99.338 kg [facility] ([facility]) Body weight 218.25 [lb_av] 218.25 [lb_av] MED[facility] T ([facility]) Body height 67 [in_i] 67 [in_i] [facility] ([facility]) 5'7" Heart rate 86 /min 86 /min [facility] ([facility]) Respiratory rate 20 /min 20 /min [facility] ( [facility]) Systolic blood pressure 125 mm[Hg] 125 mm[Hg] M [facility] ([facility]) Diastolic blood pressure 85 mm[Hg] 85 mm[Hg] [facility] ([facility]) Body mass index (BMI) [Ratio] 34.2 kg/m2 34.2 k g/m2 [facility] ([facility]) Body height 67 [in_i] 67 [in_i] [facility] ([facility] 5'7" Body weight 205.00 [lb_av] 205.00 [lb_av] MEDEN T ([facility]) Body weight 92.988 kg 92.988 kg [facility] ([facility] Body mass index (BMI) [Ratio] 32.1 kg/m2 32.1 k g/m2 [facility] ([facility]) Systolic blood pressure 119 mm[Hg] 119 mm[Hg] M EDENT ([facility]) Diastolic blood pressure 79 mm[Hg] 79 mm[Hg] [facility] ([facility]) Heart rate 82 /min 82 /min [facility] ([facility]) [place] body weight 130 [lb_av] 130 [lb_av] MEDEN T ([facility] Systolic blood pressure 129 mm[Hg] 129 mm[Hg] M EDENT ([facility] Diastolic blood pressure 78 mm[Hg] 78 mm[Hg] [facility] ([facility] Heart rate 82 /min 82 /min [facility] ([facility] Body temperature 99.0 [degF] 99.0 [degF] [facility] ([facility] Respiratory rate 18 /min 18 /min [facility] ( [facility] Body height 66.50 [in_i] 66.50 [in_i] [facility] ([facility] 5'6.50" Body weight 220.25 [lb_av] 220.25 [lb_av] MEDEN T ([facility] Oxygen saturation in Arterial blood by Pulse oximetry 98 % 98 % [facility] ([facility] Body mass index (BMI) [Ratio] 35.0 kg/m2 35.0 k g/m2 [facility] ([facility] Heart rate 85 /min 85 /min [facility] ([facility]) Oxygen saturation in Arterial blood by Pulse oximetry 95 % 95 % [facility] ([facility]) Body height 67 [in_i] 67 [in_i] [facility] ([facility]) 5'7" Diastolic blood pressure 80 mm[Hg] 80 mm[Hg] [facility] ([facility]) Systolic blood pressure 122 mm[Hg] 122 mm[Hg] [facility] ([facility]) [place] body weight 135 [lb_av] 135 [lb_av] MEDEN T ([facility]) Systolic blood pressure 126 mm[Hg] 126 mm[Hg] [facility] ([facility]) Diastolic blood pressure 70 mm[Hg] 70 mm[Hg] [facility] ([facility]) Heart rate 99 /min 99 /min [facility] ([facility]) Oxygen saturation in Arterial blood by Pulse oximetry 98 % 98 % [facility] ([facility]) Body temperature 96.3 [degF] 96.3 [degF] [facility] ([facility]) Body height 67 [in_i] 67 [in_i] [facility] ([facility]) 5'7" [place] body weight 135 [lb_av] 135 [lb_av] MEDEN T ([facility]) Systolic blood pressure 144 mm[Hg] 144 mm[Hg] [facility]) Diastolic blood pressure 80 mm[Hg] 80 mm[Hg] [facility] ([facility]) Body mass index (BMI) [Ratio] 34.2 kg/m2 34.2 k g/m2 [facility] ([facility]) Body weight 218.38 [lb_av] 218.38 [lb_av] [facility] T ([facility]) Body height 67 [in_i] 67 [in_i] [facility] ([facility] 5'7" Heart rate 91 /min 91 /min [facility] ([facility] Respiratory rate 16 /min 16 /min [facility] ( [facility]) Body weight 200.00 [lb_av] 200.00 [lb_av] [facility] T ([facility]) Body mass index (BMI) [Ratio] 31.3 kg/m2 31.3 k g/m2 [facility] ([facility]) Systolic blood pressure 126 mm[Hg] 126 mm[Hg] M EDENT ([facility]) Diastolic blood pressure 85 mm[Hg] 85 mm[Hg] [facility] ([facility]) Heart rate 102 /min 102 /min [facility] ([facility] Body temperature 97.6 [degF] 97.6 [degF] [facility] ([facility]) Body height 67 [in_i] 67 [in_i] [facility] ([facility] 5'7" Body weight 90.720 kg 90.720 kg [facility] ([facility]) Body height 66.50 [in_i] 66.50 [in_i] [facility] ([facility] 5'6.50" Oxygen saturation in Arterial blood by Pulse oximetry 98 % 98 % [facility] ([facility] [place] body weight 130 [lb_av] 130 [lb_av] [facility] T ([facility] Systolic blood pressure 118 mm[Hg] 118 mm[Hg] M ED[facility] ([facility] Diastolic blood pressure 63 mm[Hg] 63 mm[Hg] [facility] ([facility] Heart rate 90 /min 90 /min [facility] ([facility] Body temperature 96.8 [degF] 96.8 [degF] [facility] ([facility] Respiratory rate 24 /min 24 /min [facility] ( [facility] Body mass index (BMI) [Ratio] 32.1 kg/m2 32.1 k g/m2 [facility] ([facility] Body weight 202.12 [lb_av] 202.12 [lb_av] MED[facility] T ([facility] [place] body weight 135 [lb_av] 135 [lb_av] [facility] T ([facility]) Oxygen saturation in Arterial blood by Pulse oximetry 97 % 97 % [facility] ([facility]) Body temperature 97.8 [degF] 97.8 [degF] [facility] ([facility]) Body height 67 [in_i] 67 [in_i] [facility] 5'7" Body weight 213.00 [lb_av] 213.00 [lb_av] MED[facility] T ([facility]) Systolic blood pressure 120 mm[Hg] 120 mm[Hg] [facility] ([facility]) Diastolic blood pressure 88 mm[Hg] 88 mm[Hg] [facility] ([facility]) Heart rate 106 /min 106 /min [facility] ([facility]) Body surface area Derived from formula 2.08 m2 2.08 m2 [facility] ([facility]) Body mass index (BMI) [Ratio] 33.4 kg/m2 33.4 k g/m2 [facility] ([facility]) Body weight 96.617 kg 96.617 kg [facility] ([facility]) Body weight 215.00 [lb_av] 215.00 [lb_av] [facility] Body height 67 [in_i] 67 [in_i] [facility] ([facility] 5'7" Heart rate 94 /min 94 /min [facility] ([facility] Respiratory rate 16 /min 16 /min [facility] ( [facility]) Systolic blood pressure 102 mm[Hg] 102 mm[Hg] M [facility] ([facility]) Diastolic blood pressure 58 mm[Hg] 58 mm[Hg] [facility] ([facility]) Body mass index (BMI) [Ratio] 33.7 kg/m2 33.7 k g/m2 [facility] Diastolic blood pressure 78 mm[Hg] 78 mm[Hg] [facility] ([facility]) Systolic blood pressure 114 mm[Hg] 114 mm[Hg] [facility] ([facility]) Body height 67 [in_i] 67 [in_i] [facility] ([facility]) 5'7" Body weight 217.00 [lb_av] 217.00 [lb_av] MED[facility] T ([facility]) Body weight 98.431 kg 98.431 kg [facility] ([facility]) Heart rate 90 /min 90 /min [facility] ([facility]) Oxygen saturation in Arterial blood by Pulse oximetry 96 % 96 % [facility] ([facility]) Body temperature 97.6 [degF] 97.6 [degF] [facility] ([facility]) Body mass index (BMI) [Ratio] 34.0 kg/m2 34.0 k g/m2 [facility] ([facility]) [place] body weight 135 [lb_av] 135 [lb_av] [facility] T ([facility]) Heart rate 110 /min 110 /min [facility] ([facility]) Diastolic blood pressure 60 mm[Hg] 60 mm[Hg] [facility] ([facility]) Systolic blood pressure 104 mm[Hg] 104 mm[Hg] [facility] ([facility]) Oxygen saturation in Arterial blood by Pulse oximetry 100 % 100 % [facility] ([facility]) Body height 67 [in_i] 67 [in_i] [facility] ([facility]) 5'7" [place] body weight 135 [lb_av] 135 [lb_av] [facility] T ([facility]) Systolic blood pressure 122 mm[Hg] 122 mm[Hg] [facility] ([facility]) Diastolic blood pressure 68 mm[Hg] 68 mm[Hg] [facility] ([facility]) Heart rate 96 /min 96 /min [facility] ([facility]) Oxygen saturation in Arterial blood by Pulse oximetry 97 % 97 % [facility] ([facility]) Body temperature 96.5 [degF] 96.5 [degF] [facility] ([facility]) Body height 67 [in_i] 67 [in_i] [facility] ([facility]) 5'7" Body weight 217.00 [lb_av] 217.00 [lb_av] [facility] T ([facility]) Body mass index (BMI) [Ratio] 34.0 kg/m2 34.0 k g/m2 [facility] ([facility]) Body weight 98.431 kg 98.431 [facility] Body height 67 [in_i] 67 [in_i] [facility] ([facility] 5'7" Body weight 218.12 [lb_av] 218.12 [lb_av] MED[facility] T ([facility]) Heart rate 92 /min 92 /min [facility] ([facility] Respiratory rate 16 /min 16 /min [facility] ( [facility]) Systolic blood pressure 124 mm[Hg] 124 mm[Hg] M [facility] ([facility]) Diastolic blood pressure 80 mm[Hg] 80 mm[Hg] [facility] ([facility]) Body mass index (BMI) [Ratio] 34.2 kg/m2 34.2 k g/m2 [facility] ([facility]) Patient Treatment Plan of Care Planned Activity Planned Date Details Description Data Source (s) tramadol hydrochloride 50 MG Oral Tablet 05/30/2021 12:00:00 AM EDT eCW1 ([facility]) 24 HR darifenacin 7.5 MG Extended Release Oral Tablet [Enablex] 08/02/2020 12:00:00 AM EDT eCW1 ([facility]) 24 HR darifenacin 7.5 MG Extended Release Oral Tablet [Enablex] 08/02/2020 12:00:00 AM EDT eCW1 ([facility]) 24 HR darifenacin 7.5 MG Extended Release Oral Tablet [Enablex] 08/02/2020 12:00:00 AM EDT eCW1 ([facility]) 24 HR darifenacin 7.5 MG Extended Release Oral Tablet [Enablex] 08/02/2020 12:00:00 AM EDT eCW1 ([facility])
[2021-09-06] MEDS ORDERED: SYMB16INH INH (19:19)
[2021-09-06] MEDS ORDERED: GABA-283 PO (19:19)
[2021-09-06 19:22] LABS: BASO # 0.1 10^3/uL (0.0-0.2); BASO % 0.9 % (0.0-1.0); EOS # 0.3 10^3/uL (0.0-0.5); EOS % 2.7 % (0.0-3.0); HEMOGLOBIN 13.8 g/dl (12.0-15.5); LYMPH # 3.4 10^3/uL (1.5-5.0); LYMPH % 36.5 % (24.0-44.0); MEAN CORPUSCULAR HEMOGLOBIN 31.4 pg (27.0-33.0); MEAN CORPUSCULAR HGB CONC 32.9 g/dl (32.0-36.5); MEAN CORPUSCULAR VOLUME 95.5 fl (80.0-96.0); MONO # 0.6 10^3/uL (0.0-0.8); MONO % 6.8 % (2.0-8.0); NEUTROPHILS % 52.9 % (36.0-66.0); PLATELET COUNT, AUTOMATED 287 10^3/uL (150-450); WHITE BLOOD COUNT 9.4 10^3/uL (4.0-10.0)
[2021-09-06 19:54] LABS: ALBUMIN 3.9 GM/DL (3.2-5.2); ALT/SGPT 45 U/L (12-78); BILIRUBIN,DIRECT 0.2 MG/DL (0.0-0.2); BILIRUBIN,TOTAL 0.8 MG/DL (0.2-1.0); BLOOD UREA NITROGEN 14 MG/DL (7-18); CALCIUM LEVEL 9.5 MG/DL (8.8-10.2); CARBON DIOXIDE LEVEL 26 MEQ/L (21-32); CHLORIDE LEVEL 109 MEQ/L (98-107); CK-MB VALUE MASS 1.3 NG/ML (<3.6); CPK CREATINE PHOSPHOKINASE 123 U/L (26-192); CREATININE FOR GFR 1.14 MG/DL (0.55-1.30); GLOMERULAR FILTRATION RATE 49.2 (>39); GLUCOSE, FASTING 96 MG/DL (70-100); MB/CK RELATIVE INDEX 1.06 (< OR =4); POTASSIUM SERUM 3.8 MEQ/L (3.5-5.1); SODIUM LEVEL 139 MEQ/L (136-145); TOTAL PROTEIN 7.6 GM/DL (6.4-8.2)
[2021-09-06 19:55] LABS: FREE T4 1.05 NG/DL (0.76-1.46); LIPASE 208 U/L (73-393); NT-PRO BNP 159 PG/ML (<450); TROPONIN I < 0.02 NG/ML (< 0.10)
--- OUTSIDE RECORDS SUMMARY | 2021-09-06 21:04 | CCD | Continuity of Care Document ---
Author Author Naomy HAIDER I [facility] Organization Unknown Address [address] [place] [address] Phone [phone] Care Team Providers Care [employer]ident Responder Name Role Phone Tiffany Dorantes MD AUTM [phone] [facility] Nurse Practitioners - Dermatology AUTM [phone] [facility] AUTM [phone] [facility] AUTM [phone] Problems Description No Information Available Social History [...] Q2038 Given 08/06/2017 Influenza Vaccine (Fluzone)( medicare) [id number] Q2038 Given 07/31/2015 Influenza Vaccine (Fluzone)( medicare) [id number] Refused 04/06/2019 Zoster (Shingles ) Vaccine (HZV), Recombinant, Subunit, Adjuvanted [id number] Refused 04/06/2019 Zostavax [id number] Refused 04/06/2019 Pneumococcal Vaccine 01513 Refused 04/06/2019 Prevnar 13 [id number] Refused 10/06/2018 Prevnar 13 For Adults [id number] Refused 10/06/2018 Pneumococcal Vaccine 19462 Refused 10/06/2018 Influenza Virus Vaccine, Moo drivalent,multidose vial 10981 Refused 02/01/2016 Pneumococcal Vaccine Vital Signs Date Vital Result Comment 07/24/2021 2:29pm BP Systolic 104 mmHg BP Diastolic 65 mmHg Heart Rate 75 /min Body Temperature 97.1 F Respiratory Rate 17 /min Height 66.50 inches 5'6.50" Weight 218.25 lb O2 % BldC Oximetry 98 % Peak Expiratory Flow Rate 331 Estimated Peak Flow Rate [place] Body Weight 130 lb BMI (Body Mass Index) 34.7 kg/m2 04/05/2021 10:59am BP Systolic 94 mmHg BP Diastolic 67 mmHg Heart Rate 80 /min Body Temperature 97.6 F Respiratory Rate 20 /min Height 66.50 inches 5'6.50" Weight 216.12 lb O2 % BldC Oximetry 98 % Peak Expiratory Flow Rate 332 Estimated Peak Flow Rate [place] Body Weight 130 lb BMI (Body Mass Index) 34.4 kg/m2 Results Test Acquired Date Facility Test Result H/L Range Note Comprehensive Metabolic Profil 07/03/2021 [facility] [phone] Glucose, Fasting 92 mg/dL Normal 70-100 Blood [...] Ratio 1.0 Low 1.2-2.2 Lipid Panel 07/03/2021 [facility] nter [phone] Triglycerides Level 146 mg/dL Normal <150 Cholesterol Level 162 mg/dL Normal <200 HDL Cholesterol 59 mg/dL Normal >40 LDL Cholesterol 74 mg/dL Normal <100 Non-HDL-C 103 mg/dL Normal Cholesterol Risk Ratio 2.745 Normal <5 FT4&TSH Panel 07/03/2021 [facility] nter [phone] Thyroid Stimulating Hormone 3.640 uIU/ML Normal 0. 358-3.740 Free T4 0.90 ng/dL Normal 0.76-1.46 1 Units are mL/min/1.73 m2 Chronic Kidney Disease Staging per NKF: Stage I & II GFR >=60 Normal to Mildly Decreased Stage III GFR 30-59 Moderately Decreased Stage IV GFR 15-29 Severely Decreased Stage V GFR <15 Very Little GFR Left ESRD GFR <15 on [employer] Procedures Date Code Description Status 07/24/2021 05610 Office/Outpatient Established Mo d MDM 30-39 Min Completed 04/05/2021 32018 Office/Outpatient Established Mo d MDM 30-39 Min Completed 03/2021 [id number] Mammogram Completed Medical Devices Description No Information [...] medical examination without abnormal findings Marjorie Haider, IN HOME AIDE 07/24/2021 J45.50 Severe persistent asthma, uncomp licated Marjorie Haider, IN HOME AIDE 07/24/2021 K21.9 Gastro-esophageal reflux disease without esophagitis Marjorie Haider, IN HOME AIDE 07/24/2021 E78.2 Mixed hyperlipidemia Anderson Haider, IN HOME AIDE 07/24/2021 E03.9 Hypothyroidism, unspecified Ples Marjorie bay, IN HOME AIDE 07/24/2021 I26.94 Multiple subsegmenta l pulmonary emboli without acute cor pulmonale Marjorie Haider, IN HOME AIDE 04/05/2021 J45.50 Severe persistent asthma, uncomp licated Marjorie Haider, IN HOME AIDE 04/05/2021 K21.9 Gastro-esophageal reflux disease without esophagitis Marjorie Haider FNP 04/05/2021 E78.2 Mixed hyperlipidemia Anderson Haider, IN HOME AIDE 04/05/2021 E03.9 Hypothyroidism, unspecified Ples Marjorie bay, IN HOME AIDE 04/05/2021 I26.94 Multiple subsegmenta l pulmonary emboli [...]
--- OUTSIDE RECORDS SUMMARY | 2021-09-06 21:05 | CCD ---
Author Author [facility] Organization [facility] Address Unknown Phone Unavailable Care Team Providers Care Hydrology Professor Name Role Phone Chelsea Vera MD Unavailable [...] Smart MD, Sampson L Unavailable Smart MD, Asmpson L Unavailable Smart MD, Sampson L Unavailable [...] A LUZ DO Unavailable Unavailable SEARS, A LZU DO Unavailable Unavailable SEARS, A LUZ DO [...] A LUZ DO Unavailable Unavailable Pleskach, Marjorie CARE NURSE RN Unavailable Unavailable Pleskach, Marjorie CARE NURSE RN Unavailable Unavailable Pleskach, Marjorie CARE NURSE RN Unavailable Unavailable Pleskach, Marjorie CARE NURSE RN Unavailable Unavailable Pleskach, Marjorie CARE NURSE RN Unavailable Unavailable Pleskach, Marjorie CARE NURSE RN Unavailable Unavailable Pleskach, Marjorie CARE NURSE RN Unavailable Unavailable Pleskach, Marjorie CARE NURSE RN Unavailable Unavailable Pleskach, Marjorie CARE NURSE RN Unavailable Unavailable Pleskach, Marjorie CARE NURSE RN Unavailable Unavailable Pleskach, Marjorie CARE NURSE RN Unavailable Unavailable Pleskach, Marjorie CARE NURSE RN Unavailable Unavailable Pleskach, Marjorie CARE NURSE RN Unavailable Unavailable Pleskach, Marjorie CARE NURSE RN Unavailable Unavailable Pleskach, Marjorie CARE NURSE RN Unavailable Unavailable Pleskach, Marjorie CARE NURSE RN Unavailable Unavailable Pleskach, Marjorie CARE NURSE RN Unavailable Unavailable Pleskach, Marjorie CARE NURSE RN Unavailable Unavailable Pleskach, Marjorie CARE NURSE RN Unavailable Unavailable Pleskach, Marjorie CARE NURSE RN Unavailable Unavailable Pleskach, Marjorie CARE NURSE RN Unavailable Unavailable Pleskach, Marjorie CARE NURSE RN Unavailable Unavailable Pleskach, Marjorie CARE NURSE RN Unavailable Unavailable Pleskach, Marjorie CARE NURSE RN Unavailable Unavailable Pleskach, Marjorie CARE NURSE RN Unavailable Unavailable Pleskach, Marjorie CARE NURSE RN Unavailable Unavailable Pleskach, Marjorie CARE NURSE RN Unavailable Unavailable Pleskach, Marjorie CARE NURSE RN Unavailable Unavailable Pleskach, Marjorie CARE NURSE RN Unavailable Unavailable Pleskach, Marjorie CARE NURSE RN Unavailable Unavailable Pleskach, Marjorie CARE NURSE RN Unavailable Unavailable Pleskach, Marjorie CARE NURSE RN Unavailable Unavailable Pleskach, Marjorie CARE NURSE RN Unavailable Unavailable Pleskach, Marjorie CARE NURSE RN Unavailable Unavailable Pleskach, Marjorie CARE NURSE RN Unavailable Unavailable Pleskach, Marjorie CARE NURSE RN Unavailable Unavailable Pleskach, Marjorie CARE NURSE RN Unavailable Unavailable Pleskach, Marjorie CARE NURSE RN Unavailable Unavailable Pleskach, Marjorie CARE NURSE RN Unavailable Unavailable Pleskach, Marjorie CARE NURSE RN Unavailable Unavailable Pleskach, Marjorie CARE NURSE RN Unavailable Unavailable Pleskach, Marjorie CARE NURSE RN Unavailable Unavailable Pleskach, Marjorie CARE NURSE RN Unavailable Unavailable Pleskach, Marjorie CARE NURSE RN Unavailable Unavailable Mathew Johnson MD Unavailable Unavailable [...] Unavailable Alex, Mathew Hess MD Unavailable Unavailable Alxe, Mathew Hess MD Unavailable Unavailable Alex, A [...] Scozzari, K Marylu PA Unavailable Unavailable Narins, Swink MD Unavailable Unavailable Narins, Swink MD Unavailable Unavailable Narins, Mason MD Unavailable Unavailable Narins, Swink MD Unavailable Unavailable Narins, Mason MD Unavailable Unavailable Narins, Mason MD Unavailable Unavailable Narins, Swink MD Unavailable Unavailable Narins, Swink MD Unavailable Unavailable Narins, Swink MD Unavailable Unavailable Narins, Mason MD Unavailable Unavailable Narins, Mason MD Unavailable Unavailable Narins, Mason MD Unavailable Unavailable Narins, Swink MD Unavailable Unavailable Narins, Swink MD Unavailable Unavailable Narins, Swink MD Unavailable Unavailable Narins, Mason MD Unavailable Unavailable Narins, Swink MD Unavailable Unavailable Narins, Mason MD Unavailable Unavailable Narins, Mason MD Unavailable Unavailable Narins, Mason MD Unavailable Unavailable Narins, Swink MD Unavailable Unavailable Narins, Mason MD Unavailable Unavailable Narins, Swink MD Unavailable Unavailable Narins, Swink MD Unavailable Unavailable Narins, Mason MD Unavailable Unavailable Narins, Mason MD Unavailable Unavailable Narins, Swink MD Unavailable Unavailable Narins, Swink MD Unavailable Unavailable Narins, Mason MD Unavailable Unavailable Narins, Mason MD Unavailable Unavailable Narins, Mason MD Unavailable Unavailable Narins, Swink MD Unavailable Unavailable Narins, Swink MD Unavailable Unavailable Narins, Swink MD Unavailable Unavailable Narins, Mason MD Unavailable Unavailable Narins, Mason MD Unavailable Unavailable Narins, Swink MD Unavailable Unavailable Narins, Swink MD Unavailable Unavailable Narins, Mason MD Unavailable Unavailable Narins, Mason MD Unavailable Unavailable Narins, Mason MD Unavailable Unavailable Narins, Mason MD Unavailable Unavailable Narins, Swink MD Unavailable Unavailable Narins, Swink MD Unavailable Unavailable Narins, Mason MD Unavailable Unavailable Narins, Swink MD Unavailable Unavailable Narins, Swink MD Unavailable Unavailable Narins, Swink MD Unavailable Unavailable Narins, Mason MD Unavailable Unavailable Narins, Swink MD Unavailable Unavailable Narins, Mason MD Unavailable Unavailable Mike, Christopher TOOL AND DIE SUPERVISOR Unavailable Unavailable Mike, Christopher TOOL AND DIE SUPERVISOR Unavailable Unavailable Mike, Christopher TOOL AND DIE SUPERVISOR Unavailable Unavailable Mike, Christopher TOOL AND DIE SUPERVISOR Unavailable Unavailable Mike, Christopher TOOL AND DIE SUPERVISOR Unavailable Unavailable Mike, Christopher TOOL AND DIE SUPERVISOR Unavailable Unavailable Mike, Christopher TOOL AND DIE SUPERVISOR Unavailable Unavailable Mike, Christopher TOOL AND DIE SUPERVISOR Unavailable Unavailable Mike, Christopher TOOL AND DIE SUPERVISOR Unavailable Unavailable Mike, Christopher TOOL AND DIE SUPERVISOR Unavailable Unavailable Mike, Christopher TOOL AND DIE SUPERVISOR Unavailable Unavailable Mike, Christopher TOOL AND DIE SUPERVISOR Unavailable Unavailable Mike, Christopher TOOL AND DIE SUPERVISOR Unavailable Unavailable Mike, Christopher TOOL AND DIE SUPERVISOR Unavailable Unavailable Mike, Christopher TOOL AND DIE SUPERVISOR Unavailable Unavailable Mike, Christopher TOOL AND DIE SUPERVISOR Unavailable Unavailable Mike, Christopher TOOL AND DIE SUPERVISOR Unavailable Unavailable Mike, Christopher TOOL AND DIE SUPERVISOR Unavailable Unavailable Mike, Christopher TOOL AND DIE SUPERVISOR Unavailable Unavailable Mike, Christopher TOOL AND DIE SUPERVISOR Unavailable Unavailable Mike, Christopher TOOL AND DIE SUPERVISOR Unavailable Unavailable Mike, Christopher TOOL AND DIE SUPERVISOR Unavailable Unavailable Mike, Christopher TOOL AND DIE SUPERVISOR Unavailable Unavailable Mike, Christopher TOOL AND DIE SUPERVISOR Unavailable Unavailable Mike, Christopher TOOL AND DIE SUPERVISOR Unavailable Unavailable Mike, Christopher TOOL AND DIE SUPERVISOR Unavailable Unavailable Mike, Christopher TOOL AND DIE SUPERVISOR Unavailable Unavailable Mike, Christopher TOOL AND DIE SUPERVISOR Unavailable Unavailable Mike, Christopher TOOL AND DIE SUPERVISOR Unavailable Unavailable Clara Florian MD Unavailable Unavailable [...] is protected by Article 27-F of the [facility] Public Health law. If you continue you may have access to information: Regarding HIV / AIDS; Provided by facilities licensed or operated by the [facility] Office of Mental Health; or Provided by the [facility] Office for People With Developmental Disabilities. If such information is present, then the following [facility] mandated warning applies: This information has [...] [facility] Unknown Male Problem MEDENT ([facility], ) Unknown Unknown Problem MEDENT ([facility] Daughter 2008 Unknown Unknown Problem MED[facility] ([facility] ) Unknown Unknown Problem MEDENT ([facility] ) Unknown Unknown Problem MEDENT ([facility] ) Unknown Female Encounters Encounter Providers Location Date Indications Data Source(s ) Outpatient Attender: Agustín Mckeon NPReferrer: Lyssa Wallace MD 08/22/2021 01:59:32 PM EDT [facility] [place] Outpatient Attender: Anitha Weiss/Lillie/Darren/Franck ndl 08/15/2021 02:30:00 PM EDT [facility] Outpatient Attender: JOHANNE VALVERDE MD Main Office 07/31/2021 10:00:00 AM EDT MEDENT ([facility]) Outpatient Attender: Marjorie Haider [facility] Main Office 07/24/2021 0 2:45:00 PM EDT MEDENT ([facility] Outpatient [address] [place] [phone] 05/30/2021 12:00:00 AM EDT eCW1 ([facility]) OFFICE OUTPATIENT NEW 30 MINUTES Attender: Clara Wells am, MD Physical Therapy 05/02/2021 02:15:00 PM EDT MEDENT ([facility]) Outpatient Attender: Marjorie Haider [facility] Main Office 04/05/2021 1 1:00:00 AM EDT MEDENT ([facility] Outpatient Attender: Marylu Fischer PAReferrer: Jimena Ch ms, MD 03/27/2021 09:07:19 AM EDT [facility] Recurring Patient Attender: Dimitris Vera MDReferrer: Jimena Arreguin ams, MD 03/22/2021 10:26:55 AM EDT [facility] Outpatient Attender: Mason Mcintyre/ [facility] 03/19/2021 09:15:00 AM EDT [facility] Attender: Agustín Mckeon NPReferrer: Lyssa Wallace MD 02/19/2021 11:04:12 AM EDT [facility] Recurring Patient Attender: Dimitris Vera MDReferrer: Jimena Arreguin ams, MD 02/16/2021 02:43:19 PM EDT [facility] Outpatient Attender: Anitha Weiss/Lillie/Darren/Franck ndl 02/07/2021 02:30:00 PM EDT MEDENT ([facility] Outpatient Attender: JOHANNE VALVERDE MD Main Office 01/30/2021 10:00:00 AM EDT MEDENT ([facility]) Outpatient Attender: Mason Mcintyre/ [facility] 01/23/2021 01:45:00 PM EDT [facility]) Outpatient Attender: Marjorie Haider [facility] Main Office 01/02/2021 0 9:30:00 AM EST MEDENT ([facility] Outpatient Attender: Agustín Mckeon NPReferrer: Lyssa Wallace MD 01/01/2021 12:26:27 PM EST [facility] Outpatient Attender: Agustín Mckeon NPReferrer: Lyssa Wallace MD 11/06/2020 02:56:26 PM EST [facility] Recurring Patient Referrer: Shirley Wallace MD 11/06/2020 01:36:1 3 PM EST [facility] Recurring Patient Referrer: Shirley Wallace MD 11/06/2020 01:35:0 8 PM EST [facility] Recurring Patient Referrer: Shirley Wallace MD 11/06/2020 08:00:4 1 AM EST [facility] Outpatient Attender: Mason Mcintyre/ [facility] 11/03/2020 01:00:00 PM EST [facility] ([facility]) Unknown [address] [facility] [address] 10/17/2020 12:00:00 AM EST eCW1 ([facility]) Recurring Patient Referrer: Shirley Wallace MD 10/06/2020 12:02:1 9 PM EST [facility] Outpatient Attender: Lyssa Wallace MDReferrer: Jimena Johnson MD 10/06/2020 07:02:16 AM EST [facility] Recurring Patient Attender: Dimitrisariel Vera MDReferrer: Jimena Arreguin ams, MD 10/05/2020 02:28:14 PM EST [facility] Recurring Patient Attender: Dimitris Chuy MDReferrer: Jimena Arreguin ams, MD 10/05/2020 01:51:56 PM EST [facility] Unknown [address] [facility], [facility] [address] 10/05/2020 12:00:00 AM EST eCW1 ([facility]) Outpatient Attender: Marjorie Haider [facility] Main Office 10/03/2020 0 9:30:00 AM EST MEDENT ([facility] Unknown [address] [facility] [id number] 09/27/2020 12:00:00 AM EST eCW1 ([facility]) Outpatient Attender: Anitha Weiss/Lillie/Darren/Franck ndl 08/29/2020 01:30:00 PM EST MED[facility] ([facility] Outpatient Attender: JOHANNE VALVERDE MD Main Office 08/01/2020 09:00:00 AM EDT MEDENT ([facility]) Unknown [address] [facility] [id number] 07/28/2020 12:00:00 AM EDT eCW1 ([facility]) Outpatient Attender: Anitha Weiss/Lillie/Darren/Franck ndlyssa 07/25/2020 09:30:00 AM EDT MED[facility] ([facility] Outpatient Attender: LUZ Gale/Lillie/Darren/Reindl 07/18/2020 11:00:00 AM EDT MED[facility] ([facility] Outpatient Attender: Anitha Weiss/Lillie/Darren/Franck ndl 07/11/2020 02:00:00 PM EDT MEDENT ([facility] ) Outpatient Attender: JOHANNE VALVERDE MD Main Office 07/10/2020 09:15:00 AM EDT MEDENT ([facility]) Immunizations Vaccine Date Status Description Data Source(s) Moderna Covid-19 vaccine, mRNA, LNP-S, PF, 100 mcg/ 0. 5 mL 03/06/2021 02:12:00 PM EDT completed MEDENT ([facility], ) COVID-19 VACC,MRNA(MODERNA)/PF 03/06/2021 12:00:00 AM EDT completed [facility] COVID-19 VACCINE Moderna 03/06/2021 12:00:00 AM EDT completed [facility] Vaccine Series Complete: YESThis Data wa s Submitted to [facility] Via [employer]. Moderna Covid-19 vaccine, mRNA, LNP-S, PF, 100 mcg/ 0. 5 mL 02/08/2021 02:12:00 PM EDT completed MEDENT ([facility], ) COVID-19 VACCINE a 02/08/2021 12:00:00 AM EDT completed [facility] Vaccine Series Complete: NOThis Data was Submitted to [facility] Via [employer]. COVID-19 VACC,MRNA(MODERNA)/PF 02/08/2021 12:00:00 AM EDT completed [facility] Medications Medication Brand Name Start Date Product Form Dose Route Admi nistrative Instructions Pharmacy Instructions Status Indications Reaction Description Data Source(s) 60 ACTUAT Budesonide 0.16 MG/ACTUAT / fo rmoterol fumarate 0.0045 MG/ACTUAT Metered Dose Inhaler [Symbicort] Symbicort 08/15/2021 12:00:00 AM EDT RESPIRATORY active MEDENT ( [facility], ) 50 mg 05/30/2021 12:00:00 AM EDT [...] {tablet_as_needed} active traMADol HCl 50 MG eCW1 ([facility]) Azelastine HCL (Nasal) Azelastine HCL (Nasal) 01/02/2021 [...] 12:00:[address] ORAL completed MEDENT ([facility], ) 50 mg 11/12/2020 12:00:00 AM EST [...] 12:00:00 AM EST ORAL completed [facility] ([facility]) dl-alpha tocopheryl acetate 100 UNT Oral Capsule Vitamin E 11/03/2020 12:00:00 AM EST active [facility] ([facility]) 0.5 % 10/14/2020 12:00:00 AM EST drops,suspension [...] 09/01/2020 12:00:00 AM EST activ e MEDENT ([facility], ) tiotropium 0.018 MG/ACTUAT Inhalant Powder [Spiriva] Spiriva Handihaler 08/29/2020 12:00:00 AM EST active MEDENT ([facility], ) 7.5 mg 08/03/2020 12:00:00 AM EDT [...] 1.0 {tablet_with_liquid} active Enablex 7.5 MG eCW1 ([facility]) 24 HR darifenacin 7.5 MG Extended Release Oral Tablet [Enablex] Enablex 7.5 MG Enablex 7.5 MG 08/02/2020 12:00:00 AM EDT 1.0 {tablet_with_liquid} active Enablex 7.5 MG eCW1 ([facility]) 24 HR darifenacin 7.5 MG Extended Release Oral Tablet [Enablex] Enablex 7.5 MG Enablex 7.5 MG 08/02/2020 12:00:00 AM EDT 1.0 {tablet_with_liquid} active Enablex 7.5 MG eCW1 ([facility]) 24 HR darifenacin 7.5 MG Extended Release Oral Tablet [Enablex] Enablex 7.5 MG Enablex 7.5 MG 08/02/2020 12:00:00 AM EDT 1.0 {tablet_with_liquid} active Enablex 7.5 MG eCW1 ([facility]) 24 HR darifenacin 7.5 MG Extended Release Oral Tablet [Enablex] Enablex 7.5 MG Enablex 7.5 MG 08/02/2020 12:00:00 AM EDT 1.0 {tablet_with_liquid} suspended Enablex 7.5 MG eCW1 ([facility]) 1.25 mcg/actuation 07/12/2020 12:00:00 AM EDT mist 4 INHALE TWO PUFFS BY MOUTH EVERY DAY INHALE TWO PUFFS BY MOUTH EVERY DAY SOLD: 07/18/2020 [facility] 14 ACTUAT mometasone furoate 0.2 MG/ACTUAT Dry Powder Inhaler [Asmanex] Asmanex Twisthaler 14 Metered Doses 07/11/2020 12:00:00 AM EDT RESPI RATORY active MEDENT ([facility], ) Spiriva Respimat Spiriva Respimat 07/11/2020 12:00:00 AM EDT RESPIRATORY completed MEDENT ([facility], ) Insurance Providers Payer name Policy type / Coverage type Policy ID Covered libertarian ID Covered libertarian's relationship to perrin Policy Perrin Plan Information Ayaka Soria (pr) Medigap Part B [id number] Self [id number] [place] Primary [id number] Self [id number] Geha Ins (pr) Medigap Part B [id number] [id number] Self [id number] Medicare [id number] SELF [id number] A MEDICARE [id number] SP [id number] A GEHA-ASA [id number] SP [id number] Medicare [place] Medicare Primary [id number] Self [id number] [facility] Jurisdiction A [facility] C [id number] SELF [id number] Medicare C [id number] SELF [id number] Geha Ins (pr) Medigap Part B [id number] [id number] Self [id number] Medicare C [id number] SELF [id number] [id number] Medicare [facility] Medicare Primary [id number] 2.16.840.1.003160.3.227.99.8646.00747.0 Self [id number] [place] Primary [id number] 2.16.840.1.827298.3.227.99.991.25301.0 Self [id number] Geha Ins (pr) Medigap Part B [id number] [id number] Self [id number] Medicare [place]/[facility] Medicare Primary [id number] 2.16.840.1.048970.3.227.99.8646.56037.0 Self [id number] Medicare [place] Medicare Primary [id number] 2.16.840.1.922394.3.227.99.991.44062.0 Self [id number] MEDICARE [id number] SP [id number] [id number] Medicare [facility] Medicare Primary [id number] 2.16.840.1.176559.3.227.99.2809.50763.0 Self [id number] [place] Primary [id number] Self Medicare [place] Medicare Primary [id number] 2.840.1.913309.3.227.99.2809.41751.0 Self [id number] [place] Medicare Primary [id number] Self [id number] Medicare [place] Medicare Primary [id number] 2.840.1.255764.3.227.99.2809.64758.0 Self [id number] Medicare [place] Medicare Primary [id number] 2.840.1.867412.3.227.99.2809.02591.0 Self [id number] Medicare [place] Medicare Primary [id number] 2.0.1.633754.3.227.99.2809.67311.0 Self [id number] Medicare [place] Medicare Primary [id number] 2.840.1.430272.3.227.99.2809.54233.0 Self [id number] Medicare [place] Medicare Primary [id number] 2.840.1.352074.3.227.99.2809.85764.0 Self [id number] Medicare [place] Medicare Primary [id number] 2.0.1.281071.3.227.99.2809.60640.0 Self [id number] Medicare [place] Medicare Primary [id number] 2.840.1.209277.3.227.99.2809.61068.0 Self [id number] Medicare [place] Medicare Primary [id number] 2.840.1.208454.3.227.99.2809.84597.0 Self [id number] Medicare C [id number] SELF [id number] A Medicare [place] Medicare Primary [id number] Self [facility] [id number] SELF [id number] [facility] Medigap Part B [id number] 2.840.1.785960.3.227.[id number] [facility] Medigap Part B [id number] 2.16840.1.387804.3.227.[id number] [facility] Medigap Part B [id number] 2.840.1.052551.3.227.[id number] [facility] Medigap Part B [id number] 2.840.1.955092.3.227.99 .991.16142.0 Self [id number] [facility] F [id number] SELF [id number] GE F [id number] SELF [id number] Ge Medigap Part B [id number] 2.840.1.334367.3.227.99.2809.[id number] [facility] Medigap Part B [id number] 2.0.1.909209.3.227.99.8646.149 84.0 Self [id number] GEHA-ASA .0.1.397041.3.441 [id number] Commercial [employer] [id number] Medicare 2.0.1.296743.3.441 [id number] Medicare Part B [id number] Geha-Asa Medigap Part B [id number] 20.1.599707.3.227.99.1767.368 77.0 Self [id number] Medicare Natl Gov't Servi Medicare Primary [id number] 2.0.1.687835.3.227.99.1767.62761.0 Self [id number] Geha-Asa Medigap Part B [id number] 2.840.1.878384.3.227.99.1767.368 77.0 Self [id number] Medicare Natl Gov't Servi Medicare Primary [id number] 2.16.840.1.184006.3.227.99.1767.59472.0 Self [id number] Geha Medigap Part B [id number] 2.16.840.1.220226.3.227.99.2809.202 47.0 Self [id number] Geha Medigap Part B [id number] 2.16.840.1.295611.3.227.99.8646.149 84.0 Self [id number] [facility] O [id number] S [id number] MEDICARE C [id number] S [id number] A Geha-Asa Medigap Part B [id number] 2.16.840.1.019702.3.227.99.1767.368 77.0 Self [id number] Medicare Natl Gov't Servi Medicare Primary [id number] 2.16.840.1.706394.3.227.99.1767.17168.0 Self [id number] Geha Medigap Part B [id number] 2.16.840.1.953627.3.227.99.2809.202 47.0 Self [id number] Geha Medigap Part B [id number] 2.16.840.1.027687.3.227.99.2809.202 47.0 Self [id number] Geha Medigap Part B [id number] Self [id number] MEDICARE [id number] SP [id number] Medicare Natl Gov't Servi Medicare Primary [id number] Self [id number] Geha-Asa Medigap Part B [id number] Self [id number] MEDICARE -O/P [id number] 18 [id number] [facility] [id number] SP [id number] Geha Medigap Part B [id number] 2.840.1.995163.3.227.99.2809.202 47.0 Self [id number] [facility] [place] O [id number] S [id number] MEDICARE C [id number] S [id number] GEHA-RECURRING [id number] 18 [id number] GEHA O [id number] S [id number] MEDICARE PART A-RECURRING [id number] 18 [id number] Geha Medigap Part B [id number] Self 'S ADMINISTRATION [id number] SP [id number] GEHA-ASA [id number] SP [id number] GEHA-ASA [id number] SP [id number] GEHA F [id number] SELF [id number] [employer] [place] CCN [id number] SP [id number] Geha-Asa Medigap Part B [id number] Self Medicare Natl Gov't Servi Medicare Primary [id number] Self Geha Medigap Part B [id number] Self GEHA-ASA [id number] SP [id number] [employer] O [id number] S [id number] Geha Medigap Part B [id number] Self Medicare [place] Primary [id number] Self [facility] P [id number] S 0 [id number] [employer] P UNAVAILABLE [id number] S UNAVAILABLE [facility] [id number] SP [id number] GEHA-O/P [id number] 18 [id number] Geha Medigap Part B [id number] [id number] 47.0 Self [id number] Geha Medigap Part B [id number] 2.0.1.093595.3.227.99.2809.202 47.0 Self [id number] Geha Medigap Part B [id number] 2.0.1.443923.3.227.99.2809.202 47.0 Self [id number] Geha Medigap Part B [id number] [id number] 47.0 Self [id number] [facility] Part B [id number] 47.0 Self [id number] Problems, Conditions, and Diagnoses Code Display Name Description Problem Type Effective Dates Data Source(s) 951635142 Pure hypercholesterolemia Pure hypercholesterolemia Pr oblem 05/03/2021 12:00:00 AM EDT MEDENT ([facility]) J45.50 Uncomplicated severe persistent asthma U ncomplicated severe persistent asthma Problem 11/07/2020 12:00:00 AM EST MEDENT ([facility]) Note: Followed by Pulmonology. On Dupixe nt (start November,). N39.41 Urge urinary incontinence Urge urinary incontinence Pr oblem 09/27/2020 12:00:00 AM EST eCW1 ([facility]) Surgeries/Procedures Procedure Description Date Indications Data Source(s) Bronchospasm Evaluation 08/28/2021 12:00:00 AM EDT MEDENT ([facility], ) Plethysmography Determination Lung Volumes & Per Airway Resi st 08/28/2021 12:00:00 AM EDT MEDENT ([facility], ) DIFFUSING CAPACITY 08/28/2021 12:00:00 AM EDT MEDENT ([facility]) Spirometry 08/15/2021 12:00:00 AM EDT M EDENT ([facility]) OFFICE OUTPATIENT VISIT 25 MINUTES 08/15/2021 12:00:00 AM EDT MED[facility] ([facility]) OFFICE OUTPATIENT VISIT 15 MINUTES 07/31/2021 12:00:00 AM EDT MED[facility] ([facility]) OFFICE OUTPATIENT VISIT 25 MINUTES 07/24/2021 12:00:00 AM EDT [facility] ([facility] RADEX WRIST COMPLETE MINIMUM 3 VIEWS 05/02/2021 12:00: 00 AM EDT MEDENT ([facility]) OFFICE OUTPATIENT NEW 30 MINUTES 05/02/2021 12:00:00 A M EDT MED[facility] ([facility]) OFFICE OUTPATIENT VISIT 25 MINUTES 04/05/2021 12:00:00 AM EDT [facility] ([facility] Mammogram 03/27/2021 12:00:00 AM EDT M EDENT ([facility] Radiology. Document: 03/04/17 - Mammo Screening With CAD Colonoscopy 03/15/2021 12:00:00 AM EDT M EDENT ([facility]) Spirometry 02/07/2021 12:00:00 AM EDT M EDENT ([facility], ) OFFICE OUTPATIENT VISIT 15 MINUTES 01/30/2021 12:00:00 AM EDT MED[facility] ([facility]) ZULEYKA POST-VOIDING RESIDUAL URINE&/BLDR CAP 01/23/2021 12:00:00 AM EDT [facility] ([facility]) Injection Fee 12/18/2020 12:00:00 AM EST MEDENT ([facility]) Injection Fee 12/01/2020 12:00:00 AM EST MED[facility] ([facility]) Injection Fee 12/01/2020 12:00:00 AM EST MEDENT ([facility]) ZULEYKA POST-VOIDING RESIDUAL URINE&/BLDR CAP 11/03/2020 12:00:00 AM EST MED[facility] ([facility]) Spirometry 08/29/2020 12:00:00 AM EST M EDENT ([facility]) PREPJ& ALLERGEN IMMUNOTHERAPY 1/SUPERINTENDENT DISTRIBUTION ANTIGEN 07/20/2020 12:00:00 AM EDT MED[facility] ([facility]) Results ID Date Data Source [id number] 08/22/2021 01:59:32 PM EDT [facility] PC[facility]: Katja Seals: [...] CAPSULE 3 TIMES DAILY. MDD:3;Therapy: 06Nov2020 to (Evaluate:[id number]) Requested for: [id number]; LastRx:04Jul2021 Ordered Garlic CAPS;Therapy: (Recorded:06Nov2020) to Recorded [...] - Survey Evaluation Evaluation Status: Complete Done: [id number] Depression Screening - Patient's PHQ-9 score is: [...] Status: Hold For - Scheduling Requested for: [id number] 6 month as a FUP for: : [...] the pt and Tx options were reviewed. Discussion/Wfphzuq44-irxm-fvq female seen for chronic left shoulder and [...] point she defers any injections or therapies. [employer] [facility] [employer] Disclaimer: This document was dictated and electronically signed using PagoFacil software. A reasonable attempt at proof reading has been made to minimize errors. Please call with any questions. Signatures Electronically signed by : Agustín Mckeon NP; Aug 22 2021 1:02PM EST (Author) Electronically signed by : Sampson Cristina MD; Aug 22 2021 1:59PM EST Name Value Range Interpretation Code Description Data Katharine rce(s) Supporting Document(s) ID Date Data Source [id number] 08/15/2021 02:15:00 PM EDT MEDENT ([facility], ) Name Value Range Interpretation Code Description Data Katharine rce(s) Supporting Document(s) PDFReport Laboratory test result MEDENT ([facility], ) FVC-Pre 2.38 L MEDENT ([facility]) FVC-Pred 3.11 L MEDENT ([facility]) Fev1-Pred 2.33 L MEDENT ([facility]) FVC-LLN 2.35 L MED[facility] ([facility]) FVC-%Pred-Pre 76 L MEDENT ([facility]) Fev1-%Pred-Pre 93 L MEDENT ([facility]) Fev1-LLN 1.69 L MED[facility] ([facility]) Fev1-Pre 2.19 L MED[facility] ([facility]) Fev6-%Pred-Pre 80 L MED[facility] ([facility]) Fev6-Pre 2.38 L [facility] ([facility]) Fev6-Pred 2.96 L MED[facility] ([facility]) Fev6-LLN 2.21 L MED[facility] ([facility]) Emn1buv-Ohnd 74 % MED[facility] ([facility]) Huc1lej-NDW 65 % MED[facility] ([facility]) Dyn1nnk-Bnl 92 % MED[facility] ([facility]) Gka1jgl-%Pred-Pre 123 % MEDENT ([facility]) Beq9hoc-Weq 100 % MED[facility] ([facility]) Jsq9xhw-%Pred-Pre 105 % MED[facility] ([facility]) Kcr3zgd-Uhmp 95 % MED[facility] ([facility]) FEFMax-Pred 5.54 L/E/sec MEDENT ([facility]) FEFMax-Pre 5.77 L/E/sec MED[facility] ([facility]) Nzo7771-Rfrs 1.74 L/E/sec MED[facility] ([facility]) FEFMax-LLN 3.66 L/E/sec MED[facility] ([facility]) FEFMax-%Pred-Pre 104 L/E/sec MEDENT ([facility]) Lwo9547-Bzf 4.28 L/E/sec MED[facility] ([facility]) Bux3285-PKB 0.38 L/E/sec MED[facility] ([facility]) Xoi7151-%Pred-Pre 246 L/E/sec MEDENT ([facility]) Tzh9lol3-Pzg 92 % MED[facility] ([facility]) ExpTime-Pre 7.35 sec MED[facility] ([facility]) Izu4bkj1-Nvmv 78 % MED[facility] ([facility]) Fcl2ifk0-OWM 69 % MED[facility] ([facility]) Ycj3ylt4-%Pred-Pre 118 % MEDENT ([facility]) ID Date Data Source [id number] 07/03/2021 08:58:00 AM EDT [facility] ([facility] Name Value Range Interpretation Code Description Data Katharine rce(s) Supporting Document(s) Free T4 0.90 ng/dL 0.76-1.46 [facility] ([facility] Thyroid Stimulating Hormone 3.640 uIU/ML 0.358-3.740 [facility] ([facility] ID Date Data Source [id number] 07/03/2021 08:58:00 AM EDT [facility] ([facility] Name Value Range Interpretation Code Description Data Kahtarine rce(s) Supporting Document(s) Triglycerides Level 146 mg/dL [facility] ([facility] Cholesterol Level 162 mg/dL [facility] ([facility] HDL Cholesterol 59 mg/dL [facility] ([facility] LDL Cholesterol 74 mg/dL [facility] ([facility] Cholesterol Risk Ratio 2.745 [facility] ([facility] Non-HDL-C 103 mg/dL [facility] ([facility] ID Date Data Source [id number] 07/03/2021 08:58:00 AM EDT [facility] ([facility] Name Value Range Interpretation Code Description Data Katharine rce(s) Supporting Document(s) Glucose, Fasting 92 mg/dL [...] Little GFR Left</content>
<content>ESRD GFR <15 on PRESSROOM WORKER</content>
<content></content> Sodium Level 142 meq/L 136-145 MEDENT [...] [facility] ID Date Data Source [id number] 03/27/2021 09:07:19 AM EDT [facility] PCName: Naomy HuertasDOB: 4Provider: Asad Fischer: 03/22/2021 Reason For VisitNaomy Huertas is here today for Left Hip. Naomy had her second Covid vaccine on 03/06/21. Naomy Huertas is an established patient here for follow up. The patient's pain is managed by [facility] . Patient is retired. History of Present IllnessPatient follows up today for her left hip and knee. She is status post left total hip replacement which was done in [place]. She saw Dr. Jerome in the past [...] document was dictated and electronically signed using [employer] software. A reasonable attempt at proof reading has been made to minimize errors. Please call with any questions. Signatures Electronically signed by : Marylu Fischer PA-C; Mar 22 2021 11:38AM EST (Author) Electronically signed by : Alfa Jerome M.D.; Mar 27 2021 9:07AM EST (Author) Name Value Range Interpretation Code Description Data Katharine rce(s) Supporting Document(s) ID Date Data Source [id number] 02/19/2021 11:04:12 AM EDT [facility] PCName: Katja hernandez Bozena: 4Provider: Aleisha Mckeon: 02/16/2021 Chief ComplaintLeft shoulder and low back pain Chief Complaint 2NYSW VAS PAIN Established: KRISTINE completing section: MARIA L CARMONA [facility] and Treatment Agreement Patient has signed a [facility] Controlled Substance and Treatment Agreement. Patient has [...] - Survey Evaluation Evaluation Status: Complete Done: [id number] Depression Screening - Patient's PHQ-9 score is: [...] Hold For - Scheduling Re quested for: [id number] 6 month as a FUP for: : [...] the pt and Tx options were reviewed. Discussion/Mykdbgo07-rief-rzp female seen for chronic left shoulder and [...] She will follow up in 6 months. [employer] Dis[facility]NY[facility] [employer] Disclaimer: This document was dictated and electronically signed using PagoFacil software. A reasonable attempt at proof reading has been made to minimize errors. Please call with any questions. Signatures Electronically signed by : Agustín Mckeon NP; Feb 16 2021 12:58PM EST (Author) Electronically signed by : Carlos Muñoz MD; Feb 19 2021 11:04AM EST Name Value Range Interpretation Code Description Data Katharine rce(s) Supporting Document(s) ID Date Data Source [id number] 02/07/2021 02:06:00 PM EDT MEDENT ([facility], ) Name Value Range Interpretation Code Description Data Katharine rce(s) Supporting Document(s) PDFReport Laboratory test result MEDENT ([facility], ) FVC-%Pred-Pre 81 L MEDENT ([facility]) FVC-Pre 2.55 L MED[facility] ([facility]) FVC-Pred 3.15 L MED[facility] ([facility]) Fev1-Pred 2.37 L MED[facility] ([facility]) FVC-LLN 2.39 L MED[facility] ([facility]) Fev1-%Pred-Pre 98 L MED[facility] ([facility]) Fev1-LLN 1.72 L MED[facility] ([facility]) Fev1-Pre 2.34 L MED[facility] ([facility]) Fev6-%Pred-Pre 85 L MED[facility] ([facility]) Fev6-Pred 3.00 L MED[facility] ([facility]) Fev6-Pre 2.55 L MED[facility] ([facility]) Vki3jqv-Jlf 92 % MEDENT ([facility]) Qqm1tak-Edbw 75 % MED[facility] ([facility]) Fev6-LLN 2.25 L MED[facility] ([facility]) Yby0sji-%Pred-Pre 122 % MEDENT ([facility]) Oeh6ftb-SMB 65 % MED[facility] ([facility]) Ksu9lnp-Sqnh 95 % MED[facility] ([facility]) Syj4zad-Gbv 100 % MED[facility] ([facility]) Unc5gav-%Pred-Pre 104 % MED[facility] ([facility]) FEFMax-Pred 5.63 L/E/sec MEDENT ([facility]) FEFMax-Pre 5.95 L/E/sec MED[facility] ([facility]) FEFMax-LLN 3.75 L/E/sec MED[facility] ([facility]) Ary1743-Jgqt 1.79 L/E/sec MEDENT ([facility]) FEFMax-%Pred-Pre 105 L/E/sec MEDENT ([facility]) Dki8673-%Pred-Pre 232 L/E/sec MEDENT ([facility]) Adw6002-Nus 4.15 L/E/sec MED[facility] ([facility]) ExpTime-Pre 5.85 sec MED[facility] ([facility]) Fjy1ria5-Xrms 78 % MED[facility] ([facility]) Kkx6166-YHN 0.43 L/E/sec MED[facility] ([facility]) Dtp6wvf6-Smi 92 % MED[facility] ([facility]) Rim4bnm4-%Pred-Pre 117 % MED[facility] ([facility]) Gtd2dtn2-SYT 69 % MED[facility] ([facility]) ID Date Data Source [id number] 01/23/2021 12:54:00 PM EDT [facility] ([facility] Name Value Range Interpretation Code Description Data Katharine rce(s) Supporting Document(s) Glucose [Presence] in Urine Laboratory test result [facility] ([facility]) Ua Leuko Laboratory test result ME DENT ([facility]) Ua Nitrite Laboratory test result ME [facility] ([facility]) Protein [Presence] in Urine by Test strip Laboratory test result [facility] ([facility]) Blood [Presence] in Urine by Visual Laboratory test result [facility] ([facility]) Ketones [Presence] in Urine by Test strip Laboratory test result [facility] ([facility]) Color of Urine Laboratory test result [facility] ([facility]) Ua Specific [place] 1.010 1.003-1.030 MEDE NT ([facility]) pH of Urine by Test strip 5.0 5.0-7.5 MED[facility] ([facility]) Clarity of Urine Laboratory test result [facility] ([facility]) Bilirubin.total [Presence] in Urine by Test strip Laboratory test res ult MEDENT ([facility]) Urobilinogen [Mass/volume] in Urine by Test strip 0.2 E.U./dL 0.0-1.0 MED[facility] ([facility]) ID Date Data Source [id number] 01/01/2021 12:26:27 PM [facility] PCName: Katja Seals: 4Provider: Aleisha Mckeon: 12/29/2020 Chief ComplaintLeft shoulder and low back pain Chief Complaint 2NYSW VAS PAIN Established: No pain but its left shoudler when pt is in pain MA completing section: Erica Sainz LPN [facility] Cont[facility] Substance and Treatment Agreement Patient has signed a [facility] Controlled Substance and Treatment Agreement. Patient has [...] AND AFTERNOON, 2 AT NIGHT 2. X-Ray ([facility]) Referral Diagnostic Diagnostic Status: Hold For - Scheduling Requested for: [id number] Type : MedicareX-Ray View(s) : Complete w/ Flexion/Extension (measure ovalle angle if present)Side : BilateralX-Ray Body Part : Lumbosacral Complete 3. Follow-up in 6 weeks Follow Up Follow-up Status: Hold For - Scheduling Requested for: [id number] Appointment for 15 or 30 minutes : [...] follow up visit in 6 weeks. - CLERICAL SECRETARY: The patient was counseled on the following: treatment plan. Discussion/Mdmpstr52-vpmh-fwm female seen for chronic left shoulder pain. [...] up with me in 6 weeks. [facility]NY[facility] [employer] Disclaimer: This document was dictated and electronically signed using [employer] software. A reasonable attempt at proof reading has been made to minimize errors. Please call with any questions. Signatures Electronically signed by : Agustín Mckeon NP; Dec 29 2020 1:26PM EST (Author) Electronically signed by : Paramjit Saez MD; Jan 01 2021 12:26PM EST Name Value Range Interpretation Code Description Data Katharine rce(s) Supporting Document(s) ID Date Data Source [id number] 11/15/2020 11:35:00 AM EST MED[facility] ([facility] [...] YEAST LIKE ORGANISM ID Date Data Source [id number] 11/15/2020 11:35:00 AM EST MEDENT ([facility], ) Name Value Range Interpretation Code Description Data Katharine rce(s) Supporting Document(s) Gram Stain Laboratory test result Normal (applies to non-n umeric results) MEDENT ([facility], ) QUALITY: GOOD FEW EPITHELIAL CELLS MANY WBCS MODERATE GRAM POSITIVE COCCI IN PAIRS FEW YEAST LIKE ORGANISM WITH PSEUDOHYPHAE MODERATE GRAM POSITIVE RODS Sputum Culture Laboratory test result Normal (applies to non-numeric results) MEDENT ([facility], ) FULL REPORT IN LAB NOTES (eCW and Medent ). NORMAL CAPRICE PRESENT ORGANISM 1: YEAST LIKE ORGANISM QUANTITY OF GROWTH MODERATE ORGANISM 1: YEAST LIKE ORGANISM ID Date Data Source [id number] 11/06/2020 02:56:26 PM EST [facility] PCName: Katja WilburnB: 4Provider: Aleisha Mckeon: 11/06/2020 Chief ComplaintLeft shoulder pain History [facility] Cont[facility] Sub[facility] and Treatment Agreement Patient has signed a [facility] Controlled Substance and Treatment Agreement. Patient has [...] Patient is retired. The patient is b [facility] seen for an initial evaluation. The date [...] or bleeding disorder or has seen a oncology rep. See initial patient paperwork dated Currently on [...] = N; Record; Last Updated By: Angeles Iqbla; 11/06/2020 2:23:52 PM Echinacea CAPS;Therapy: (Recorded:06Nov2020) to [...] Updated By: Angeles Iqbal; 11/06/2020 2:23:52 PM Magnesium TABS;Therapy: (Recorded:06Nov2020) to [...] Status: Hold For - Scheduling Requested for: [id number] Appointment for 15 or 30 minutes : [...] follow up visit in 6 weeks. - CLERICAL SECRETARY: The patient was counseled on the following: treatment plan. Discussion/Qryenjp33-ipdd-mzl female seen for left shoulder pain. After [...] this due to a recent pulmonary embolism. [employer] [facility] [employer] Disclaimer: This document was dictated and electronically signed using [employer] software. A reasonable attempt at proof reading has been made to minimize errors. Please call with any questions. Signatures Electronically signed by : Agustín Mckeon NP; Nov 06 2020 2:39PM EST (Author) Electronically signed by : Sampson Cristina MD; Nov 06 2020 2:56PM EST Name Value Range Interpretation Code Description Data Katharine rce(s) Supporting Document(s) ID Date Data Source [id number] 11/03/2020 04:35:00 PM EST [facility] ([facility]) Name Value Range Interpretation Code Description Data Katharine rce(s) Supporting Document(s) Urine WBC Laboratory test result 0-5 ME [facility] ([facility]) Urine RBC Laboratory test result 0-2 [facility] ([facility]) Crystals Laboratory test result ME [facility] ([facility]) Bacteria Laboratory test result [facility] ([facility]) Epithelial Cells Laboratory test result [facility] ([facility]) Hyaline casts [Presence] in Urine sediment by Light mi croscopy Laboratory test result [facility] ([facility]) Yeast Laboratory test result ME [facility] ([facility]) Sperm Laboratory test result [facility] ([facility]) ID Date Data Source [id number] 11/03/2020 01:26:00 PM EST [facility] ([facility]) Name Value Range Interpretation Code Description Data Katharine rce(s) Supporting Document(s) Protein [Presence] in Urine by Test strip Laboratory test result [facility] ([facility]) Glucose [Presence] in Urine Laboratory test result [facility] ([facility]) Blood [Presence] in Urine by Visual Laboratory test result [facility] ([facility]) Ua Nitrite Laboratory test result ME [facility] ([facility]) Ua Leuko Laboratory test result ME [facility] ([facility]) Clarity of Urine Laboratory test result [facility] ([facility]) Color of Urine Laboratory test result [facility] ([facility]) Ketones [Presence] in Urine by Test strip Laboratory test result [facility] ([facility]) Bilirubin.total [Presence] in Urine by Test strip Laboratory test res ult [facility] ([facility]) Ua Specific [place] 1.015 1.003-1.030 MEDE NT ([facility]) pH of Urine by Test strip 5.0 5.0-7.5 [facility] ([facility]) Urobilinogen [Mass/volume] in Urine by Test strip 0.2 E.U./dL 0.0-1.0 [facility] ([facility]) ID Date Data Source [id number] 10/06/2020 07:02:16 AM EST [facility] PCName: Naomy HuertasJIE: 4Provider: Lyssa [...] left [place] performed [place] the [place] prior to 2001 for a tear. She [...] today in theoffice. Indication: pain/dysfunction.); Status:Complete; Done: [id number] Perform:SOS29; Due:[id number]; Last Updated By:Filippo Pirere; 10/05/2020 2:12:55 PM;Ordered; For:Left shoulder pain; Ordered [...] rce(s) Supporting Document(s) ID Date Data Source [id number] 10/03/2020 10:57:00 AM EST [facility] ([facility] Name Value Range Interpretation Code Description Data Katharine rce(s) Supporting Document(s) Bacteria identified in Urine by Culture Laboratory test result [facility] ([facility] FULL REPORT IN LAB NOTES (eCW and [facility] ). NO GROWTH CLINICAL SIGNIFICANCE 1 ORGANISM ID Date Data Source [id number] 10/03/2020 10:54:00 AM EST [facility] ([facility] Name Value Range Interpretation Code Description Data Katharine rce(s) Supporting Document(s) Specific gravity of Urine 1.010 MEDE NT ([facility] Color of Urine Laboratory test result [facility] ([facility] Appearance of Urine Laboratory test result [facility] ([facility] pH of Urine by Test strip 5 MEDE NT ([facility] Protein [Presence] in Urine by Test strip Laboratory test result [facility] ([facility] Leukocytes [#/area] in Urine sediment by Microscopy [facility] [place] Laboratory test result [facility] ([facility] Ketones [Presence] in Urine by Test strip Laboratory test result [facility] ([facility] Glucose [Presence] in Urine Laboratory test result [facility] ([facility] Bilirubin.total [Presence] in Urine by [...] [facility] ID Date Data Source [id number] 08/25/2020 11:30:00 AM EDT MED[facility] ([facility] [...] Little GFR Left</content>
<content>ESRD GFR <15 on PRESSROOM WORKER</content>
<content></content> Creatinine For GFR 1.29 mg/dL 0.55-1.30 [...] [facility] ID Date Data Source [id number] 08/25/2020 11:30:00 AM EDT [facility] ([facility] Name Value Range Interpretation Code Description Data Katharine rce(s) Supporting Document(s) Hemoglobin A1c/Hemoglobin.total in Blood 5.6 % [facility] ([facility] <content>REFERENCE RANGES:</content><br/ ><content></content>
<content><=5.6% NORMAL</content>
<content>5.7-6.4% SUGGESTS IMPAIRED GLUCOSE METABOLISM/PREDIABETIC</content>
<content>>= 6.5% ABNORMAL</content>
<content></content> Estimated Average Glucose 114 mg/dL 60-110 [facility] ([facility] ID Date Data Source [id number] 08/25/2020 11:30:00 AM EDT [facility] ([facility] Name Value Range Interpretation Code Description Data Katharine rce(s) Supporting Document(s) Thyroxine (T4) free [Mass/volume] in Serum or Plasma 1.04 ng/dL 0.76- 1.46 [facility] ([facility] Thyrotropin [Units/volume] in Serum or Plasma 1.520 uIU/ML 0.358-3.74 0 [facility] ([facility] ID Date Data Source [id number] 08/25/2020 11:30:00 AM EDT [facility] ([facility] Name Value Range Interpretation Code Description Data Katharine rce(s) Supporting Document(s) Triglycerides Level 76 mg/dL [facility] ([facility] LDL Cholesterol 77 mg/dL [facility] ([facility] Cholesterol Level 161 mg/dL [facility] ([facility] HDL Cholesterol 69 mg/dL [facility] ([facility] Non-HDL-C 92 mg/dL [facility] ([facility] Cholesterol Risk Ratio 2.333 [facility] ([facility] ID Date Data Source [id number] 07/17/2020 03:41:00 PM EDT [facility] ([facility]) Name Value Range Interpretation Code Description Data Katharine rce(s) Supporting Document(s) Anti Thrombin 3 Funct Activity 115 % 75-135 N ormal (applies to non-numeric results) [facility] ([facility]) will discuss at follow-up Anti Thrombin 3 Antigen Immuno 99 % 72-124 N ormal (applies to non-numeric results) [facility] ([facility]) will discuss at follow-up ID Date Data Source [id number] 07/17/2020 03:41:00 PM EDT [facility] ([facility]) Name Value Range Interpretation Code Description Data Katharine rce(s) Supporting Document(s) Beta-2 Glycoprotein I Neida Igg Laboratory test result 0-20 Normal (applies to non-numeric results) [facility] ([facility]) will discuss at follow-up Beta-2 Glycoprotein I Neida Igm Laboratory test result 0-32 Normal (applies to non-numeric results) [facility] ([facility]) will discuss at follow-up Beta-2 Glycoprotein I Neida Iga Laboratory test result 0-25 Normal (applies to non-numeric results) [facility] ([facility]) will discuss at follow-up ID Date Data Source [id number] 07/17/2020 03:41:00 PM EDT [facility] ([facility]) Name Value Range Interpretation Code Description Data Katharine rce(s) Supporting Document(s) Factor II Prothrombin Gene An Laboratory test result Normal (applies to non- numeric results) [facility] ([facility]) will discuss at follow-up ID Date Data Source [id number] 07/17/2020 03:41:00 PM EDT [facility] ([facility]) Name Value Range Interpretation Code Description Data Katharine rce(s) Supporting Document(s) Protein C actual/normal in Platelet poor plasma by Coagulati on assay 153 % 73-180 Normal (applies to non-numeric results) [facility] ([facility]) will discuss at follow-up Protein S actual/normal in Platelet poor plasma by Coagulati on assay 104 % 63-140 Normal (applies to non-numeric results) [facility] ([facility]) will discuss at follow-up ID Date Data Source [id number] 07/17/2020 03:41:00 PM EDT [facility] ([facility]) Name Value Range Interpretation Code Description Data Katharine rce(s) Supporting Document(s) Protein S Antigen Total 109 % 60-150 Normal (applies to non- numeric results) [facility] ([facility]) will discuss at follow-up Protein S Antigen Free 103 % 57-157 Normal (applies to non-n umeric results) [facility] ([facility]) will discuss at follow-up ID Date Data Source [id number] 07/17/2020 03:41:00 PM EDT [facility] ([facility]) Name Value Range Interpretation Code Description Data Katharine rce(s) Supporting Document(s) Factor V Leiden For Medinet Laboratory test result Normal (applies to non- numeric results) [facility] ([facility]) will discuss at follow-up ID Date Data Source [id number] 07/17/2020 03:41:00 PM EDT [facility] ([facility]) Name Value Range Interpretation Code Description Data Katharine rce(s) Supporting Document(s) Cardiolipin Iga Antibody Laboratory test result 0-11 Normal (applies to non- numeric results) [facility] ([facility]) will discuss at follow-up Cardiolipin Igg Antibody Laboratory test result 0-14 Normal (applies to non- numeric results) [facility] ([facility]) will discuss at follow-up Cardiolipin Igm Antibody Laboratory test result 0-12 Normal (applies to non- numeric results) [facility] ([facility]) will discuss at follow-up Procedure Social History Code Duration Value Status Description Data Source(s ) Smoking 08/15/2021 12:00:00 AM EDT Patient is a former smoker completed Patient is a former smoker [facility] ([facility]) Smoking 07/31/2021 12:00:00 AM EDT - 10/27/1991 12:00:00 AM EST Patient is a former smoker completed Patient is a former smoker [facility] ([facility] Smoking 05/30/2021 12:00:00 AM EDT Former Smoker completed Former Smoker eCW1 ([facility]) Smoking 04/05/2021 12:00:00 AM EDT Patient is a former smoker completed Patient is a former smoker [facility] ([facility] Smoking 03/15/2021 12:00:00 AM EDT Never Smoked Cigarettes com pleted Never Smoked Cigarettes [facility] ([facility]) ETOH Use 11/03/2020 12:00:00 AM EST Never used alcohol complete d Never used alcohol [facility] ([facility]) Vital Signs ID Date Data Source UNK Name Value Range Interpretation Code Description Data Source(s) Body mass index (BMI) [Ratio] 33.8 kg/m2 33.8 k g/m2 [facility] ([facility]) Royal body weight 135 [lb_av] 135 [lb_av] [facility] Body weight 97.978 kg 97.978 kg [facility] ([facility]) Systolic blood pressure 126 mm[Hg] 126 mm[Hg] [facility] ([facility]) Diastolic blood pressure 70 mm[Hg] 70 mm[Hg] [facility] ([facility]) Heart rate 94 /min 94 /min [facility] ([facility]) Body weight 216.00 [lb_av] 216.00 [lb_av] [facility] Body surface area Derived from formula 2.09 m2 2.09 m2 [facility] ([facility]) Oxygen saturation in Arterial blood by Pulse oximetry 96 % 96 % [facility] ([facility]) Body height 67 [in_i] 67 [in_i] [facility] ([facility]) 5'7" Respiratory rate 16 /min 16 /min [facility] ( [facility]) Systolic blood pressure 109 mm[Hg] 109 mm[Hg] [facility] Diastolic blood pressure 72 mm[Hg] 72 mm[Hg] [facility] ([facility]) Body mass index (BMI) [Ratio] 33.8 kg/m2 33.8 k g/m2 [facility] ([facility]) Body weight 216.12 [lb_av] 216.12 [lb_av] [facility] ([facility]) Body height 67 [in_i] 67 [in_i] [facility] ([facility] 5'7" Heart rate 86 /min 86 /min [facility] ([facility] Royal body weight 130 [lb_av] 130 [lb_av] [facility] [...] Body weight 218.4 [lb_av] 218.4 [lb_av] eCW1 ([facility]) Body weight 99.07 kg 99.07 kg eCW1 ([facility]) Body height 67 [in_i] 67 [in_i] eCW1 ([facility]) Body mass index (BMI) [Ratio] 34.20 kg/m2 34.20 kg/m2 eCW1 ([facility]) Heart rate 75 /min 75 /min eCW1 ([facility]) Respiratory rate 18 /min 18 /min eCW1 ([facility]) Body temperature 99.1 [degF] 99.1 [degF] eCW1 ( [facility]) Systolic blood pressure 148 mm[Hg] 148 mm[Hg] e CW1 ([facility]) Diastolic blood pressure 76 mm[Hg] 76 mm[Hg] eCW1 ([facility]) Body height 67 [in_i] 67 [in_i] [facility] ([facility] 5'7" Body temperature 97.3 [degF] 97.3 [degF] [facility] ([facility]) Body weight 214.00 [lb_av] 214.00 [lb_av] [facility] ([facility]) Body mass index (BMI) [Ratio] 33.5 kg/m2 33.5 k g/m2 [facility] ([facility]) Systolic blood pressure 94 mm[Hg] 94 mm[Hg] [...] 98 % [facility] ([facility] Royal body weight 130 [lb_av] 130 [lb_av] [facility] ([facility] Body mass index (BMI) [Ratio] 34.4 kg/m2 34.4 k g/m2 [facility] ([facility] Body height 67 [in_i] 67 [in_i] [facility] ([facility]) 5'7" Body weight 99.849 kg 99.849 kg [facility] ([facility]) Body weight 220.12 [lb_av] 220.12 [lb_av] [facility] ([facility]) Royal body weight 135 [lb_av] 135 [lb_av] [facility] ([facility]) Systolic blood pressure 154 mm[Hg] 154 mm[Hg] [facility] ([facility]) Diastolic blood pressure 82 mm[Hg] 82 mm[Hg] [facility] ([facility]) Body weight 99.849 kg 99.849 kg [facility] ([facility]) Body surface area Derived from formula 2.11 m2 2.11 m2 [facility] ([facility]) Body height 67 [in_i] 67 [in_i] [facility] ([facility]) 5'7" Body weight 220.12 [lb_av] 220.12 [lb_av] [facility] ([facility]) Body mass index (BMI) [Ratio] 34.5 kg/m2 34.5 k g/m2 [facility] ([facility]) Royal body weight 135 [lb_av] 135 [lb_av] [facility] ([facility]) Body mass index (BMI) [Ratio] 34.5 kg/m2 34.5 k g/m2 [facility] ([facility]) Body surface area Derived from formula 2.11 m2 2.11 m2 [facility] ([facility]) Body surface area Derived from formula 2.10 m2 2.10 m2 [facility] ([facility]) Body temperature 97.6 [degF] 97.6 [degF] [facility] ([facility]) Body mass index (BMI) [Ratio] 34.3 kg/m2 34.3 k g/m2 [facility] ([facility]) Royal body weight 135 [lb_av] 135 [lb_av] [facility] ([facility]) Systolic blood pressure 128 mm[Hg] 128 mm[Hg] [facility] ([facility]) Diastolic blood pressure 76 mm[Hg] 76 mm[Hg] [facility] ([facility]) Heart rate 95 /min 95 /min [facility] ([facility]) Oxygen saturation in Arterial blood by Pulse oximetry 98 % 98 % [facility] ([facility]) Body height 67 [in_i] 67 [in_i] [facility] ([facility]) 5'7" Body weight 219.00 [lb_av] 219.00 [lb_av] [facility] ([facility]) Body weight 99.338 kg 99.338 kg [facility] ([facility]) Body weight 218.25 [lb_av] 218.25 [lb_av] [facility] [...] 67 [in_i] 67 [in_i] [facility] ([facility] 5'7" Body weight 205.00 [lb_av] 205.00 [lb_av] [facility] ([facility]) Body weight 92.988 kg 92.988 kg [facility] ([facility] Body mass index (BMI) [Ratio] 32.1 kg/m2 32.1 k g/m2 [facility] ([facility]) Systolic blood pressure 119 mm[Hg] 119 mm[Hg] [facility] ([facility]) Diastolic blood pressure 79 mm[Hg] 79 mm[Hg] [facility] ([facility]) Heart rate 82 /min 82 /min [facility] Royal body weight 130 [lb_av] 130 [lb_av] [facility] ([facility] Systolic blood pressure 129 mm[Hg] 129 mm[Hg] [facility] ([facility] Diastolic blood pressure 78 mm[Hg] 78 mm[Hg] [facility] ([facility] Heart rate 82 /min 82 /min [facility] ([facility] Body temperature 99.0 [degF] 99.0 [...] ([facility] Systolic blood pressure 122 mm[Hg] 122 mm[Hg] [facility] ([facility]) Heart rate 85 /min 85 /min [facility] ([facility]) Body height 67 [in_i] 67 [in_i] [facility] ([facility]) 5'7" Oxygen saturation in Arterial blood by Pulse oximetry 95 % 95 % [facility] ([facility]) Royal body weight 135 [lb_av] 135 [lb_av] [facility] ([facility]) Diastolic blood pressure 80 mm[Hg] 80 mm[Hg] [facility] ([facility]) Systolic blood pressure 126 mm[Hg] 126 mm[Hg] [facility] ([facility]) Diastolic blood pressure 70 mm[Hg] 70 mm[Hg] [facility] ([facility]) Heart rate 99 /min 99 /min [facility] ([facility]) Oxygen saturation in Arterial blood by Pulse oximetry 98 % 98 % [facility] ([facility]) Body temperature 96.3 [degF] 96.3 [degF] [facility] ([facility]) Body height 67 [in_i] 67 [in_i] [facility] ([facility]) 5'7" Royal body weight 135 [lb_av] 135 [lb_av] [facility] ([facility]) Systolic blood pressure 144 mm[Hg] 144 mm[Hg] [facility]) Diastolic blood pressure 80 mm[Hg] 80 mm[Hg] [facility] ([facility]) Body mass index (BMI) [Ratio] 34.2 kg/m2 34.2 k g/m2 [facility] ([facility]) Body weight 218.38 [lb_av] 218.38 [lb_av] [facility] ([facility]) Body height 67 [in_i] 67 [in_i] [facility] 5'7" Heart rate 91 /min 91 /min [facility] ([facility] Respiratory rate 16 /min 16 /min [facility] ( [facility]) Body weight 200.00 [lb_av] 200.00 [lb_av] [facility] ([facility]) Body mass index (BMI) [Ratio] 31.3 kg/m2 31.3 k g/m2 [facility] ([facility]) Systolic blood pressure 126 mm[Hg] 126 mm[Hg] [facility] ([facility]) Diastolic blood pressure 85 mm[Hg] 85 mm[Hg] [facility] ([facility]) Heart rate 102 /min 102 /min [facility] Body temperature 97.6 [degF] 97.6 [degF] [facility] ([facility] Body height 67 [in_i] 67 [in_i] [facility] 5'7" Body weight 90.720 kg 90.720 kg [facility] Body height 66.50 [in_i] 66.50 [in_i] [facility] ([facility] 5'6.50" Systolic blood pressure 118 mm[Hg] 118 mm[Hg] [facility] ([facility] Diastolic blood pressure 63 mm[Hg] 63 mm[Hg] [facility] ([facility] Body weight 202.12 [lb_av] 202.12 [lb_av] [facility] ([facility] Heart rate 90 /min 90 /min [facility] ([facility] Oxygen saturation in Arterial blood by Pulse oximetry 98 % 98 % [facility] ([facility] Royal body weight 130 [lb_av] 130 [lb_av] [facility] ([facility] Body temperature 96.8 [degF] 96.8 [degF] [facility] ([facility] Respiratory rate 24 /min 24 /min [facility] ( [facility] Body mass index (BMI) [Ratio] 32.1 kg/m2 32.1 k g/m2 [facility] ([facility] Oxygen saturation in Arterial blood by Pulse oximetry 97 % 97 % [facility] ([facility]) Royal body weight 135 [lb_av] 135 [lb_av] [facility] ([facility]) Systolic blood pressure 120 mm[Hg] 120 mm[Hg] [facility] ([facility]) Diastolic blood pressure 88 mm[Hg] 88 mm[Hg] [facility] ([facility]) Heart rate 106 /min 106 /min [facility] ([facility]) Body surface area Derived from formula 2.08 m2 2.08 m2 [facility] ([facility]) Body weight 96.617 kg 96.617 kg [facility] ([facility]) Body temperature 97.8 [degF] 97.8 [degF] [facility] ([facility]) Body height 67 [in_i] 67 [in_i] [facility] ([facility]) 5'7" Body weight 213.00 [lb_av] 213.00 [lb_av] [facility] ([facility]) Body mass index (BMI) [Ratio] 33.4 kg/m2 33.4 k g/m2 [facility] ([facility]) Body weight 215.00 [lb_av] 215.00 [lb_av] [...] (BMI) [Ratio] 33.7 kg/m2 33.7 k g/m2 [facility] ([facility]) Diastolic blood pressure 78 mm[Hg] 78 mm[Hg] [facility] ([facility]) Systolic blood pressure 114 mm[Hg] 114 mm[Hg] M [facility] ([facility]) Heart rate 90 /min 90 /min [facility] ([facility]) Body temperature 97.6 [degF] 97.6 [degF] [facility] ([facility]) Body height 67 [in_i] 67 [in_i] [facility] ([facility]) 5'7" Body weight 217.00 [lb_av] 217.00 [lb_av] [facility] ([facility]) Royal body weight 135 [lb_av] 135 [lb_av] [facility] ([facility]) Oxygen saturation in Arterial blood by Pulse oximetry 96 % 96 % [facility] ([facility]) Body mass index (BMI) [Ratio] 34.0 kg/m2 34.0 k g/m2 [facility] ([facility]) Body weight 98.431 kg 98.431 kg [facility] ([facility]) Heart rate 110 /min 110 /min [facility] ([facility]) Systolic blood pressure 104 mm[Hg] 104 mm[Hg] [facility] ([facility]) Diastolic blood pressure 60 mm[Hg] 60 mm[Hg] [facility] ([facility]) Oxygen saturation in Arterial blood by Pulse oximetry 100 % 100 % [facility] ([facility]) Body height 67 [in_i] 67 [in_i] [facility] ([facility]) 5'7" Royal body weight 135 [lb_av] 135 [lb_av] [facility] ([facility]) Systolic blood pressure 122 mm[Hg] 122 mm[Hg] [facility] ([facility]) Diastolic blood pressure 68 mm[Hg] 68 mm[Hg] [facility] ([facility]) Heart rate 96 /min 96 /min [facility] ([facility]) Oxygen saturation in Arterial blood by Pulse oximetry 97 % 97 % [facility] ([facility]) Body temperature 96.5 [degF] 96.5 [degF] [facility] ([facility]) Body height 67 [in_i] 67 [in_i] [facility] ([facility]) 5'7" Body weight 217.00 [lb_av] 217.00 [lb_av] [facility] ([facility]) Body mass index (BMI) [Ratio] 34.0 kg/m2 34.0 k g/m2 [facility] ([facility]) Body weight 98.431 kg 98.431 kg [facility] ([facility]) Body weight 218.12 [lb_av] 218.12 [lb_av] [facility] ([facility]) Body height 67 [in_i] 67 [in_i] [facility] ([facility] 5'7" Heart rate 92 /min 92 /min [facility] [...] Oral Tablet 05/30/2021 12:00:00 AM EDT eCW1 ([facility]) 24 HR darifenacin 7.5 MG Extended Release Oral Tablet [Enablex] 08/02/2020 12:00:00 AM EDT eCW1 ([facility]) 24 HR darifenacin 7.5 MG Extended Release Oral Tablet [Enablex] 08/02/2020 12:00:00 AM EDT eCW1 ([facility]) 24 HR darifenacin 7.5 MG Extended Release Oral Tablet [Enablex] 08/02/2020 12:00:00 AM EDT eCW1 ([facility]) 24 HR darifenacin 7.5 MG Extended Release Oral Tablet [Enablex] 08/02/2020 12:00:00 AM EDT eCW1 ([facility])
[2021-09-06 21:07] LABS: RSV AMPLIFICATION NEGATIVE (NEGATIVE)
[2021-09-07 00:24] LABS: CK-MB VALUE MASS 1.4 NG/ML (<3.6); CPK CREATINE PHOSPHOKINASE 93 U/L (26-192); MB/CK RELATIVE INDEX 1.51 (< OR =4); TROPONIN I < 0.02 NG/ML (< 0.10)
[2021-09-07 01:16] VITALS: BP 154/84
--- NOTE | 2021-09-07 07:59 | ECGEPIP ---
[facility] - ED Test Date: 2021-09-06 Pat Name: ANGIE MANLEY Department: Room: - Gender: Female [employer]ist: NANDO : 1945 Requested By: Sheri Aguillon Order Number: [id number] Reading MD: Kali Lam Measurements Intervals [place] Rate: 59 P: 50 SC: 162 QRS: 41 QRSD: 100 T: 32 QT: 430 QTc: 425 Interpretive Statements Sinus bradycardia RATE CHANGE COMPARED TO 06/30/20 Electronically Signed on 09-07-2021 7:59:36 EST by Kali Lam
== END 2021-09-07 01:25 | disposition home or self-care (01) ==
LOC: M ED 17:46
DX: R07.9 Chest pain, unspecified (principal); R00.1 Bradycardia, unspecified; J47.9 Bronchiectasis, uncomplicated; R07.1 Chest pain on breathing; Z86.711 Personal history of pulmonary embolism; J45.909 Unspecified asthma, uncomplicated; F32.9 Major depressive disorder, single episode, unspecified; M19.90 Unspecified osteoarthritis, unspecified site; Z79.899 Other long term (current) drug therapy; Z91.89 Other specified personal risk factors, not elsewhere classified; Z91.040 Latex allergy status
CPT/HCPCS: 71275; 80048; 80076; 82550; 82553; 83690; 83880; 84439; 84443; 84484; 85025; 87631; 93005; 93041; 94760; 99285; Q9967

== ENCOUNTER → 2021-09-06 | Outpatient (CLI) | payer MEDICARE, OTHER ==
[~2021-09-06] MED LIST changes: +GABA-283 PO; +ISOVUE-370 76% 100ML VIAL As Ordered ONE; +SYMB16INH INH
--- NOTE | 2021-09-06 16:10 | REP ---
INDICATION: CHEST PAIN, HX PE COMPARISON: Multiple the latest earlier today noncontrast enhanced CT. TECHNIQUE: CT angiography of the chest after the intravenous administration of 75 cc Isovue 370 attention pulmonary arteries. FINDINGS: There is excellent visualization of the pulmonary arterial vasculature. There are no focal filling defects present that would be considered consistent with acute pulmonary emboli. There is no mediastinal or hilar adenopathy. There are calcified mediastinal and hilar lymph nodes status quo. The imaged upper abdomen and imaged osseous structures are within normal limits and unchanged. Evaluation of the lung lance shows lung field hypoventilation causing patchy ground-glass opacities bilaterally and throughout due to subsegmental atelectatic change. There are chronic bullous emphysematous changes status quo. Note is again made of cylindrical bronchiectasis. IMPRESSION: 1. There is no evidence of an acute pulmonary embolism. 2. Chronic lung field changes as described above. <Electronically signed by Clay Villafana > 09/06/21 2874
== END ==
LOC: M RAD 15:06
PROVIDERS: ATTEND Internal Medicine Pulmonary Disease
DX: J47.9 Bronchiectasis, uncomplicated (principal); R07.1 Chest pain on breathing; Z86.711 Personal history of pulmonary embolism

== ENCOUNTER → 2021-09-13 | Outpatient (CLI) | payer MEDICARE, OTHER ==
[~2021-09-13] MED LIST changes: +GABA-283 PO; +SYMB16INH INH
--- NOTE | 2021-09-14 16:14 | ECHO ---
ECHOCARDIOGRAM DATE OF PROCEDURE: 09/13/2021 Age: 76 Gender: Female Height: 67 inches Weight: 215 pounds Body surface area: 2.09 m2 PATIENT LOCATION: Outpatient. REFERRING PHYSICIAN: Anitha Machado M.D. INDICATION: Pulmonary embolism. MEASUREMENTS: 2D Measurements: RV - 3.8 cm LV - 4.0 cm Septum 2.1 cm Posterior wall 1.1 cm Aortic root 3.2 cm LA - 3.6 cm LVEF 60% Doppler Measurements: AV - 1.35 m/sec LVOT - 1.29 m/sec LVOT diameter 1.7 cm MV-E 81, A 93, EA ratio 0.9 Early mitral deceleration time 204 msec E prime medial 5.4 A prime medial 7.5 E prime lateral 8 Average E/E prime ratio 12.1/PCWP 16.9 mmHg PV - 0.8 m/sec Pulmonary artery acceleration time 120 msec PASP - 28 mmHg IVC - 2.0 cm COMMENTS: Normal sinus rhythm without intraventricular conduction disturbance. Technically challenging study in light of the patient's body habitus, but diagnostically useful information was still obtained. M-mode and 2-dimensional cardiography was performed with pulse, continuous wave, color flow and tissue Doppler studies. Normal left ventricular cavity size with borderline left ventricular (LV) hypertrophy and normal wall motion. Left atrium upper limits of normal in size with grade 1 LV diastolic dysfunction, but currently normal mean left atrial pressure. Normal right heart chamber sizes, wall motion and estimated pulmonary arterial pressure. Normal inferior vena cava (IVC) size and collapse against an elevated central venous pressure. Normal aortic dimensions. Mild aortic valvular sclerosis without functional abnormality. ____ (cut out) degenerative changes of a mitral valvular apparatus without functional abnormality. Normal appearing tricuspid valve with very mild insufficiency. No apparent intracardiac mass or pericardial effusion.
== END ==
LOC: M CARPUL 10:51
PROVIDERS: ATTEND Internal Medicine Pulmonary Disease
DX: J98.11 Atelectasis (principal)

== ENCOUNTER → 2022-02-11 | Outpatient (REF) | payer MEDICARE, OTHER ==
[~2022-02-11] MED LIST changes: -MONT10TA10 PO; +MONT10TA97 PO
== END ==
LOC: M LAB REF 13:37
PROVIDERS: ATTEND Internal Medicine Pulmonary Disease
DX: J47.9 Bronchiectasis, uncomplicated (principal)

== ENCOUNTER → 2022-02-12 | Outpatient (CLI) | payer MEDICARE, OTHER | LOC: M ADAMS 08:48 | PROVIDERS: ATTEND Internal Medicine Pulmonary Disease | DX: R91.8 Other nonspecific abnormal finding of lung field (principal) ==

== ENCOUNTER → 2022-02-13 | Outpatient (REF) | payer MEDICARE, OTHER | LOC: M LAB REF 12:31 | PROVIDERS: ATTEND Internal Medicine Pulmonary Disease | DX: J47.9 Bronchiectasis, uncomplicated (principal) ==

== ENCOUNTER → 2022-02-14 | Outpatient (REF) | payer MEDICARE, OTHER | LOC: M LAB REF 12:27 | PROVIDERS: ATTEND Internal Medicine Pulmonary Disease | DX: R91.8 Other nonspecific abnormal finding of lung field (principal) ==

== ENCOUNTER → 2022-02-14 | Outpatient (CLI) | payer MEDICARE, OTHER | LOC: M RAD 10:21 | PROVIDERS: ATTEND Internal Medicine Pulmonary Disease | DX: R91.8 Other nonspecific abnormal finding of lung field (principal) ==

== ENCOUNTER → 2022-03-22 | Outpatient (CLI) | payer MEDICARE, OTHER ==
[~2022-03-22] MED LIST changes: +ALBU2.5V10 INH; -ALBU83IN INH; -GLUCTAB6 PO; +GLUCTAB7 PO
== END ==
LOC: M RAD 06:25
PROVIDERS: ATTEND Internal Medicine Pulmonary Disease
DX: Z86.711 Personal history of pulmonary embolism (principal)
CPT/HCPCS: 71046; 78582; A9540; A9567

== ENCOUNTER → 2022-07-12 | Outpatient (CLI) | payer OTHER | LOC: M WHC 14:13 | PROVIDERS: ATTEND Nurse Practitioner Family | DX: Z12.31 Encounter for screening mammogram for malignant neoplasm of breast (principal) ==

== ENCOUNTER → 2022-07-26 | Outpatient (CLI) | payer MEDICARE, OTHER | LOC: M RAD 10:24 | PROVIDERS: ATTEND Orthopaedic Surgery | DX: M23.204 Derangement of unspecified medial meniscus due to old tear or injury, left knee (principal); M48.061 Spinal stenosis, lumbar region without neurogenic claudication; M51.26 Other intervertebral disc displacement, lumbar region; M43.06 Spondylolysis, lumbar region ==

== ENCOUNTER → 2022-09-01 | Outpatient (CLI) | payer MEDICARE, OTHER ==
[~2022-09-01] MED LIST changes: +DUPI300I SC; +FLUTISP; +SYNT50TA PO; +TRAM50TA2 PO; +VENTAER INH; +[UNRECOGNIZED DRUG - OTHER] PO
== END ==
LOC: M LABSMTC 11:32
PROVIDERS: ATTEND Anesthesiology
DX: Z01.812 Encounter for preprocedural laboratory examination (principal); Z20.822 Contact with and (suspected) exposure to COVID-19

== ENCOUNTER 2022-09-04 07:50 | Day surgery (SDC) | payer MEDICARE, OTHER ==
[~2022-09-04] VITALS: Ht 170.2 cm; Wt 84.8 kg
[~2022-09-04 07:50] MED LIST changes: +LIDOCAINE 2% 100MG/5ML SDV (FOR ANES.) As Ordered ONE; +NS 1,000 ML IV ONE; +propofoL 200 MG/20 ML VIAL As Ordered ONE
[2022-09-04] MEDS ORDERED: LIQUID POLIBAR PLUS 105% w/v 750ML BTL As Ordered ONE ×2 (09:26→09:40)
[2022-09-04 09:27] VITALS: BP 136/74
== END 2022-09-04 09:49 | disposition home or self-care (01) ==
LOC: M OPP 07:50
PROVIDERS: ATTEND Surgery
DX: Q43.8 Other specified congenital malformations of intestine (principal); R15.9 Full incontinence of feces; Z53.8 Procedure and treatment not carried out for other reasons

== ENCOUNTER 2023-01-21 15:46 | Inpatient (IN) | payer MEDICARE, OTHER ==
[~2023-01-21] VITALS: Ht 170.2 cm; Wt 88.3 kg
[~2023-01-21 15:46] MED LIST changes: -FLUTISP; +FLUTISP NARES; -LIDOCAINE 2% 100MG/5ML SDV (FOR ANES.) As Ordered ONE; -NS 1,000 ML IV ONE; -propofoL 200 MG/20 ML VIAL As Ordered ONE
[2023-01-21 16:35] LABS: VENOUS O2 SATURATION 53.5 % (60.0-80.0); VENOUS PARTIAL PRESSURE CO2 37.1 mmHg (38.0-50.0); VENOUS PARTIAL PRESSURE O2 26.9 mmHg (30.0-50.0); VENOUS PH 7.428 UNITS (7.330-7.430); VENOUS STANDARD HCO3 23.3 MEQ/L; VENOUS TOTAL CO2 25.1 MEQ/L (24.0-28.0)
[2023-01-21] MEDS ORDERED: methylPREDNISolone 125MG 2ML VIAL IV ONE (16:35)
[2023-01-21] MEDS ORDERED: IPRATROPIUM 0.5MG/ALBUTEROL 2.5MG INH SOL UD 3ML (DUONEB) NEB ONE ×2 (16:35→18:45)
[2023-01-21 16:40] LABS: BASO # 0.1 10^3/uL (0.0-0.2); BASO % 0.7 % (0.0-1.0); EOS # 0.3 10^3/uL (0.0-0.5); EOS % 3.1 % (0.0-3.0); HEMATOCRIT 43.7 % (36.0-47.0); HEMOGLOBIN 14.7 g/dl (12.0-15.5); LYMPH # 3.3 10^3/uL (1.5-5.0); LYMPH % 33.9 % (24.0-44.0); MEAN CORPUSCULAR HEMOGLOBIN 31.5 pg (27.0-33.0); MEAN CORPUSCULAR HGB CONC 33.6 g/dl (32.0-36.5); MEAN CORPUSCULAR VOLUME 93.6 fl (80.0-96.0); MONO # 0.6 10^3/uL (0.0-0.8); MONO % 6.4 % (2.0-8.0); NEUTROPHILS # 5.4 10^3/uL (1.5-8.5); NEUTROPHILS % 55.6 % (36.0-66.0); PLATELET COUNT, AUTOMATED 278 10^3/uL (150-450); RED BLOOD COUNT 4.67 10^6/uL (4.00-5.40); WHITE BLOOD COUNT 9.7 10^3/uL (4.0-10.0)
[2023-01-21 17:13] LABS: ALBUMIN 4.1 G/DL (3.2-5.2); ALKALINE PHOSPHATASE 107 U/L (46-116); ALT/SGPT 52 U/L (7.0-40); AST/SGOT 48 U/L (<34); BILIRUBIN,DIRECT 0.3 MG/DL (<0.4); BILIRUBIN,TOTAL 1.3 MG/DL (0.3-1.2); BLOOD UREA NITROGEN 16 MG/DL (9-23); CALCIUM LEVEL 9.8 MG/DL (8.3-10.6); CARBON DIOXIDE LEVEL 24 MMOL/L (20-31); CHLORIDE LEVEL 103 MMOL/L (98-107); CREATININE FOR GFR 0.94 MG/DL (0.55-1.30); GLOMERULAR FILTRATION RATE > 60.0 (>39); GLUCOSE, FASTING 138 MG/DL (74-106); POTASSIUM SERUM 3.6 MMOL/L (3.5-5.1); SODIUM LEVEL 137 MMOL/L (136-145); THYROID STIMULATING HORMONE 3.859 uIU/ML (0.55-4.78); TOTAL PROTEIN 7.7 G/DL (5.7-8.2)
[2023-01-21] MEDS ORDERED: ISOVUE-370 76% 100ML VIAL As Ordered ONE (17:45)
[2023-01-21] MEDS ORDERED: DUPI300I SC (20:07)
[2023-01-21] MEDS ORDERED: ACET-907 PO (20:16)
[2023-01-21] MEDS ORDERED: MELA5CAP2 PO (20:16)
[2023-01-21] MEDS ORDERED: B-12100010 PO (20:16)
[2023-01-21] MEDS ORDERED: HOME MED LIST COMPLETE! XX SCH (20:20)
[2023-01-21] MEDS: ATORVASTATIN 20 MG TAB PO SCH (21:00)
[2023-01-21] MEDS ORDERED: ACETAMINOPHEN TAB 650MG DOSE (2X325MG) PO PRN (21:20)
[2023-01-21] MEDS ORDERED: ALBUTEROL SULFATE 2.5MG/0.5ML INH NEB SOLN NEB PRN (21:25)
[2023-01-22] MEDS: IPRATROPIUM 0.5MG/ALBUTEROL 2.5MG INH SOL UD 3ML (DUONEB) NEB SCH ×2 (03:22→08:18)
[2023-01-22] MEDS: LEVOTHYROXINE 50MCG TABLET (0.05MG) PO SCH (06:27)
[2023-01-22] MEDS: FLUTICASONE HFA 110MCG 12GM INHALER (FLOVENT) INH SCH ×2 (08:00→18:57)
[2023-01-22 08:50] VITALS: BP 124/78
[2023-01-22] MEDS ORDERED: MONTELUKAST 10 MG TAB PO ONE (11:25)
[2023-01-22] MEDS: IPRATROPIUM 0.02% SOLN 0.5MG 2.5ML NEB INH SCH ×5 (12:00→23:18)
[2023-01-22] MEDS: ENOXAPARIN 40MG/0.4ML SYRINGE (J1650 PER 10MG) SC SCH (12:05)
[2023-01-22] MEDS: DOXYCYCLINE HYCLATE 100MG TABLET PO SCH ×2 (12:05→20:41)
[2023-01-22] MEDS: methylPREDNISolone 125MG 2ML VIAL IV SCH ×2 (12:05→17:43)
[2023-01-22] MEDS: FLUTICASONE PROP 0.05% NASAL SPRAY 16 GM (FLONASE) NARES SCH (13:29)
[2023-01-22 14:00] VITALS: BP 120/76
[2023-01-22] MEDS: LEVALBUTEROL 1.25MG 0.5ML CONCENTRATE NEB INH SCH ×5 (14:04→23:18)
[2023-01-22 20:00] VITALS: BP 121/76
[2023-01-22] MEDS: ATORVASTATIN 20 MG TAB PO SCH (20:41)
[2023-01-22] MEDS: diphenhydrAMINE 50MG CAP PO SCH (20:41)
[2023-01-22] MEDS: RAMELTEON 8 MG TAB (ROZEREM) PO SCH (20:41)
[2023-01-22] MEDS: IBUPROFEN 400MG TAB PO SCH (20:41)
[2023-01-22] MEDS ORDERED: IBUPROFEN 100MG 5ML ORAL SUSP UDC PO SCH (21:00)
[2023-01-23] MEDS: LEVALBUTEROL 1.25MG 0.5ML CONCENTRATE NEB INH SCH ×6 (03:35→23:05)
[2023-01-23] MEDS: IPRATROPIUM 0.02% SOLN 0.5MG 2.5ML NEB INH SCH ×6 (03:35→23:05)
[2023-01-23] MEDS: methylPREDNISolone 125MG 2ML VIAL IV SCH ×2 (06:00)
[2023-01-23] MEDS: LEVOTHYROXINE 50MCG TABLET (0.05MG) PO SCH (06:00)
[2023-01-23 06:07] VITALS: BP 115/74
[2023-01-23 07:26] VITALS: O2SAT 94
[2023-01-23] MEDS: FLUTICASONE HFA 110MCG 12GM INHALER (FLOVENT) INH SCH ×2 (07:27→19:07)
[2023-01-23] MEDS: MONTELUKAST 10 MG TAB PO SCH (08:29)
[2023-01-23] MEDS: ENOXAPARIN 40MG/0.4ML SYRINGE (J1650 PER 10MG) SC SCH (08:29)
[2023-01-23] MEDS: DOXYCYCLINE HYCLATE 100MG TABLET PO SCH ×2 (08:29→21:44)
[2023-01-23] MEDS: FLUTICASONE PROP 0.05% NASAL SPRAY 16 GM (FLONASE) NARES SCH (08:29)
[2023-01-23] MEDS ORDERED: ALPRAZolam 0.25 MG TAB PO PRN (08:40)
[2023-01-23 11:30] VITALS: O2SAT 94
[2023-01-23 14:00] VITALS: BP 136/70
[2023-01-23 15:40] VITALS: O2SAT 94
[2023-01-23] MEDS: methylPREDNISolone 40MG 1ML VIAL IV SCH (18:10)
[2023-01-23] MEDS: ATORVASTATIN 20 MG TAB PO SCH (21:43)
[2023-01-23] MEDS: RAMELTEON 8 MG TAB (ROZEREM) PO SCH (21:43)
[2023-01-23] MEDS: diphenhydrAMINE 50MG CAP PO SCH (21:43)
[2023-01-23] MEDS: IBUPROFEN 400MG TAB PO SCH (21:44)
[2023-01-23 22:00] VITALS: BP 106/69
[2023-01-24] MEDS: IPRATROPIUM 0.02% SOLN 0.5MG 2.5ML NEB INH SCH ×2 (04:07→08:13)
[2023-01-24] MEDS: LEVALBUTEROL 1.25MG 0.5ML CONCENTRATE NEB INH SCH ×2 (04:07→08:13)
[2023-01-24 05:08] VITALS: BP 111/70
[2023-01-24] MEDS: methylPREDNISolone 40MG 1ML VIAL IV SCH (05:16)
[2023-01-24] MEDS: LEVOTHYROXINE 50MCG TABLET (0.05MG) PO SCH (05:16)
[2023-01-24 08:12] VITALS: O2SAT 96
[2023-01-24] MEDS ORDERED: PRED10TA2 PO (08:12)
[2023-01-24] MEDS ORDERED: DOXY-444 PO (08:12)
[2023-01-24] MEDS: FLUTICASONE HFA 110MCG 12GM INHALER (FLOVENT) INH SCH (08:13)
[2023-01-24] MEDS: MONTELUKAST 10 MG TAB PO SCH (08:37)
[2023-01-24] MEDS: DOXYCYCLINE HYCLATE 100MG TABLET PO SCH (08:37)
[2023-01-24] MEDS: ENOXAPARIN 40MG/0.4ML SYRINGE (J1650 PER 10MG) SC SCH (08:38)
[2023-01-24] MEDS: FLUTICASONE PROP 0.05% NASAL SPRAY 16 GM (FLONASE) NARES SCH (08:39)
[2023-01-24] MEDS ORDERED: predniSONE 20 MG TAB PO SCH (09:00)
[2023-01-24] MEDS ORDERED: SELF1KIT MC (10:56)
== END 2023-01-24 10:38 | disposition home or self-care (01) | DRG 197 ==
LOC: M ED 15:46 → M MSPAV 20:58 → M ED 01-22 08:25 → M MSPAV 01-22 08:34 → UNDOADMIN 01-22 08:34
PROVIDERS: ADMIT General Practice; ATTEND General Practice
PROC: B246ZZZ Ultrasonography of Right and Left Heart (ICD-10-PCS; principal; 2023-01-24)
DX: J84.9 Interstitial pulmonary disease, unspecified (principal); E87.20 Acidosis, unspecified; R74.01 Elevation of levels of liver transaminase levels; E03.9 Hypothyroidism, unspecified; J45.909 Unspecified asthma, uncomplicated; E78.00 Pure hypercholesterolemia, unspecified; L30.9 Dermatitis, unspecified; Z86.711 Personal history of pulmonary embolism; F41.9 Anxiety disorder, unspecified; L80 Vitiligo; E66.9 Obesity, unspecified; Z96.643 Presence of artificial hip joint, bilateral; Z98.49 Cataract extraction status, unspecified eye; Z96.611 Presence of right artificial shoulder joint; Z96.612 Presence of left artificial shoulder joint; Z87.891 Personal history of nicotine dependence; Z87.890 Personal history of sex reassignment; Z79.899 Other long term (current) drug therapy; Z91.040 Latex allergy status; Z20.822 Contact with and (suspected) exposure to COVID-19; Z98.86 Personal history of breast implant removal; Z66 Do not resuscitate

== ENCOUNTER 2024-02-11 18:49 | Emergency (ER) | payer MEDICARE, OTHER ==
[~2024-02-11] VITALS: Ht 170.2 cm; Wt 95.6 kg
[~2024-02-11 18:49] MED LIST changes: +ACET-907 PO; +B-12100010 PO; +DOXY-444 PO; -GABA-283 PO; +GABA-284 PO; +MELA5CAP2 PO; +SELF1KIT MC
[2024-02-11 20:17] LABS: BASO # 0.1 10^3/uL (0.0-0.2); BASO % 0.7 % (0.0-1.0); EOS # 0.4 10^3/uL (0.0-0.5); EOS % 4.6 % (0.0-3.0); HEMATOCRIT 41.8 % (36.0-47.0); LYMPH # 3.5 10^3/uL (1.5-5.0); LYMPH % 38.2 % (24.0-44.0); MEAN CORPUSCULAR HEMOGLOBIN 32.2 pg (27.0-33.0); MEAN CORPUSCULAR HGB CONC 33.5 g/dl (32.0-36.5); MEAN CORPUSCULAR VOLUME 96.1 fl (80.0-96.0); MONO # 0.8 10^3/uL (0.0-0.8); MONO % 8.6 % (2.0-8.0); NEUTROPHILS # 4.4 10^3/uL (1.5-8.5); NEUTROPHILS % 47.6 % (36.0-66.0); PLATELET COUNT, AUTOMATED 282 10^3/uL (150-450); RED BLOOD COUNT 4.35 10^6/uL (4.00-5.40); WHITE BLOOD COUNT 9.2 10^3/uL (4.0-10.0)
[2024-02-11 20:21] LABS: CALCIUM LEVEL 9.8 MG/DL (8.3-10.6); CREATININE FOR GFR 1.13 MG/DL (0.55-1.30); GLOMERULAR FILTRATION RATE 49.4 (>39); POTASSIUM SERUM 5.1 MMOL/L (3.5-5.1)
[2024-02-11] MEDS: KETOROLAC 30 MG/ML 1ML VIAL IV ONE (20:45)
[2024-02-11] MEDS: NS 500 ML IV ONE (21:47)
[2024-02-11 22:30] VITALS: BP 137/69; TEMP 98; O2SAT 96
[2024-02-11] MEDS ORDERED: KETO10TAB PO (22:42)
[2024-02-11] MEDS ORDERED: CEFD1CAP9 PO (22:42)
[2024-02-11] MEDS: CEFDINIR 300 MG CAP (OMNICEF) PO ONE (22:56)
[2024-02-11] MEDS: LIDOCAINE 5% (LIDODERM) PATCH TD ONE (22:57)
== END 2024-02-11 23:00 | disposition home or self-care (01) ==
LOC: M ED 18:49
DX: N39.0 Urinary tract infection, site not specified (principal); I10 Essential (primary) hypertension; E78.5 Hyperlipidemia, unspecified; J45.909 Unspecified asthma, uncomplicated; F41.9 Anxiety disorder, unspecified; F32.A Depression, unspecified; Z85.858 Personal history of malignant neoplasm of other endocrine glands; Z79.899 Other long term (current) drug therapy; Z91.040 Latex allergy status
CPT/HCPCS: 74176; 80048; 81001; 85025; 87086; 96361; 96374; 99284; J1885

== ENCOUNTER 2025-05-16 16:56 | Emergency (ER) | payer MEDICARE, OTHER ==
[~2025-05-16] VITALS: Ht 170.2 cm; Wt 93.4 kg
[~2025-05-16 16:56] MED LIST changes: -AZEL0.055; +AZEL1SPR4; +CEFD1CAP9 PO; +DOXY-440 PO; -DOXY-444 PO; +ECHI400C19 PO; -ECHI400C2 PO; -GARL500C2 PO; +GARL500C6 PO; +KETO10TAB PO
[2025-05-16 17:36] LABS: BASO # 0.1 10^3/uL (0.0-0.2); BASO % 0.8 % (0.0-1.0); EOS # 0.3 10^3/uL (0.0-0.5); EOS % 2.7 % (0.0-3.0); LYMPH # 3.8 10^3/uL (1.5-5.0); LYMPH % 35.3 % (24.0-44.0); MONO # 0.9 10^3/uL (0.0-0.8); MONO % 8.7 % (2.0-8.0); NEUTROPHILS # 5.5 10^3/uL (1.5-8.5); NEUTROPHILS % 52.1 % (36.0-66.0); PLATELET COUNT, AUTOMATED 266 10^3/uL (150-450)
[2025-05-16 18:01] LABS: CALCIUM LEVEL 9.4 MG/DL (8.3-10.6); CARBON DIOXIDE LEVEL 26.0 MMOL/L (20-31); CHLORIDE LEVEL 105.0 MMOL/L (98-107); CREATININE FOR GFR 1.06 MG/DL (0.55-1.30); GLOMERULAR FILTRATION RATE 52.8 (>32); POTASSIUM SERUM 4.2 MMOL/L (3.5-5.1); SODIUM LEVEL 143.0 MMOL/L (136-145)
[2025-05-16 18:11] VITALS: BP 141/99; TEMP 98; O2SAT 90
[2025-05-16 18:18] VITALS: BP 178/89
[2025-05-16] MEDS: amLODIPine 5 MG TAB PO ONE (18:18)
[2025-05-16 18:19] LABS: MAGNESIUM LEVEL 2.0 MG/DL (1.8-2.4)
[2025-05-16 18:23] LABS: FREE T4 1.1 NG/DL (0.89-1.76)
[2025-05-16] MEDS ORDERED: AMLO1TAB24 PO (18:40)
== END 2025-05-16 19:14 | disposition home or self-care (01) ==
LOC: M ED 16:56
DX: I10 Essential (primary) hypertension (principal); J45.909 Unspecified asthma, uncomplicated; Z79.899 Other long term (current) drug therapy; Z91.040 Latex allergy status